=== PATIENT | female | born 1940 | race Caucasian/White ===

== ENCOUNTER 2016-03-10 14:00 | Outpatient (RCR) | payer MEDICARE ==
--- OUTSIDE RECORDS SUMMARY | 2015-12-17 09:47 | XMS REPORT | Continuity of Care Document ---
Author Author [facility] Organization [facility] Address Unknown Phone Unavailable Care Team Providers Care [employer] Name Role Phone Kim Donnelly PCP [phone] Source Comments Some departments are not documenting in the electronic medical record. If you do not see the information that you expected, contact Release of Information in the Health Information Management department at [phone] for further assistance in locating additional records.[facility] Active Allergies and Adverse Reactions Allergen Noted Date Severity Reactions Comments Demerol 07/21/2013 Low NAUSEA AND VOMITING Patient tolerated 12.5mg on 10/01. Flagyl 07/21/2013 RASH Fosamax 07/21/2013 NAUSEA AND VOMITING Neurontin 08/11/2013 DIZZINESS Current Medications Prescription Sig. Disp. Refills Start End Date Status Date lisinopril (PRINIVIL; Take 10 mg by mouth Active ZESTRIL) 10 mg tablet daily. Calcium Citrate-Vitamin Take 2 Tabs by mouth Active D2 1,500-200 mg-unit tab daily. cholecalciferol (VITAMIN Take 1,000 Units by mouth Active D-3) 1,000 units tablet daily. omeprazole DR(+) Take 20 mg by mouth at Active (PRILOSEC) 20 mg capsule bedtime daily. polyethylene glycol 3350 Take 17 g by mouth daily. 238 g 3 05/17/19 Active (GLYCOLAX; MIRALAX) 17 16 gram/dose powder denosumab (XGEVA) 120 Inject 120 mg into Active mg/1.7 mL (70 mg/mL) area(s) as directed every injection 28 days. aspirin EC 81 mg tablet Take 1 Tab by mouth 90 Tab 3 10/04/19 Active daily. HOLD UNTIL YOUR 16 CENTRAL OFFICE TROUBLE SHOOTER GIVES YOU THE OK TO RESTART ondansetron hcl (ZOFRAN) Take 1 Tab by mouth every 30 Tab 0 10/04/19 Active 4 mg tablet 6 hours as needed for 16 Nausea. senna (SENOKOT) 8.6 mg Take 1 Tab by mouth twice 90 Tab 3 10/04/19 Active tablet daily. 16 prochlorperazine maleate Take 1 Tab by mouth every 30 Tab 0 10/04/19 Active (COMPAZINE) 10 mg tablet 6 hours as needed for 16 Nausea. Indications: CANCER CHEMOTHERAPY-INDUCED NAUSEA AND VOMITING fluconazole (DIFLUCAN) Take 1 Tab by mouth 60 Tab 1 10/30/19 Active 200 mg tablet daily. 16 acyclovir (ZOVIRAX) 400 Take 2 Tabs by mouth 60 Tab 0 10/30/19 Active mg tablet twice daily. Indications: 16 PREVENTION OF HERPES ZOSTER IN IMMUNOCOMPROMISED PATIENT potassium chloride(+) Take 10 mEq by mouth Active (MICRO-K) 10 mEq capsule daily. Take with a meal and a full glass of water. acyclovir (ZOVIRAX) 800 1 Tab twice daily. 60 Tab 11 12/05/19 Active mg tablet 16 dexamethasone (DECADRON) Take 1 tablet by mouth 30 Tab 11 12/05/19 Active 4 mg tablet daily for 2 days starting 16 the day after each Daratumumab infusion. doxycycline (VIBRAMYCIN) Take 100 mg by mouth 12/05/19 Active 100 mg tablet twice daily. 16 triamcinolone (NASACORT) Apply 2 Sprays to each Active 55 mcg nasal inhaler nostril as directed daily. fexofenadine(+) (LISET) Take 180 mg by mouth Active 180 mg tablet daily. thalidomide (THALOMID) Take 1 Cap by mouth 28 Cap 0 09/24/19 Discontin 100 mg capsule daily. for 4 days. Do NOT 16 16 ued take remainder of pills. Take at least 1 hour after evening meal. levofloxacin (LEVAQUIN) Take 1 Tab by mouth every 15 Tab 1 10/30/19 12/10/19 Discontin 750 mg tablet 48 hours. 16 16 ued MAGNESIUM OXIDE Take by mouth. 12/10/19 Discontin (MAG-OXIDE PO) 16 ued Active Problems Problem Noted Date Encounter for antineoplastic chemotherapy 10/25/2015 Pancytopenia due to chemotherapy (HCC) 10/12/2015 Paroxysmal atrial fibrillation (HCC) 09/24/2015 Last Assessment & Plan: Pt has a hx of Paroxymal A.fib, she is not on any BB meds or cardizem. Since we are adding Thalidomide for treatment we will admit the pt to monitor bed for close follow up of her HR Plan: - Telemetry for f/u for any bradycardia or arrhythmia while on treatment - Check 12 Lead EKG Multiple myeloma in relapse (HCC) 09/24/2015 Mesenteric mass 05/15/2015 Soft tissue mass 05/10/2015 Lung nodule 05/10/2015 History of peripheral stem cell transplant (HCC) 08/24/2013 Overview: Date of Transplant: 08.24.2013 Preparative Regimen: Melphalan 140 Disease: Multiple Myeloma IgG kappa Disease Status at Transplant: 1st VGPR CMV: Positive Cell Source: Autologous/Peripheral Consents/Studies: Auto, Apheresis, Blood, 8322 Coordinator: Maggie Larson RN Low back pain 08/24/2013 Myeloma 08/11/2013 Last Assessment & Plan: Relapse/Refractory Multiple myeloma: A 74 y/o old Female with known diagnosis of IgG L Multipke myeloma dxed in 02/2013. Pt received multiple lines of therapy VD X 2 cycles/VRD x 2 cycles, s/p Zoraida 140/ASCT, achieved VGPR, followed by Lenalidomide as maintinance therapy. 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 Pt had XRT to the plasmacytoma, with minimal response per outside CT scan and was started on CFZ/dex. Pt was sent to our clinic because she has progressed on treatment. She received 2 Cycles of VDTPACE 25% reduction and she had NJ of the mesenteric mass, with Complete hematological response. I discussed with the Pt that we will need to start her on daratumumab therapy in order that we have a best response. The side effects of chemotherapy were discussed extensively with the patient to include the following: Nausea, vomiting, diarrhea, renal failure/dysfunction, constipation, nerve damage, mucositis, hair loss, myelosuppression causing infection or requiring blood product transfusion, allergic reaction, secondary malignancies and even . Question were answered. Consent signed and placed into chart. Plan:. - Start Daratumumab (Darzalex) as follows: Weeks 1 to 8: 16 mg/kg IV once per week Weeks 9 to 24: 16 mg/kg IV once every 2 weeks Weeks 25 and on: 16 mg/kg IV once every 4 weeks - Will give the first dose starting on 12/10/15 and then she can receive the rest of her treatment with her local oncologist/ I discussed the plan of care - We recommend to check myeloma markers monthly - Re-check CT scan of the abd/chest after 2 months after starting the treatment - We may consider to add Lenalidoimide or pomalidomide or even Velcade if needed to the regimen - RTC in 2 months for further evaluation Hypertension 08/11/2013 Diabetes (HCC) 08/11/2013 Last Assessment & Plan: Pt is currently on Metformin, will hold that and start her on insulin SSI while hospitalized Malignant neoplasm of left female breast (HCC) 08/11/2013 Overview: She also has a hx of breast cancer diagnosed in 1999. She underwent lumpectomy followed by XRT to her left breast. It was ER/NJ positive and she completed 4.5 yrs of endocrine therapy. She then had a recurrence of her breast cancer in 2009 and underwent a left mastectomy without other adjuvant therapy L ast Assessment & Plan: She also has a hx of breast cancer diagnosed in 1999. She underwent lumpectomy followed by XRT to her left breast. It was ER/NJ positive and she completed 4.5 yrs of endocrine therapy. She then had a recurrence of her breast cancer in 2009 and underwent a left mastectomy without other adjuvant therapy Perforated diverticulitis 08/11/2013 S/P cholecystectomy 08/11/2013 S/P colon resection 08/11/2013 Resolved Problems Problem Noted Date Resolved Date Abdominal pain 03/08/2015 09/23/2015 Most Recent Encounters Date Type Specialty Providers Description 12/11/2015 Documentation Oncology Maria A Locke MD 12/10/2015 [facility] Oncology Maria A Locke MD Encounter 12/10/2015 [facility] Oncology Doctor, Miscellaneous Arrived Encounter 12/10/2015 [facility] Oncology Maria A Locke MD Encounter 12/07/2015 Orders Only Oncology Maria A Locke MD 12/06/2015 Orders Only Oncology Maria A Locke MD Multiple myeloma, remission status unspecified (HCC) (Primary Dx) 12/06/2015 Documentation Oncology Maria A Locke MD 12/05/2015 Orders Only Oncology Maria A Locke MD Multiple myeloma in relapse (HCC) (Primary Dx) 11/27/2015 Telephone Oncology Maria A Locke MD Congestion 11/20/2015 Hospital Oncology Errol Santos MD Encounter 11/20/2015 Office Visit Oncology Maria A Locke MD Multiple myeloma, remission status unspecified (HCC) (Primary Dx); Malignant neoplasm of left female breast, unspecified site of breast (HCC) 11/20/2015 Documentation Oncology Eufemia Walker RN 11/19/2015 [facility] Radiology Maria A Locke MD Encounter 11/19/2015 [facility] Radiology Maria A Locke MD Encounter 11/19/2015 Screening Form 11/07/2015 Telephone Oncology Maria A Locke MD Appointment Request 11/07/2015 Documentation Oncology Maria A Locke MD Multiple myeloma, remission status unspecified (HCC) (Primary Dx) 11/06/2015 Telephone Oncology Maria A Locke MD Hospitalized Patient 10/29/2015 Telephone Oncology Maria A Locke MD Appointment Request 10/25/2015 [facility] Hematology and Oncology Facundo Diaz MD Encounter for - Encounter Male, Tete Salomon MD antineoplastic 10/30/2015 chemotherapy 10/25/2015 Office Visit Oncology David Reyna DO Fatigue, unspecified type Maria A Locke MD (Primary Dx); Multiple myeloma in relapse (HCC) 10/25/2015 [facility] Oncology Maria A Locke MD Encounter 10/25/2015 Orders Only Oncology Maria A Locke MD 10/15/2015 [facility] Radiology Maria A Locke MD Encounter 10/15/2015 Screening Form 10/15/2015 Ancillary Oncology Maria A Locke MD Multiple myeloma, Orders remission status unspecified (HCC) (Primary Dx) 10/04/2015 Refill Ramírez Harvey DO 10/04/2015 Telephone Oncology Maria A Locke MD Appointment Request 10/04/2015 Orders Only Oncology Maria A Locke MD Multiple myeloma, remission status unspecified (HCC) (Primary Dx) 10/03/2015 Cancer Oncology Maria A Locke MD Conference 09/25/2015 Screening Form 09/24/2015 [facility] Hematology and Oncology Male, Tete Salomon MD Multiple myeloma in - Encounter Denise Berry MD relapse (HCC) 10/04/2015 Facundo Diaz MD 09/24/2015 Office Visit Oncology Maria A Locke MD Multiple myeloma in relapse (HCC) (Primary Dx); Paroxysmal atrial fibrillation (HCC); Type 2 diabetes mellitus without complication, without long-term current use of insulin (HCC) 09/24/2015 Refill Oncology Maria A Locke MD 09/24/2015 Orders Only Oncology Umu Leal, PHARMD 09/24/2015 Orders Only Oncology Maria A Locke MD 09/21/2015 Orders Only Oncology Maria A Locke MD Multiple myeloma in relapse (HCC) (Primary Dx) 09/19/2015 Telephone Oncology Maria Alejandra Vitale RN BMT Follow-up Immunizations Name Dates Previously Given Next Due Acthib Vaccine 07/05/2014, 05/08/2014, 03/10/2014 Flu Vaccine Trivalent >64 11/20/2015 Yo High-dose (Preservative Free) Hepatitis A vaccine Adult 09/04/2014, 03/10/2014 IM Hepatitis B Vaccine Adult 09/04/2014, 05/08/2014, 03/10/2014 3 Dose IM IPV 07/05/2014, 05/08/2014, 03/10/2014 Meningococcal Conjug 03/10/2014 Vaccine Pneumococcal Vaccine 09/04/2014 (23-Sagrario Adult) Pneumococcal 07/05/2014, 05/08/2014, 03/10/2014 Vaccine(13-Sagrario Peds/immunocompromised adult) Tdap Vaccine 07/05/2014, 05/08/2014, 03/10/2014 Social History Tobacco Use Types Packs/Day Years Used Date Former Smoker Cigarettes 0.5 Quit: 08/11/1997 Smokeless Tobacco: Never Used Alcohol Use Drinks/Week oz/Week Comments No Last Filed Vital Signs Vital Sign Reading Time Taken Blood Pressure 186/78 12/10/2015 8:30 AM CDT Pulse 72 12/10/2015 7:55 AM CDT Temperature 36.5 C (97.7 F) 12/10/2015 7:55 AM CDT Respiratory Rate 16 12/10/2015 7:55 AM CDT Height 1.575 m (5' 2.01") 11/20/2015 8:43 AM CDT Weight 67.858 kg (149 lb 9.6 oz) 12/10/2015 7:55 AM CDT Body Mass Index 27.36 12/10/2015 7:55 AM CDT Oxygen Saturation 100% 12/10/2015 7:55 AM CDT Plan of Care Date Type Specialty Providers Description 01/15/2016 Appointment Oncology 01/15/2016 Appointment Oncology Maria A Locke MD [address] [place] [address] [phone] (Fax) Health Maintenance Due Date Last Done Comments Physical (Comprehensive) 1945 Exam Dilated Eye Exam 1956 Foot Exam 1956 Microalbumin 1956 Shingles Vaccine 1998 Osteoporosis Screening 10/22/2003 Prevnar/Pneumovax (#2) 03/10/2015 09/04/2014, 07/05/2014, 05/08/2014 Additional history exists Hba1c 06/09/2016 12/10/2015 Influenza Vaccine 10/17/2016 11/20/2015 Tetanus Vaccine 07/05/2024 07/05/2014, 05/08/2014, 03/10/2014 Pertussis Vaccine Completed 07/05/2014, 05/08/2014, 03/10/2014 Procedures from Last 3 Months Procedure Name Priority Date/Time Associated Diagnosis Comments PROCEDURES-SCAN 11/01/2015 Results for this 1:48 PM CDT procedure are in the results section. PROCEDURES-SCAN 10/27/2015 Results for this 1:48 PM CDT procedure are in the results section. PROCEDURES-SCAN 10/05/2015 Results for this 1:47 PM CDT procedure are in the results section. PROCEDURES-SCAN 10/05/2015 Results for this 1:45 PM CDT procedure are in the results section. PROCEDURES-SCAN 09/25/2015 Results for this 9:04 AM CDT procedure are in the results section. CONSULT IV THERAPY TEAM Routine 09/24/2015 2:17 PM CDT Results from Last 3 Months HEMOGLOBIN A1C (12/10/2015 7:33 AM) Component Value Range Hemoglobin A1C 6.6 (H)Comment: 4.0-6.0 % The ADA recommends that most patients with type 1 and type 2 diabetes maintain an A1c level <7%. TYPE & CROSSMATCH (12/10/2015 7:13 AM)Only the most recent of 3 results within the time period is included. Component Value Range Units Ordered 0 Crossmatch Expires 12/13/2015 Record Check FOUND ABO/RH(D) B POS Antibody Screen NEG Patient has a history of a clinically significant antibody. Specimen Blood COMPREHENSIVE METABOLIC PANEL (12/10/2015 6:58 AM)Only the most recent of 19 results within the time period is included. Component Value Range Sodium 140 137-147 MMOL/L Potassium 3.4 (L) 3.5-5.1 MMOL/L Chloride 108 98-110 MMOL/L Glucose 169 (H) 70-100 MG/DL Blood Urea Nitrogen 16 7-25 MG/DL Creatinine 0.88 0.4-1.00 MG/DL Calcium 8.8 8.5-10.6 MG/DL Total Protein 5.7 (L) 6.0-8.0 G/DL Total Bilirubin 0.3 0.3-1.2 MG/DL Albumin 3.5 3.5-5.0 G/DL Alk Phosphatase 54 25-110 U/L AST (SGOT) 11 7-40 U/L CO2 25 21-30 MMOL/L ALT (SGPT) 11 7-56 U/L Anion Gap 7 3-12 eGFR Non >60Comment: >60 mL/min The eGFR is not validated for use in drug dosing adjustments. Continue to use estimated creatinine clearance per dosing reference text. Please contact the Clinical Pharmacist for questions. eGFR >60Comment: >60 mL/min The eGFR is not validated for use in drug dosing adjustments. Continue to use estimated creatinine clearance per dosing reference text. Please contact the Clinical Pharmacist for questions. Specimen Blood CBC AND DIFF (12/10/2015 6:58 AM)Only the most recent of 19 results within the time period is included. Component Value Range White Blood Cells 5.9 4.5-11.0 K/UL RBC 3.22 (L) 4.0-5.0 M/UL Hemoglobin 10.6 (L) 12.0-15.0 GM/DL Hematocrit 31.4 (L) 36-45 % MCV 97.7 80-100 FL MCH 32.9 26-34 PG MCHC 33.7 32.0-36.0 G/DL RDW 24.5 (H) 11-15 % Platelet Count 171 150-400 K/UL MPV 7.8 7-11 FL Neutrophils 69 41-77 % Lymphocytes 16 (L) 24-44 % Monocytes 12 4-12 % Eosinophils 2 0-5 % Basophils 1 0-2 % Absolute Neutrophil Count 4.10 1.8-7.0 K/UL Absolute Lymph Count 0.90 (L) 1.0-4.8 K/UL Absolute Monocyte Count 0.70 0-0.80 K/UL Absolute Eosinophil Count 0.10 0-0.45 K/UL Absolute Basophil Count 0.10 0-0.20 K/UL Specimen Blood CT CHEST W CONTRAST (11/19/2015 2:43 PM) Impressions CHEST: 1. Stable solid right upper and groundglass left upper lobe nodular opacities. These remain indeterminate but are unchanged dating back to 05/11/2015. Follow- up CT chest in 6 months is suggested to document stability. 2. No thoracic lymphadenopathy. 3. Stable patchy marrow heterogeneity compatible with known multiple myeloma. No definite new aggressive or expansile osseous lesion. 4. Coronary artery disease. ABDOMEN AND PELVIS: 1. Further mild improvement of retroperitoneal and central mesenteric lymphadenopathy. 2. Stable patchy marrow heterogeneity compatible with known multiple myeloma. No definite new aggressive or expansile osseous lesion. 3. Unchanged small ovoid soft tissue nodule within the caudal right retroperitoneum which is of doubtful clinical significance given absence of significant increased FDG uptake on prior PET examination, though attention on follow-up is suggested. 4. Moderate diffuse colonic diverticulosis. By my electronic signature, I attest that I have personally reviewed the images for this examination and formulated the interpretations and opinions expressed in this report Finalized by KRIS SHORE M.D. on 11/19/2015 4:30 PM. Dictated by Jose J Resendiz M.D. on 11/19/2015 3:[address] CHEST, ABDOMEN AND PELVIS Clinical Indication: Multiple myeloma, restaging. Technique: Multiple contiguous axial images were obtained through the chest, abdomen and pelvis following the administration of IV contrast material. Portal venous and delayed imaging was obtained. Post processing coronal and sagittal reconstruction images were made from the axial images. IV contrast: Isovue 370. Comparison: CT abdomen/pelvis October 15, 2015 and PET examination September 25, 2015. CHEST FINDINGS: Lower Neck: Unremarkable Axilla, Mediastinum and Betty: No thoracic lymphadenopathy is identified. There is a right chest port in place with its distal tip within the mid to upper SVC. Heart and Great Vessels: The heart is normal in size. There is trace pericardial fluid. There are three-vessel coronary artery calcifications. The thoracic aorta is normal caliber with mild atherosclerotic calcifications. Airway, Lungs and Pleura: There is an unchanged 1.2 cm right upper lobe pulmonary nodule (image 16, series 2) which is unchanged since the oldest available examination of April 2015. A somewhat ill-defined groundglass nodule measuring up to 1.4 cm within the left upper lobe is also stable (image 19, series 2). No definite new or enlarging pulmonary nodules are identified. There is mild dependent atelectasis and/or scarring throughout both lungs. Chest Wall and Osseous Structures: There is prior left mastectomy. Note is made of prior multilevel cement augmentation of the thoracic spine with multiple unchanged mild vertebral body compression deformities. Unchanged areas of extruded methylmethacrylate in the posterior mediastinum. There are stable scattered areas of marrow heterogeneity and sclerosis with an unchanged lytic lesion within the left sternal manubrium (image 14, series 2). ABDOMEN AND PELVIS FINDINGS: Liver and Biliary system: The liver remains normal in size. There are a few stable low-attenuation hepatic lesions which are incompletely characterized, though likely small cysts. No definite new or enlarging hepatic lesions are identified. Spleen: Unremarkable. Adrenal Glands and Kidneys: Unremarkable apart from stable small probable bilateral renal cysts and small right adrenal gland adenoma. Pancreas and Retroperitoneum: The pancreas is unremarkable. There is further improvement of ill-defined periaortic soft tissue thickening at the level of the aortic bifurcation and origin of the inferior mesenteric artery. There is an unchanged small ovoid soft tissue nodule within the caudal right retroperitoneum (image 85, series 2) which was without significant increased FDG uptake on prior PET. Aorta and Major Vessels: The abdominal aorta is normal caliber. There are moderate aortoiliac atherosclerotic calcifications. There is persistent mass effect and circumferential soft tissue encasement of the superior mesenteric vasculature within the central abdomen. Bowel, Mesentery and Peritoneal space: The large and small bowel remain normal caliber. There is moderate diffuse colonic diverticulosis. The appendix is normal. There is no significant ascites. There is further improvement of central mesenteric lymphadenopathy with the previously measured kylah conglomerate measuring 3.9 x 2.9 cm (image 72, series 2) from 4.6 x 3.1 cm previously. An adjacent small cystic lesion is not significantly changed (image 73, series 2). Pelvis: There is prior hysterectomy. The unopacified and urinary bladder and vaginal cuff are unremarkable. No pelvic lymphadenopathy is identified. Abdominal wall and Osseous Structures: There are patchy areas of marrow heterogeneity and lucency compatible with known multiple myeloma. There is prior cement augmentation of the L2 and L3 vertebral bodies with unchanged mild compression deformities. There is prior midline laparotomy with decreased conspicuity of multiple ill-defined areas of nodular soft tissue thickening within the anterior abdominal wall which likely represent injection site granulomas. Procedure Note Interface, Radiant Results - Mon Nov 19, 2015 4:[address] CHEST, ABDOMEN AND PELVIS Clinical Indication: Multiple myeloma, restaging. Technique: Multiple contiguous axial images were obtained through the chest, abdomen and pelvis following the administration of IV contrast material. Portal venous and delayed imaging was obtained. Post processing coronal and sagittal reconstruction images were made from the axial images. IV contrast: Isovue 370. Comparison: CT abdomen/pelvis October 15, 2015 and PET examination September 25, 2015. CHEST FINDINGS: Lower Neck: Unremarkable Axilla, Mediastinum and Betty: No thoracic lymphadenopathy is identified. There is a right chest port in place with its distal tip within the mid to upper SVC. Heart and Great Vessels: The heart is normal in size. There is trace pericardial fluid. There are three-vessel coronary artery calcifications. The thoracic aorta is normal caliber with mild atherosclerotic calcifications. Airway, Lungs and Pleura: There is an unchanged 1.2 cm right upper lobe pulmonary nodule (image 16, series 2) which is unchanged since the oldest available examination of April 2015. A somewhat ill-defined groundglass nodule measuring up to 1.4 cm within the left upper lobe is also stable (image 19, series 2). No definite new or enlarging pulmonary nodules are identified. There is mild dependent atelectasis and/or scarring throughout both lungs. Chest Wall and Osseous Structures: There is prior left mastectomy. Note is made of prior multilevel cement augmentation of the thoracic spine with multiple unchanged mild vertebral body compression deformities. Unchanged areas of extruded methylmethacrylate in the posterior mediastinum. There are stable scattered areas of marrow heterogeneity and sclerosis with an unchanged lytic lesion within the left sternal manubrium (image 14, series 2). ABDOMEN AND PELVIS FINDINGS: Liver and Biliary system: The liver remains normal in size. There are a few stable low-attenuation hepatic lesions which are incompletely characterized, though likely small cysts. No definite new or enlarging hepatic lesions are identified. Spleen: Unremarkable. Adrenal Glands and Kidneys: Unremarkable apart from stable small probable bilateral renal cysts and small right adrenal gland adenoma. Pancreas and Retroperitoneum: The pancreas is unremarkable. There is further improvement of ill-defined periaortic soft tissue thickening at the level of the aortic bifurcation and origin of the inferior mesenteric artery. There is an unchanged small ovoid soft tissue nodule within the caudal right retroperitoneum (image 85, series 2) which was without significant increased FDG uptake on prior PET. Aorta and Major Vessels: The abdominal aorta is normal caliber. There are moderate aortoiliac atherosclerotic calcifications. There is persistent mass effect and circumferential soft tissue encasement of the superior mesenteric vasculature within the central abdomen. Bowel, Mesentery and Peritoneal space: The large and small bowel remain normal caliber. There is moderate diffuse colonic diverticulosis. The appendix is normal. There is no significant ascites. There is further improvement of central mesenteric lymphadenopathy with the previously measured kylah conglomerate measuring 3.9 x 2.9 cm (image 72, series 2) from 4.6 x 3.1 cm previously. An adjacent small cystic lesion is not significantly changed (image 73, series 2). Pelvis: There is prior hysterectomy. The unopacified and urinary bladder and vaginal cuff are unremarkable. No pelvic lymphadenopathy is identified. Abdominal wall and Osseous Structures: There are patchy areas of marrow heterogeneity and lucency compatible with known multiple myeloma. There is prior cement augmentation of the L2 and L3 vertebral bodies with unchanged mild compression deformities. There is prior midline laparotomy with decreased conspicuity of multiple ill-defined areas of nodular soft tissue thickening within the anterior abdominal wall which likely represent injection site granulomas. IMPRESSION CHEST: 1. Stable solid right upper and groundglass left upper lobe nodular opacities. These remain indeterminate but are unchanged dating back to 05/11/2015. Follow- up CT chest in 6 months is suggested to document stability. 2. No thoracic lymphadenopathy. 3. Stable patchy marrow heterogeneity compatible with known multiple myeloma. No definite new aggressive or expansile osseous lesion. 4. Coronary artery disease. ABDOMEN AND PELVIS: 1. Further mild improvement of retroperitoneal and central mesenteric lymphadenopathy. 2. Stable patchy marrow heterogeneity compatible with known multiple myeloma. No definite new aggressive or expansile osseous lesion. 3. Unchanged small ovoid soft tissue nodule within the caudal right retroperitoneum which is of doubtful clinical significance given absence of significant increased FDG uptake on prior PET examination, though attention on follow-up is suggested. 4. Moderate diffuse colonic diverticulosis. By my electronic signature, I attest that I have personally reviewed the images for this examination and formulated the interpretations and opinions expressed in this report Finalized by KRIS SHORE M.D. on 11/19/2015 4:30 PM. Dictated by Jose J Resendiz M.D. on 11/19/2015 3:[address] ABD/PELV W CONTRAST (11/19/2015 2:43 PM)Only the most recent of 2 results within the time period is included. Impressions CHEST: 1. Stable solid right upper and groundglass left upper lobe nodular opacities. These remain indeterminate but are unchanged dating back to 05/11/2015. Follow- up CT chest in 6 months is suggested to document stability. 2. No thoracic lymphadenopathy. 3. Stable patchy marrow heterogeneity compatible with known multiple myeloma. No definite new aggressive or expansile osseous lesion. 4. Coronary artery disease. ABDOMEN AND PELVIS: 1. Further mild improvement of retroperitoneal and central mesenteric lymphadenopathy. 2. Stable patchy marrow heterogeneity compatible with known multiple myeloma. No definite new aggressive or expansile osseous lesion. 3. Unchanged small ovoid soft tissue nodule within the caudal right retroperitoneum which is of doubtful clinical significance given absence of significant increased FDG uptake on prior PET examination, though attention on follow-up is suggested. 4. Moderate diffuse colonic diverticulosis. By my electronic signature, I attest that I have personally reviewed the images for this examination and formulated the interpretations and opinions expressed in this report Finalized by KRIS SHORE M.D. on 11/19/2015 4:30 PM. Dictated by Jose J Resendiz M.D. on 11/19/2015 3:[address] CHEST, ABDOMEN AND PELVIS Clinical Indication: Multiple myeloma, restaging. Technique: Multiple contiguous axial images were obtained through the chest, abdomen and pelvis following the administration of IV contrast material. Portal venous and delayed imaging was obtained. Post processing coronal and sagittal reconstruction images were made from the axial images. IV contrast: Isovue 370. Comparison: CT abdomen/pelvis October 15, 2015 and PET examination September 25, 2015. CHEST FINDINGS: Lower Neck: Unremarkable Axilla, Mediastinum and Betty: No thoracic lymphadenopathy is identified. There is a right chest port in place with its distal tip within the mid to upper SVC. Heart and Great Vessels: The heart is normal in size. There is trace pericardial fluid. There are three-vessel coronary artery calcifications. The thoracic aorta is normal caliber with mild atherosclerotic calcifications. Airway, Lungs and Pleura: There is an unchanged 1.2 cm right upper lobe pulmonary nodule (image 16, series 2) which is unchanged since the oldest available examination of April 2015. A somewhat ill-defined groundglass nodule measuring up to 1.4 cm within the left upper lobe is also stable (image 19, series 2). No definite new or enlarging pulmonary nodules are identified. There is mild dependent atelectasis and/or scarring throughout both lungs. Chest Wall and Osseous Structures: There is prior left mastectomy. Note is made of prior multilevel cement augmentation of the thoracic spine with multiple unchanged mild vertebral body compression deformities. Unchanged areas of extruded methylmethacrylate in the posterior mediastinum. There are stable scattered areas of marrow heterogeneity and sclerosis with an unchanged lytic lesion within the left sternal manubrium (image 14, series 2). ABDOMEN AND PELVIS FINDINGS: Liver and Biliary system: The liver remains normal in size. There are a few stable low-attenuation hepatic lesions which are incompletely characterized, though likely small cysts. No definite new or enlarging hepatic lesions are identified. Spleen: Unremarkable. Adrenal Glands and Kidneys: Unremarkable apart from stable small probable bilateral renal cysts and small right adrenal gland adenoma. Pancreas and Retroperitoneum: The pancreas is unremarkable. There is further improvement of ill-defined periaortic soft tissue thickening at the level of the aortic bifurcation and origin of the inferior mesenteric artery. There is an unchanged small ovoid soft tissue nodule within the caudal right retroperitoneum (image 85, series 2) which was without significant increased FDG uptake on prior PET. Aorta and Major Vessels: The abdominal aorta is normal caliber. There are moderate aortoiliac atherosclerotic calcifications. There is persistent mass effect and circumferential soft tissue encasement of the superior mesenteric vasculature within the central abdomen. Bowel, Mesentery and Peritoneal space: The large and small bowel remain normal caliber. There is moderate diffuse colonic diverticulosis. The appendix is normal. There is no significant ascites. There is further improvement of central mesenteric lymphadenopathy with the previously measured kylah conglomerate measuring 3.9 x 2.9 cm (image 72, series 2) from 4.6 x 3.1 cm previously. An adjacent small cystic lesion is not significantly changed (image 73, series 2). Pelvis: There is prior hysterectomy. The unopacified and urinary bladder and vaginal cuff are unremarkable. No pelvic lymphadenopathy is identified. Abdominal wall and Osseous Structures: There are patchy areas of marrow heterogeneity and lucency compatible with known multiple myeloma. There is prior cement augmentation of the L2 and L3 vertebral bodies with unchanged mild compression deformities. There is prior midline laparotomy with decreased conspicuity of multiple ill-defined areas of nodular soft tissue thickening within the anterior abdominal wall which likely represent injection site granulomas. Procedure Note Interface, Radiant Results - Mon Nov 19, 2015 4:[address] CHEST, ABDOMEN AND PELVIS Clinical Indication: Multiple myeloma, restaging. Technique: Multiple contiguous axial images were obtained through the chest, abdomen and pelvis following the administration of IV contrast material. Portal venous and delayed imaging was obtained. Post processing coronal and sagittal reconstruction images were made from the axial images. IV contrast: Isovue 370. Comparison: CT abdomen/pelvis October 15, 2015 and PET examination September 25, 2015. CHEST FINDINGS: Lower Neck: Unremarkable Axilla, Mediastinum and Betty: No thoracic lymphadenopathy is identified. There is a right chest port in place with its distal tip within the mid to upper SVC. Heart and Great Vessels: The heart is normal in size. There is trace pericardial fluid. There are three-vessel coronary artery calcifications. The thoracic aorta is normal caliber with mild atherosclerotic calcifications. Airway, Lungs and Pleura: There is an unchanged 1.2 cm right upper lobe pulmonary nodule (image 16, series 2) which is unchanged since the oldest available examination of April 2015. A somewhat ill-defined groundglass nodule measuring up to 1.4 cm within the left upper lobe is also stable (image 19, series 2). No definite new or enlarging pulmonary nodules are identified. There is mild dependent atelectasis and/or scarring throughout both lungs. Chest Wall and Osseous Structures: There is prior left mastectomy. Note is made of prior multilevel cement augmentation of the thoracic spine with multiple unchanged mild vertebral body compression deformities. Unchanged areas of extruded methylmethacrylate in the posterior mediastinum. There are stable scattered areas of marrow heterogeneity and sclerosis with an unchanged lytic lesion within the left sternal manubrium (image 14, series 2). ABDOMEN AND PELVIS FINDINGS: Liver and Biliary system: The liver remains normal in size. There are a few stable low-attenuation hepatic lesions which are incompletely characterized, though likely small cysts. No definite new or enlarging hepatic lesions are identified. Spleen: Unremarkable. Adrenal Glands and Kidneys: Unremarkable apart from stable small probable bilateral renal cysts and small right adrenal gland adenoma. Pancreas and Retroperitoneum: The pancreas is unremarkable. There is further improvement of ill-defined periaortic soft tissue thickening at the level of the aortic bifurcation and origin of the inferior mesenteric artery. There is an unchanged small ovoid soft tissue nodule within the caudal right retroperitoneum (image 85, series 2) which was without significant increased FDG uptake on prior PET. Aorta and Major Vessels: The abdominal aorta is normal caliber. There are moderate aortoiliac atherosclerotic calcifications. There is persistent mass effect and circumferential soft tissue encasement of the superior mesenteric vasculature within the central abdomen. Bowel, Mesentery and Peritoneal space: The large and small bowel remain normal caliber. There is moderate diffuse colonic diverticulosis. The appendix is normal. There is no significant ascites. There is further improvement of central mesenteric lymphadenopathy with the previously measured kylah conglomerate measuring 3.9 x 2.9 cm (image 72, series 2) from 4.6 x 3.1 cm previously. An adjacent small cystic lesion is not significantly changed (image 73, series 2). Pelvis: There is prior hysterectomy. The unopacified and urinary bladder and vaginal cuff are unremarkable. No pelvic lymphadenopathy is identified. Abdominal wall and Osseous Structures: There are patchy areas of marrow heterogeneity and lucency compatible with known multiple myeloma. There is prior cement augmentation of the L2 and L3 vertebral bodies with unchanged mild compression deformities. There is prior midline laparotomy with decreased conspicuity of multiple ill-defined areas of nodular soft tissue thickening within the anterior abdominal wall which likely represent injection site granulomas. IMPRESSION CHEST: 1. Stable solid right upper and groundglass left upper lobe nodular opacities. These remain indeterminate but are unchanged dating back to 05/11/2015. Follow- up CT chest in 6 months is suggested to document stability. 2. No thoracic lymphadenopathy. 3. Stable patchy marrow heterogeneity compatible with known multiple myeloma. No definite new aggressive or expansile osseous lesion. 4. Coronary artery disease. ABDOMEN AND PELVIS: 1. Further mild improvement of retroperitoneal and central mesenteric lymphadenopathy. 2. Stable patchy marrow heterogeneity compatible with known multiple myeloma. No definite new aggressive or expansile osseous lesion. 3. Unchanged small ovoid soft tissue nodule within the caudal right retroperitoneum which is of doubtful clinical significance given absence of significant increased FDG uptake on prior PET examination, though attention on follow-up is suggested. 4. Moderate diffuse colonic diverticulosis. By my electronic signature, I attest that I have personally reviewed the images for this examination and formulated the interpretations and opinions expressed in this report Finalized by KRIS SHORE M.D. on 11/19/2015 4:30 PM. Dictated by Jose J Resendiz M.D. on 11/19/2015 3:17 PM. AUTO DIFF (11/19/2015 1:35 PM) Component Value Range Neutrophils 74 41-77 % Lymphocytes 14 (L) 24-44 % Monocytes 11 4-12 % Basophils 1 0-2 % Absolute Neutrophil Count 3.5 1.8-7.0 K/UL Absolute Lymph Count 0.7 (L) 1.0-4.8 K/UL Absolute Monocyte Count 0.5 0-0.80 K/UL Absolute Eosinophil Count 0.0 0-0.45 K/UL Absolute Basophil Count 0.0 0-0.20 K/UL KAPPA/LAMBDA FREE LIGHT CHAINS (11/19/2015 1:35 PM)Only the most recent of 4 results within the time period is included. Component Value Range [place], FLC 0.53Comment: 0.33-1.94 MG/DL Freelite results should always be interpreted in conjunction with other laboratory tests and clinical evidence. The possibility of Antigen Excess exists and can cause Immunoassays to under estimate very high concentrations of antigen. Any discordant results should be discussed with Dr. Quezada. Note: Testing instrumentation has changed. The reference range remains the same. Lambda, FLC 0.82 0.57-2.63 MG/DL [place]/Lambda FLC 0.65 0.26-1.65 Specimen Blood ELECTROPHORESIS-SERUM PROTEIN (11/19/2015 1:35 PM)Only the most recent of 2 results within the time period is included. Component Value Range Total Protein-SEP 5.9 (L) 6.0-8.0 G/DL Albumin % 61.8 48-68 % Alpha 1 % 5.5 2-6 % Alpha 2 % 15.0 5-15 % Beta %,Serum 14.6 9-17 % Gamma % 3.1 (L) 9-21 % Interpretation - SEP HYPOGAMMAGLOBULINEMIA Pathologist Signature INTERPRETED BY GINA PENG M.D. By the PATH SIGNATURE ABOVE, I attest that I have personally formulated the final interpretation expressed in this report and that the above diagnosis is based upon my examination of the slides and/or other material indicated in this report. Specimen Blood PROCEDURES-SCAN (11/01/2015 1:48 PM) Narrative Ordered by an unspecified provider. POC GLUCOSE (10/30/2015 12:14 PM)Only the most recent of 66 results within the time period is included. Component Value Range Glucose, POC 167 (H) 70-100 MG/DL VRE SCREEN (10/30/2015 6:30 AM)Only the most recent of 4 results within the time period is included. Component Value Range Battery Name VRE SCREEN Specimen Description PERIRECTAL SWAB Special Requests NONE Culture NO VRE ISOLATED Report Status FINAL 10/31/2015 Specimen Perirectal Swab URIC ACID (10/30/2015 3:40 AM)Only the most recent of 17 results within the time period is included. Component Value Range Uric Acid 3.0 2.0-7.0 MG/DL Specimen Blood LDH-LACTATE DEHYDROGENASE (10/30/2015 3:40 AM)Only the most recent of 18 results within the time period is included. Component Value Range Lactate Dehydrogenase 159 100-210 U/L Specimen Blood D-DIMER (10/30/2015 3:40 AM)Only the most recent of 6 results within the time period is included. Component Value Range D-Dimer 485 (H)Comment: <230 ng/mL DDU The D-dimer cut off value for deep vein thrombosis and pulmonary embolism is 230 ng/mL DDU. Specimen Blood FIBRINOGEN (10/30/2015 3:40 AM)Only the most recent of 17 results within the time period is included. Component Value Range Fibrinogen 270 200-400 MG/DL Specimen Blood PHOSPHORUS (10/30/2015 3:40 AM)Only the most recent of 15 results within the time period is included. Component Value Range Phosphorus 2.1 2.0-4.0 MG/DL Specimen Blood MAGNESIUM (10/30/2015 3:40 AM)Only the most recent of 7 results within the time period is included. Component Value Range Magnesium 2.1 1.6-2.6 MG/DL Specimen Blood BLOOD BANK SAMPLE HOLD (10/29/2015 2:47 AM)Only the most recent of 3 results within the time period is included. Component Value Range BB Sample hold IN LAB ABDOMEN AP ONLY (10/28/2015 8:32 AM) Impressions No radiographic evidence of bowel obstruction. Approved by Bianca Meneses M.D. on 10/28/2015 11:30 AM By my electronic signature, I attest that I have personally reviewed the images for this examination and formulated the interpretations and opinions expressed in this report Finalized by Renato King M.D. on 10/28/2015 11:41 AM. Dictated by Bianca Meneses M.D. on 10/28/2015 8:47 AM. Narrative Procedure: ABDOMEN AP ONLY Clinical Indication: No bowel movement for four days Comparison: 05/17/2015 Findings: The bowel gas pattern is nonobstructive. There is moderate retained fecal material throughout the colon. No definite free intraperitoneal air on these supine radiographs. The visualized lung bases are clear. The lower thoracic aorta is tortuous. Expansile lytic lesion in the right ischium is again noted. Multilevel thoracic and lumbar vertebroplasties. Procedure Note Interface, Radiant Results - Sun Oct 28, 2015 11:44 AM CDT Procedure: ABDOMEN AP ONLY Clinical Indication: No bowel movement for four days Comparison: 05/17/2015 Findings: The bowel gas pattern is nonobstructive. There is moderate retained fecal material throughout the colon. No definite free intraperitoneal air on these supine radiographs. The visualized lung bases are clear. The lower thoracic aorta is tortuous. Expansile lytic lesion in the right ischium is again noted. Multilevel thoracic and lumbar vertebroplasties. IMPRESSION No radiographic evidence of bowel obstruction. Approved by Bianca Meneses M.D. on 10/28/2015 11:30 AM By my electronic signature, I attest that I have personally reviewed the images for this examination and formulated the interpretations and opinions expressed in this report Finalized by Renato King M.D. on 10/28/2015 11:41 AM. Dictated by Bianca Menesse M.D. on 10/28/2015 8:47 AM. PROCEDURES-SCAN (10/27/2015 1:48 PM) Narrative Ordered by an unspecified provider. PTT (APTT) (10/25/2015 3:57 PM)Only the most recent of 2 results within the time period is included. Component Value Range APTT 27.0 24.0-40.0 SEC Specimen Blood PROTIME INR (PT) (10/25/2015 3:57 PM)Only the most recent of 2 results within the time period is included. Component Value Range INR 0.9 0.8-1.2 Specimen Blood TSH WITH FREE T4 REFLEX (10/25/2015 6:58 AM) Component Value Range TSH 4.658 0.35-5.00 MCU/ML IMMUNOFIXATION, SERUM (IFES) (10/25/2015 6:58 AM)Only the most recent of 2 results within the time period is included. Component Value Range Immuno Fix-Serum FAINT IGG LAMBDA PARAPROTEIN Pathologist Signature INTERPRETED BY COLEEN QUEZADA M.D. By the PATH SIGNATURE ABOVE, I attest that I have personally formulated the final interpretation expressed in this report and that the above diagnosis is based upon my examination of the slides and/or other material indicated in this report. Specimen Blood CYTOGENETICS SCAN (10/05/2015 3:51 PM) Narrative Ordered by an unspecified provider. PROCEDURES-SCAN (10/05/2015 1:47 PM) Narrative Ordered by an unspecified provider. PROCEDURES-SCAN (10/05/2015 1:45 PM) Narrative Ordered by an unspecified provider. BETA 2 MICROGLOBULIN (10/01/2015 6:20 PM)Only the most recent of 2 results within the time period is included. Component Value Range B2 Microglobulin 2.7 (H) 0.8-2.3 MG/L Specimen Blood CULTURE-BLOOD W/SENSITIVITY (10/01/2015 1:50 PM)Only the most recent of 3 results within the time period is included. Component Value Range Battery Name BLOOD CULTURE Specimen Description BLOOD NO SITE LISTED Special Requests NONE Culture NO GROWTH 5 DAYS Report Status FINAL 10/07/2015 Specimen Blood URINALYSIS, MICROSCOPIC (10/01/2015 1:35 PM) Component Value Range WBCs,UA 0-2 0-2 /HPF RBCs,UA 0-2 0-3 /HPF MucousUA TRACE Specimen Urine URINALYSIS DIPSTICK (10/01/2015 1:35 PM) Component Value Range Color,UA STRAW Turbidity,UA CLEAR CLEAR-CLEAR Specific [place]-Urine 1.011 1.003-1.035 pH,UA 7.0 5.0-8.0 Protein,UA 2+ (A) NEG-NEG Glucose,UA 2+ (A) NEG-NEG Ketones,UA NEG NEG-NEG Bilirubin,UA NEG NEG-NEG Blood,UA NEG NEG-NEG Urobilinogen,UA NORMAL NORM-NORMAL Nitrite,UA NEG NEG-NEG Leukocytes,UA NEG NEG-NEG Urine Ascorbic Acid, UA NEG NEG-NEG Specimen Urine URINE HGB FOR TRANFUSION REACTION (10/01/2015 1:35 PM) Component Value Range Urine Hgb on Transfusion NEG RX Specimen Urine TRANSFUSION REACTION EVALUATION (10/01/2015 1:13 PM) Component Value Range Clerical Check NO ERRORS DETECTED Pre Trans Spec Appearance NO VISIBLE HEMOLYSIS Post Trans Spec NO VISIBLE HEMOLYSIS Appearance ABO/RH(D) B POS SUSHMA, Broad Spectrum NEG Maria De Jesus Hemoglobin on Urine NEG Supernate Path Interpretation of Chills may be due to cytokines in the RBC unit or Reaction unrelated to transfusion. Transfusion Reaction SEE METALIZER FIELD OPERATION FOR REPORT Report Pathology Signature INTERPRETED BY COLEEN QUEZADA M.D. By the PATH SIGNATURE ABOVE, I attest that I have personally formulated the final interpretation expressed in this report and that the above diagnosis is based upon my examination of the slides and/or other material indicated in this report. Specimen Blood GRAM STAIN (10/01/2015) Component Value Range Battery Name GRAM STAIN Specimen Description RBC Special Requests NONE Gram Stain NO ORGANISMS SEEN NOTIFIED HOWARD AT 1451 ON 10.01.15 BY LD Report Status FINAL 10/01/2015 Specimen Rbc UA REFLEX CULTURE LABEL (09/30/2015 8:49 PM) Component Value Range UA Reflex Culture LAB LABEL Specimen Urine URINALYSIS MICROSCOPIC REFLEX TO CULTURE (09/30/2015 8:49 PM) Component Value Range WBCs,UA NONE 0-2 /HPF RBCs,UA 0-2 0-3 /HPF Comment,UA Urine submitted for reflex culture if criteria are met:WBC>10, positive nitrite and/or positive leukocyte esterase. If quantity is not sufficient, an addendum will follow. Specimen Urine URINALYSIS DIPSTICK REFLEX TO CULTURE (09/30/2015 8:49 PM) Component Value Range Color,UA STRAW Turbidity,UA CLEAR CLEAR-CLEAR Specific [place]-Urine 1.010 1.003-1.035 pH,UA 6.0 5.0-8.0 Protein,UA 2+ (A) NEG-NEG Glucose,UA 2+ (A) NEG-NEG Ketones,UA NEG NEG-NEG Bilirubin,UA NEG NEG-NEG Blood,UA NEG NEG-NEG Urobilinogen,UA NORMAL NORM-NORMAL Nitrite,UA NEG NEG-NEG Leukocytes,UA NEG NEG-NEG Urine Ascorbic Acid, UA NEG NEG-NEG Specimen Urine US DOPPLER VENOUS RIGHT (09/27/2015 10:45 AM) Impressions No evidence of right upper extremity DVT. Approved by Drea Arroyo M.D. on 09/27/2015 11:54 AM By my electronic signature, I attest that I have personally reviewed the images for this examination and formulated the interpretations and opinions expressed in this report Finalized by Jake Blevins M.D. on 09/27/2015 4:11 PM. Dictated by Drea Arroyo M.D. on 09/27/2015 11:53 AM. Narrative Ultrasound Doppler of right upper extremity: Clinical Indication: Right upper extremity swelling Technique: Multiple real-time grayscale sonographic images were obtained throughout the right upper extremity with additional color Doppler and duplex acquisitions. Findings: Dr. Blevins has personally reviewed these images and formulated the interpretations and opinions expressed in this report. The lateral right subclavian vein was not visualized due to overlying port. There is no filling defect within the right cephalic, brachial, basilic or axillary veins in the right upper extremity. The right subclavian, internal jugular and innominate veins are otherwise widely patent. There is no evidence of soft tissue mass or fluid collection identified. Procedure Note Interface, Radiant Results - Mary Kay Sep 27, 2015 4:14 PM CDT Ultrasound Doppler of right upper extremity: Clinical Indication: Right upper extremity swelling Technique: Multiple real-time grayscale sonographic images were obtained throughout the right upper extremity with additional color Doppler and duplex acquisitions. Findings: Dr. Blevins has personally reviewed these images and formulated the interpretations and opinions expressed in this report. The lateral right subclavian vein was not visualized due to overlying port. There is no filling defect within the right cephalic, brachial, basilic or axillary veins in the right upper extremity. The right subclavian, internal jugular and innominate veins are otherwise widely patent. There is no evidence of soft tissue mass or fluid collection identified. IMPRESSION No evidence of right upper extremity DVT. Approved by Drea Arroyo M.D. on 09/27/2015 11:54 AM By my electronic signature, I attest that I have personally reviewed the images for this examination and formulated the interpretations and opinions expressed in this report Finalized by Jake Blevins M.D. on 09/27/2015 4:11 PM. Dictated by Drea Arroyo M.D. on 09/27/2015 11:53 AM. TRANSFUSE RBC'S NON-BLEEDING PT (09/25/2015 8:01 PM)Only the most recent of 2 results within the time period is included. Specimen Blood NM PET SCAN WHOLEBODY (HEAD-TOES) (09/25/2015 2:10 PM) Impressions 1. Development of new hypermetabolic central mesenteric and retroperitoneal masses compatible with progression of known multiple myeloma. 2. Development of a hypermetabolic posterior left 11th rib lesion compatible with a new site of osseous involvement by multiple myeloma. 3. Unchanged 1.2 cm right upper lobe pulmonary nodule which may be benign given lack of significant FDG uptake and stability. Attention on follow-up is suggested. Approved by Jose J Resendiz M.D. on 09/25/2015 3:26 PM By my electronic signature, I attest that I have personally reviewed the images for this examination and formulated the interpretations and opinions expressed in this report Finalized by Renato King M.D. on 09/25/2015 4:28 PM. Dictated by Jose J Resendiz M.D. on 09/25/2015 2:33 PM. Narrative PET/CT HEAD, NECK, CHEST, ABDOMEN, PELVIS AND EXTREMITIES (WHOLE BODY) RADIOPHARMACEUTICAL:16.2 mCi F-18 Fluorodeoxyglucose (FDG) IV. TECHNIQUE:Beginning approximately 99 minutes after tracer administration, routine whole body PET/CT imaging was performed from the top of the head to the tip of the toes.PET images were reviewed in standard orthogonal projections. Low dose non-contrast CT imaging was performed for attenuation correction and localization purposes. BLOOD GLUCOSE LEVEL AT THE TIME OF RADIOPHARMACEUTICAL ADMINISTRATION:201 mg /dl CLINICAL HISTORY:Multiple myeloma, refractory, mass or lump within the pelvis. COMPARISON: Prior PET May 11, 2015. FINDINGS: The mean and maximum hepatic SUVs are 2.5 and 3.7 respectively. The mean and maximum blood pool SUV are 1.7 and 2.5 respectively. Head/Neck: No suspicious hypermetabolic lesions are identified in these regions. Chest: No suspicious hypermetabolic lesions are identified within the chest. Abdomen/Pelvis: There is physiologic activity within the kidneys and urinary bladder with persistent mild left hydroureteronephrosis. There is redemonstration of a large conglomerate mass within the central abdominal mesentery with a maximum SUV of 7.1 (image 165, index 515) from 4.9 previously. There is development of a few new markedly hypermetabolic mesenteric nodules as demonstrated along the caudal margin of the aforementioned conglomerate mesenteric mass with a maximum SUV of 14.4 (image 181, index 567). There is near complete resolution of the left iliac kylah mass. There is development of a large hypermetabolic retroperitoneal mass at the level of the aortic bifurcation with circumferential soft tissue encasement of the distal abdominal aorta and proximal bilateral common iliac arteries. There are a few additional mildly hypermetabolic retroperitoneal lymph nodes. There is development of a few mildly enlarged left external iliac lymph nodes with increased FDG uptake. Osseous Structures: There is redemonstration of diffuse marrow heterogeneity with a few patchy areas of low-grade FDG uptake. There is development of a hypermetabolic lesion involving the posterior left 11th rib with a maximum SUV of 4.7 (image 151, index 469). There is mild residual increased FDG uptake within a few mid to lower thoracic vertebral bodies which is less conspicuous on the uncorrected images and may be related to prior vertebroplasty. Extremities: No suspicious hypermetabolic lesions are noted within the extremities. Additional significant low dose CT findings: There is a stable somewhat irregular right upper lobe nodule measuring up to 1.2 cm (image 96) without corresponding increased FDG uptake. A right chest port remains in similar position. There is prior left mastectomy. There are coronary artery calcifications. There is a small probable right renal cyst. There is diffuse colonic diverticulosis. There is prior hysterectomy. There is prior midline laparotomy. Procedure Note Interface, Radiant Results - Tue Sep 25, 2015 4:31 PM CDT PET/CT HEAD, NECK, CHEST, ABDOMEN, PELVIS AND EXTREMITIES (WHOLE BODY) RADIOPHARMACEUTICAL: 16.2 mCi F-18 Fluorodeoxyglucose (FDG) IV. TECHNIQUE: Beginning approximately 99 minutes after tracer administration, routine whole body PET/CT imaging was performed from the top of the head to the tip of the toes. PET images were reviewed in standard orthogonal projections. Low dose non-contrast CT imaging was performed for attenuation correction and localization purposes. BLOOD GLUCOSE LEVEL AT THE TIME OF RADIOPHARMACEUTICAL ADMINISTRATION: 201 mg/ dl CLINICAL HISTORY: Multiple myeloma, refractory, mass or lump within the pelvis. COMPARISON: Prior PET May 11, 2015. FINDINGS: The mean and maximum hepatic SUVs are 2.5 and 3.7 respectively. The mean and maximum blood pool SUV are 1.7 and 2.5 respectively. Head/Neck: No suspicious hypermetabolic lesions are identified in these regions. Chest: No suspicious hypermetabolic lesions are identified within the chest. Abdomen/Pelvis: There is physiologic activity within the kidneys and urinary bladder with persistent mild left hydroureteronephrosis. There is redemonstration of a large conglomerate mass within the central abdominal mesentery with a maximum SUV of 7.1 (image 165, index 515) from 4.9 previously. There is development of a few new markedly hypermetabolic mesenteric nodules as demonstrated along the caudal margin of the aforementioned conglomerate mesenteric mass with a maximum SUV of 14.4 (image 181, index 567). There is near complete resolution of the left iliac kylah mass. There is development of a large hypermetabolic retroperitoneal mass at the level of the aortic bifurcation with circumferential soft tissue encasement of the distal abdominal aorta and proximal bilateral common iliac arteries. There are a few additional mildly hypermetabolic retroperitoneal lymph nodes. There is development of a few mildly enlarged left external iliac lymph nodes with increased FDG uptake. Osseous Structures: There is redemonstration of diffuse marrow heterogeneity with a few patchy areas of low-grade FDG uptake. There is development of a hypermetabolic lesion involving the posterior left 11th rib with a maximum SUV of 4.7 (image 151, index 469). There is mild residual increased FDG uptake within a few mid to lower thoracic vertebral bodies which is less conspicuous on the uncorrected images and may be related to prior vertebroplasty. Extremities: No suspicious hypermetabolic lesions are noted within the extremities. Additional significant low dose CT findings: There is a stable somewhat irregular right upper lobe nodule measuring up to 1.2 cm (image 96) without corresponding increased FDG uptake. A right chest port remains in similar position. There is prior left mastectomy. There are coronary artery calcifications. There is a small probable right renal cyst. There is diffuse colonic diverticulosis. There is prior hysterectomy. There is prior midline laparotomy. IMPRESSION 1. Development of new hypermetabolic central mesenteric and retroperitoneal masses compatible with progression of known multiple myeloma. 2. Development of a hypermetabolic posterior left 11th rib lesion compatible with a new site of osseous involvement by multiple myeloma. 3. Unchanged 1.2 cm right upper lobe pulmonary nodule which may be benign given lack of significant FDG uptake and stability. Attention on follow-up is suggested. Approved by Jose J Resendiz M.D. on 09/25/2015 3:26 PM By my electronic signature, I attest that I have personally reviewed the images for this examination and formulated the interpretations and opinions expressed in this report Finalized by Renato King M.D. on 09/25/2015 4:28 PM. Dictated by Jose J Resendiz M.D. on 09/25/2015 2:33 PM. BONE MARROW (09/25/2015 11:24 AM) Component Value Range PATHOLOGY REPORT [facility] [email or web address] Jose Daniels MD, PhD, Director of Anatomic Pathology Department of Pathology and Laboratory Medicine [address] [place] [id number] Surgical Pathology Office: [phone] SURGICAL PATHOLOGY REPORT NAME: PRADEEP PEREIRA SURG PATH #: [id number] MR #: [id number] ALT ID #: LOCATION: [id number] DATE OF PROCEDURE: 09/25/2015 AGE: 74 SEX: F DATE RECEIVED: 09/25/2015 : 1940 TIME RECEIVED: 11:24 PHYSICIAN: MADDY WHITLEY APRN-[employer] DATE OF REPORT: 09/26/2015 COPY TO: DATE OF PRINTIN09/26/2015 ################################################## ###################### Final Diagnosis: Bone marrow, left iliac crest, aspirate, biopsy, clot, and touch prep: Normocellular marrow (30-40%), normal trilineage hematopoiesis and no increase in plasma cells. Peripheral blood smear: Macrocytic anemia. Attestation: By this signature, I attest that I have personally formulated the final interpretation expressed in this report and that the above diagnosis is based upon my examination of the slides and/or other material indicated in this report. +++Electronically Signed Out+++ ma/09/26/2015 Interpreted by: Herb Arcos MD, Attending Physician David Reyna D.O. Material Received: A: bone marrow clot for myeloma right B: bone marrow biopsy right History: 74-year-old female with a clinical history of myeloma/MGUS. Gross Description: A. Received in Zinc formalin labeled "right bone marrow clot" is a 4.0 x 1.3 x 0.5 cm aggregate of friable red-brown clotted blood elements. The specimen is bisected and entirely submitted in cassettes A1 and A2. (jrz) B. Received in Zinc formalin labeled "right bone marrow biopsy" is a 0.8 cm in length and 0.2 cm in diameter cylindrical, yellow-araiaz firm pieces of tissue. The specimen is submitted in cassette B1 after decalcification. (jrz) paj/09/25/2015 David Reyna D.O. Microscopic Description: CBC Data: HGB 6.9 (g/dL); RBC 2.07 (m/uL); MCV 101.9 ([place]); RDW 16.2 (%); WBC 5.1 (k/uL); PLT 157 (k/uL). Blood Smear Diff (%): Segmented neutrophils 59; band neutrophils 4; lymphocytes 25; monocytes 9; eosinophils 1; metamyelocytes 1; myelocytes 1; (Nuc RBC=0 per 100 WBC) Blood Smear Morphology: RBC: Macrocytic anemia WBC: Normal Platelets: Normal Bone Marrow Aspirate/Touch Prep Morphology: Aspirate Adequacy: Adequate Touch Prep Adequacy: Inadequate Cellularity: Normocellular Megakaryocytes: Increased in number with normal morphology Blasts: Normal Erythroid: Normal Granulocytes: Normal Lymphocytes: Normal Plasma Cells: Normal Bone Marrow Differential Cell Count (%): Blasts: 1 Promyelocytes: 3 Myelocytes: 11 Metamyelocytes: 13 Segs/Bands: 33 Eosinophils: 2 Erythroid: 32 Monocytes: 1 Lymphocytes: 4 Plasma cells: 0 M:E ratio: 1.9 Bone Marrow Core Biopsy: Adequacy: Suboptimal, fragmented Length: 0.8 cm Cellularity: 5%, not factory representative Megakaryocytes: Cannot assess Hematopoiesis: Resembles aspirate smear / touch prep Atypical Infiltrates: None Bone Marrow Cell Clot: Adequacy: Adequate Cellularity: 30-40% Pertinent Findings: Resembles core biopsy Additional Stains: Iron Stain: Not Performed Immunohistochemistry: Not Performed In Situ Hybridization: Performed. Chromogenic in situ hybridization stains for kappa and lambda on the clot section show normal numbers of polyclonal plasma cells in an interstitial pattern. Other Special Stains: Not Performed Ancillary Studies: Flow Cytometry: Performed, See separate report; [id number], which shows negative immunophenotypic study. Cytogenetics: Performed, See separate report Preliminary Diagnosis: Not Performed If immunohistochemical stains and/or in situ hybridization are cited in this report, the performance characteristics were determined by the Department of Pathology and Laboratory Medicine of the [facility] ([employer] [facility]) in compliance with CLIA'88 regulations. Some of these tests rely on the use of "analyte specific reagents" and are subject to specific labeling requirements by the FDA. Known positive and negative control tissues demonstrate appropriate staining. This testing was developed by the Department of Pathology and Laboratory Medicine of the [facility]. It has not been cleared or approved by the FDA. The FDA has determined that such clearance or approval is not necessary. FLOW CYTOMETRY (09/25/2015 11:00 AM) Component Value Range PATHOLOGY REPORT [facility] [email or web address] Opal Hernandez MD, Director of Clinical Laboratory Herb Arcos MD, Director of Flow Cytometry Laboratory Department of Pathology and Laboratory Medicine [address] [place] [id number] Surgical Pathology Office: [phone] FLOW CYTOMETRY REPORT NAME: PRADEEP PEREIRA SURG PATH #: [id number] MR #: [id number] SPECIMEN CLASS: BILLING #: [id number] ALT ID #: LOCATION: 46 DATE OF PROCEDURE: 09/25/2015 AGE: 74 SEX: F DATE RECEIVED: 09/25/2015 : 1940 TIME RECEIVED: 11:29 PHYSICIAN: PETEY AU DATE OF REPORT: 09/26/2015 COPY TO: DATE OF PRINTIN09/26/2015 Material Received: A: Bone Marrow History: 74 year old female with a clinical history of multiple myeloma. ################################################## ###################### Final Diagnosis: Bone Marrow, flow cytometry: Negative immunophenotypic study. Interpretation: Plasma cells comprise 0.10% of total events and have a normal immunophenotype. There is no immunophenotypic evidence of multiple myeloma or neoplastic plasma cells. Attestation: By this signature, I attest that I have personally formulated the final interpretation expressed in this report and that the above diagnosis is based upon my examination of the slides and/or other material indicated in this report. +++Electronically Signed Out By+++ pmw/09/25/2015 Interpreted by: Herb Arcos MD, Attending Physician Rachel Bullock D.O. Resident 09/26/2015 ################################################## ###################### Lab Data: Flow Cytometry - Multiple Myeloma, Minimal Residual Disease Panel Analytic sensitivity of the lower detection limit in this assay is 0.01% Plasma Cell Associated Markers (% Positive Cells): JR43=459; ZZ371=202; cyKappa=56; cyLambda=39; cyK/cyL ratio=1.4 Miscellaneous Markers (% Positive Cells): CD19=90; CD20=4; CD27=98; CD28=3; CD45=92; CD56=8; CD81=90; BC811=2 Cell Viability (%): n/a Number of Cells Analyzed: 500,000 Plasma Cells Detected: 0.10 Total Number of Markers: 19 Summary of Marker Combinations: 27/117/138/19/38/45/56/20; 81/28/128//45/; cyKappa/cyLambda/138/19//45 This test was developed and its performance characteristics determined by the [facility] Flow Cytometry Laboratory. It has not been cleared or approved by the U.S. Food and Drug Administration (FDA). The FDA has determined that such clearance or approval is not necessary. CHROMOSOMES BONE MARROW (09/25/2015 11:00 AM) Component Value Range Chromosomes Bone Marrow SEE METALIZER FIELD OPERATION FOR REPORT Specimen Bone Marrow LEUKEMIA/LYMPHOMA PNL, BONE MARROW (09/25/2015 11:00 AM) Component Value Range Leuk/Lymph Interpretation SEE PATHOLOGY REPORT Specimen/LLM BONE MARROW Specimen Bone Marrow BONE MARROW BIOPSY (09/25/2015 11:00 AM) Component Value Range Bone Marrow Bx SEE PATHOLOGY REPORT Specimen Bone Marrow BONE MARROW ASP (09/25/2015 11:00 AM) Component Value Range Bone Marrow Asp SEE PATHOLOGY REPORT Specimen Bone Marrow PROCEDURES-SCAN (09/25/2015 9:04 AM) Narrative Ordered by an unspecified provider. 2-D ECHOCARDIOGRAM ONLY (09/24/2015 4:46 PM) Component Value Range BSA 1.74 m2 ECHO EF 50 % Referring Provider Bud Subramanian LVIDD 4.6 3.9-5.3 cm LVIDS 3.5 cm IVS 1.2 0.6-0.9 cm PW 1.2 0.6-0.9 cm FS 23.91 28-44 % EF 40.65 % LA size 4.9 2.7-3.8 cm LA volume 43.0 22-52 mL Left Atrium Index 24.71 10-32 Right Ventricular Basal 4.0 cm (2.4-4.2) Diameter Right Atrial Area 15.4 cm2 (<=18) Right Ventricular Mid 2.5 cm (2.0-3.5) Diameter Right Atrial Major 5.4 cm (<=5.3) Dimension Right Ventricular Long 7.5 cm (5.6-8.6) Diameter Right Atrial Minor 3.3 cm (<=4.4) Dimension Sinus 3.4 2.1-3.5 cm Narrative 2-D only study Overall LV systolic function is low normal or borderline: estimated LV EF ~ 50%. LV function is not as quite a vigorous as on prior study on 08/03/2013. RV systolic function is normal Mild mitral annular calcification Pulmonary artery, pulmonic valve, and aortic arch are not well visualized Other valve structures are unremarkable IMMUNOGLOBULINS-IGA,IGG,IGM (09/24/2015 7:16 AM) Component Value Range IgG 688 (L) 762-1488 MG/DL IgA 35 (L) 70-390 MG/DL IgM <20 (L) 38-328 MG/DL Specimen Blood TOTAL PROTEIN SEP (09/24/2015 7:16 AM) Component Value Range Total Protein 5.5 (L) 6.0-8.0 g/dL Specimen Blood
[2015-12-17 10:17] LABS: BASOPHILS % (AUTO) 0 % (0-10); EOSINOPHILS # (AUTO) 0.1 10^3/uL (0.0-0.3); EOSINOPHILS % (AUTO) 3 % (0-10); LYMPHOCYTES # (AUTO) 0.7 X 10^3 (1.0-4.0); LYMPHOCYTES % (AUTO) 12 % (12-44); MEAN CORPUSCULAR HEMOGLOBIN 34 PG (25-34); MEAN CORPUSCULAR HGB CONC 35 G/DL (32-36); MEAN CORPUSCULAR VOLUME 99 FL (80-99); MEAN PLATELET VOLUME 9.7 FL (7.4-10.4); MONOCYTES # (AUTO) 0.5 X 10^3 (0.0-1.0); MONOCYTES % (AUTO) 10 % (0-12); NEUTROPHILS # (AUTO) 4.1 X 10^3 (1.8-7.8); NEUTROPHILS % (AUTO) 75 % (42-75); PLATELET COUNT 152 10^3/uL (130-400); RED BLOOD COUNT 3.14 10^6/uL (4.35-5.85); RED CELL DISTRIBUTION WIDTH 20.7 % (10.0-14.5); WHITE BLOOD COUNT 5.4 10^3/uL (4.3-11.0)
[2015-12-17 10:41] LABS: ANION GAP 7 MMOL/L (5-14); BLOOD UREA NITROGEN 15 MG/DL (7-18); BUN/CREATININE RATIO 19; CARBON DIOXIDE 26 MMOL/L (21-32); CHLORIDE 106 MMOL/L (98-107); GFR ESTIMATED > 60; GLUCOSE 213 MG/DL (70-105); POTASSIUM 3.8 MMOL/L (3.6-5.0); SODIUM 139 MMOL/L (135-145)
[2015-12-24 09:00] LABS: BASOPHILS % (AUTO) 0 % (0-10); EOSINOPHILS # (AUTO) 0.1 10^3/uL (0.0-0.3); EOSINOPHILS % (AUTO) 1 % (0-10); LYMPHOCYTES # (AUTO) 0.8 X 10^3 (1.0-4.0); LYMPHOCYTES % (AUTO) 13 % (12-44); MEAN CORPUSCULAR HEMOGLOBIN 34 PG (25-34); MEAN CORPUSCULAR HGB CONC 34 G/DL (32-36); MEAN CORPUSCULAR VOLUME 99 FL (80-99); MEAN PLATELET VOLUME 10.2 FL (7.4-10.4); MONOCYTES # (AUTO) 0.5 X 10^3 (0.0-1.0); MONOCYTES % (AUTO) 8 % (0-12); NEUTROPHILS % (AUTO) 79 % (42-75); PLATELET COUNT 172 10^3/uL (130-400); RED BLOOD COUNT 3.21 10^6/uL (4.35-5.85); RED CELL DISTRIBUTION WIDTH 20.1 % (10.0-14.5); WHITE BLOOD COUNT 6.3 10^3/uL (4.3-11.0)
[2015-12-24 09:25] LABS: ANION GAP 9 MMOL/L (5-14); BLOOD UREA NITROGEN 16 MG/DL (7-18); BUN/CREATININE RATIO 18; CALCIUM 9.1 MG/DL (8.5-10.1); CARBON DIOXIDE 22 MMOL/L (21-32); CHLORIDE 108 MMOL/L (98-107); GFR ESTIMATED > 60; GLUCOSE 259 MG/DL (70-105); POTASSIUM 3.8 MMOL/L (3.6-5.0); SODIUM 139 MMOL/L (135-145)
[2015-12-31 08:58] LABS: BASOPHILS % (AUTO) 0 % (0-10); EOSINOPHILS % (AUTO) 1 % (0-10); LYMPHOCYTES # (AUTO) 0.6 X 10^3 (1.0-4.0); LYMPHOCYTES % (AUTO) 11 % (12-44); MEAN CORPUSCULAR HEMOGLOBIN 35 PG (25-34); MEAN CORPUSCULAR HGB CONC 34 G/DL (32-36); MEAN CORPUSCULAR VOLUME 101 FL (80-99); MEAN PLATELET VOLUME 9.7 FL (7.4-10.4); MONOCYTES # (AUTO) 0.4 X 10^3 (0.0-1.0); MONOCYTES % (AUTO) 8 % (0-12); NEUTROPHILS # (AUTO) 4.7 X 10^3 (1.8-7.8); NEUTROPHILS % (AUTO) 81 % (42-75); PLATELET COUNT 140 10^3/uL (130-400); RED BLOOD COUNT 3.01 10^6/uL (4.35-5.85); WHITE BLOOD COUNT 5.8 10^3/uL (4.3-11.0)
[2015-12-31 09:14] LABS: ANION GAP 8 MMOL/L (5-14); BLOOD UREA NITROGEN 15 MG/DL (7-18); BUN/CREATININE RATIO 18; CALCIUM 8.8 MG/DL (8.5-10.1); CARBON DIOXIDE 22 MMOL/L (21-32); CHLORIDE 108 MMOL/L (98-107); CREATININE SERUM 0.84 MG/DL (0.60-1.30); GFR ESTIMATED > 60; GLUCOSE 255 MG/DL (70-105); POTASSIUM 3.9 MMOL/L (3.6-5.0); SODIUM 138 MMOL/L (135-145)
[2016-01-07 10:34] LABS: BASOPHILS % (AUTO) 0 % (0-10); EOSINOPHILS % (AUTO) 0 % (0-10); LYMPHOCYTES # (AUTO) 0.7 X 10^3 (1.0-4.0); LYMPHOCYTES % (AUTO) 13 % (12-44); MEAN CORPUSCULAR HEMOGLOBIN 34 PG (25-34); MEAN CORPUSCULAR HGB CONC 34 G/DL (32-36); MEAN CORPUSCULAR VOLUME 101 FL (80-99); MEAN PLATELET VOLUME 9.7 FL (7.4-10.4); MONOCYTES # (AUTO) 0.5 X 10^3 (0.0-1.0); MONOCYTES % (AUTO) 8 % (0-12); NEUTROPHILS # (AUTO) 4.3 X 10^3 (1.8-7.8); NEUTROPHILS % (AUTO) 78 % (42-75); PLATELET COUNT 144 10^3/uL (130-400); RED BLOOD COUNT 3.17 10^6/uL (4.35-5.85); RED CELL DISTRIBUTION WIDTH 19.7 % (10.0-14.5); WHITE BLOOD COUNT 5.5 10^3/uL (4.3-11.0)
[2016-01-07 11:06] LABS: ALBUMIN 3.7 G/DL (3.2-4.5); BILIRUBIN,TOTAL 0.3 MG/DL (0.1-1.0); CALCIUM 9.3 MG/DL (8.5-10.1); CREATININE SERUM 0.93 MG/DL (0.60-1.30); MAGNESIUM 1.6 MG/DL (1.8-2.4); TOTAL PROTEIN 5.8 G/DL (6.4-8.2)
[2016-01-08 02:47] LABS: LIGHT CHAIN KAPPA SERUM QUANT 1.38 mg/L (3.30-19.40); LIGHT CHAIN LAMBDA SERUM QUANT 4.87 mg/L (5.71-26.30)
[2016-01-14 09:11] LABS: BASOPHILS % (AUTO) 0 % (0-10); EOSINOPHILS % (AUTO) 1 % (0-10); LYMPHOCYTES # (AUTO) 0.7 X 10^3 (1.0-4.0); LYMPHOCYTES % (AUTO) 11 % (12-44); MEAN CORPUSCULAR HEMOGLOBIN 35 PG (25-34); MEAN CORPUSCULAR HGB CONC 34 G/DL (32-36); MEAN CORPUSCULAR VOLUME 103 FL (80-99); MEAN PLATELET VOLUME 9.7 FL (7.4-10.4); MONOCYTES # (AUTO) 0.6 X 10^3 (0.0-1.0); MONOCYTES % (AUTO) 9 % (0-12); NEUTROPHILS # (AUTO) 4.8 X 10^3 (1.8-7.8); NEUTROPHILS % (AUTO) 79 % (42-75); PLATELET COUNT 150 10^3/uL (130-400); RED BLOOD COUNT 2.92 10^6/uL (4.35-5.85); RED CELL DISTRIBUTION WIDTH 18.9 % (10.0-14.5); WHITE BLOOD COUNT 6.1 10^3/uL (4.3-11.0)
[2016-01-14 09:35] LABS: ANION GAP 7 MMOL/L (5-14); BLOOD UREA NITROGEN 16 MG/DL (7-18); BUN/CREATININE RATIO 19; CALCIUM 8.6 MG/DL (8.5-10.1); CARBON DIOXIDE 22 MMOL/L (21-32); CHLORIDE 107 MMOL/L (98-107); CREATININE SERUM 0.83 MG/DL (0.60-1.30); GFR ESTIMATED > 60; GLUCOSE 238 MG/DL (70-105); POTASSIUM 3.9 MMOL/L (3.6-5.0); SODIUM 136 MMOL/L (135-145)
[2016-01-21 09:11] LABS: BASOPHILS % (AUTO) 0 % (0-10); EOSINOPHILS % (AUTO) 0 % (0-10); LYMPHOCYTES # (AUTO) 0.8 X 10^3 (1.0-4.0); LYMPHOCYTES % (AUTO) 17 % (12-44); MEAN CORPUSCULAR HEMOGLOBIN 36 PG (25-34); MEAN CORPUSCULAR HGB CONC 34 G/DL (32-36); MEAN CORPUSCULAR VOLUME 105 FL (80-99); MEAN PLATELET VOLUME 9.6 FL (7.4-10.4); MONOCYTES # (AUTO) 0.5 X 10^3 (0.0-1.0); MONOCYTES % (AUTO) 10 % (0-12); NEUTROPHILS # (AUTO) 3.4 X 10^3 (1.8-7.8); NEUTROPHILS % (AUTO) 74 % (42-75); PLATELET COUNT 148 10^3/uL (130-400); RED BLOOD COUNT 2.67 10^6/uL (4.35-5.85); RED CELL DISTRIBUTION WIDTH 18.8 % (10.0-14.5); WHITE BLOOD COUNT 4.7 10^3/uL (4.3-11.0)
[2016-01-21 09:45] LABS: ANION GAP 8 MMOL/L (5-14); BLOOD UREA NITROGEN 18 MG/DL (7-18); BUN/CREATININE RATIO 22; CALCIUM 9.4 MG/DL (8.5-10.1); CARBON DIOXIDE 24 MMOL/L (21-32); CHLORIDE 108 MMOL/L (98-107); CREATININE SERUM 0.82 MG/DL (0.60-1.30); GFR ESTIMATED > 60; GLUCOSE 146 MG/DL (70-105); MAGNESIUM 1.8 MG/DL (1.8-2.4); SODIUM 140 MMOL/L (135-145)
[2016-01-28 08:58] LABS: BASOPHILS % (AUTO) 0 % (0-10); EOSINOPHILS % (AUTO) 1 % (0-10); LYMPHOCYTES # (AUTO) 0.9 X 10^3 (1.0-4.0); LYMPHOCYTES % (AUTO) 21 % (12-44); MEAN CORPUSCULAR HEMOGLOBIN 35 PG (25-34); MEAN CORPUSCULAR HGB CONC 33 G/DL (32-36); MEAN CORPUSCULAR VOLUME 106 FL (80-99); MEAN PLATELET VOLUME 9.2 FL (7.4-10.4); MONOCYTES # (AUTO) 0.5 X 10^3 (0.0-1.0); MONOCYTES % (AUTO) 10 % (0-12); NEUTROPHILS # (AUTO) 2.9 X 10^3 (1.8-7.8); NEUTROPHILS % (AUTO) 68 % (42-75); PLATELET COUNT 165 10^3/uL (130-400); RED BLOOD COUNT 2.65 10^6/uL (4.35-5.85); RED CELL DISTRIBUTION WIDTH 18.6 % (10.0-14.5); WHITE BLOOD COUNT 4.3 10^3/uL (4.3-11.0)
[2016-01-28 09:16] LABS: ANION GAP 8 MMOL/L (5-14); BLOOD UREA NITROGEN 17 MG/DL (7-18); BUN/CREATININE RATIO 21; CALCIUM 9.2 MG/DL (8.5-10.1); CARBON DIOXIDE 23 MMOL/L (21-32); CHLORIDE 109 MMOL/L (98-107); CREATININE SERUM 0.81 MG/DL (0.60-1.30); GFR ESTIMATED > 60; GLUCOSE 133 MG/DL (70-105); POTASSIUM 3.9 MMOL/L (3.6-5.0); SODIUM 140 MMOL/L (135-145)
[2016-02-04 10:03] LABS: BASOPHILS % (AUTO) 0 % (0-10); EOSINOPHILS % (AUTO) 1 % (0-10); LYMPHOCYTES # (AUTO) 1.2 X 10^3 (1.0-4.0); LYMPHOCYTES % (AUTO) 23 % (12-44); MEAN CORPUSCULAR HEMOGLOBIN 36 PG (25-34); MEAN CORPUSCULAR HGB CONC 33 G/DL (32-36); MEAN CORPUSCULAR VOLUME 108 FL (80-99); MEAN PLATELET VOLUME 9.1 FL (7.4-10.4); MONOCYTES # (AUTO) 0.6 X 10^3 (0.0-1.0); MONOCYTES % (AUTO) 11 % (0-12); NEUTROPHILS # (AUTO) 3.2 X 10^3 (1.8-7.8); NEUTROPHILS % (AUTO) 65 % (42-75); PLATELET COUNT 184 10^3/uL (130-400); RED BLOOD COUNT 2.71 10^6/uL (4.35-5.85); RED CELL DISTRIBUTION WIDTH 18.2 % (10.0-14.5)
[2016-02-04 10:26] LABS: ALANINE AMINOTRANSFERASE 20 U/L (0-55); ALBUMIN 3.6 G/DL (3.2-4.5); ANION GAP 7 MMOL/L (5-14); ASPARTATE AMINO TRANSFERASE 15 U/L (5-34); BILIRUBIN,TOTAL 0.3 MG/DL (0.1-1.0); BLOOD UREA NITROGEN 16 MG/DL (7-18); BUN/CREATININE RATIO 20; CALCIUM 8.9 MG/DL (8.5-10.1); CARBON DIOXIDE 23 MMOL/L (21-32); CHLORIDE 109 MMOL/L (98-107); CREATININE SERUM 0.79 MG/DL (0.60-1.30); GFR ESTIMATED > 60; GLUCOSE 144 MG/DL (70-105); POTASSIUM 4.2 MMOL/L (3.6-5.0); SODIUM 139 MMOL/L (135-145); TOTAL PROTEIN 5.4 G/DL (6.4-8.2)
[2016-02-05 08:22] LABS: LIGHT CHAIN KAPPA SERUM QUANT 1.34 mg/L (3.30-19.40); LIGHT CHAIN LAMBDA SERUM QUANT 8.41 mg/L (5.71-26.30)
[2016-02-12 15:32] LABS: BASOPHILS % (AUTO) 0 % (0-10); EOSINOPHILS % (AUTO) 1 % (0-10); LYMPHOCYTES # (AUTO) 1.4 X 10^3 (1.0-4.0); LYMPHOCYTES % (AUTO) 23 % (12-44); MEAN CORPUSCULAR HEMOGLOBIN 37 PG (25-34); MEAN CORPUSCULAR HGB CONC 33 G/DL (32-36); MEAN CORPUSCULAR VOLUME 112 FL (80-99); MEAN PLATELET VOLUME 9.8 FL (7.4-10.4); MONOCYTES # (AUTO) 0.6 X 10^3 (0.0-1.0); MONOCYTES % (AUTO) 10 % (0-12); NEUTROPHILS # (AUTO) 4.1 X 10^3 (1.8-7.8); NEUTROPHILS % (AUTO) 66 % (42-75); PLATELET COUNT 188 10^3/uL (130-400); RED CELL DISTRIBUTION WIDTH 17.2 % (10.0-14.5); WHITE BLOOD COUNT 6.2 10^3/uL (4.3-11.0)
[2016-02-12 15:50] LABS: CALCIUM 8.6 MG/DL (8.5-10.1); CREATININE SERUM 0.91 MG/DL (0.60-1.30); MAGNESIUM 1.9 MG/DL (1.8-2.4); POTASSIUM 3.7 MMOL/L (3.6-5.0)
[2016-02-19 08:48] LABS: BASOPHILS % (AUTO) 0 % (0-10); EOSINOPHILS # (AUTO) 0.1 10^3/uL (0.0-0.3); EOSINOPHILS % (AUTO) 1 % (0-10); LYMPHOCYTES # (AUTO) 1.3 X 10^3 (1.0-4.0); LYMPHOCYTES % (AUTO) 21 % (12-44); MEAN CORPUSCULAR HEMOGLOBIN 37 PG (25-34); MEAN CORPUSCULAR HGB CONC 33 G/DL (32-36); MEAN CORPUSCULAR VOLUME 111 FL (80-99); MEAN PLATELET VOLUME 8.9 FL (7.4-10.4); MONOCYTES # (AUTO) 0.6 X 10^3 (0.0-1.0); MONOCYTES % (AUTO) 10 % (0-12); NEUTROPHILS # (AUTO) 4.2 X 10^3 (1.8-7.8); NEUTROPHILS % (AUTO) 68 % (42-75); PLATELET COUNT 173 10^3/uL (130-400); RED BLOOD COUNT 2.52 10^6/uL (4.35-5.85); RED CELL DISTRIBUTION WIDTH 16.2 % (10.0-14.5); WHITE BLOOD COUNT 6.2 10^3/uL (4.3-11.0)
[2016-02-19 09:17] LABS: ANION GAP 9 MMOL/L (5-14); BLOOD UREA NITROGEN 19 MG/DL (7-18); BUN/CREATININE RATIO 22; CALCIUM 8.5 MG/DL (8.5-10.1); CARBON DIOXIDE 20 MMOL/L (21-32); CHLORIDE 112 MMOL/L (98-107); CREATININE SERUM 0.87 MG/DL (0.60-1.30); GFR ESTIMATED > 60; GLUCOSE 91 MG/DL (70-105); POTASSIUM 4.1 MMOL/L (3.6-5.0); SODIUM 141 MMOL/L (135-145)
[2016-02-25 14:26] LABS: BASOPHILS % (AUTO) 0 % (0-10); EOSINOPHILS % (AUTO) 0 % (0-10); LYMPHOCYTES # (AUTO) 0.4 X 10^3 (1.0-4.0); LYMPHOCYTES % (AUTO) 7 % (12-44); MEAN CORPUSCULAR HEMOGLOBIN 36 PG (25-34); MEAN CORPUSCULAR HGB CONC 33 G/DL (32-36); MEAN CORPUSCULAR VOLUME 110 FL (80-99); MEAN PLATELET VOLUME 8.7 FL (7.4-10.4); MONOCYTES # (AUTO) 0.1 X 10^3 (0.0-1.0); MONOCYTES % (AUTO) 2 % (0-12); NEUTROPHILS # (AUTO) 5.6 X 10^3 (1.8-7.8); NEUTROPHILS % (AUTO) 91 % (42-75); PLATELET COUNT 154 10^3/uL (130-400); RED BLOOD COUNT 2.82 10^6/uL (4.35-5.85); RED CELL DISTRIBUTION WIDTH 15.2 % (10.0-14.5); WHITE BLOOD COUNT 6.1 10^3/uL (4.3-11.0)
[2016-02-25 15:12] LABS: CREATININE SERUM 1.08 MG/DL (0.60-1.30); POTASSIUM 4.2 MMOL/L (3.6-5.0)
[2016-03-03 08:52] LABS: BASOPHILS % (AUTO) 1 % (0-10); EOSINOPHILS # (AUTO) 0.1 10^3/uL (0.0-0.3); EOSINOPHILS % (AUTO) 3 % (0-10); LYMPHOCYTES # (AUTO) 1.4 X 10^3 (1.0-4.0); LYMPHOCYTES % (AUTO) 38 % (12-44); MEAN CORPUSCULAR HEMOGLOBIN 37 PG (25-34); MEAN CORPUSCULAR HGB CONC 34 G/DL (32-36); MEAN CORPUSCULAR VOLUME 111 FL (80-99); MEAN PLATELET VOLUME 9.5 FL (7.4-10.4); MONOCYTES # (AUTO) 0.7 X 10^3 (0.0-1.0); MONOCYTES % (AUTO) 19 % (0-12); NEUTROPHILS # (AUTO) 1.5 X 10^3 (1.8-7.8); NEUTROPHILS % (AUTO) 40 % (42-75); PLATELET COUNT 161 10^3/uL (130-400); RED BLOOD COUNT 2.46 10^6/uL (4.35-5.85); RED CELL DISTRIBUTION WIDTH 14.5 % (10.0-14.5); WHITE BLOOD COUNT 3.7 10^3/uL (4.3-11.0)
[2016-03-03 09:00] LABS: ALANINE AMINOTRANSFERASE 15 U/L (0-55); ALBUMIN 3.3 G/DL (3.2-4.5); ANION GAP 6 MMOL/L (5-14); ASPARTATE AMINO TRANSFERASE 8 U/L (5-34); BILIRUBIN,TOTAL 0.3 MG/DL (0.1-1.0); BLOOD UREA NITROGEN 15 MG/DL (7-18); BUN/CREATININE RATIO 18; CALCIUM 8.2 MG/DL (8.5-10.1); CARBON DIOXIDE 21 MMOL/L (21-32); CHLORIDE 111 MMOL/L (98-107); CREATININE SERUM 0.83 MG/DL (0.60-1.30); GFR ESTIMATED > 60; GLUCOSE 112 MG/DL (70-105); MAGNESIUM 1.7 MG/DL (1.8-2.4); POTASSIUM 4.4 MMOL/L (3.6-5.0); SODIUM 138 MMOL/L (135-145); TOTAL PROTEIN 5.1 G/DL (6.4-8.2)
[2016-03-04 02:13] LABS: LIGHT CHAIN KAPPA SERUM QUANT 13.24 mg/L (3.30-19.40); LIGHT CHAIN LAMBDA SERUM QUANT 11.1 mg/L (5.71-26.30)
[~2016-03-10] VITALS: Ht 158.8 cm; Wt 75.3 kg
[~2016-03-10 14:00] MED LIST: ACETAMINOPHEN 325 MG TAB (TYLENOL) CANCER CTR PO PRN; ACHD5005 PO; ACYC400T PO; ACYC400T21 PO; ACYC800T PO; ASP81TEC PO; CALC-69 PO; CALC-823 PO; CHOL100045 PO; CHOL200035 PO; CHOL5000 PO; CLC500CT PO; CLD600T; CLIN-62 PO; CPR500T PO; CYCL10TA9; DARATUMUMAB IV SCH; DCS100C PO; DXM4T PO; ERGO400C; FAMOTIDINE 20MG/2ML IV (CANCER CTR) IV SCH; FISH OIL; FISH1200; FLC100T1 PO; FLUC200T5 PO; GLIM4TAB PO; GLMP2T PO; HCT25T PO; HYDR-3730 PO; LENA25CA PO; LEVO500T69 PO; LEVO750T39 PO; LISI10TA2 PO; MAGN400T6 PO; METR500T PO; MTF500T PO; NS IV 1000 ML (CANCER CTR) IV SCH; NS IV SCH; OMEP20CA12 PO; OMEP20CA6 PO; ONDA-42 PO; ONDA4TAB10 PO; POLY119P5 PO; POLY17PO23 PO; POTA10TA10 PO; SENN8.6T10 PO; SULF-222 PO; ZOLEDRONIC ACID (CANCER CTR) 4 MG in NS (IVPB) CANCER CENTER 100 ML IV SCH; diphenhydrAMINE 50 MG/ML INJ (CANCER CENTER) IV PRN; methylPREDNISolone 125 MG/2 ML (SOLU-MEDROL) CANCER CTR IV SCH; vitamin B-12
[2016-03-10 14:18] LABS: BASOPHILS # (AUTO) 0.1 10^3/uL (0.0-0.1); BASOPHILS % (AUTO) 1 % (0-10); EOSINOPHILS # (AUTO) 0.1 10^3/uL (0.0-0.3); EOSINOPHILS % (AUTO) 2 % (0-10); LYMPHOCYTES # (AUTO) 1.4 X 10^3 (1.0-4.0); LYMPHOCYTES % (AUTO) 35 % (12-44); MEAN CORPUSCULAR HEMOGLOBIN 36 PG (25-34); MEAN CORPUSCULAR HGB CONC 32 G/DL (32-36); MEAN CORPUSCULAR VOLUME 112 FL (80-99); MEAN PLATELET VOLUME 8.7 FL (7.4-10.4); MONOCYTES # (AUTO) 0.8 X 10^3 (0.0-1.0); MONOCYTES % (AUTO) 18 % (0-12); NEUTROPHILS # (AUTO) 1.8 X 10^3 (1.8-7.8); NEUTROPHILS % (AUTO) 44 % (42-75); PLATELET COUNT 227 10^3/uL (130-400); RED BLOOD COUNT 2.64 10^6/uL (4.35-5.85); RED CELL DISTRIBUTION WIDTH 14.5 % (10.0-14.5); WHITE BLOOD COUNT 4.1 10^3/uL (4.3-11.0)
[2016-03-10 15:00] LABS: CALCIUM 8.1 MG/DL (8.5-10.1); CREATININE SERUM 1.01 MG/DL (0.60-1.30); POTASSIUM 3.9 MMOL/L (3.6-5.0)
== END 2016-03-16 | disposition home or self-care (01) ==
LOC: ONC 14:00
PROVIDERS: ATTEND Internal Medicine Hematology & Oncology
DX: Z51.11 Encounter for antineoplastic chemotherapy (principal); C90.00 Multiple myeloma not having achieved remission; Z85.3 Personal history of malignant neoplasm of breast; Z90.12 Acquired absence of left breast and nipple; Z94.84 Stem cells transplant status; Z79.899 Other long term (current) drug therapy; Z76.89 Persons encountering health services in other specified circumstances
CPT/HCPCS: 36415; 36591; 80048; 80053; 82232; 82784; 83735; 83883; 85025; 96367; 96375; 96413; 96415; 99213

== ENCOUNTER 2016-04-14 10:48 | Inpatient (IN) | payer MEDICARE ==
[~2016-04-14] VITALS: Ht 157.5 cm; Wt 76.7 kg
[~2016-04-14 10:48] MED LIST changes: -AMLO5TAB2 PO; -CEPH250C PO; -DEXA4TAB PO; -INSU100I23 SQ; -INSU100I29 SQ; -LISI-552 PO; -POMA2CAP PO
--- OUTSIDE RECORDS SUMMARY | 2016-04-14 10:53 | XMS REPORT | Continuity of Care Document ---
Author Author [facility] Organization [facility] Address Unknown Phone Unavailable Care Team Providers Care General Manager Road Production Name Role Phone Kim Donnelly PCP [phone] Source Comments Some departments are not documenting in the electronic medical record. If you do not see the information that you expected, contact Release of Information in the Health Information Management department at [phone] for further assistance in locating additional records.[facility] Active Allergies and Adverse Reactions Allergen Noted [...] 10/04/19 Active daily. HOLD UNTIL YOUR 16 PRECAST CONCRETE PRODUCTS INSTALLER GIVES YOU THE OK TO RESTART senna [...] of VDTPACE 25% reduction and she had [place] of the mesenteric mass, we started her [...] XRT to her left breast. It was ER/UT positive and she completed 4.5 yrs of endocrine therapy. She then had a recurrence of her breast cancer in 2009 and underwent a left mastectomy without other adjuvant therapy L ast Assessment & Plan: She also has a hx of breast cancer diagnosed in 1999. She underwent lumpectomy followed by XRT to her left breast. It was ER/UT positive and she completed 4.5 yrs of [...] female breast, unspecified site of breast (HCC) Immunizations Name Dates Previously Given Next Due [...] Taken Blood Pressure 156/79 02/14/2016 2:16 PM RETORT ENGINEER Pulse 71 02/14/2016 2:16 PM RETORT ENGINEER Temperature 36.4 C (97.6 F) 02/14/2016 2:16 PM RETORT ENGINEER Respiratory Rate 18 02/14/2016 2:16 PM RETORT ENGINEER Height 1.575 m (5' 2.01") 02/14/2016 2:16 PM RETORT ENGINEER Weight 73.12 kg (161 lb 3.2 oz) 02/14/2016 2:16 PM RETORT ENGINEER Body Mass Index 29.48 02/14/2016 2:16 PM RETORT ENGINEER Oxygen Saturation 99% 02/14/2016 2:16 PM RETORT ENGINEER Plan of Care Date Type Specialty Providers Description 05/08/2016 Appointment Oncology Maria A Locke MD [address] [place] [address] [phone] (Fax) Health Maintenance Due Date Last Done [...]
[2016-04-14] MEDS ORDERED: ACETAMINOPHEN 500 MG TAB (TYLENOL) PO PRN (11:00)
[2016-04-14] MEDS ORDERED: CATHETER FLUSH 10 ML SYR IV PRN (12:00)
[2016-04-14] MEDS: D5 NS 1000 ML IV SOLUTION 1,000 ML IV SCH ×3 (12:09→23:59)
[2016-04-14] MEDS: CEFEPIME INJECTION 2,000 MG in NS (IVPB) 50 ML IV SCH ×2 (12:09→21:40)
[2016-04-14] MEDS: methylPREDNISolone 125 MG (Solu-MEDROL) VIAL IVP SCH ×3 (12:11→23:59)
[2016-04-14 12:28] VITALS: BP 142/74
[2016-04-14] MEDS: inSUlin (REGULAR) HUMAN 1 UNIT/0.01 ML (CHARGE PER UNIT) SC SCH ×3 (12:38→21:41)
[2016-04-14] MEDS: LEVOFLOXACIN 500 MG/100 ML IV 100 ML IV SCH (13:05)
[2016-04-14] MEDS ORDERED: RT-ALBUTEROL SULF 2.5 MG/3 ML PRE-MIX VIAL INH PRN (14:15)
[2016-04-14 16:14] VITALS: BP 142/67
[2016-04-14] MEDS ORDERED: AMLO5TAB2 PO (16:19)
[2016-04-14] MEDS ORDERED: MAGN400T6 PO (16:19)
[2016-04-14] MEDS ORDERED: CEPH250C PO (16:19)
[2016-04-14] MEDS ORDERED: POMA2CAP PO (16:19)
[2016-04-14] MEDS ORDERED: LISI-552 PO (16:19)
[2016-04-14] MEDS ORDERED: INSU100I29 SQ (16:19)
[2016-04-14] MEDS ORDERED: DEXA4TAB PO ×2 (16:27)
[2016-04-14] MEDS ORDERED: POTA10TA10 PO (16:27)
[2016-04-14] MEDS ORDERED: INSU100I23 SQ (16:29)
[2016-04-14 19:20] VITALS: BP 171/78
[2016-04-14] MEDS ORDERED: amLODIPine 2.5MG (NORVASC) TAB PO NR (19:30)
[2016-04-14] MEDS ORDERED: TEMAZEPAM 7.5 MG CAP (RESTORIL) PO PRN (19:45)
[2016-04-14 20:04] VITALS: BP 151/70
[2016-04-14 20:13] VITALS: BP 171/78
[2016-04-14] MEDS: RT-ALBUTEROL SULF 2.5 MG/3 ML PRE-MIX VIAL INH SCH (20:14)
[2016-04-14] MEDS: MONTELUKAST 10 MG (SINGULAIR) TAB PO SCH (21:00)
[2016-04-14] MEDS ORDERED: inSUlin DETERMIR 1 UNIT/0.01 ML (LEVEMIR) CHARGE PER UNIT SQ SCH (21:00)
[2016-04-14 21:10] VITALS: BP 152/66
[2016-04-14] MEDS: PANTOPRAZOLE 40 MG (PROTONIX) TAB PO SCH (21:40)
[2016-04-14] MEDS: SENNOSIDES 8.6 MG (SENOKOT) TAB PO PRN (21:40)
[2016-04-14] MEDS: guaiFENesin (MUCINEX) 600 MG TAB PO SCH (21:40)
[2016-04-14] MEDS: ACYCLOVIR 400 MG TABLET (ZOVIRAX) PO SCH (21:40)
[2016-04-14] MEDS: lisINopril 20 MG (ZESTRIL) TAB PO SCH (21:41)
[2016-04-15] VITALS: BP 132/66
[2016-04-15 04:00] VITALS: BP 156/73
[2016-04-15] MEDS: methylPREDNISolone 125 MG (Solu-MEDROL) VIAL IVP SCH (05:05)
[2016-04-15 05:20] LABS: BASOPHILS % (AUTO) 0 % (0-10); EOSINOPHILS % (AUTO) 0 % (0-10); LYMPHOCYTES # (AUTO) 0.4 X 10^3 (1.0-4.0); LYMPHOCYTES % (AUTO) 9 % (12-44); MEAN CORPUSCULAR HEMOGLOBIN 36 PG (25-34); MEAN CORPUSCULAR HGB CONC 34 G/DL (32-36); MEAN CORPUSCULAR VOLUME 106 FL (80-99); MEAN PLATELET VOLUME 10.2 FL (7.4-10.4); MONOCYTES # (AUTO) 0.1 X 10^3 (0.0-1.0); MONOCYTES % (AUTO) 2 % (0-12); NEUTROPHILS # (AUTO) 3.9 X 10^3 (1.8-7.8); NEUTROPHILS % (AUTO) 89 % (42-75); PLATELET COUNT 159 10^3/uL (130-400); RED BLOOD COUNT 2.28 10^6/uL (4.35-5.85); RED CELL DISTRIBUTION WIDTH 13.8 % (10.0-14.5); WHITE BLOOD COUNT 4.4 10^3/uL (4.3-11.0)
[2016-04-15] MEDS: inSUlin (REGULAR) HUMAN 1 UNIT/0.01 ML (CHARGE PER UNIT) SC SCH ×4 (05:20→22:05)
[2016-04-15 05:40] LABS: CALCIUM 8.6 MG/DL (8.5-10.1); CREATININE SERUM 1.01 MG/DL (0.60-1.30); POTASSIUM 4.1 MMOL/L (3.6-5.0)
[2016-04-15] MEDS ORDERED: PANTOPRAZOLE 40 MG (PROTONIX) TAB PO SCH (07:00)
[2016-04-15] MEDS: RT-ALBUTEROL SULF 2.5 MG/3 ML PRE-MIX VIAL INH SCH ×3 (07:47→20:41)
[2016-04-15 08:20] VITALS: BP 148/63
[2016-04-15] MEDS ORDERED: lisINopril 20 MG (ZESTRIL) TAB PO SCH (09:00)
[2016-04-15] MEDS: fluCOnazole (DIFLUCAN) 100 MG TAB PO SCH (09:25)
[2016-04-15] MEDS: lisINopril 20 MG (ZESTRIL) TAB PO SCH ×2 (09:25→22:04)
[2016-04-15] MEDS: ACYCLOVIR 400 MG TABLET (ZOVIRAX) PO SCH ×2 (09:26→22:04)
[2016-04-15] MEDS: ASPIRIN E.C. 81 MG (ECOTRIN) TAB PO SCH (09:26)
[2016-04-15] MEDS: guaiFENesin (MUCINEX) 600 MG TAB PO SCH ×2 (09:26→22:03)
[2016-04-15] MEDS: CEFEPIME INJECTION 2,000 MG in NS (IVPB) 50 ML IV SCH (09:27)
[2016-04-15] MEDS: HYDROCODONE/CHLOR 10MG/5 ML (TUSSIONEX SUSP) 5ML UDC PO SCH ×2 (09:27→22:07)
[2016-04-15] MEDS: LEVOFLOXACIN 500 MG/100 ML IV 100 ML IV SCH (10:05)
--- NOTE | 2016-04-15 10:23 | HISTORY AND PHYSICAL ---
DATE OF ADMISSION TO THE HOSPITAL: 04/14/2006 The patient is admitted to Room 420. PRESENTING COMPLAINT: Fever and chills. HISTORY OF PRESENT ILLNESS: Ms. Pereira is a 75-year-old female with a history of recurrent multiple myeloma and abdominal plasmacytoma who is on palliative chemotherapy with Darzalex, Pomalyst and dexamethasone. She complained of upper respiratory symptoms late last week and was started on an oral antibiotic. Through the weekend she continued to have worsening symptoms and shaking chills, but she did not seek medical attention. Today she presented to the [facility] and was found to have temperature of 102.4 degrees Fahrenheit at the Cancer Center with worsening cough productive of scanty sputum. Baseline lab work and blood cultures were obtained and it was decided to admit her to the hospital for parenteral antibiotics because of her multiple myeloma and chemotherapy causing immunocompromised status. PAST MEDICAL HISTORY: Significant for: 1. IgG lambda multiple myeloma diagnosed in early 2013. She was initially treated with Velcade, Revlimid and dexamethasone regimen followed by autologous bone marrow transplantation in 08/2013. She had recurrence with an abdominal plasmacytoma causing renal failure in April 2015 which was confirmed by an open biopsy and completed palliative radiation therapy. She was started on palliative chemotherapy with Kyprolis and dexamethasone for 4 cycles, but had evidence of progressive disease. She was then treated with 2 cycles of VDT-PACE with decrease in the size of the plasmacytoma. Following this she was started on Darzalex and dexamethasone recently with Pomalidomide added into the regimen. 2. Other significant history includes left breast cancer diagnosed in 1996 and treated with chemotherapy and hormonal therapy. Recurrence of left breast cancer in 2009 and underwent modified radical mastectomy but did not tolerate hormonal treatment. 3. History of intermittent atrial fibrillation. 4. History of fracture of neck of humerus in the 80s requiring surgical correction. 5. History of diverticulosis and diverticulitis with bowel obstruction requiring resection of sigmoid colon. 6. History of cholecystectomy in the past. SOCIAL HISTORY: The patient is and lives in [place], [place]. 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 She has several children some of whom who live close by and others in the [facility] area. Denied any history of tobacco, alcohol or other recreational drug use. FAMILY HISTORY: Significant for lung cancer in her mother. Her maternal aunt had colorectal cancer and 2 other aunts had breast cancer. Father was diagnosed with melanoma and maternal grandmother was diagnosed with primary brain cancer. PHYSICAL EXAMINATION: Today showed an elderly female, weak appearing and in moderate distress due to cough. Her temperature was 99.9 but was 102.4 at the Cancer Center. Pulse rate 89, respirations 20, blood pressure 142/67, and oxygen saturation of 90% on room air. HEENT: Normocephalic, extraocular muscles intact. Oral mucosa moist, mild erythema of the posterior pharynx without any lesions. NECK: Supple with no JVD. No cervical, supraclavicular, or axillary lymphadenopathy palpable. CHEST: Chest was symmetrical with a port present. LUNGS: With slightly diminished breath sounds bilaterally with a rare wheeze heard in the right lung. No rales heard. CARDIOVASCULAR EXAM: Regular in rate and rhythm with an occasional missed beat. No murmurs or gallops heard. ABDOMEN: Soft, nontender, no hepatosplenomegaly or other masses palpable. EXTREMITIES: Showed trace edema. NEUROLOGICAL EXAM: Showed no focal motor deficits. LABORATORY: CBC done today at the [facility] showed WBC 4.8, hemoglobin 9.6, platelet count of 198,000 with neutrophil count of 3.2. Chemistry panel showed relatively normal electrolytes except bicarbonate of 19, BUN was 13, creatinine 1.11 with a GFR of 48 mL per minute. Nonfasting glucose was 160. Liver function studies were within normal limits including albumin level of 3.5. Chest x-ray done today showed increased density in the right perihilar region compared to the previous examination suggesting possible atelectasis or mild pneumonitis. No other acute abnormalities detected. IMPRESSION: 1. Fever and chills. 2. Probable right lung pneumonia. 3. Multiple myeloma, Darzalex, Pomalyst, and dexamethasone. 4. Chronic kidney disease, stage III. 5. Diabetes melitis type 2 with insulin requirement now, PLAN: 1. We will admit the patient to the hospital for IV antibiotic therapy because of her immunocompromised status and chemotherapy. 2. I will start her on broad spectrum antibiotics with cefepime and Levaquin. Based on the blood cultures if no organism is identified, I will trailer the antibiotic therapy. 3. Start her on normal saline at 100 mL per hour intravenously. 4. We will start the patient on MAT protocol with bronchodilators. 5. I will start her on Solu-Medrol 62.5 mg IV every 6 hours and wean this down quickly based on her symptoms. 6. Start the patient's home medications including insulin. 7. Start her on sliding scale insulin with the possibility of hyperglycemia due to steroid use. 8. I will hold chemotherapy for the multiple myeloma until the pneumonia has been improved. 9. Prognosis is guarded. 10. I will obtain a medical consultation with Dr. Donnelly for concurrent medical management. Job ID: [id number] Dictated Date: 04/14/2016 17:55:57 Compensation Consulting Manager Date: 04/15/2016 09:11:19/kyler GARZA
[2016-04-15] MEDS: NS IV 1000 ML 1,000 ML IV SCH (11:10)
[2016-04-15 12:00] VITALS: BP 155/69
[2016-04-15] MEDS: methylPREDNISolone 40 MG/ML (Solu-MEDROL) VIAL IV SCH ×2 (14:17→22:04)
[2016-04-15 16:00] VITALS: BP 147/65
--- NOTE | 2016-04-15 17:39 | Progress Note-Standard ---
Standard Progress Note Progress Notes/Assess & Plan Progress/Assessment & Plan 75-year-old female with relapsed multiple myeloma who is on outpatient chemotherapy, admitted with the fever chills and pneumonia. After cultures obtained patient was started on broad-spectrum antibiotics with the cefepime and Levaquin. Blood cultures negative so far. Nasal swab for influenza also negative. Patient is feeling better today with decrease in cough and breathing better. MAXIMUM TEMPERATURE was 100.1. Appetite low and eating small amounts. Had a bowel movement today but no diarrhea. Blood sugars running high because of steroids. Solu-Medrol dose has been reduced today. Continue bronchodilators. Hold chemotherapy until improved. Monitor lab work serially. Hemoglobin decreased today probably secondary to hemodilution. Appreciate Dr. Donnelly's help. CAREN PRYOR Apr 15, 2016 17:39
--- NOTE | 2016-04-15 18:08 | Progress Note (SOAP) ---
Subjective Subjective/Events-last exam Fwup pneumonia, HTN, DM--insulin requiring, recurrent MM. Feels like fever may have broken overnight. BS high due to steroids. Appetite a little better. Objective Exam Vital Signs Date Time Temp Pulse Resp B/P Pulse Ox O2 Delivery O2 Flow Rate FiO2 04/15/16 16:00 98.0 89 20 147/65 95 Nasal Cannula 2.00 04/15/16 14:05 94 2.00 04/15/16 12:00 97.7 71 20 155/69 95 Nasal Cannula 2.00 04/15/16 09:00 92 Nasal Cannula 2.00 04/15/16 08:20 98.0 75 16 148/63 92 Nasal Cannula 2.00 04/15/16 07:48 92 2.00 04/15/16 04:00 98.8 77 18 156/73 92 Room Air 04/15/16 00:00 99.5 90 20 132/66 94 Room Air 04/14/16 21:10 152/66 04/14/16 20:50 Nasal Cannula 2.00 04/14/16 20:14 95 2.00 04/14/16 20:04 85 151/70 04/14/16 19:20 100.1 90 21 171/78 94 Room Air I & O 04/15/16 07:00 Intake Total 3000 ml Output Total 2100 ml Balance 900 ml Capillary Refill : General Appearance: No Apparent Distress Respiratory: Decreased Breath Sounds Rhonci Cardiovascular: Regular Rate, Rhythm Systolic Murmur Gastrointestinal: normal bowel sounds non tender soft Extremity: Non Tender No Calf Tenderness No Pedal Edema Neurologic/Psychiatric: Alert Oriented x3 Results Lab Laboratory Tests 04/14/16 20:48: Glucometer 427*H 04/15/16 05:09: Glucometer 288H 04/15/16 05:10: Anion Gap 9, BUN/Creatinine Ratio 17, Basophils # (Auto) 0.0, Basophils (%) ( Auto) 0, Blood Urea Nitrogen 17, Calcium Level 8.6, Carbon Dioxide Level 18L, Chloride Level 109H, Creatinine 1.01, Eosinophils # (Auto) 0.0, Eosinophils (%) (Auto) 0, Estimat Glomerular Filtration Rate 53, Glucose Level 274H, Hematocrit 24L, Hemoglobin 8.2L, Lymphocytes # (Auto) 0.4L, Lymphocytes (%) (Auto) 9L, Mean Corpuscular Hemoglobin 36H, Mean Corpuscular Hemoglobin Concent 34, Mean Corpuscular Volume 106H, Mean Platelet Volume 10.2, Monocytes # (Auto) 0.1, Monocytes (%) (Auto) 2, Neutrophils # (Auto) 3.9, Neutrophils (%) (Auto) 89H, Platelet Count 159, Potassium Level 4.1, Red Blood Count 2.28L, Red Cell Distribution Width 13.8, Sodium Level 136, White Blood Count 4.4 04/15/16 07:04: Glucometer 295H 04/15/16 11:14: Glucometer 414*H 04/15/16 16:28: Glucometer 374H Assessment/Plan Assessment/Plan Assess & Plan/Chief Complaint 1. Pneumonia--continue abx but will wean solumedrol 2. Hypertension--home meds restarted 3. Diabetes mellitus--insulin requiring with hyperglycemia due to illness/ steroids--change IVF to NS and decrease rate, wean solumedrol, increase levemir dose Diagnosis/Problems: Clinical Quality Measures DVT/VTE Risk/Contraindication: Risk Factor Score Per Nursin RFS Level Per Nursing on Admit: 4+=Very High PHUC RAMEY DO Apr 15, 2016 18:08
[2016-04-15 20:27] VITALS: BP 166/78
[2016-04-15] MEDS: PANTOPRAZOLE 40 MG (PROTONIX) TAB PO SCH (22:04)
[2016-04-15] MEDS: MONTELUKAST 10 MG (SINGULAIR) TAB PO SCH (22:04)
[2016-04-15] MEDS: inSUlin DETERMIR 1 UNIT/0.01 ML (LEVEMIR) CHARGE PER UNIT SQ SCH (22:06)
[2016-04-16] VITALS (7 sets, daily range): BP systolic 129–176; BP diastolic 64–73
[2016-04-16 05:47] LABS: BASOPHILS % (AUTO) 0 % (0-10); EOSINOPHILS % (AUTO) 0 % (0-10); LYMPHOCYTES # (AUTO) 0.4 X 10^3 (1.0-4.0); LYMPHOCYTES % (AUTO) 6 % (12-44); MEAN CORPUSCULAR HEMOGLOBIN 35 PG (25-34); MEAN CORPUSCULAR HGB CONC 33 G/DL (32-36); MEAN CORPUSCULAR VOLUME 107 FL (80-99); MEAN PLATELET VOLUME 10.1 FL (7.4-10.4); MONOCYTES # (AUTO) 0.4 X 10^3 (0.0-1.0); MONOCYTES % (AUTO) 6 % (0-12); NEUTROPHILS # (AUTO) 5.8 X 10^3 (1.8-7.8); NEUTROPHILS % (AUTO) 88 % (42-75); PLATELET COUNT 159 10^3/uL (130-400); RED BLOOD COUNT 2.17 10^6/uL (4.35-5.85); WHITE BLOOD COUNT 6.6 10^3/uL (4.3-11.0)
[2016-04-16 06:04] LABS: CALCIUM 8.1 MG/DL (8.5-10.1); CREATININE SERUM 0.91 MG/DL (0.60-1.30)
[2016-04-16] MEDS: methylPREDNISolone 40 MG/ML (Solu-MEDROL) VIAL IV SCH (06:19)
[2016-04-16] MEDS: inSUlin (REGULAR) HUMAN 1 UNIT/0.01 ML (CHARGE PER UNIT) SC SCH ×4 (06:19→21:51)
[2016-04-16] MEDS: NS IV 1000 ML 1,000 ML IV SCH (06:20)
[2016-04-16] MEDS: RT-ALBUTEROL SULF 2.5 MG/3 ML PRE-MIX VIAL INH SCH ×3 (07:45→19:36)
[2016-04-16] MEDS: ASPIRIN E.C. 81 MG (ECOTRIN) TAB PO SCH (09:59)
[2016-04-16] MEDS: lisINopril 20 MG (ZESTRIL) TAB PO SCH ×2 (09:59→21:48)
[2016-04-16] MEDS: CEFEPIME INJECTION 2,000 MG in NS (IVPB) 50 ML IV SCH (09:59)
[2016-04-16] MEDS: fluCOnazole (DIFLUCAN) 100 MG TAB PO SCH (09:59)
[2016-04-16] MEDS: ACYCLOVIR 400 MG TABLET (ZOVIRAX) PO SCH ×2 (09:59→21:48)
[2016-04-16] MEDS: guaiFENesin (MUCINEX) 600 MG TAB PO SCH ×2 (09:59→21:48)
[2016-04-16] MEDS: HYDROCODONE/CHLOR 10MG/5 ML (TUSSIONEX SUSP) 5ML UDC PO SCH ×3 (10:00→21:00)
[2016-04-16] MEDS: SENNOSIDES 8.6 MG (SENOKOT) TAB PO PRN ×2 (10:08→21:48)
--- NOTE | 2016-04-16 16:27 | Progress Note-Standard ---
Standard Progress Note Progress Notes/Assess & Plan Progress/Assessment & Plan 75-year-old female with relapsed multiple myeloma who is on outpatient chemotherapy, admitted with fever chills and pneumonia. Currently on broad- spectrum antibiotics with Cefepime and Levaquin D #3. Blood cultures negative so far. Patient is feeling better today with decrease in cough and breathing better. No temperature spikes. Appetite improving and eating small amounts. Had a bowel movement today. No diarrhea. Physical exam stable with improving lung sounds and no wheezes or rales. Blood sugars improving. Solu-Medrol dose has been reduced to 40 mg every 12 hours. Continue bronchodilators. Hold chemotherapy until improved. Monitor lab work serially. Hemoglobin decreased probably secondary to hemodilution. Will d/c IV fluids. Recheck labs and chest x-ray tomorrow. CAREN PRYOR Apr 16, 2016 16:27
--- NOTE | 2016-04-16 17:30 | Progress Note (SOAP) ---
Subjective Subjective/Events-last exam Fwup pneumonia, HTN, DM--insulin requiring, recurrent MM. Feeling a little better. Appetite improving. Objective Exam Vital Signs Date Time Temp Pulse Resp B/P Pulse Ox O2 Delivery O2 Flow Rate FiO2 04/16/16 16:31 98.1 74 18 148/64 96 Nasal Cannula 2.00 04/16/16 13:47 96 1.00 04/16/16 12:00 98.3 66 16 176/73 97 Nasal Cannula 2.00 04/16/16 09:00 Nasal Cannula 2.00 04/16/16 08:00 97.5 95 20 163/73 97 Nasal Cannula 2.00 04/16/16 07:47 95 2.00 04/16/16 04:00 98.1 60 18 138/67 98 Nasal Cannula 2.00 04/16/16 00:00 97.5 88 18 129/66 96 Nasal Cannula 2.00 04/15/16 21:00 Nasal Cannula 2.00 04/15/16 20:41 94 2.00 04/15/16 20:27 98.7 78 20 166/78 96 Nasal Cannula 2.00 I & O 04/16/16 07:00 Intake Total 2330 ml Output Total 1750 ml Balance 580 ml Capillary Refill : Less Than 3 Seconds General Appearance: No Apparent Distress Neck: Supple Respiratory: Decreased Breath Sounds Rhonci Cardiovascular: Regular Rate, Rhythm Gastrointestinal: normal bowel sounds non tender soft Extremity: Non Tender No Calf Tenderness No Pedal Edema Results Lab Laboratory Tests 04/15/16 20:35: Glucometer 266H 04/16/16 05:30: Anion Gap 10, BUN/Creatinine Ratio 24, Basophils # (Auto) 0.0, Basophils (%) ( Auto) 0, Blood Urea Nitrogen 22H, Calcium Level 8.1L, Carbon Dioxide Level 18L, Chloride Level 114H, Creatinine 0.91, Eosinophils # (Auto) 0.0, Eosinophils (%) (Auto) 0, Estimat Glomerular Filtration Rate 60, Glucose Level 163H, Hematocrit 23L, Hemoglobin 7.6L, Lymphocytes # (Auto) 0.4L, Lymphocytes (%) (Auto) 6L, Mean Corpuscular Hemoglobin 35H, Mean Corpuscular Hemoglobin Concent 33, Mean Corpuscular Volume 107H, Mean Platelet Volume 10.1, Monocytes # (Auto) 0.4, Monocytes (%) (Auto) 6, Neutrophils # (Auto) 5.8, Neutrophils (%) (Auto) 88H, Platelet Count 159, Potassium Level 4.0, Red Blood Count 2.17L, Red Cell Distribution Width 14.0, Sodium Level 142, White Blood Count 6.6 04/16/16 05:47: Glucometer 169H Assessment/Plan Assessment/Plan Assess & Plan/Chief Complaint 1. Pneumonia--continue abx but will wean solumedrol and recheck CXR in AM 2. Hypertension--home meds restarted 3. Diabetes mellitus--insulin requiring with hyperglycemia due to illness/ steroids--Heplock IVF, wean solumedrol, continue current levemir dose 4. Acute on Chronic Anemia--will recheck CBC in AM Diagnosis/Problems: Clinical Quality Measures DVT/VTE Risk/Contraindication: Risk Factor Score Per Nursin RFS Level Per Nursing on Admit: 4+=Very High PHUC RAMEY DO Apr 16, 2016 5:30 pm
[2016-04-16] MEDS ORDERED: methylPREDNISolone 40 MG/ML (Solu-MEDROL) VIAL IV SCH (21:00)
[2016-04-16] MEDS: PANTOPRAZOLE 40 MG (PROTONIX) TAB PO SCH (21:48)
[2016-04-16] MEDS: MONTELUKAST 10 MG (SINGULAIR) TAB PO SCH (21:48)
[2016-04-16] MEDS: inSUlin DETERMIR 1 UNIT/0.01 ML (LEVEMIR) CHARGE PER UNIT SQ SCH (21:51)
[2016-04-17] VITALS: BP 137/63
[2016-04-17 04:00] VITALS: BP 145/66
[2016-04-17] MEDS: inSUlin (REGULAR) HUMAN 1 UNIT/0.01 ML (CHARGE PER UNIT) SC SCH ×4 (06:00→21:08)
[2016-04-17 06:39] LABS: BASOPHILS % (AUTO) 0 % (0-10); EOSINOPHILS % (AUTO) 0 % (0-10); LYMPHOCYTES # (AUTO) 0.4 X 10^3 (1.0-4.0); LYMPHOCYTES % (AUTO) 6 % (12-44); MEAN CORPUSCULAR HEMOGLOBIN 35 PG (25-34); MEAN CORPUSCULAR HGB CONC 33 G/DL (32-36); MEAN CORPUSCULAR VOLUME 107 FL (80-99); MEAN PLATELET VOLUME 10.1 FL (7.4-10.4); MONOCYTES # (AUTO) 0.5 X 10^3 (0.0-1.0); MONOCYTES % (AUTO) 8 % (0-12); NEUTROPHILS # (AUTO) 5.9 X 10^3 (1.8-7.8); NEUTROPHILS % (AUTO) 87 % (42-75); PLATELET COUNT 160 10^3/uL (130-400); RED BLOOD COUNT 2.15 10^6/uL (4.35-5.85); RED CELL DISTRIBUTION WIDTH 14.2 % (10.0-14.5); WHITE BLOOD COUNT 6.8 10^3/uL (4.3-11.0)
[2016-04-17 06:54] LABS: CALCIUM 8.3 MG/DL (8.5-10.1); CREATININE SERUM 0.97 MG/DL (0.60-1.30); MAGNESIUM 2.2 MG/DL (1.8-2.4); POTASSIUM 4.2 MMOL/L (3.6-5.0)
[2016-04-17] MEDS: RT-ALBUTEROL SULF 2.5 MG/3 ML PRE-MIX VIAL INH SCH (07:18)
[2016-04-17 08:00] VITALS: BP 159/77
[2016-04-17] MEDS: HYDROCODONE/CHLOR 10MG/5 ML (TUSSIONEX SUSP) 5ML UDC PO SCH ×2 (09:00→21:00)
[2016-04-17] MEDS ORDERED: RT-ALBUTEROL/IPRATROPIUM 3 ML (DUONEB) VIAL INH PRN (09:30)
[2016-04-17] MEDS: guaiFENesin (MUCINEX) 600 MG TAB PO SCH ×2 (09:31→21:08)
[2016-04-17] MEDS: ACYCLOVIR 400 MG TABLET (ZOVIRAX) PO SCH ×2 (09:31→21:07)
[2016-04-17] MEDS: predniSONE 20 MG TAB PO SCH ×2 (09:31→21:08)
[2016-04-17] MEDS: SENNOSIDES 8.6 MG (SENOKOT) TAB PO PRN ×2 (09:31→21:22)
[2016-04-17] MEDS: lisINopril 20 MG (ZESTRIL) TAB PO SCH ×2 (09:31→21:07)
[2016-04-17] MEDS: fluCOnazole (DIFLUCAN) 100 MG TAB PO SCH (09:31)
[2016-04-17] MEDS: ASPIRIN E.C. 81 MG (ECOTRIN) TAB PO SCH (09:31)
[2016-04-17] MEDS: CEFEPIME INJECTION 2,000 MG in NS (IVPB) 50 ML IV SCH (09:32)
[2016-04-17] MEDS ORDERED: RT-ALBUTEROL SULF 2.5 MG/3 ML PRE-MIX VIAL INH PRN (10:15)
[2016-04-17] MEDS ORDERED: LEVOFLOXACIN 750 MG/150 ML IV 150 ML IV SCH (11:00)
[2016-04-17 12:00] VITALS: BP 156/69
--- NOTE | 2016-04-17 12:30 | Diagnostic Imaging Report ---
Mild increased interstitial markings in the left lung base are stable these are probably chronic. Multiple kyphoplasty changes are present. Right perihilar infiltrates have cleared. Portacatheter is in place. Just medial to the portacatheter is a small lung nodule. IMPRESSION: Right perihilar infiltrates have resolved. Some mild atelectasis or fibrosis seen in the left lung base. A right upper lung pulmonary nodule is present. Dictated by: Dictated on workstation # [id number]
--- NOTE | 2016-04-17 12:38 | Progress Note (SOAP) ---
Subjective Subjective/Events-last exam Fwup pneumonia, HTN, DM--insulin requiring, recurrent MM. Feeling much better. Has been up ambulating in room. Objective Exam Vital Signs Date Time Temp Pulse Resp B/P Pulse Ox O2 Delivery O2 Flow Rate FiO2 04/17/16 08:00 97.8 96 20 159/77 93 Room Air 04/17/16 07:51 Nasal Cannula 2.00 04/17/16 07:20 94 04/17/16 04:00 97.4 50 18 145/66 93 Nasal Cannula 2.00 04/17/16 00:00 98.0 60 18 137/63 92 Nasal Cannula 2.00 04/16/16 21:52 76 144/68 04/16/16 21:00 Room Air 04/16/16 20:36 98.2 60 18 139/67 99 Nasal Cannula 2.00 04/16/16 19:36 94 04/16/16 16:31 98.1 74 18 148/64 96 Nasal Cannula 2.00 04/16/16 13:47 96 1.00 I & O 04/17/16 07:00 Intake Total 2780 ml Output Total 2350 ml Balance 430 ml Capillary Refill : Less Than 3 Seconds General Appearance: No Apparent Distress Neck: Supple Respiratory: Crackles (bibasilar) Cardiovascular: Regular Rate, Rhythm Extremity: Non Tender No Calf Tenderness No Pedal Edema Neurologic/Psychiatric: Alert Oriented x3 Results Lab Laboratory Tests 04/16/16 16:02: Glucometer 260H 04/16/16 20:43: Glucometer 228H 04/17/16 05:14: Glucometer 115H 04/17/16 06:20: Anion Gap 9, BUN/Creatinine Ratio 25, Basophils # (Auto) 0.0, Basophils (%) ( Auto) 0, Blood Urea Nitrogen 24H, Calcium Level 8.3L, Carbon Dioxide Level 20L, Chloride Level 115H, Creatinine 0.97, Eosinophils # (Auto) 0.0, Eosinophils (%) (Auto) 0, Estimat Glomerular Filtration Rate 56, Glucose Level 107H, Hematocrit 23L, Hemoglobin 7.6L, Lymphocytes # (Auto) 0.4L, Lymphocytes (%) (Auto) 6L, Magnesium Level 2.2, Mean Corpuscular Hemoglobin 35H, Mean Corpuscular Hemoglobin Concent 33, Mean Corpuscular Volume 107H, Mean Platelet Volume 10.1, Monocytes # (Auto) 0.5, Monocytes (%) (Auto) 8, Neutrophils # (Auto) 5.9, Neutrophils (%) (Auto) 87H, Platelet Count 160, Potassium Level 4.2, Red Blood Count 2.15L, Red Cell Distribution Width 14.2, Sodium Level 144, White Blood Count 6.8 Assessment/Plan Assessment/Plan Assess & Plan/Chief Complaint 1. Pneumonia--continue abx but will stop solumedrol and switch to prednisone, CXR looks improved 2. Hypertension--home meds restarted 3. Diabetes mellitus--insulin requiring with hyperglycemia due to illness/ steroids--Heplock IVF, DC solumedrol and start oral prednisone, continue current levemir dose 4. Acute on Chronic Anemia--Hemoglobin stable from yesterday, will recheck CBC in AM Diagnosis/Problems: Clinical Quality Measures DVT/VTE Risk/Contraindication: Risk Factor Score Per Nursin RFS Level Per Nursing on Admit: 4+=Very High PHUC RAMEY DO Apr 17, 2016 12:38
[2016-04-17 16:00] VITALS: BP 168/85
--- NOTE | 2016-04-17 17:37 | Progress Note-Standard ---
Standard Progress Note Progress Notes/Assess & Plan Progress/Assessment & Plan 75-year-old female with relapsed multiple myeloma who is on outpatient chemotherapy, admitted with fever chills and pneumonia. Currently on broad- spectrum antibiotics with Cefepime and Levaquin D #3. Blood cultures negative so far. Patient is feeling better today with decrease in cough and breathing better. No temperature spikes. Appetite improving and eating small amounts. Had a bowel movement today. No diarrhea. Physical exam stable with improving lung sounds. Rare wheeze in the right lower lung fan. Blood sugars improving. Off Solu-Medrol and on oral prednisone. Continue bronchodilators. Hold chemotherapy until improved. Monitor lab work serially. Hemoglobin low but stable. Patient has stable fatigue and no orthopnea or BHATIA. Recheck labs tomorrow. SWB evaluation for continued antibiotics. CAREN PRYOR Apr 17, 2016 17:37
[2016-04-17 20:18] VITALS: BP 177/63
[2016-04-17] MEDS: PANTOPRAZOLE 40 MG (PROTONIX) TAB PO SCH (21:07)
[2016-04-17] MEDS: MONTELUKAST 10 MG (SINGULAIR) TAB PO SCH (21:07)
[2016-04-17] MEDS: inSUlin DETERMIR 1 UNIT/0.01 ML (LEVEMIR) CHARGE PER UNIT SQ SCH (21:08)
[2016-04-18] VITALS: BP 145/67
[2016-04-18 04:00] VITALS: BP 167/72
[2016-04-18] MEDS: inSUlin (REGULAR) HUMAN 1 UNIT/0.01 ML (CHARGE PER UNIT) SC SCH ×2 (06:59→11:00)
[2016-04-18 07:06] LABS: BASOPHILS % (AUTO) 0 % (0-10); EOSINOPHILS % (AUTO) 0 % (0-10); LYMPHOCYTES # (AUTO) 0.7 X 10^3 (1.0-4.0); LYMPHOCYTES % (AUTO) 12 % (12-44); MEAN CORPUSCULAR HEMOGLOBIN 35 PG (25-34); MEAN CORPUSCULAR HGB CONC 33 G/DL (32-36); MEAN CORPUSCULAR VOLUME 106 FL (80-99); MEAN PLATELET VOLUME 9.8 FL (7.4-10.4); MONOCYTES # (AUTO) 0.8 X 10^3 (0.0-1.0); MONOCYTES % (AUTO) 13 % (0-12); NEUTROPHILS # (AUTO) 4.4 X 10^3 (1.8-7.8); NEUTROPHILS % (AUTO) 75 % (42-75); PLATELET COUNT 177 10^3/uL (130-400); RED BLOOD COUNT 2.43 10^6/uL (4.35-5.85); RED CELL DISTRIBUTION WIDTH 13.8 % (10.0-14.5); WHITE BLOOD COUNT 5.8 10^3/uL (4.3-11.0)
[2016-04-18 07:20] LABS: ANION GAP 9 MMOL/L (5-14); BLOOD UREA NITROGEN 24 MG/DL (7-18); BUN/CREATININE RATIO 27; CALCIUM 8.4 MG/DL (8.5-10.1); CARBON DIOXIDE 23 MMOL/L (21-32); CHLORIDE 110 MMOL/L (98-107); CREATININE SERUM 0.88 MG/DL (0.60-1.30); GFR ESTIMATED > 60; GLUCOSE 89 MG/DL (70-105); POTASSIUM 3.5 MMOL/L (3.6-5.0); SODIUM 142 MMOL/L (135-145)
[2016-04-18 08:00] VITALS: BP 142/77
[2016-04-18] MEDS: predniSONE 20 MG TAB PO SCH (08:06)
[2016-04-18] MEDS: guaiFENesin (MUCINEX) 600 MG TAB PO SCH (08:06)
[2016-04-18] MEDS: fluCOnazole (DIFLUCAN) 100 MG TAB PO SCH (08:06)
[2016-04-18] MEDS: HYDROCODONE/CHLOR 10MG/5 ML (TUSSIONEX SUSP) 5ML UDC PO SCH (08:07)
[2016-04-18] MEDS: lisINopril 20 MG (ZESTRIL) TAB PO SCH (08:07)
[2016-04-18] MEDS: ASPIRIN E.C. 81 MG (ECOTRIN) TAB PO SCH (08:07)
[2016-04-18] MEDS: ACYCLOVIR 400 MG TABLET (ZOVIRAX) PO SCH (08:07)
[2016-04-18] MEDS: CEFEPIME INJECTION 2,000 MG in NS (IVPB) 50 ML IV SCH (08:08)
[2016-04-18] MEDS: SENNOSIDES 8.6 MG (SENOKOT) TAB PO PRN (08:11)
[2016-04-18 12:00] VITALS: BP 176/81
--- NOTE | 2016-04-18 12:02 | Progress Note (SOAP) ---
Subjective Subjective/Events-last exam Fwup pneumonia, HTN, DM--insulin requiring, recurrent MM. Feeling much better. Cough improving. Energy improving. Objective Exam Vital Signs Date Time Temp Pulse Resp B/P Pulse Ox O2 Delivery O2 Flow Rate FiO2 04/18/16 09:00 Nasal Cannula 2.00 04/18/16 08:00 97.2 65 20 142/77 98 Room Air 04/18/16 04:00 97.6 50 18 167/72 96 Room Air 04/18/16 00:00 98.1 46 19 145/67 93 Room Air 04/17/16 20:18 97.6 61 18 177/63 98 Room Air 04/17/16 16:00 98.5 70 18 168/85 95 Room Air I & O 04/18/16 07:00 Intake Total 2260 ml Output Total 3300 ml Balance -1040 ml Capillary Refill : Less Than 3 Seconds General Appearance: No Apparent Distress Neck: Supple Respiratory: Crackles Decreased Breath Sounds Cardiovascular: Regular Rate, Rhythm Extremity: Non Tender No Calf Tenderness No Pedal Edema Neurologic/Psychiatric: Alert Oriented x3 Results Lab Laboratory Tests 04/17/16 16:03: Glucometer 132H 04/17/16 20:54: Glucometer 239H 04/18/16 06:48: Anion Gap 9, BUN/Creatinine Ratio 27, Basophils # (Auto) 0.0, Basophils (%) ( Auto) 0, Blood Urea Nitrogen 24H, Calcium Level 8.4L, Carbon Dioxide Level 23, Chloride Level 110H, Creatinine 0.88, Eosinophils # (Auto) 0.0, Eosinophils (%) (Auto) 0, Estimat Glomerular Filtration Rate > 60, Glucose Level 89, Hematocrit 26L, Hemoglobin 8.4L, Lymphocytes # (Auto) 0.7L, Lymphocytes (%) (Auto) 12, Mean Corpuscular Hemoglobin 35H, Mean Corpuscular Hemoglobin Concent 33, Mean Corpuscular Volume 106H, Mean Platelet Volume 9.8, Monocytes # (Auto) 0.8, Monocytes (%) (Auto) 13H, Neutrophils # (Auto) 4.4, Neutrophils (%) (Auto) 75, Platelet Count 177, Potassium Level 3.5L, Red Blood Count 2.43L, Red Cell Distribution Width 13.8, Sodium Level 142, White Blood Count 5.8 04/18/16 06:54: Glucometer 92 04/18/16 11:08: Glucometer 142H Assessment/Plan Assessment/Plan Assess & Plan/Chief Complaint 1. Pneumonia--continue abx and prednisone, CXR looks improved, SWING bed for continued IV abx 2. Hypertension--home meds restarted 3. Diabetes mellitus--insulin requiring with hyperglycemia due to illness/ steroids--now on oral prednisone, continue current levemir dose 4. Acute on Chronic Anemia--Hemoglobin improved to 8.4 from yesterday, will recheck CBC in AM Clinical Quality Measures DVT/VTE Risk/Contraindication: Risk Factor Score Per Nursin RFS Level Per Nursing on Admit: 4+=Very High PHUC RAMEY DO Apr 18, 2016 12:02 pm
--- NOTE | 2016-04-20 00:28 | DISCHARGE SUMMARY ---
DATE OF ADMISSION: 04/14/2016 DATE OF DISCHARGE TO SWING BED STATUS: 04/18/2016 the patient is admitted to Room 420. FINAL DIAGNOSES: 1. Right lung pneumonia. 2. Multiple myeloma without remission. 3. On chemotherapy. Mrs. Pereira is a 75-year-old female with history of recurrent multiple myeloma and abdominal plasmacytoma who was on outpatient palliative chemotherapy with Darzalex, Pomalyst, and dexamethasone regimen. She presented on 04/14/2016 with fever of 102.4 degrees Fahrenheit and shaking chills. She also had a cough productive of scanty sputum. Because of her immunocompromised status, she had cox cultures done and it was decided to admit her to the hospital for broad spectrum antibiotic therapy. After blood and urine cultures were obtained. A chest x-ray was also obtained, which showed a right perihilar infiltrates consistent with pneumonia. She was started on broad spectrum antibiotics with cefepime and Levaquin. Home medications were continued. She was started on IV steroids and bronchodilators by nebulizer per MAT protocol. She was started on insulin by sliding scale because of diabetes melitis and hyperglycemia, which was worsened by steroids. Consultation was obtained with Dr. Donnelly for concurrent medical management. She did not have further significant temperature spikes and gradually was improving. She did have significant hyperglycemia because of the steroids, which was weaned as quickly as possible. Her activity level was gradually improved and a follow-up chest x-ray showed resolution of the infiltrates. Because of her immunocompromised status, it was decided to continue the IV antibiotics for 7 days and swing bed evaluation was obtained for which the patient qualified. She is being discharged to swing bed status today for continuation of IV antibiotics and continuation of other treatments. She will continue IV cefepime and the IV Levaquin will be discontinued after the 5th day. Her steroids were weaned down to 20 mg b.i.d. which she will continue for another day before changing it to 20 mg daily. After 7 days of IV antibiotics she will be reevaluated and decide if she is stable enough to be discharged at that point. Job ID: [id number] Dictated Date: 04/18/2016 14:28:00 Bag Cutter Date: 04/20/2016 00:17:02/kyler
== END 2016-04-18 14:08 | disposition swing bed (61) | DRG 194 ==
LOC: 4TH 10:48
PROVIDERS: ADMIT Internal Medicine Hematology & Oncology; ATTEND Internal Medicine Hematology & Oncology
DX: J18.9 Pneumonia, unspecified organism (principal); C90.02 Multiple myeloma in relapse; Z94.81 Bone marrow transplant status; I12.9 Hypertensive chronic kidney disease with stage 1 through stage 4 chronic kidney disease, or unspecified chronic kidney disease; N18.3 Chronic kidney disease, stage 3 (moderate); I48.91 Unspecified atrial fibrillation; E11.65 Type 2 diabetes mellitus with hyperglycemia; G62.0 Drug-induced polyneuropathy; D64.9 Anemia, unspecified; T45.1X5A Adverse effect of antineoplastic and immunosuppressive drugs, initial encounter; T38.0X5A Adverse effect of glucocorticoids and synthetic analogues, initial encounter; M81.0 Age-related osteoporosis without current pathological fracture; Z79.4 Long term (current) use of insulin; Z85.3 Personal history of malignant neoplasm of breast; Z90.12 Acquired absence of left breast and nipple
CPT/HCPCS: 36415; 71020; 80048; 80053; 82962; 83735; 85025; 87040; 87804; 94640; 94760; 99213

== ENCOUNTER → 2016-04-14 | Outpatient (CLI) | payer MEDICARE ==
[~2016-04-14] MED LIST changes: -ACETAMINOPHEN 325 MG TAB (TYLENOL) CANCER CTR PO PRN; +AMLO5TAB2 PO; +CEPH250C PO; -DARATUMUMAB IV SCH; +DEXA4TAB PO; -FAMOTIDINE 20MG/2ML IV (CANCER CTR) IV SCH; +INSU100I23 SQ; +INSU100I29 SQ; +LISI-552 PO; -NS IV 1000 ML (CANCER CTR) IV SCH; -NS IV SCH; +POMA2CAP PO; -ZOLEDRONIC ACID (CANCER CTR) 4 MG in NS (IVPB) CANCER CENTER 100 ML IV SCH; -diphenhydrAMINE 50 MG/ML INJ (CANCER CENTER) IV PRN; -methylPREDNISolone 125 MG/2 ML (SOLU-MEDROL) CANCER CTR IV SCH
--- OUTSIDE RECORDS SUMMARY | 2016-04-14 11:17 | XMS REPORT | Continuity of Care Document ---
Author Author [facility] Organization [facility] Address Unknown Phone Unavailable Care Team Providers Care Psychological Assistant Name Role Phone Kim Donnelly PCP [phone] Source Comments Some departments are not documenting in the electronic medical record. If you do not see the information that you expected, contact Release of Information in the Health Information Management department at [phone] for further assistance in locating additional records.[facility] Active Allergies and Adverse Reactions Allergen Noted [...] 10/04/19 Active daily. HOLD UNTIL YOUR 16 OPTICAL GLASS WET INSPECTOR GIVES YOU THE OK TO RESTART senna [...] of VDTPACE 25% reduction and she had [place] of the mesenteric mass, we started her [...] XRT to her left breast. It was ER/LA positive and she completed 4.5 yrs of endocrine therapy. She then had a recurrence of her breast cancer in 2009 and underwent a left mastectomy without other adjuvant therapy L ast Assessment & Plan: She also has a hx of breast cancer diagnosed in 1999. She underwent lumpectomy followed by XRT to her left breast. It was ER/LA positive and she completed 4.5 yrs of [...] Taken Blood Pressure 156/79 02/14/2016 2:16 PM ASSISTANT MANAGER BILINGUAL Pulse 71 02/14/2016 2:16 PM ASSISTANT MANAGER BILINGUAL Temperature 36.4 C (97.6 F) 02/14/2016 2:16 PM ASSISTANT MANAGER BILINGUAL Respiratory Rate 18 02/14/2016 2:16 PM ASSISTANT MANAGER BILINGUAL Height 1.575 m (5' 2.01") 02/14/2016 2:16 PM ASSISTANT MANAGER BILINGUAL Weight 73.12 kg (161 lb 3.2 oz) 02/14/2016 2:16 PM ASSISTANT MANAGER BILINGUAL Body Mass Index 29.48 02/14/2016 2:16 PM ASSISTANT MANAGER BILINGUAL Oxygen Saturation 99% 02/14/2016 2:16 PM ASSISTANT MANAGER BILINGUAL Plan of Care Date Type Specialty Providers Description 05/08/2016 Appointment Oncology Maria A Locke MD [address] [place] [address] [phone] (Fax) Health Maintenance Due Date Last Done [...]
--- NOTE | 2016-04-14 12:19 | Diagnostic Imaging Report ---
INDICATION: Fever and cough. PA and lateral views of the chest are obtained. Comparison is made to study of 11/27/2015. Heart size and pulmonary vascularity remain within normal limits. Vertebral body augmentation and right anterior chest wall port are again noted. There may be slight increased density in the right parahilar region compared to the previous examination. There is no consolidation, pneumothorax, or significant pleural fluid. IMPRESSION: Mild increase in right parahilar density suggests possible atelectasis or mild pneumonitis. No other acute abnormalities detected. Dictated by: Dictated on workstation # [id number]
== END ==
LOC: RAD 11:13
PROVIDERS: ATTEND Internal Medicine Hematology & Oncology
DX: R50.9 Fever, unspecified (principal); R05 Cough; C90.00 Multiple myeloma not having achieved remission
CPT/HCPCS: 71020

== ENCOUNTER 2016-04-18 14:08 | Inpatient (IN) | payer MEDICARE ==
[~2016-04-18] VITALS: Ht 157.5 cm; Wt 76.3 kg
[~2016-04-18 14:08] MED LIST changes: +AMLO5TAB2 PO; +CEPH250C PO; +DEXA4TAB PO; +INSU100I23 SQ; +INSU100I29 SQ; +LISI-552 PO; +POMA2CAP PO
[2016-04-18] MEDS ORDERED: RT-ALBUTEROL SULF 2.5 MG/3 ML PRE-MIX VIAL INH PRN (14:15)
[2016-04-18] MEDS ORDERED: CATHETER FLUSH 10 ML SYR IV PRN (14:15)
[2016-04-18] MEDS ORDERED: TEMAZEPAM 7.5 MG CAP (RESTORIL) PO PRN (14:15)
[2016-04-18] MEDS ORDERED: ACETAMINOPHEN 500 MG TAB (TYLENOL) PO PRN (14:15)
--- OUTSIDE RECORDS SUMMARY | 2016-04-18 14:32 | XMS REPORT | Continuity of Care Document ---
Author Author [facility] Organization [facility] Address Unknown Phone Unavailable Care Team Providers Care Apprenticeship Training Representative Name Role Phone Kim Donnelly PCP [phone] Source Comments Some departments are not documenting in the electronic medical record. If you do not see the information that you expected, contact Release of Information in the Health Information Management department at [phone] for further assistance in locating additional records.[facility] Active Allergies and Adverse Reactions Allergen [...] 10/04/19 Active daily. HOLD UNTIL YOUR 16 PLAN CHECKER GIVES YOU THE OK TO RESTART senna [...] of VDTPACE 25% reduction and she had [place] of the mesenteric mass, we started her [...] XRT to her left breast. It was ER/W[place] positive and she completed 4.5 yrs of endocrine therapy. She then had a recurrence of her breast cancer in 2009 and underwent a left mastectomy without other adjuvant therapy L ast Assessment & Plan: She also has a hx of breast cancer diagnosed in 1999. She underwent lumpectomy followed by XRT to her left breast. It was ER/[place] positive and she completed 4.5 yrs of [...] breast (HCC) 02/14/2016 Orders Only Oncology Latisha Cobb, MEÑO 01/30/2016 Hospital Radiology Encounter Immunizations Name Dates Previously Given Next Due [...] Taken Blood Pressure 156/79 02/14/2016 2:16 PM HEARING AID MECHANIC Pulse 71 02/14/2016 2:16 PM HEARING AID MECHANIC Temperature 36.4 C (97.6 F) 02/14/2016 2:16 PM HEARING AID MECHANIC Respiratory Rate 18 02/14/2016 2:16 PM HEARING AID MECHANIC Height 1.575 m (5' 2.01") 02/14/2016 2:16 PM HEARING AID MECHANIC Weight 73.12 kg (161 lb 3.2 oz) 02/14/2016 2:16 PM HEARING AID MECHANIC Body Mass Index 29.48 02/14/2016 2:16 PM HEARING AID MECHANIC Oxygen Saturation 99% 02/14/2016 2:16 PM HEARING AID MECHANIC Plan of Care Date Type Specialty Providers Description 05/08/2016 Appointment Oncology Maria A Locke MD [address] [place] [address] [phone] (Fax) Health Maintenance Due Date Last Done [...]
[2016-04-18] MEDS: inSUlin (REGULAR) HUMAN 1 UNIT/0.01 ML (CHARGE PER UNIT) SC SCH ×2 (16:59→21:24)
[2016-04-18] MEDS: predniSONE 20 MG TAB PO SCH (16:59)
[2016-04-18 17:20] VITALS: BP 145/73
[2016-04-18 20:00] VITALS: BP 169/71
[2016-04-18] MEDS: HYDROCODONE/CHLOR 10MG/5 ML (TUSSIONEX SUSP) 5ML UDC PO SCH ×2 (21:00→21:16)
[2016-04-18] MEDS: lisINopril 20 MG (ZESTRIL) TAB PO SCH (21:15)
[2016-04-18] MEDS: inSUlin DETERMIR 1 UNIT/0.01 ML (LEVEMIR) CHARGE PER UNIT SQ SCH (21:15)
[2016-04-18] MEDS: SENNOSIDES 8.6 MG (SENOKOT) TAB PO PRN (21:15)
[2016-04-18] MEDS: MONTELUKAST 10 MG (SINGULAIR) TAB PO SCH (21:15)
[2016-04-18] MEDS: ACYCLOVIR 400 MG TABLET (ZOVIRAX) PO SCH (21:15)
[2016-04-18] MEDS: PANTOPRAZOLE 40 MG (PROTONIX) TAB PO SCH (21:15)
[2016-04-18] MEDS: guaiFENesin (MUCINEX) 600 MG TAB PO SCH (21:15)
[2016-04-19] MEDS: inSUlin (REGULAR) HUMAN 1 UNIT/0.01 ML (CHARGE PER UNIT) SC SCH ×4 (06:00→21:40)
[2016-04-19] MEDS: predniSONE 20 MG TAB PO SCH ×2 (06:53→18:11)
[2016-04-19 08:00] VITALS: BP 157/81
[2016-04-19] MEDS ORDERED: fluCOnazole (DIFLUCAN) 100 MG TAB PO SCH (09:00)
[2016-04-19] MEDS ORDERED: CEFEPIME INJECTION 2,000 MG in NS (IVPB) 50 ML IV SCH (09:00)
[2016-04-19] MEDS: HYDROCODONE/CHLOR 10MG/5 ML (TUSSIONEX SUSP) 5ML UDC PO SCH ×2 (09:00→19:46)
[2016-04-19] MEDS ORDERED: amLODIPine 5 MG (NORVASC) TAB PO ONE (09:45)
[2016-04-19] MEDS: ACYCLOVIR 400 MG TABLET (ZOVIRAX) PO SCH ×2 (10:10→21:47)
[2016-04-19] MEDS: CEFEPIME INJECTION 2,000 MG in NS (IVPB) 50 ML IV SCH (10:10)
[2016-04-19] MEDS: fluCOnazole (DIFLUCAN) 100 MG TAB PO SCH (10:11)
[2016-04-19] MEDS: lisINopril 20 MG (ZESTRIL) TAB PO SCH ×2 (10:11→21:40)
[2016-04-19] MEDS: guaiFENesin (MUCINEX) 600 MG TAB PO SCH ×2 (10:11→21:40)
[2016-04-19] MEDS: ASPIRIN E.C. 81 MG (ECOTRIN) TAB PO SCH (10:11)
[2016-04-19] MEDS: SENNOSIDES 8.6 MG (SENOKOT) TAB PO PRN ×2 (10:21→21:40)
[2016-04-19 10:34] LABS: MEAN PLATELET VOLUME 10.1 FL (7.4-10.4); RED BLOOD COUNT 2.81 10^6/uL (4.35-5.85); RED CELL DISTRIBUTION WIDTH 13.8 % (10.0-14.5); WHITE BLOOD COUNT 7.1 10^3/uL (4.3-11.0)
[2016-04-19 10:57] LABS: ALBUMIN 3.3 G/DL (3.2-4.5); BILIRUBIN,TOTAL 0.3 MG/DL (0.1-1.0); CALCIUM 9.5 MG/DL (8.5-10.1); CREATININE SERUM 1.19 MG/DL (0.60-1.30); POTASSIUM 4.1 MMOL/L (3.6-5.0); TOTAL PROTEIN 5.6 G/DL (6.4-8.2)
--- NOTE | 2016-04-19 12:15 | Physician Progress Note ---
Progress Note Assessment/Plan Events since last exam Feeling better. No new issues. Assessment/Plan 1. Pneumonia on IV antibiotics day 4 cefepime and Levaquin. Improving. Will need to continue to Thursday. Off Solu-Medrol and on oral prednisone. Continue bronchodilators. 2. relapsed multiple myeloma. Hold chemotherapy until pneumonia resolves. 3. Anemia. Hb improved from 7.5 to 8.5. Patient has stable fatigue and no orthopnea or BHATIA. Vitals Last set of Vitals Signs Vital Signs Date Time Temp Pulse Resp B/P Pulse Ox O2 Delivery O2 Flow Rate FiO2 04/19/16 08:00 97.5 70 20 157/81 97 Room Air I&O I&O Bad table Labs Laboratory Tests 04/18/16 16:18: Glucometer 277H 04/18/16 21:14: Glucometer 359H 04/19/16 06:27: Glucometer 81 04/19/16 10:00: Alanine Aminotransferase (ALT/SGPT) 22, Albumin 3.3, Alkaline Phosphatase 51, Anion Gap 12, Aspartate Amino Transf (AST/SGOT) 13, BUN/Creatinine Ratio 23, Blood Urea Nitrogen 27H, Calcium Level 9.5, Carbon Dioxide Level 23, Chloride Level 108H, Creatinine 1.19, Estimat Glomerular Filtration Rate 44, Glucose Level 132H, Hematocrit 29L, Hemoglobin 9.8L, Mean Corpuscular Hemoglobin 35H, Mean Corpuscular Hemoglobin Concent 33, Mean Corpuscular Volume 105H, Mean Platelet Volume 10.1, Platelet Count 202, Potassium Level 4.1, Red Blood Count 2.81L, Red Cell Distribution Width 13.8, Sodium Level 143, Total Bilirubin 0.3, Total Protein 5.6L, White Blood Count 7.1 04/19/16 11:24: Glucometer 136H KENYA KING MD Apr 19, 2016 12:15
[2016-04-19 20:31] VITALS: BP 151/68
[2016-04-19] MEDS: PANTOPRAZOLE 40 MG (PROTONIX) TAB PO SCH (21:40)
[2016-04-19] MEDS: inSUlin DETERMIR 1 UNIT/0.01 ML (LEVEMIR) CHARGE PER UNIT SQ SCH (21:40)
[2016-04-19] MEDS: MONTELUKAST 10 MG (SINGULAIR) TAB PO SCH (21:40)
[2016-04-20] MEDS: inSUlin (REGULAR) HUMAN 1 UNIT/0.01 ML (CHARGE PER UNIT) SC SCH ×4 (06:00→21:24)
[2016-04-20] MEDS: predniSONE 20 MG TAB PO SCH ×2 (06:22→17:02)
[2016-04-20 08:00] VITALS: BP 177/76
[2016-04-20] MEDS: HYDROCODONE/CHLOR 10MG/5 ML (TUSSIONEX SUSP) 5ML UDC PO SCH ×2 (09:00→20:47)
[2016-04-20] MEDS: lisINopril 20 MG (ZESTRIL) TAB PO SCH ×2 (09:08→20:46)
[2016-04-20] MEDS: guaiFENesin (MUCINEX) 600 MG TAB PO SCH ×2 (09:08→20:47)
[2016-04-20] MEDS: fluCOnazole (DIFLUCAN) 100 MG TAB PO SCH (09:08)
[2016-04-20] MEDS: amLODIPine 5 MG (NORVASC) TAB PO SCH (09:09)
[2016-04-20] MEDS: ASPIRIN E.C. 81 MG (ECOTRIN) TAB PO SCH (09:09)
[2016-04-20] MEDS: CEFEPIME INJECTION 2,000 MG in NS (IVPB) 50 ML IV SCH (09:10)
[2016-04-20] MEDS: SENNOSIDES 8.6 MG (SENOKOT) TAB PO PRN ×2 (09:21→21:23)
[2016-04-20] MEDS: ACYCLOVIR 400 MG TABLET (ZOVIRAX) PO SCH ×2 (09:21→20:47)
--- NOTE | 2016-04-20 10:09 | Diagnostic Imaging Report ---
INDICATION: Pneumonia. COMPARISON: Comparison made with prior examination 04/17/2016. FINDINGS: The heart size is normal. There have been multiple previous thoracic and lumbar kyphoplasties. There is no pleural effusion or pneumothorax. Mediastinum is unremarkable. A central venous catheter remains in place. Note is again made of a faint mass in the right upper lobe. IMPRESSION: 1. Unchanged faint soft tissue mass in the right upper lobe. 2. Multiple previously treated thoracic and lumbar compression fractures. 3. Minimal right basilar atelectasis and/or pneumonitis. Dictated by: Dictated on workstation # [id number]
[2016-04-20] MEDS ORDERED: LEVOFLOXACIN 750 MG TAB (LEVAQUIN) PO ONE (17:30)
--- NOTE | 2016-04-20 18:36 | Physician Progress Note ---
Progress Note Assessment/Plan Events since last exam Feeling better. Hope to go home tomorrow. Want Levaquin PO. Assessment/Plan 1. Pneumonia on IV antibiotics day 4 cefepime and Levaquin. Improving. Change Levaquin to PO today. Will need to continue to Thursday. Off Solu-Medrol and on oral prednisone. Continue bronchodilators. 2. relapsed multiple myeloma. Hold chemotherapy until pneumonia resolves. 3. Anemia. Hb improved from 7.5 to 8.5. Patient has stable fatigue and no orthopnea or BHATIA. Vitals Last set of Vitals Signs Vital Signs Date Time Temp Pulse Resp B/P Pulse Ox O2 Delivery O2 Flow Rate FiO2 04/20/16 11:39 94 04/20/16 08:00 97.2 75 20 177/76 Room Air I&O I&O Intake and Output 04/20/16 00:00 Intake Total 2830 ml Output Total 3600 ml Balance -770 ml Intake Oral 2830 ml Output Urine Total 3600 ml # Bowel Movements 1 Labs Laboratory Tests 04/19/16 20:55: Glucometer 180H 04/20/16 05:53: Glucometer 147H 04/20/16 11:46: Glucometer 171H 04/20/16 16:00: Glucometer 310H KENYA KING MD Apr 20, 2016 18:36
[2016-04-20 20:18] VITALS: BP 141/75
[2016-04-20] MEDS: PANTOPRAZOLE 40 MG (PROTONIX) TAB PO SCH (20:46)
[2016-04-20] MEDS: MONTELUKAST 10 MG (SINGULAIR) TAB PO SCH (20:47)
[2016-04-20] MEDS: inSUlin DETERMIR 1 UNIT/0.01 ML (LEVEMIR) CHARGE PER UNIT SQ SCH (21:24)
[2016-04-21] MEDS: inSUlin (REGULAR) HUMAN 1 UNIT/0.01 ML (CHARGE PER UNIT) SC SCH ×4 (06:00→20:41)
[2016-04-21 06:05] LABS: BASOPHILS % (AUTO) 0 % (0-10); EOSINOPHILS % (AUTO) 0 % (0-10); LYMPHOCYTES # (AUTO) 1.3 X 10^3 (1.0-4.0); LYMPHOCYTES % (AUTO) 21 % (12-44); MEAN CORPUSCULAR HEMOGLOBIN 35 PG (25-34); MEAN CORPUSCULAR HGB CONC 33 G/DL (32-36); MEAN CORPUSCULAR VOLUME 105 FL (80-99); MEAN PLATELET VOLUME 10.1 FL (7.4-10.4); MONOCYTES % (AUTO) 16 % (0-12); NEUTROPHILS % (AUTO) 63 % (42-75); PLATELET COUNT 213 10^3/uL (130-400); RED CELL DISTRIBUTION WIDTH 13.9 % (10.0-14.5); WHITE BLOOD COUNT 6.4 10^3/uL (4.3-11.0)
[2016-04-21] MEDS: predniSONE 20 MG TAB PO SCH ×2 (06:31→16:45)
[2016-04-21 06:47] LABS: ALANINE AMINOTRANSFERASE 20 U/L (0-55); ALBUMIN 3.2 G/DL (3.2-4.5); ANION GAP 11 MMOL/L (5-14); ASPARTATE AMINO TRANSFERASE 10 U/L (5-34); BILIRUBIN,TOTAL 0.3 MG/DL (0.1-1.0); BLOOD UREA NITROGEN 28 MG/DL (7-18); BUN/CREATININE RATIO 33; CALCIUM 8.9 MG/DL (8.5-10.1); CARBON DIOXIDE 23 MMOL/L (21-32); CHLORIDE 106 MMOL/L (98-107); CREATININE SERUM 0.86 MG/DL (0.60-1.30); GFR ESTIMATED > 60; GLUCOSE 102 MG/DL (70-105); POTASSIUM 3.8 MMOL/L (3.6-5.0); SODIUM 140 MMOL/L (135-145); TOTAL PROTEIN 5.1 G/DL (6.4-8.2)
[2016-04-21 08:00] VITALS: BP 166/93
[2016-04-21] MEDS: CEFEPIME INJECTION 2,000 MG in NS (IVPB) 50 ML IV SCH ×2 (08:26→20:39)
[2016-04-21] MEDS: lisINopril 20 MG (ZESTRIL) TAB PO SCH ×2 (08:26→20:27)
[2016-04-21] MEDS: guaiFENesin (MUCINEX) 600 MG TAB PO SCH ×2 (08:26→20:27)
[2016-04-21] MEDS: ACYCLOVIR 400 MG TABLET (ZOVIRAX) PO SCH ×2 (08:27→20:30)
[2016-04-21] MEDS: ASPIRIN E.C. 81 MG (ECOTRIN) TAB PO SCH (08:27)
[2016-04-21] MEDS: amLODIPine 5 MG (NORVASC) TAB PO SCH (08:27)
[2016-04-21] MEDS: HYDROCODONE/CHLOR 10MG/5 ML (TUSSIONEX SUSP) 5ML UDC PO SCH ×2 (08:29→08:30)
--- NOTE | 2016-04-21 17:26 | Progress Note-Standard ---
Standard Progress Note Progress Notes/Assess & Plan Progress/Assessment & Plan 75-year-old female with history of multiple myeloma, status post autologous BMT with recurrent disease including abdominal plasmacytoma and on outpatient palliative chemotherapy. Patient admitted with a right lung pneumonia with significant fever and cough and on broad spectrum antibiotics. No temperature spikes. Continues to have cough productive of sputum. Ambulating inside the home. Eating better. She denied any diarrhea. Vital Sign - Last 12Hours Date Time Temp Pulse Resp B/P Pulse Ox O2 Delivery O2 Flow Rate FiO2 04/21/16 08:32 96 04/21/16 08:20 Room Air 04/21/16 08:00 97.5 64 20 166/93 Physical exam showed an elderly female, well-developed and nourished, weak- appearing, awake and oriented and in no acute distress. Lungs with bilateral rhonchi but no wheezes or rales heard. Cardiovascular exam was regular in rate and rhythm. No murmurs or gallops heard. Extremities showed no edema. Laboratory Tests 04/21/16 05:53 A/P: 1. Right lung pneumonia, started on broad-spectrum antibiotics with cefepime and Levaquin. Levaquin discontinued after 5 days and currently only on cefepime. 2. Continue the IV antibiotics today and reevaluate tomorrow. Increase activity as tolerated and if stable home soon. 3. History of recurrent multiple myeloma and abdominal plasmacytoma, on palliative outpatient chemotherapy. We will hold chemotherapy until stable from the pneumonia. 4. anemia most likely secondary to chronic disease and chemotherapy. Currently stable and monitor serially. CAREN PRYOR Apr 21, 2016 17:26
--- NOTE | 2016-04-21 18:38 | Progress Note (SOAP) ---
Subjective Subjective/Events-last exam Fwup pneumonia, HTN, DM--insulin requiring, recurrent MM. Doing much better but worried about her who is home sick with URI. Objective Exam Vital Signs Date Time Temp Pulse Resp B/P Pulse Ox O2 Delivery O2 Flow Rate FiO2 04/21/16 08:32 96 04/21/16 08:20 96 Room Air 04/21/16 08:00 97.5 64 20 166/93 99 Room Air 04/20/16 20:18 97.8 75 18 141/75 95 Room Air 04/20/16 19:40 Room Air 04/20/16 19:16 92 I & O 04/21/16 07:00 Intake Total 2190 ml Output Total 2850 ml Balance -660 ml Capillary Refill : General Appearance: No Apparent Distress Neck: Supple Respiratory: Lungs Clear Cardiovascular: Regular Rate, Rhythm Extremity: Non Tender No Calf Tenderness No Pedal Edema Neurologic/Psychiatric: Alert Oriented x3 Results Lab Laboratory Tests 04/20/16 20:57: Glucometer 203H 04/21/16 05:53: Alanine Aminotransferase (ALT/SGPT) 20, Albumin 3.2, Alkaline Phosphatase 50, Anion Gap 11, Aspartate Amino Transf (AST/SGOT) 10, BUN/Creatinine Ratio 33, Basophils # (Auto) 0.0, Basophils (%) (Auto) 0, Blood Urea Nitrogen 28H, Calcium Level 8.9, Carbon Dioxide Level 23, Chloride Level 106, Creatinine 0.86 , Eosinophils # (Auto) 0.0, Eosinophils (%) (Auto) 0, Estimat Glomerular Filtration Rate > 60, Glucose Level 102, Hematocrit 29L, Hemoglobin 9.8L, Lymphocytes # (Auto) 1.3, Lymphocytes (%) (Auto) 21, Mean Corpuscular Hemoglobin 35H, Mean Corpuscular Hemoglobin Concent 33, Mean Corpuscular Volume 105H, Mean Platelet Volume 10.1, Monocytes # (Auto) 1.0, Monocytes (%) (Auto) 16H, Neutrophils # (Auto) 4.0, Neutrophils (%) (Auto) 63, Platelet Count 213, Potassium Level 3.8, Red Blood Count 2.80L, Red Cell Distribution Width 13.9, Sodium Level 140, Total Bilirubin 0.3, Total Protein 5.1L, White Blood Count 6.4 04/21/16 05:55: Glucometer 107 04/21/16 11:26: Glucometer 157H 04/21/16 16:03: Glucometer 243H Assessment/Plan Assessment/Plan Assess & Plan/Chief Complaint 1. Pneumonia--continue at least 1 more day of IV abx 2. DM--insulin requiring--improved BS with lower dose of steroids 3. Hypertension--stable, back on home meds 4. Recurrent MM--chemo on hold with recent illness 5. Acute on Chronic Anemia--H/H stable PHUC RAMEY DO Apr 21, 2016 18:38
[2016-04-21] MEDS: PANTOPRAZOLE 40 MG (PROTONIX) TAB PO SCH (20:27)
[2016-04-21] MEDS: MONTELUKAST 10 MG (SINGULAIR) TAB PO SCH (20:27)
[2016-04-21] MEDS: SENNOSIDES 8.6 MG (SENOKOT) TAB PO PRN (20:30)
[2016-04-21 20:36] VITALS: BP 137/75
[2016-04-21] MEDS: inSUlin DETERMIR 1 UNIT/0.01 ML (LEVEMIR) CHARGE PER UNIT SQ SCH (20:40)
[2016-04-22 05:32] LABS: BASOPHILS % (AUTO) 0 % (0-10); EOSINOPHILS # (AUTO) 0.2 10^3/uL (0.0-0.3); EOSINOPHILS % (AUTO) 2 % (0-10); LYMPHOCYTES # (AUTO) 3.7 X 10^3 (1.0-4.0); LYMPHOCYTES % (AUTO) 38 % (12-44); MEAN CORPUSCULAR HEMOGLOBIN 35 PG (25-34); MEAN CORPUSCULAR HGB CONC 32 G/DL (32-36); MEAN CORPUSCULAR VOLUME 107 FL (80-99); MEAN PLATELET VOLUME 10.1 FL (7.4-10.4); MONOCYTES # (AUTO) 2.2 X 10^3 (0.0-1.0); MONOCYTES % (AUTO) 23 % (0-12); NEUTROPHILS # (AUTO) 3.7 X 10^3 (1.8-7.8); NEUTROPHILS % (AUTO) 38 % (42-75); PLATELET COUNT 264 10^3/uL (130-400); RED BLOOD COUNT 2.81 10^6/uL (4.35-5.85); RED CELL DISTRIBUTION WIDTH 14.6 % (10.0-14.5); WHITE BLOOD COUNT 9.7 10^3/uL (4.3-11.0)
[2016-04-22] MEDS: inSUlin (REGULAR) HUMAN 1 UNIT/0.01 ML (CHARGE PER UNIT) SC SCH ×3 (06:00→16:38)
[2016-04-22 06:08] LABS: ANION GAP 12 MMOL/L (5-14); BLOOD UREA NITROGEN 28 MG/DL (7-18); BUN/CREATININE RATIO 31; CARBON DIOXIDE 23 MMOL/L (21-32); CHLORIDE 109 MMOL/L (98-107); GFR ESTIMATED > 60; POTASSIUM 3.3 MMOL/L (3.6-5.0); SODIUM 144 MMOL/L (135-145)
[2016-04-22 06:20] LABS: GLUCOSE 47 MG/DL (70-105)
[2016-04-22] MEDS ORDERED: predniSONE 20 MG TAB PO SCH (07:00)
[2016-04-22 08:00] VITALS: BP 120/61
[2016-04-22] MEDS: ASPIRIN E.C. 81 MG (ECOTRIN) TAB PO SCH (08:33)
[2016-04-22] MEDS: ACYCLOVIR 400 MG TABLET (ZOVIRAX) PO SCH (08:33)
[2016-04-22] MEDS: guaiFENesin (MUCINEX) 600 MG TAB PO SCH (08:33)
[2016-04-22] MEDS: lisINopril 20 MG (ZESTRIL) TAB PO SCH (08:33)
[2016-04-22] MEDS: amLODIPine 5 MG (NORVASC) TAB PO SCH (08:33)
[2016-04-22] MEDS: HYDROCODONE/CHLOR 10MG/5 ML (TUSSIONEX SUSP) 5ML UDC PO SCH (08:34)
[2016-04-22] MEDS: CEFEPIME INJECTION 2,000 MG in NS (IVPB) 50 ML IV SCH (08:34)
[2016-04-22] MEDS: SENNOSIDES 8.6 MG (SENOKOT) TAB PO PRN (08:38)
--- NOTE | 2016-04-22 16:29 | Discharge Inst-Simple/Standard ---
Discharge Inst-Standard Discharge Medications New, Converted or Re-Newed RX: Other Patient Instructions/Follow Up Plan of Care/Instructions/FU: F/U at cancer center on Thursday04/28/16 at 0945 hrs. F/U with Dr. Donnelly in 2-3 weeks. Call for appt. Activity as Tolerated: Yes Discharge Diet: ADA Diet CAREN PRYOR Apr 22, 2016 16:29
[2016-04-22] MEDS ORDERED: inSUlin DETERMIR 1 UNIT/0.01 ML (LEVEMIR) CHARGE PER UNIT SQ SCH (21:00)
--- NOTE | 2016-04-22 21:45 | Progress Note (SOAP) ---
Subjective Subjective/Events-last exam Fwup pneumonia, HTN, DM--insulin requiring, recurrent MM. Doing much better. Wants to go home. Objective Exam Vital Signs Date Time Temp Pulse Resp B/P Pulse Ox O2 Delivery O2 Flow Rate FiO2 04/22/16 09:42 93 04/22/16 08:35 93 Room Air 04/22/16 08:00 97.6 82 16 120/61 98 Room Air I & O 04/22/16 07:00 Intake Total 2110 ml Output Total 2650 ml Balance -540 ml Capillary Refill : General Appearance: No Apparent Distress Neck: Supple Respiratory: Crackles Cardiovascular: Regular Rate, Rhythm Systolic Murmur Extremity: Non Tender No Calf Tenderness Pedal Edema Neurologic/Psychiatric: Alert Oriented x3 Results Lab Laboratory Tests 04/22/16 05:15: Anion Gap 12, BUN/Creatinine Ratio 31, Basophils # (Auto) 0.0, Basophils (%) ( Auto) 0, Blood Urea Nitrogen 28H, Calcium Level 9.0, Carbon Dioxide Level 23, Chloride Level 109H, Creatinine 0.90, Eosinophils # (Auto) 0.2, Eosinophils (%) (Auto) 2, Estimat Glomerular Filtration Rate > 60, Glucose Level 47*L, Hematocrit 30L, Hemoglobin 9.7L, Lymphocytes # (Auto) 3.7, Lymphocytes (%) (Auto ) 38, Mean Corpuscular Hemoglobin 35H, Mean Corpuscular Hemoglobin Concent 32, Mean Corpuscular Volume 107H, Mean Platelet Volume 10.1, Monocytes # (Auto) 2.2H , Monocytes (%) (Auto) 23H, Neutrophils # (Auto) 3.7, Neutrophils (%) (Auto) 38L , Platelet Count 264, Potassium Level 3.3L, Red Blood Count 2.81L, Red Cell Distribution Width 14.6H, Sodium Level 144, White Blood Count 9.7 04/22/16 05:56: Glucometer 50*L 04/22/16 06:05: Glucometer 50*L 04/22/16 06:27: Glucometer 74 Assessment/Plan Assessment/Plan Assess & Plan/Chief Complaint 1. Pneumonia--home today 2. DM--insulin requiring--improved BS with lower dose of steroids and was hypoglycemic this AM so will decrease levemir dose back down 3. Hypertension--stable, back on home meds 4. Recurrent MM--chemo on hold with recent illness 5. Acute on Chronic Anemia--H/H stable PHUC RAMEY DO Apr 22, 2016 9:45 pm
--- NOTE | 2016-04-23 13:22 | DISCHARGE SUMMARY ---
DATE OF ADMISSION TO THE SWING BED STATUS: 04/18/2016 DATE OF DISCHARGE: 04/22/2016 FINAL DIAGNOSES: 1. Right lung pneumonia. 2. Recurrent multiple myeloma with abdominal plasmacytoma. 3. On outpatient palliative chemotherapy. 4. Anemia, most likely secondary to chronic disease and chemotherapy. BRIEF HISTORY: Mrs. Pereira is a 75-year-old female with a history of recurrent multiple myeloma and abdominal plasmacytoma who is undergoing outpatient palliative chemotherapy. She was admitted with a right lung pneumonia to acute care and continued on broad spectrum antibiotics. She was transitioned to swing bed status on 04/18/2016 for continuation of IV antibiotics. She was maintained on MAT protocol with bronchodilators and antitussive mucolytics. She was also started on steroids, which was gradually weaned. Her blood sugars were running high as she was a diabetic and required steroid use. This was maintained with sliding scale insulin. She continued to improve clinically and activity level was increasing. She was ambulating inside the room without any problems. She was noted to be anemic at the time of admission and this was monitored without transfusion. Her hemoglobins improved and stabilized and this was monitored serially. This was felt to be due to anemia of chronic disease as well as due to the chemotherapy. On 04/22/2016 she was felt stable enough to be discharged home with her home medications. She does not need extended antibiotics as she had 8 days of IV antibiotics. She will resume her home medications. She will continue her diabetic diet and medications for this. She is to [facility] on 04/28/2016 at 0945 hours for an appointment. She was instructed to follow-up with Dr. Donnelly in 2 to 3 weeks and to call for an appointment. If she has any new symptoms she was instructed to contact the physician or come to the emergency room. Job ID: [id number] Dictated Date: 04/22/2016 16:36:08 Casing Wringer Operator Date: 04/23/2016 13:14:24/ying GARZA
== END 2016-04-22 18:15 | disposition home or self-care (01) | DRG 194 ==
LOC: 4TH 14:08
PROVIDERS: ADMIT Internal Medicine Hematology & Oncology; ATTEND Internal Medicine Hematology & Oncology
DX: J18.9 Pneumonia, unspecified organism (principal); C90.02 Multiple myeloma in relapse; Z94.81 Bone marrow transplant status; I12.9 Hypertensive chronic kidney disease with stage 1 through stage 4 chronic kidney disease, or unspecified chronic kidney disease; N18.3 Chronic kidney disease, stage 3 (moderate); I48.91 Unspecified atrial fibrillation; E11.9 Type 2 diabetes mellitus without complications; M81.0 Age-related osteoporosis without current pathological fracture; D63.8 Anemia in other chronic diseases classified elsewhere; D64.81 Anemia due to antineoplastic chemotherapy; T45.1X5A Adverse effect of antineoplastic and immunosuppressive drugs, initial encounter; Z79.4 Long term (current) use of insulin; Z85.3 Personal history of malignant neoplasm of breast; Z90.12 Acquired absence of left breast and nipple
CPT/HCPCS: 36415; 71020; 80048; 80053; 82962; 85025; 85027; 94760

== ENCOUNTER → 2016-04-29 | Outpatient (CLI) | payer MEDICARE ==
--- OUTSIDE RECORDS SUMMARY | 2016-04-29 08:11 | XMS REPORT | Continuity of Care Document ---
Author Author [facility] Organization [facility] Address Unknown Phone Unavailable Care Team Providers Care Tube Puller Name Role Phone Kim Donnelly PCP [phone] Source Comments Some departments are not documenting in the electronic medical record. If you do not see the information that you expected, contact Release of Information in the Health Information Management department at [phone] for further assistance in locating additional records.[facility] Active Allergies and Adverse Reactions Allergen Noted [...] 10/04/19 Active daily. HOLD UNTIL YOUR 16 AVIATION MANAGER GIVES YOU THE OK TO RESTART senna [...] of VDTPACE 25% reduction and she had [place] of the mesenteric mass, we started her [...] XRT to her left breast. It was ER/MN positive and she completed 4.5 yrs of endocrine therapy. She then had a recurrence of her breast cancer in 2009 and underwent a left mastectomy without other adjuvant therapy L ast Assessment & Plan: She also has a hx of breast cancer diagnosed in 1999. She underwent lumpectomy followed by XRT to her left breast. It was ER/MN positive and she completed 4.5 yrs of [...] Taken Blood Pressure 156/79 02/14/2016 2:16 PM DIRECT SUPPORT STAFF Pulse 71 02/14/2016 2:16 PM DIRECT SUPPORT STAFF Temperature 36.4 C (97.6 F) 02/14/2016 2:16 PM DIRECT SUPPORT STAFF Respiratory Rate 18 02/14/2016 2:16 PM DIRECT SUPPORT STAFF Height 1.575 m (5' 2.01") 02/14/2016 2:16 PM DIRECT SUPPORT STAFF Weight 73.12 kg (161 lb 3.2 oz) 02/14/2016 2:16 PM DIRECT SUPPORT STAFF Body Mass Index 29.48 02/14/2016 2:16 PM DIRECT SUPPORT STAFF Oxygen Saturation 99% 02/14/2016 2:16 PM DIRECT SUPPORT STAFF Plan of Care Date Type Specialty Providers Description 05/08/2016 Appointment Oncology Maria A Locke MD [address] [place] [address] [phone] (Fax) Health Maintenance Due Date Last Done [...]
== END ==
LOC: RAD 08:06
PROVIDERS: ATTEND Nurse Practitioner Adult Health
DX: R91.1 Solitary pulmonary nodule (principal); R19.00 Intra-abdominal and pelvic swelling, mass and lump, unspecified site; C50.112 Malignant neoplasm of central portion of left female breast; C90.00 Multiple myeloma not having achieved remission

== ENCOUNTER → 2016-05-06 | Outpatient (CLI) | payer MEDICARE ==
--- OUTSIDE RECORDS SUMMARY | 2016-05-06 08:02 | XMS REPORT | Continuity of Care Document ---
Author Author [facility] Organization [facility] Address Unknown Phone Unavailable Care Team Providers Care Rag Washer Name Role Phone Kim Donnelly PCP [phone] Source Comments Some departments are not documenting in the electronic medical record. If you do not see the information that you expected, contact Release of Information in the Health Information Management department at [phone] for further assistance in locating additional records.[facility] Active Allergies and Adverse Reactions Allergen [...] 10/04/19 Active daily. HOLD UNTIL YOUR 16 DIRECTOR LEARNING AND DEVELOPMENT GIVES YOU THE OK TO RESTART senna [...] of VDTPACE 25% reduction and she had [place] of the mesenteric mass, we started her [...] XRT to her left breast. It was ER/[place] positive and she completed 4.5 yrs of endocrine therapy. She then had a recurrence of her breast cancer in 2009 and underwent a left mastectomy without other adjuvant therapy L ast Assessment & Plan: She also has a hx of breast cancer diagnosed in 1999. She underwent lumpectomy followed by XRT to her left breast. It was ER/KY positive and she completed 4.5 yrs of [...] 02/14/2016 Orders Only Oncology Latisha Cobb, MEÑO Immunizations Name Dates Previously Given Next Due Acthib Vaccine 07/05/2014, 05/08/2014, 03/10/2014 Flu Vaccine Trivalent >64 11/20/2015 Yo High-dose (Preservative Free) Hepatitis A vaccine Adult 09/04/2014, 03/10/2014 IM Hepatitis B Vaccine Adult 09/04/2014, 05/08/2014, 03/10/2014 3 Dose IM IPV 07/05/2014, 05/08/2014, 03/10/2014 Meningococcal Conjug 03/10/2014 Vaccine Pneumococcal Vaccine 09/04/2014 (23-Sagrario Adult) Pneumococcal 07/05/2014, 05/08/2014, 03/10/2014 Vaccine(13-S[facility] Peds/immunocompromised adult) Tdap Vaccine 07/05/2014, 05/08/2014, 03/10/2014 Social History Tobacco Use Types Packs/Day Years Used Date Former Smoker Cigarettes 0.5 Quit: 08/11/1997 Smokeless Tobacco: Never Used Alcohol Use Drinks/Week oz/Week Comments No Last Filed Vital Signs Vital Sign Reading Time Taken Blood Pressure 156/79 02/14/2016 2:16 PM DIRECTOR PAYMENT Pulse 71 02/14/2016 2:16 PM DIRECTOR PAYMENT Temperature 36.4 C (97.6 F) 02/14/2016 2:16 PM DIRECTOR PAYMENT Respiratory Rate 18 02/14/2016 2:16 PM DIRECTOR PAYMENT Height 1.575 m (5' 2.01") 02/14/2016 2:16 PM DIRECTOR PAYMENT Weight 73.12 kg (161 lb 3.2 oz) 02/14/2016 2:16 PM DIRECTOR PAYMENT Body Mass Index 29.48 02/14/2016 2:16 PM DIRECTOR PAYMENT Oxygen Saturation 99% 02/14/2016 2:16 PM DIRECTOR PAYMENT Plan of Care Date Type Specialty Providers Description 05/08/2016 Appointment Oncology Maria A Locke MD [address] [place] [address] [phone] (Fax) Health Maintenance Due Date Last Done Comments Physical (Comprehensive) 1945 Exam Dilated Eye Exam 1956 Foot Exam 1956 Microalbumin 1956 Shingles Vaccine 1998 Osteoporosis Screening 10/22/2003 Prevnar/Pneumovax (#2) 03/10/2015 09/04/2014, 07/05/2014, 05/08/2014 Additional history exists Hba1c 06/09/2016 12/10/2015 Influenza Vaccine 10/17/2016 11/20/2015 Tetanus Vaccine 07/05/2024 07/05/2014, 05/08/2014, 03/10/2014 Pertussis Vaccine Completed 07/05/2014, 05/08/2014, 03/10/2014 Results from Last 3 Months Not on file
--- NOTE | 2016-05-06 14:04 | Diagnostic Imaging Report ---
EXAMINATION: PET-CT TECHNIQUE: Serum glucose level at the time of the study is: 181 mg/dL. 12.3 mCi of FDG was administered intravenously followed by obtaining PET images with corresponding noncontrast CT scan images. The CT scan was performed for anatomic correlation and attenuation correction and was not performed according to the diagnostic protocol of the areas covered. The scan was performed from the head to mid thighs. INDICATION: Pulmonary nodule. FINDINGS: There is symmetric uptake in the brain. There is opacification of the maxillary sinuses with minimal hypermetabolism of the margin of the sinuses seen. Correlate for possible underlying sinusitis. Left mastectomy changes are seen. There is a 1.4 cm right upper lobe pulmonary nodule with minimal FDG uptake with SUV of 1.5. This is in favor of benign process or post treatment effect of malignancy, presumably breast cancer metastasis. No other hypermetabolic lesion is seen in the chest. There is a mesenteric nodule adjacent to the proximal aspect of the SMA with no significant FDG uptake seen. There is expected urinary excretion of the tracer and nonfocal bowel activity likely related to physiologic uptake. Multiple lytic lesions are seen mostly in the pelvis in the osseous structures with no associated the increased FDG uptake compatible with the inactive treated metastasis. Multilevel thoracic and lumbar from kyphoplasty changes seen. IMPRESSION: A 1.4 cm right upper lobe nodule and small mesenteric nodule are seen without significant FDG uptake likely related to treated metastasis. Also scattered lytic bone lesions with no significant FDG uptake is also seen. No evidence of an active hypermetabolic neoplasm is seen at this time. Dictated by: Dictated on workstation # [id number]
== END ==
LOC: RAD 07:58
PROVIDERS: ATTEND Nurse Practitioner Adult Health
DX: C50.112 Malignant neoplasm of central portion of left female breast (principal); C90.00 Multiple myeloma not having achieved remission; R91.1 Solitary pulmonary nodule; R19.00 Intra-abdominal and pelvic swelling, mass and lump, unspecified site

== ENCOUNTER → 2016-05-13 | Outpatient (CLI) | payer MEDICARE ==
--- NOTE | 2016-05-15 19:44 | Diagnostic Imaging Report ---
EXAMINATION: Right digital screening mammogram with CAD. The current study was also evaluated with a Computer Aided Detection (CAD) system. INDICATION: Screening exam. The patient is asymptomatic. There is history of left breast cancer status post mastectomy. COMPARISON: 05/09/15. FINDINGS: The right breast is composed of heterogenously dense parenchyma which decrease mammographic sensitivity. Benign-appearing calcifications are seen. Multiple punctate calcifications are noted. There is an infusion port projecting over the axillary region of the right breast. Allowing for technique and positional differences, no suspicious change is seen. IMPRESSION: No significant change. ACR BI-RADS Category 2: Benign findings. Result letter will be mailed to the patient. Note: At least 10% of breast cancer is not imaged by mammography. Dictated by: Dictated on workstation # [id number]
== END ==
LOC: RAD 09:40
PROVIDERS: ATTEND Nurse Practitioner Adult Health
DX: Z12.31 Encounter for screening mammogram for malignant neoplasm of breast (principal)

== ENCOUNTER 2016-06-09 13:13 | Outpatient (RCR) | payer MEDICARE ==
--- OUTSIDE RECORDS SUMMARY | 2016-03-17 08:53 | XMS REPORT | Continuity of Care Document ---
Author Author [facility] Organization [facility] Address Unknown Phone Unavailable Care Team Providers Care Flat Sorting Machine Clerk Name Role Phone Kim Donnelly PCP [phone] Source Comments Some departments are not documenting in the electronic medical record. If you do not see the information that you expected, contact Release of Information in the Health Information Management department at [phone] for further assistance in locating additional records.[facility] Active Allergies and Adverse Reactions Allergen Noted Date Severity Reactions Comments Demerol 07/21/2013 Low NAUSEA AND VOMITING Patient tolerated 12.5mg on 10/01. Flagyl 07/21/2013 RASH Fosamax 07/21/2013 NAUSEA AND VOMITING Neurontin 08/11/2013 DIZZINESS Current Medications Prescription Sig. Disp. Refills Start End Date Status Date Calcium Citrate-Vitamin Take 2 Tabs by mouth [...] 10/04/19 Active daily. HOLD UNTIL YOUR 16 TAPPER HAND GIVES YOU THE OK TO RESTART senna (SENOKOT) 8.6 mg Take 1 Tab [...] 10/30/19 Active 200 mg tablet daily. 16 dexamethasone (DECADRON) Take 1 tablet by mouth 30 Tab 11 12/05/19 Active 4 mg tablet daily for 2 days starting 16 the day after each Daratumumab infusion. triamcinolone (NASACORT) Apply 2 Sprays to each Active 55 mcg nasal inhaler nostril as directed daily. fexofenadine(+) (LISET) Take 180 mg by mouth Active 180 mg tablet daily. lisinopril (PRINIVIL; Take 20 mg by mouth twice Active ZESTRIL) 20 mg tablet daily. amLODIPine (NORVASC) 5 mg Take 5 mg by mouth daily. Active tablet magnesium oxide (MAG-OX) Take 400 mg by mouth Active 400 mg tablet twice daily. acyclovir (ZOVIRAX) 400 Take 400 mg by mouth Active mg tablet twice daily. diphenhydrAMINE (BENADRYL Take 25 mg by mouth every Active ALLERGY) 25 mg tablet 6 hours as needed. pomalidomide (POMALYST) 2 Take 1 capsule by mouth 21 Cap 0 02/14/20 Active mg capsule daily on days 1-21 of 16 chemotherapy cycle, 7 days off. Take on an empty stomach, at least 2 hours before or 2 hours after food. potassium Active insulin degludec 100 Inject under the skin. Active unit/mL (3 mL) inpn insulin regular(DIL) Administer through vein Active (HUMULIN R) 10 units/mL three times daily before meals. Active Problems Problem Noted Date Encounter for [...] 08/24/2013 Myeloma 08/11/2013 Last Assessment & Plan: A 75 y/o old Female with known diagnosis of IgG L Multiple myeloma dxed in 02/2013. Pt received multiple lines of therapy VD X 2 cycles/VRD x 2 cycles, s/p Zoraiad 140/ASCT, achieved VGPR, followed by Lenalidomide as [...] of VDTPACE 25% reduction and she had [place] of the mesenteric mass, we started her on daratumumab on 12/10/15, she tolerated that well, so we added Pomalidomide for better response and to achieve CR. Pt was started on treatment this week and she is tolerating that well. Pt recent CT showed continue improvement of the EMD that achieve at least 80% reduction of the size prior starting chemotherapy treatment. Her last myeloma markers on 02/04/16 showed showed FKLC 0.34, FLLC 0.84, FKLC/FLLC ratio 0.16. Plan:. - Continue Daratumumab 16 mg/kg every other week on Cycles 3-6 then once monthly after cycle 7 - Continue Pomalidomide 2 mg daily 21q28 days - Change Pt steroids to be given to the pt as the following: - On days of Daratumumab Injection: Give Dexamethasone 4 mg prior to the daratumumab, followed by 4 mg on day 2 and day 3 followed of daratumumab injection. Total dose is 12 mg at that week - On the week off daratumumab Pt can take Dexamethasone 12 mg on one day at that week - No need for methyl prednisone - Continue ASA and Acyclovir - We recommend to continue to check myeloma markers monthly - RTC in 3 months, will consider PET scan for evaluation of the response to compare it with PET scan from 09/2015 - Pt will need weekly CBC, CMP for the first month to confirm tolerance to pomaidomide - Pt is following her local Oncologist Dr. Mccord Hypertension 08/11/2013 Diabetes (HCC) 08/11/2013 Last Assessment & Plan: Pt is currently on Metformin, will hold that and start her on insulin SSI while hospitalized Malignant neoplasm of left female breast (HCC) 08/11/2013 Overview: She also has a hx of breast cancer diagnosed in 1999. She underwent lumpectomy followed by XRT to her left breast. It was ER/NH positive and she completed 4.5 yrs of endocrine therapy. She then had a recurrence of her breast cancer in 2009 and underwent a left mastectomy without other adjuvant therapy L ast Assessment & Plan: She also has a hx of breast cancer diagnosed in 1999. She underwent lumpectomy followed by XRT to her left breast. It was ER/NH positive and she completed 4.5 yrs of endocrine therapy. She then had a recurrence of her breast cancer in 2009 and underwent a left mastectomy without other adjuvant therapy Perforated diverticulitis 08/11/2013 S/P cholecystectomy 08/11/2013 S/P colon resection 08/11/2013 Resolved Problems Problem Noted Date Resolved Date Abdominal pain 03/08/2015 09/23/2015 Most Recent Encounters Date Type Specialty Providers Description 02/20/2016 Orders Only Oncology Umu Leal, PHARMD 02/15/2016 Ancillary Radiology Outpatient, Radiologist Diagnosis unknown Orders (Primary Dx) 02/14/2016 Office Visit Oncology Maria A Locke MD Multiple myeloma in relapse (HCC) (Primary Dx); Malignant neoplasm of left female breast, unspecified site of breast (HCC) 02/14/2016 Orders Only Oncology Latisha Cobb PHARMD 01/30/2016 Hospital Radiology Encounter 01/17/2016 Documentation Oncology Maria A Locke MD 01/15/2016 Nurse Only Oncology Maria A Locke MD Canceled ( PROVIDER CANCELED) 01/15/2016 Office Visit Oncology Maria A Locke MD Multiple myeloma, remission status unspecified (HCC) (Primary Dx); Malignant neoplasm of left female breast, unspecified site of breast (HCC) 12/27/2015 Orders Only Oncology Umu Leal, MEÑO 12/25/2015 Ancillary Radiology Outpatient, Radiologist Diagnosis unknown Orders (Primary Dx) 12/22/2015 Documentation Oncology Latisha Cobb PHARMD Immunizations Name Dates Previously Given Next Due [...] Vital Sign Reading Time Taken Blood Pressure 156/79 02/14/2016 2:16 PM ENGLISH DIVISION CHAIR Pulse 71 02/14/2016 2:16 PM ENGLISH DIVISION CHAIR Temperature 36.4 C (97.6 F) 02/14/2016 2:16 PM ENGLISH DIVISION CHAIR Respiratory Rate 18 02/14/2016 2:16 PM ENGLISH DIVISION CHAIR Height 1.575 m (5' 2.01") 02/14/2016 2:16 PM ENGLISH DIVISION CHAIR Weight 73.12 kg (161 lb 3.2 oz) 02/14/2016 2:16 PM ENGLISH DIVISION CHAIR Body Mass Index 29.48 02/14/2016 2:16 PM ENGLISH DIVISION CHAIR Oxygen Saturation 99% 02/14/2016 2:16 PM ENGLISH DIVISION CHAIR Plan of Care Date Type Specialty Providers Description 05/08/2016 Appointment Oncology Maria A Locke MD [address] [place] [address] [phone] (Fax) Health Maintenance Due Date Last Done Comments Physical (Comprehensive) 1945 Exam Dilated Eye Exam 1956 Foot Exam 1956 Microalbumin 1956 Shingles Vaccine 1998 Osteoporosis Screening 10/22/2003 Prevnar/Pneumovax (#2) 03/10/2015 09/04/2014, 07/05/2014, 05/08/2014 Additional history exists Hba1c 06/09/2016 12/10/2015 Influenza Vaccine 10/17/2016 11/20/2015 Tetanus Vaccine 07/05/2024 07/05/2014, 05/08/2014, 03/10/2014 Pertussis Vaccine Completed 07/05/2014, 05/08/2014, 03/10/2014 Results from Last [address] CHEST/ABD/PEL EXTERNAL IMAGING (01/30/2016) Narrative This order has been auto finalized and does not contain a result.
[2016-03-17 09:04] LABS: BASOPHILS # (AUTO) 0.1 10^3/uL (0.0-0.1); BASOPHILS % (AUTO) 1 % (0-10); EOSINOPHILS # (AUTO) 0.2 10^3/uL (0.0-0.3); EOSINOPHILS % (AUTO) 4 % (0-10); LYMPHOCYTES # (AUTO) 1.5 X 10^3 (1.0-4.0); LYMPHOCYTES % (AUTO) 37 % (12-44); MEAN CORPUSCULAR HGB CONC 33 G/DL (32-36); MEAN CORPUSCULAR VOLUME 109 FL (80-99); MONOCYTES # (AUTO) 0.4 X 10^3 (0.0-1.0); MONOCYTES % (AUTO) 10 % (0-12); NEUTROPHILS # (AUTO) 2.1 X 10^3 (1.8-7.8); NEUTROPHILS % (AUTO) 49 % (42-75); PLATELET COUNT 212 10^3/uL (130-400); RED BLOOD COUNT 2.66 10^6/uL (4.35-5.85); WHITE BLOOD COUNT 4.2 10^3/uL (4.3-11.0)
[2016-03-17 09:08] LABS: MEAN CORPUSCULAR HEMOGLOBIN 36 PG (25-34)
[2016-03-17 09:33] LABS: CREATININE SERUM 0.95 MG/DL (0.60-1.30); POTASSIUM 4.2 MMOL/L (3.6-5.0)
[2016-03-24 14:20] LABS: BASOPHILS # (AUTO) 0.1 10^3/uL (0.0-0.1); BASOPHILS % (AUTO) 1 % (0-10); EOSINOPHILS # (AUTO) 0.3 10^3/uL (0.0-0.3); EOSINOPHILS % (AUTO) 5 % (0-10); LYMPHOCYTES # (AUTO) 1.5 X 10^3 (1.0-4.0); LYMPHOCYTES % (AUTO) 28 % (12-44); MEAN CORPUSCULAR HEMOGLOBIN 35 PG (25-34); MEAN CORPUSCULAR HGB CONC 32 G/DL (32-36); MEAN CORPUSCULAR VOLUME 110 FL (80-99); MEAN PLATELET VOLUME 8.4 FL (7.4-10.4); MONOCYTES # (AUTO) 0.8 X 10^3 (0.0-1.0); MONOCYTES % (AUTO) 14 % (0-12); NEUTROPHILS # (AUTO) 2.8 X 10^3 (1.8-7.8); NEUTROPHILS % (AUTO) 52 % (42-75); PLATELET COUNT 156 10^3/uL (130-400); RED BLOOD COUNT 2.78 10^6/uL (4.35-5.85); RED CELL DISTRIBUTION WIDTH 13.9 % (10.0-14.5); WHITE BLOOD COUNT 5.4 10^3/uL (4.3-11.0)
[2016-03-24 14:54] LABS: CALCIUM 8.8 MG/DL (8.5-10.1); CREATININE SERUM 0.98 MG/DL (0.60-1.30)
[2016-03-31 09:09] LABS: BASOPHILS # (AUTO) 0.1 10^3/uL (0.0-0.1); BASOPHILS % (AUTO) 2 % (0-10); EOSINOPHILS # (AUTO) 0.3 10^3/uL (0.0-0.3); EOSINOPHILS % (AUTO) 9 % (0-10); LYMPHOCYTES # (AUTO) 1.5 X 10^3 (1.0-4.0); LYMPHOCYTES % (AUTO) 40 % (12-44); MEAN CORPUSCULAR HEMOGLOBIN 36 PG (25-34); MEAN CORPUSCULAR HGB CONC 33 G/DL (32-36); MEAN CORPUSCULAR VOLUME 108 FL (80-99); MEAN PLATELET VOLUME 9.1 FL (7.4-10.4); MONOCYTES # (AUTO) 0.8 X 10^3 (0.0-1.0); MONOCYTES % (AUTO) 22 % (0-12); NEUTROPHILS # (AUTO) 1.1 X 10^3 (1.8-7.8); NEUTROPHILS % (AUTO) 29 % (42-75); PLATELET COUNT 155 10^3/uL (130-400); RED BLOOD COUNT 2.81 10^6/uL (4.35-5.85); RED CELL DISTRIBUTION WIDTH 13.9 % (10.0-14.5); WHITE BLOOD COUNT 3.9 10^3/uL (4.3-11.0)
[2016-03-31 09:37] LABS: ALBUMIN 3.5 G/DL (3.2-4.5); BILIRUBIN,TOTAL 0.4 MG/DL (0.1-1.0); CREATININE SERUM 1.11 MG/DL (0.60-1.30); POTASSIUM 4.2 MMOL/L (3.6-5.0); TOTAL PROTEIN 5.3 G/DL (6.4-8.2)
[2016-03-31 12:21] LABS: MAGNESIUM 1.7 MG/DL (1.8-2.4)
[2016-04-01 00:53] LABS: LIGHT CHAIN KAPPA SERUM QUANT 12.45 mg/L (3.30-19.40); LIGHT CHAIN LAMBDA SERUM QUANT 7.64 mg/L (5.71-26.30)
[2016-04-07 13:52] LABS: BASOPHILS # (AUTO) 0.1 10^3/uL (0.0-0.1); BASOPHILS % (AUTO) 1 % (0-10); EOSINOPHILS # (AUTO) 0.2 10^3/uL (0.0-0.3); EOSINOPHILS % (AUTO) 4 % (0-10); LYMPHOCYTES # (AUTO) 1.5 X 10^3 (1.0-4.0); LYMPHOCYTES % (AUTO) 36 % (12-44); MEAN CORPUSCULAR HEMOGLOBIN 36 PG (25-34); MEAN CORPUSCULAR HGB CONC 33 G/DL (32-36); MEAN CORPUSCULAR VOLUME 110 FL (80-99); MEAN PLATELET VOLUME 9.1 FL (7.4-10.4); MONOCYTES # (AUTO) 0.7 X 10^3 (0.0-1.0); MONOCYTES % (AUTO) 17 % (0-12); NEUTROPHILS # (AUTO) 1.7 X 10^3 (1.8-7.8); NEUTROPHILS % (AUTO) 42 % (42-75); PLATELET COUNT 215 10^3/uL (130-400); RED BLOOD COUNT 2.75 10^6/uL (4.35-5.85); RED CELL DISTRIBUTION WIDTH 14.3 % (10.0-14.5); WHITE BLOOD COUNT 4.1 10^3/uL (4.3-11.0)
[2016-04-07 14:24] LABS: CALCIUM 8.7 MG/DL (8.5-10.1); CREATININE SERUM 1.06 MG/DL (0.60-1.30); POTASSIUM 4.3 MMOL/L (3.6-5.0)
[2016-04-14 10:40] LABS: BASOPHILS % (AUTO) 0 % (0-10); EOSINOPHILS % (AUTO) 1 % (0-10); LYMPHOCYTES # (AUTO) 1.2 X 10^3 (1.0-4.0); LYMPHOCYTES % (AUTO) 24 % (12-44); MEAN CORPUSCULAR HEMOGLOBIN 35 PG (25-34); MEAN CORPUSCULAR HGB CONC 33 G/DL (32-36); MEAN CORPUSCULAR VOLUME 107 FL (80-99); MEAN PLATELET VOLUME 9.6 FL (7.4-10.4); MONOCYTES # (AUTO) 0.3 X 10^3 (0.0-1.0); MONOCYTES % (AUTO) 7 % (0-12); NEUTROPHILS # (AUTO) 3.2 X 10^3 (1.8-7.8); NEUTROPHILS % (AUTO) 68 % (42-75); PLATELET COUNT 198 10^3/uL (130-400); RED BLOOD COUNT 2.77 10^6/uL (4.35-5.85); RED CELL DISTRIBUTION WIDTH 14.4 % (10.0-14.5); WHITE BLOOD COUNT 4.8 10^3/uL (4.3-11.0)
[2016-04-14 11:28] LABS: ALBUMIN 3.5 G/DL (3.2-4.5); BILIRUBIN,TOTAL 0.3 MG/DL (0.1-1.0); CALCIUM 9.2 MG/DL (8.5-10.1); CREATININE SERUM 1.11 MG/DL (0.60-1.30); POTASSIUM 3.9 MMOL/L (3.6-5.0); TOTAL PROTEIN 5.9 G/DL (6.4-8.2)
[2016-04-28 10:14] LABS: BASOPHILS % (AUTO) 0 % (0-10); EOSINOPHILS # (AUTO) 0.2 10^3/uL (0.0-0.3); EOSINOPHILS % (AUTO) 3 % (0-10); LYMPHOCYTES # (AUTO) 1.4 X 10^3 (1.0-4.0); LYMPHOCYTES % (AUTO) 31 % (12-44); MEAN CORPUSCULAR HEMOGLOBIN 34 PG (25-34); MEAN CORPUSCULAR HGB CONC 32 G/DL (32-36); MEAN CORPUSCULAR VOLUME 108 FL (80-99); MEAN PLATELET VOLUME 10.2 FL (7.4-10.4); MONOCYTES # (AUTO) 0.4 X 10^3 (0.0-1.0); MONOCYTES % (AUTO) 9 % (0-12); NEUTROPHILS # (AUTO) 2.5 X 10^3 (1.8-7.8); NEUTROPHILS % (AUTO) 57 % (42-75); PLATELET COUNT 251 10^3/uL (130-400); RED BLOOD COUNT 2.66 10^6/uL (4.35-5.85); WHITE BLOOD COUNT 4.5 10^3/uL (4.3-11.0)
[2016-04-28 10:32] LABS: ALANINE AMINOTRANSFERASE 19 U/L (0-55); ALBUMIN 3.2 G/DL (3.2-4.5); ANION GAP 9 MMOL/L (5-14); ASPARTATE AMINO TRANSFERASE 11 U/L (5-34); BILIRUBIN,TOTAL 0.2 MG/DL (0.1-1.0); BLOOD UREA NITROGEN 19 MG/DL (7-18); BUN/CREATININE RATIO 22; CALCIUM 9.5 MG/DL (8.5-10.1); CARBON DIOXIDE 24 MMOL/L (21-32); CHLORIDE 107 MMOL/L (98-107); CREATININE SERUM 0.88 MG/DL (0.60-1.30); GFR ESTIMATED > 60; GLUCOSE 180 MG/DL (70-105); MAGNESIUM 1.5 MG/DL (1.8-2.4); POTASSIUM 4.6 MMOL/L (3.6-5.0); SODIUM 140 MMOL/L (135-145); TOTAL PROTEIN 5.6 G/DL (6.4-8.2)
[2016-04-29 04:32] LABS: IMMUNOGLOBULIN IGA 16 mg/dL (71-263); IMMUNOGLOBULIN IGG 197 mg/dL (672-1680)
[2016-04-29 08:12] LABS: LIGHT CHAIN KAPPA SERUM QUANT 6.13 mg/L (3.30-19.40); LIGHT CHAIN LAMBDA SERUM QUANT 7.81 mg/L (5.71-26.30)
[2016-04-29 09:38] LABS: IMMUNOGLOBULIN IGM <10 mg/dL (47-209)
[2016-05-05 14:20] LABS: BASOPHILS % (AUTO) 1 % (0-10); EOSINOPHILS # (AUTO) 0.2 10^3/uL (0.0-0.3); EOSINOPHILS % (AUTO) 4 % (0-10); LYMPHOCYTES # (AUTO) 1.4 X 10^3 (1.0-4.0); LYMPHOCYTES % (AUTO) 25 % (12-44); MEAN CORPUSCULAR HEMOGLOBIN 34 PG (25-34); MEAN CORPUSCULAR HGB CONC 32 G/DL (32-36); MEAN CORPUSCULAR VOLUME 107 FL (80-99); MONOCYTES # (AUTO) 0.5 X 10^3 (0.0-1.0); MONOCYTES % (AUTO) 8 % (0-12); NEUTROPHILS # (AUTO) 3.6 X 10^3 (1.8-7.8); NEUTROPHILS % (AUTO) 63 % (42-75); PLATELET COUNT 220 10^3/uL (130-400); RED BLOOD COUNT 2.77 10^6/uL (4.35-5.85); RED CELL DISTRIBUTION WIDTH 15.4 % (10.0-14.5); WHITE BLOOD COUNT 5.8 10^3/uL (4.3-11.0)
[2016-05-05 15:03] LABS: CALCIUM 9.2 MG/DL (8.5-10.1); CREATININE SERUM 1.09 MG/DL (0.60-1.30)
[2016-05-12 09:11] LABS: BASOPHILS % (AUTO) 1 % (0-10); EOSINOPHILS # (AUTO) 0.2 10^3/uL (0.0-0.3); EOSINOPHILS % (AUTO) 4 % (0-10); LYMPHOCYTES # (AUTO) 1.7 X 10^3 (1.0-4.0); LYMPHOCYTES % (AUTO) 34 % (12-44); MEAN CORPUSCULAR HEMOGLOBIN 34 PG (25-34); MEAN CORPUSCULAR HGB CONC 33 G/DL (32-36); MEAN CORPUSCULAR VOLUME 105 FL (80-99); MEAN PLATELET VOLUME 9.5 FL (7.4-10.4); MONOCYTES # (AUTO) 1.1 X 10^3 (0.0-1.0); MONOCYTES % (AUTO) 22 % (0-12); NEUTROPHILS # (AUTO) 1.9 X 10^3 (1.8-7.8); NEUTROPHILS % (AUTO) 39 % (42-75); PLATELET COUNT 206 10^3/uL (130-400); RED BLOOD COUNT 2.86 10^6/uL (4.35-5.85)
[2016-05-12 09:38] LABS: CALCIUM 9.8 MG/DL (8.5-10.1); CREATININE SERUM 1.05 MG/DL (0.60-1.30); POTASSIUM 3.9 MMOL/L (3.6-5.0)
[2016-05-19 13:51] LABS: BASOPHILS % (AUTO) 1 % (0-10); EOSINOPHILS # (AUTO) 0.1 10^3/uL (0.0-0.3); EOSINOPHILS % (AUTO) 4 % (0-10); LYMPHOCYTES # (AUTO) 1.3 X 10^3 (1.0-4.0); LYMPHOCYTES % (AUTO) 37 % (12-44); MEAN CORPUSCULAR HEMOGLOBIN 34 PG (25-34); MEAN CORPUSCULAR HGB CONC 32 G/DL (32-36); MEAN CORPUSCULAR VOLUME 105 FL (80-99); MEAN PLATELET VOLUME 9.1 FL (7.4-10.4); MONOCYTES # (AUTO) 0.8 X 10^3 (0.0-1.0); MONOCYTES % (AUTO) 22 % (0-12); NEUTROPHILS # (AUTO) 1.3 X 10^3 (1.8-7.8); NEUTROPHILS % (AUTO) 36 % (42-75); PLATELET COUNT 164 10^3/uL (130-400); RED BLOOD COUNT 2.84 10^6/uL (4.35-5.85); RED CELL DISTRIBUTION WIDTH 16.1 % (10.0-14.5); WHITE BLOOD COUNT 3.6 10^3/uL (4.3-11.0)
[2016-05-19 15:27] LABS: CALCIUM 9.2 MG/DL (8.5-10.1)
[2016-05-26 11:35] LABS: BASOPHILS # (AUTO) 0.1 10^3/uL (0.0-0.1); BASOPHILS % (AUTO) 2 % (0-10); EOSINOPHILS # (AUTO) 0.1 10^3/uL (0.0-0.3); EOSINOPHILS % (AUTO) 2 % (0-10); LYMPHOCYTES % (AUTO) 43 % (12-44); MEAN CORPUSCULAR HEMOGLOBIN 34 PG (25-34); MEAN CORPUSCULAR HGB CONC 32 G/DL (32-36); MEAN CORPUSCULAR VOLUME 107 FL (80-99); MEAN PLATELET VOLUME 9.2 FL (7.4-10.4); MONOCYTES # (AUTO) 0.8 X 10^3 (0.0-1.0); MONOCYTES % (AUTO) 18 % (0-12); NEUTROPHILS # (AUTO) 1.6 X 10^3 (1.8-7.8); NEUTROPHILS % (AUTO) 35 % (42-75); PLATELET COUNT 235 10^3/uL (130-400); RED BLOOD COUNT 2.75 10^6/uL (4.35-5.85); RED CELL DISTRIBUTION WIDTH 16.5 % (10.0-14.5); WHITE BLOOD COUNT 4.6 10^3/uL (4.3-11.0)
[2016-05-26 12:02] LABS: ALBUMIN 3.4 G/DL (3.2-4.5); BILIRUBIN,TOTAL 0.3 MG/DL (0.1-1.0); CALCIUM 8.4 MG/DL (8.5-10.1); CREATININE SERUM 0.92 MG/DL (0.60-1.30); MAGNESIUM 1.7 MG/DL (1.8-2.4); POTASSIUM 3.9 MMOL/L (3.6-5.0); TOTAL PROTEIN 5.6 G/DL (6.4-8.2)
[2016-05-27 04:01] LABS: IMMUNOGLOBULIN IGA 20 mg/dL (71-263); IMMUNOGLOBULIN IGG 266 mg/dL (672-1680); LIGHT CHAIN KAPPA SERUM QUANT 10.35 mg/L (3.30-19.40); LIGHT CHAIN LAMBDA SERUM QUANT 12.44 mg/L (5.71-26.30)
[2016-05-27 07:33] LABS: IMMUNOGLOBULIN IGM <10 mg/dL (47-209)
[2016-06-02 14:28] LABS: BASOPHILS # (AUTO) 0.1 10^3/uL (0.0-0.1); BASOPHILS % (AUTO) 1 % (0-10); EOSINOPHILS # (AUTO) 0.1 10^3/uL (0.0-0.3); EOSINOPHILS % (AUTO) 2 % (0-10); LYMPHOCYTES # (AUTO) 1.9 X 10^3 (1.0-4.0); LYMPHOCYTES % (AUTO) 31 % (12-44); MEAN CORPUSCULAR HEMOGLOBIN 34 PG (25-34); MEAN CORPUSCULAR HGB CONC 32 G/DL (32-36); MEAN CORPUSCULAR VOLUME 107 FL (80-99); MONOCYTES # (AUTO) 0.5 X 10^3 (0.0-1.0); MONOCYTES % (AUTO) 8 % (0-12); NEUTROPHILS # (AUTO) 3.4 X 10^3 (1.8-7.8); NEUTROPHILS % (AUTO) 58 % (42-75); PLATELET COUNT 241 10^3/uL (130-400); RED CELL DISTRIBUTION WIDTH 17.2 % (10.0-14.5); WHITE BLOOD COUNT 5.9 10^3/uL (4.3-11.0)
[2016-06-02 15:05] LABS: CALCIUM 8.8 MG/DL (8.5-10.1); CREATININE SERUM 0.95 MG/DL (0.60-1.30); POTASSIUM 4.2 MMOL/L (3.6-5.0)
[~2016-06-09] VITALS: Ht 158.8 cm; Wt 75.3 kg
[~2016-06-09 13:13] MED LIST changes: +ACETAMINOPHEN 325 MG TAB (TYLENOL) CANCER CTR PO PRN; +ACETAMINOPHEN 500 MG TAB (TYLENOL) CANCER CTR PO PRN; +DARATUMUMAB IV SCH; +FAMOTIDINE 20MG/2ML IV (CANCER CTR) IV SCH; +IVIG 10 GM (PRIVIGEN) CANCER C 100 ML IV SCH; +IVIG 20 GM (PRIVIGEN) CANCER C 200 ML IV SCH; +NS IV 1000 ML (CANCER CTR) IV SCH; +NS IV SCH; +ZOLEDRONIC ACID (CANCER CTR) 3.5 MG in NS (IVPB) CANCER CENTER 100 ML IV SCH; +ZOLEDRONIC ACID (CANCER CTR) 4 MG in NS (IVPB) CANCER CENTER 100 ML IV SCH; +diphenhydrAMINE 25 MG TAB (BENADRYL) CANCER CENTER PO SCH; +diphenhydrAMINE 50 MG/ML INJ (CANCER CENTER) IV PRN; +methylPREDNISolone 125 MG/2 ML (SOLU-MEDROL) CANCER CTR IV SCH
[2016-06-09 13:30] LABS: BASOPHILS % (AUTO) 1 % (0-10); EOSINOPHILS # (AUTO) 0.1 10^3/uL (0.0-0.3); EOSINOPHILS % (AUTO) 3 % (0-10); LYMPHOCYTES # (AUTO) 1.5 X 10^3 (1.0-4.0); LYMPHOCYTES % (AUTO) 31 % (12-44); MEAN CORPUSCULAR HEMOGLOBIN 33 PG (25-34); MEAN CORPUSCULAR HGB CONC 32 G/DL (32-36); MEAN CORPUSCULAR VOLUME 105 FL (80-99); MONOCYTES # (AUTO) 0.9 X 10^3 (0.0-1.0); MONOCYTES % (AUTO) 19 % (0-12); NEUTROPHILS # (AUTO) 2.3 X 10^3 (1.8-7.8); NEUTROPHILS % (AUTO) 47 % (42-75); PLATELET COUNT 199 10^3/uL (130-400); RED BLOOD COUNT 2.82 10^6/uL (4.35-5.85); RED CELL DISTRIBUTION WIDTH 16.4 % (10.0-14.5); WHITE BLOOD COUNT 4.9 10^3/uL (4.3-11.0)
[2016-06-09 14:10] LABS: CALCIUM 9.7 MG/DL (8.5-10.1); CREATININE SERUM 1.05 MG/DL (0.60-1.30); POTASSIUM 3.7 MMOL/L (3.6-5.0)
== END 2016-06-15 | disposition home or self-care (01) ==
LOC: ONC 13:13
PROVIDERS: ATTEND Internal Medicine Hematology & Oncology
DX: Z51.11 Encounter for antineoplastic chemotherapy (principal); C90.00 Multiple myeloma not having achieved remission; Z85.3 Personal history of malignant neoplasm of breast; Z90.12 Acquired absence of left breast and nipple; Z94.84 Stem cells transplant status; Z79.899 Other long term (current) drug therapy; Z76.89 Persons encountering health services in other specified circumstances
CPT/HCPCS: 36415; 36591; 80048; 80053; 82232; 82784; 83735; 83883; 85025; 87040; 87804; 96365; 96366; 96367; 96375; 96413; 96415; 99213

== ENCOUNTER → 2016-06-11 | Outpatient (CLI) | payer MEDICARE ==
[~2016-06-11] MED LIST changes: -ACETAMINOPHEN 325 MG TAB (TYLENOL) CANCER CTR PO PRN; -ACETAMINOPHEN 500 MG TAB (TYLENOL) CANCER CTR PO PRN; -DARATUMUMAB IV SCH; -FAMOTIDINE 20MG/2ML IV (CANCER CTR) IV SCH; -IVIG 10 GM (PRIVIGEN) CANCER C 100 ML IV SCH; -IVIG 20 GM (PRIVIGEN) CANCER C 200 ML IV SCH; -NS IV 1000 ML (CANCER CTR) IV SCH; -NS IV SCH; -ZOLEDRONIC ACID (CANCER CTR) 3.5 MG in NS (IVPB) CANCER CENTER 100 ML IV SCH; -ZOLEDRONIC ACID (CANCER CTR) 4 MG in NS (IVPB) CANCER CENTER 100 ML IV SCH; -diphenhydrAMINE 25 MG TAB (BENADRYL) CANCER CENTER PO SCH; -diphenhydrAMINE 50 MG/ML INJ (CANCER CENTER) IV PRN; -methylPREDNISolone 125 MG/2 ML (SOLU-MEDROL) CANCER CTR IV SCH
--- NOTE | 2016-06-11 14:17 | Diagnostic Imaging Report ---
CLINICAL INDICATION: Patient has swelling and facial pain. Patient has left eye vision issues. EXAM: Axial maxillofacial CT scan performed without IV contrast with coronal reformations. COMPARISON: None. FINDINGS: There is complete consolidation of the left maxillary sinus and [id number] amounts of consolidation of the left ethmoid air cell and mild mucosal thickening of the left frontal sinus region. There is obstruction of the left frontal recess region and left ostiomeatal unit region. There is louie bullosa of the left middle nasal turbinate which is consolidated. There are bilateral enlarged infraorbital air cells with the left side consolidated. The right maxillary sinus and sphenoid sinus are clear. There is minimal mucosal thickening in the right ethmoid sinus. There is roughly 4 mm of rightward nasal septal deviation. There is a roughly 3 mm rightward nasal septal bony spur. The orbits and globes are unremarkable. There is no evidence of periorbital inflammatory process or retrobulbar mass. The remainder of the extracranial soft tissue structures are unremarkable. Visualized intracranial structures are unremarkable. Visualized portions of the temporal bones show no significant abnormality. IMPRESSION: 1: There is severe left-sided paranasal sinus disease in a ostiomeatal unit obstruction pattern. There is associated consolidation in the left maxillary sinus, left ethmoid sinus, and mild left frontal sinus disease. 2: There are bilateral prominent infraorbital air cells (Javier cells). 3: There is louie bullosa of the left middle nasal turbinate which is consolidated. 4: There is rightward nasal septal deviation and a rightward-directed nasal septal bony spur. 5: Orbits and globes and periorbital soft tissues are unremarkable. Results of this report were discussed with Dr. Dc Ibrahim via the telephone on 06/11/2016 at 1410 hours. Dictated by: Dictated on workstation # [id number]
== END ==
LOC: RAD 12:54
PROVIDERS: ATTEND Otolaryngology Otolaryngology/Facial Plastic Surgery
DX: J01.80 Other acute sinusitis (principal); J34.9 Unspecified disorder of nose and nasal sinuses; J34.2 Deviated nasal septum
CPT/HCPCS: 70486

== ENCOUNTER → 2016-06-16 | Outpatient (CLI) | payer MEDICARE | LOC: LAB 02:45 | PROVIDERS: ATTEND Family Medicine | DX: E11.9 Type 2 diabetes mellitus without complications (principal) | CPT/HCPCS: 83036 ==

== ENCOUNTER 2016-07-01 13:26 | Outpatient (CLI) | payer MEDICARE ==
[~2016-07-01] VITALS: Ht 157.5 cm; Wt 76.2 kg
[2016-07-01 13:37] VITALS: BP 143/73
--- NOTE | 2016-07-01 14:46 | Diagnostic Imaging Report ---
INDICATION: Preoperative evaluation for sinus surgery. No chest complaints. COMPARISON: Chest from 04/20/2016. FINDINGS: A frontal view of the chest demonstrates a 15-mm nodule in the right upper lobe which has not appreciably changed. A portacatheter remains in place. Multiple kyphoplasties are present. The heart size is upper normal. The vascularity is normal. Lateral view of the chest demonstrates multiple kyphoplasties with no acute compressions. No pleural effusions are present. IMPRESSION: Since 04/20/2016, the right upper lobe nodule has not appreciably changed. Remainder of the lungs are clear. Dictated by: Dictated on workstation # [id number]
== END 2016-07-01 14:10 | disposition home or self-care (01) ==
LOC: PREOP 13:26
PROVIDERS: ATTEND Otolaryngology Otolaryngology/Facial Plastic Surgery
DX: Z01.818 Encounter for other preprocedural examination (principal); J01.00 Acute maxillary sinusitis, unspecified; J01.30 Acute sphenoidal sinusitis, unspecified; J01.10 Acute frontal sinusitis, unspecified
CPT/HCPCS: 71020; 87081; 93005

== ENCOUNTER 2016-07-04 07:54 | Day surgery (SDC) | payer MEDICARE ==
[~2016-07-04] VITALS: Ht 157.5 cm; Wt 76.2 kg
[2016-07-04] MEDS ORDERED: CLINDAMYCIN 600 MG/50 ML IVPB 50 ML IV ONE (08:15)
[2016-07-04] MEDS ORDERED: PHENYLEPHRINE 0.5% NASAL SPR (NEO-SYNEPHRINE) REG ONE (08:46)
[2016-07-04] MEDS ORDERED: LIDOCAINE/EPI 1%-1:100,000 (XYLOCAINE) 20ML ONE (08:46)
[2016-07-04] MEDS ORDERED: COCAINE HCL 4% 2 ML SYR ONE (08:46)
[2016-07-04] MEDS ORDERED: BSS 15 ML ONE (08:46)
[2016-07-04] MEDS ORDERED: LACTATED RINGERS 1,000 ML IV PRN (08:52)
[2016-07-04] MEDS ORDERED: ONDANSETRON 4 MG/2 ML (SDV) Z0FRAN ONE ×3 (09:05→10:42)
[2016-07-04 09:12] VITALS: BP 143/68
[2016-07-04] MEDS ORDERED: proPOfol 200 MG/20 ML (DIPRIVAN) VIAL IV ONE ×2 (09:13→10:24)
[2016-07-04] MEDS ORDERED: LACTATED RINGERS 1,000 ML IV ONE (09:13)
[2016-07-04] MEDS ORDERED: ROCURONIUM 50 MG/5 ML (ZEMURON) VIAL IV ONE (09:13)
[2016-07-04] MEDS ORDERED: SEVOFLURANE (ULTANE) 15 ML INHAL SOLN ONE (09:13)
[2016-07-04] MEDS ORDERED: LIDOCAINE PF 2% 10 ML (XYLOCAINE) AMP ONE (09:13)
[2016-07-04] MEDS ORDERED: fentaNYL INJECTION 100 MCG/2 ML AMP ONE (09:13)
[2016-07-04] MEDS ORDERED: ONDANSETRON 4 MG/2 ML (SDV) Z0FRAN IV ONE (09:15)
[2016-07-04] MEDS ORDERED: FAMOTIDINE 20MG/2ML IV (PEPCID) IV ONE (09:15)
[2016-07-04] MEDS ORDERED: PROPOFOL INJECTION 50 ML IV ONE (09:17)
--- NOTE | 2016-07-04 09:17 | Progress Note-Pre Operative ---
Pre-Operative Progress Note H&P Reviewed The H&P was reviewed, patient examined and no changes noted. Date H&P Reviewed: July 04, 2016 Time H&P Reviewed: 09:00 Pre-Operative Diagnosis: Left Chrinc Sinusitis, MIdlien Forehead Lesion TEMO GILLIAM MD July 04, 2016 9:17 am
[2016-07-04] MEDS ORDERED: MIDAZOLAM 2 MG/2 ML (VERSED) VIAL ONE (09:24)
[2016-07-04] MEDS ORDERED: morphine INJ 10 MG/ML 1ML (SYR OR VIAL) ONE (10:20)
[2016-07-04] MEDS ORDERED: MUPIROCIN 2% OINT 22 GM (BACTROBAN) TUBE ONE (10:27)
[2016-07-04] MEDS ORDERED: NEOSTIGMINE (BLOXIVERZ ) 1 MG/1ML 10 ML VIAL ONE (10:27)
[2016-07-04] MEDS ORDERED: GLYCOPYRROLATE 0.2 MG/ML (ROBINUL) 2 ML VIAL ONE (10:27)
[2016-07-04] MEDS ORDERED: D5 1/2 NS W/KCL 20 MEQ/L 1,000 ML IV SCH (10:39)
--- NOTE | 2016-07-04 10:39 | Progress Note-Post Operative ---
Post-Operative Progess Note Surgeon (s)/Loan Adviser (s) Surgeon TEMO GILLIAM MD Loan Adviser n/a Pre-Operative Diagnosis Left Chrinc Sinusitis, MIdlien Forehead Lesion Post-Operative Diagnosis same Post-Op Procedure Note Date of Procedure: July 04, 2016 Name of Procedure Performed: Left Endoscopic Sinus Surgery, Excsioin of midline forehead lesion with intermediate repair Description & Findings Description and Findings: n/a Anesthesia Type get Estimated Blood Loss minimal Packing none. Specimen(s) collected/removed left5 chroinci sinus disease, erobic anaerobic and fungal cultures done and sent to he lab TEMO GILLIAM MD July 04, 2016 10:38 am
[2016-07-04] MEDS ORDERED: ONDANSETRON 4 MG (ZOFRAN) ORAL DISSOLVE TAB PO PRN (10:45)
[2016-07-04] MEDS ORDERED: HYDROcodone/APAP 5 MG/325 MG (LORTAB) TAB PO PRN (10:45)
[2016-07-04] MEDS ORDERED: ACETAMINOPHEN 325 MG TABLET/CAPLET (TYLENOL) PO PRN (10:45)
[2016-07-04] MEDS ORDERED: PROMETHAZINE INJ 25 MG/ML (PHENERGAN) AMP ONE (10:47)
[2016-07-04] MEDS: PROMETHAZINE INJ 25 MG/ML (PHENERGAN) AMP IVP PRN ×2 (10:55→11:26)
[2016-07-04] MEDS ORDERED: ONDANSETRON 4 MG/2 ML (SDV) Z0FRAN IVP PRN (11:00)
[2016-07-04] MEDS ORDERED: morphine INJ 10 MG/ML 1ML (SYR OR VIAL) IVP PRN (11:00)
[2016-07-04] MEDS ORDERED: hydrALAZINE (APESOLINE) 20 MG/ML VIAL ONE (11:47)
[2016-07-04] MEDS ORDERED: LABETALOL HCL 20 MG/4 ML VIAL IV ONE (12:00)
[2016-07-04] MEDS ORDERED: hydrALAZINE (APESOLINE) 20 MG/ML VIAL IV ONE (12:00)
[2016-07-04 12:05] VITALS: BP 184/85
[2016-07-04 12:35] VITALS: BP 180/74
[2016-07-04 13:05] VITALS: BP 171/70
[2016-07-04] MEDS ORDERED: HYDR-3812 PO (13:46)
[2016-07-04] MEDS ORDERED: CLIN300C3 PO (13:46)
[2016-07-04 14:30] VITALS: BP 163/71
== END 2016-07-04 14:30 | disposition home or self-care (01) ==
LOC: SDC 07:54
PROVIDERS: ATTEND Otolaryngology Otolaryngology/Facial Plastic Surgery
DX: J32.2 Chronic ethmoidal sinusitis (principal); J32.0 Chronic maxillary sinusitis; J32.1 Chronic frontal sinusitis; C44.310 Basal cell carcinoma of skin of unspecified parts of face; D80.1 Nonfamilial hypogammaglobulinemia
CPT/HCPCS: 82962; 87070; 87075; 87077; 87101; 87205

== ENCOUNTER → 2016-07-29 | Outpatient (CLI) | payer MEDICARE ==
[~2016-07-29] MED LIST changes: +CLIN300C3 PO; +HYDR-3812 PO
--- NOTE | 2016-07-30 09:49 | Diagnostic Imaging Report ---
EXAMINATION: PET-CT. TECHNIQUE: Serum glucose level at the time of the study is: 154 mg/dL. 11.0 mCi of FDG was administered intravenously followed by obtaining PET images with corresponding noncontrast CT scan images. The CT scan was performed for anatomic correlation and attenuation correction and was not performed according to the diagnostic protocol of the areas covered. The scan was performed from the head to mid thighs. INDICATION: Left breast cancer status post mastectomy in 2010. Multiple myeloma. COMPARISON: 05/06/2016. FINDINGS: There is a 1.4-cm nodule in the right upper lobe similar to 05/06/2016. This is associated with minimal FDG uptake up to 1.9 SUV; this is slightly higher compared to the previous measurement of 1.5. This change is of uncertain significance. No other significant hypermetabolic lesion in the chest is seen. The brain demonstrates symmetric FDG uptake. The neck demonstrates mild increased FDG uptake around the left maxillary sinus which may relate to the left maxillary sinusitis. In the abdomen and pelvis: There is a hypermetabolic mass that appears to be centered along the omentum in the subxiphoid region measuring 5.0 x 3.4 cm and is inseparable from the anterior abdominal wall muscles. It is associated with significant FDG uptake suggestive of neoplastic etiology with maximum SUV of 10. There is also mild/ moderate hypermetabolism in a left elsa-aortic lymph node measuring 2.4 x 1.6 cm near the aortic bifurcation, and there is minimal hypermetabolism in a new periaortic lymph node just below the SMA region measuring 1.3 cm. No hypermetabolic masses seen in the osseous structures. There is mild increased FDG uptake along the left greater trochanter, probably related to tendinitis. No focal areas of increased activity in the bowel loops, and excretion within the urinary tract is noted. IMPRESSION: 1. Hypermetabolic lesions in the omentum and upper abdominal periaortic and lower abdominal left periaortic lymph nodes compatible with metastasis. 2. Stable 1.4-cm right upper lobe pulmonary nodule with no significant FDG uptake. Dictated by: Dictated on workstation # [id number]
== END ==
LOC: CARD 08:45
PROVIDERS: ATTEND Nurse Practitioner Adult Health
DX: R91.1 Solitary pulmonary nodule (principal); C50.112 Malignant neoplasm of central portion of left female breast; C90.00 Multiple myeloma not having achieved remission

== ENCOUNTER 2016-09-08 13:08 | Outpatient (RCR) | payer MEDICARE ==
[2016-06-16 13:16] LABS: BASOPHILS # (AUTO) 0.1 10^3/uL (0.0-0.1); BASOPHILS % (AUTO) 1 % (0-10); EOSINOPHILS # (AUTO) 0.3 10^3/uL (0.0-0.3); EOSINOPHILS % (AUTO) 7 % (0-10); LYMPHOCYTES # (AUTO) 1.8 X 10^3 (1.0-4.0); LYMPHOCYTES % (AUTO) 37 % (12-44); MEAN CORPUSCULAR HEMOGLOBIN 33 PG (25-34); MEAN CORPUSCULAR HGB CONC 32 G/DL (32-36); MEAN CORPUSCULAR VOLUME 104 FL (80-99); MEAN PLATELET VOLUME 9.6 FL (7.4-10.4); MONOCYTES % (AUTO) 21 % (0-12); NEUTROPHILS # (AUTO) 1.7 X 10^3 (1.8-7.8); NEUTROPHILS % (AUTO) 35 % (42-75); PLATELET COUNT 212 10^3/uL (130-400); RED BLOOD COUNT 3.02 10^6/uL (4.35-5.85); RED CELL DISTRIBUTION WIDTH 16.1 % (10.0-14.5); WHITE BLOOD COUNT 4.8 10^3/uL (4.3-11.0)
[2016-06-16 13:37] LABS: CREATININE SERUM 0.98 MG/DL (0.60-1.30); POTASSIUM 3.8 MMOL/L (3.6-5.0)
[2016-06-23 09:31] LABS: BASOPHILS # (AUTO) 0.1 10^3/uL (0.0-0.1); BASOPHILS % (AUTO) 2 % (0-10); EOSINOPHILS # (AUTO) 0.1 10^3/uL (0.0-0.3); EOSINOPHILS % (AUTO) 2 % (0-10); LYMPHOCYTES # (AUTO) 2.3 X 10^3 (1.0-4.0); LYMPHOCYTES % (AUTO) 49 % (12-44); MEAN CORPUSCULAR HEMOGLOBIN 33 PG (25-34); MEAN CORPUSCULAR HGB CONC 32 G/DL (32-36); MEAN CORPUSCULAR VOLUME 103 FL (80-99); MEAN PLATELET VOLUME 9.5 FL (7.4-10.4); MONOCYTES # (AUTO) 0.6 X 10^3 (0.0-1.0); MONOCYTES % (AUTO) 13 % (0-12); NEUTROPHILS # (AUTO) 1.7 X 10^3 (1.8-7.8); NEUTROPHILS % (AUTO) 35 % (42-75); PLATELET COUNT 258 10^3/uL (130-400); RED BLOOD COUNT 2.95 10^6/uL (4.35-5.85); RED CELL DISTRIBUTION WIDTH 16.1 % (10.0-14.5); WHITE BLOOD COUNT 4.7 10^3/uL (4.3-11.0)
[2016-06-23 09:52] LABS: ALBUMIN 3.6 G/DL (3.2-4.5); BILIRUBIN,TOTAL 0.3 MG/DL (0.1-1.0); CALCIUM 9.7 MG/DL (8.5-10.1); CREATININE SERUM 1.01 MG/DL (0.60-1.30); MAGNESIUM 1.9 MG/DL (1.8-2.4); POTASSIUM 4.2 MMOL/L (3.6-5.0); TOTAL PROTEIN 5.9 G/DL (6.4-8.2)
[2016-06-24 09:54] LABS: LIGHT CHAIN KAPPA SERUM QUANT 18.87 mg/L (3.30-19.40); LIGHT CHAIN LAMBDA SERUM QUANT 38.43 mg/L (5.71-26.30)
[2016-06-30 13:13] LABS: BASOPHILS # (AUTO) 0.1 10^3/uL (0.0-0.1); BASOPHILS % (AUTO) 2 % (0-10); EOSINOPHILS # (AUTO) 0.1 10^3/uL (0.0-0.3); EOSINOPHILS % (AUTO) 2 % (0-10); LYMPHOCYTES # (AUTO) 2.1 X 10^3 (1.0-4.0); LYMPHOCYTES % (AUTO) 42 % (12-44); MEAN CORPUSCULAR HEMOGLOBIN 33 PG (25-34); MEAN CORPUSCULAR HGB CONC 32 G/DL (32-36); MEAN CORPUSCULAR VOLUME 104 FL (80-99); MEAN PLATELET VOLUME 9.1 FL (7.4-10.4); MONOCYTES # (AUTO) 0.6 X 10^3 (0.0-1.0); MONOCYTES % (AUTO) 12 % (0-12); NEUTROPHILS % (AUTO) 41 % (42-75); PLATELET COUNT 245 10^3/uL (130-400); RED BLOOD COUNT 2.91 10^6/uL (4.35-5.85); RED CELL DISTRIBUTION WIDTH 17.1 % (10.0-14.5); WHITE BLOOD COUNT 4.9 10^3/uL (4.3-11.0)
[2016-06-30 14:11] LABS: CALCIUM 9.1 MG/DL (8.5-10.1); CREATININE SERUM 1.09 MG/DL (0.60-1.30)
[2016-07-07 13:55] LABS: BASOPHILS # (AUTO) 0.1 10^3/uL (0.0-0.1); BASOPHILS % (AUTO) 1 % (0-10); EOSINOPHILS # (AUTO) 0.1 10^3/uL (0.0-0.3); EOSINOPHILS % (AUTO) 1 % (0-10); LYMPHOCYTES # (AUTO) 1.7 X 10^3 (1.0-4.0); LYMPHOCYTES % (AUTO) 22 % (12-44); MEAN CORPUSCULAR HEMOGLOBIN 33 PG (25-34); MEAN CORPUSCULAR HGB CONC 32 G/DL (32-36); MEAN CORPUSCULAR VOLUME 102 FL (80-99); MEAN PLATELET VOLUME 9.8 FL (7.4-10.4); MONOCYTES # (AUTO) 1.2 X 10^3 (0.0-1.0); MONOCYTES % (AUTO) 15 % (0-12); NEUTROPHILS # (AUTO) 4.6 X 10^3 (1.8-7.8); NEUTROPHILS % (AUTO) 61 % (42-75); PLATELET COUNT 209 10^3/uL (130-400); RED BLOOD COUNT 3.05 10^6/uL (4.35-5.85); RED CELL DISTRIBUTION WIDTH 16.3 % (10.0-14.5); WHITE BLOOD COUNT 7.6 10^3/uL (4.3-11.0)
[2016-07-07 14:10] LABS: CALCIUM 9.6 MG/DL (8.5-10.1); CREATININE SERUM 1.15 MG/DL (0.60-1.30); POTASSIUM 4.2 MMOL/L (3.6-5.0)
[2016-07-15 13:49] LABS: BASOPHILS # (AUTO) 0.1 10^3/uL (0.0-0.1); BASOPHILS % (AUTO) 2 % (0-10); EOSINOPHILS # (AUTO) 0.2 10^3/uL (0.0-0.3); EOSINOPHILS % (AUTO) 5 % (0-10); LYMPHOCYTES # (AUTO) 1.6 X 10^3 (1.0-4.0); LYMPHOCYTES % (AUTO) 40 % (12-44); MEAN CORPUSCULAR HEMOGLOBIN 33 PG (25-34); MEAN CORPUSCULAR HGB CONC 32 G/DL (32-36); MEAN CORPUSCULAR VOLUME 102 FL (80-99); MEAN PLATELET VOLUME 9.1 FL (7.4-10.4); MONOCYTES # (AUTO) 0.9 X 10^3 (0.0-1.0); MONOCYTES % (AUTO) 24 % (0-12); NEUTROPHILS # (AUTO) 1.1 X 10^3 (1.8-7.8); NEUTROPHILS % (AUTO) 29 % (42-75); PLATELET COUNT 259 10^3/uL (130-400); RED CELL DISTRIBUTION WIDTH 16.1 % (10.0-14.5); WHITE BLOOD COUNT 3.9 10^3/uL (4.3-11.0)
[2016-07-15 15:21] LABS: CALCIUM 9.3 MG/DL (8.5-10.1); CREATININE SERUM 0.98 MG/DL (0.60-1.30); POTASSIUM 4.1 MMOL/L (3.6-5.0)
[2016-07-21 11:40] LABS: BASOPHILS # (AUTO) 0.1 10^3/uL (0.0-0.1); BASOPHILS % (AUTO) 2 % (0-10); EOSINOPHILS # (AUTO) 0.1 10^3/uL (0.0-0.3); EOSINOPHILS % (AUTO) 2 % (0-10); LYMPHOCYTES # (AUTO) 2.6 X 10^3 (1.0-4.0); LYMPHOCYTES % (AUTO) 45 % (12-44); MEAN CORPUSCULAR HEMOGLOBIN 32 PG (25-34); MEAN CORPUSCULAR HGB CONC 32 G/DL (32-36); MEAN CORPUSCULAR VOLUME 100 FL (80-99); MEAN PLATELET VOLUME 9.5 FL (7.4-10.4); MONOCYTES # (AUTO) 0.7 X 10^3 (0.0-1.0); MONOCYTES % (AUTO) 12 % (0-12); NEUTROPHILS # (AUTO) 2.2 X 10^3 (1.8-7.8); NEUTROPHILS % (AUTO) 39 % (42-75); PLATELET COUNT 329 10^3/uL (130-400); RED BLOOD COUNT 2.88 10^6/uL (4.35-5.85); WHITE BLOOD COUNT 5.7 10^3/uL (4.3-11.0)
[2016-07-21 12:15] LABS: ALBUMIN 3.5 G/DL (3.2-4.5); BILIRUBIN,TOTAL 0.2 MG/DL (0.1-1.0); CALCIUM 9.9 MG/DL (8.5-10.1); CREATININE SERUM 1.07 MG/DL (0.60-1.30); MAGNESIUM 1.8 MG/DL (1.8-2.4); TOTAL PROTEIN 6.5 G/DL (6.4-8.2)
[2016-07-22 02:12] LABS: LIGHT CHAIN KAPPA SERUM QUANT 17.18 mg/L (3.30-19.40); LIGHT CHAIN LAMBDA SERUM QUANT 78.34 mg/L (5.71-26.30)
[2016-07-28 13:33] LABS: BASOPHILS # (AUTO) 0.1 10^3/uL (0.0-0.1); BASOPHILS % (AUTO) 2 % (0-10); EOSINOPHILS # (AUTO) 0.1 10^3/uL (0.0-0.3); EOSINOPHILS % (AUTO) 2 % (0-10); LYMPHOCYTES # (AUTO) 2.5 X 10^3 (1.0-4.0); LYMPHOCYTES % (AUTO) 46 % (12-44); MEAN CORPUSCULAR HGB CONC 32 G/DL (32-36); MEAN CORPUSCULAR VOLUME 101 FL (80-99); MEAN PLATELET VOLUME 9.1 FL (7.4-10.4); MONOCYTES # (AUTO) 0.6 X 10^3 (0.0-1.0); MONOCYTES % (AUTO) 11 % (0-12); NEUTROPHILS # (AUTO) 2.1 X 10^3 (1.8-7.8); NEUTROPHILS % (AUTO) 39 % (42-75); PLATELET COUNT 300 10^3/uL (130-400); RED BLOOD COUNT 3.02 10^6/uL (4.35-5.85); RED CELL DISTRIBUTION WIDTH 16.7 % (10.0-14.5); WHITE BLOOD COUNT 5.4 10^3/uL (4.3-11.0)
[2016-07-28 13:34] LABS: MEAN CORPUSCULAR HEMOGLOBIN 32 PG (25-34)
[2016-07-28 14:23] LABS: CALCIUM 9.8 MG/DL (8.5-10.1); CREATININE SERUM 1.12 MG/DL (0.60-1.30)
[2016-08-04 13:35] LABS: BASOPHILS # (AUTO) 0.1 10^3/uL (0.0-0.1); BASOPHILS % (AUTO) 1 % (0-10); EOSINOPHILS % (AUTO) 0 % (0-10); LYMPHOCYTES # (AUTO) 0.8 X 10^3 (1.0-4.0); LYMPHOCYTES % (AUTO) 10 % (12-44); MEAN CORPUSCULAR HEMOGLOBIN 32 PG (25-34); MEAN CORPUSCULAR HGB CONC 32 G/DL (32-36); MEAN CORPUSCULAR VOLUME 101 FL (80-99); MEAN PLATELET VOLUME 9.9 FL (7.4-10.4); MONOCYTES # (AUTO) 0.2 X 10^3 (0.0-1.0); MONOCYTES % (AUTO) 3 % (0-12); NEUTROPHILS # (AUTO) 7.5 X 10^3 (1.8-7.8); NEUTROPHILS % (AUTO) 87 % (42-75); PLATELET COUNT 206 10^3/uL (130-400); RED CELL DISTRIBUTION WIDTH 16.3 % (10.0-14.5); WHITE BLOOD COUNT 8.6 10^3/uL (4.3-11.0)
[2016-08-04 13:54] LABS: CALCIUM 9.7 MG/DL (8.5-10.1); CREATININE SERUM 1.16 MG/DL (0.60-1.30); ICTERUS 0.7 (-100-1.9); POTASSIUM 3.9 MMOL/L (3.6-5.0)
[2016-08-11 13:39] LABS: BASOPHILS # (AUTO) 0.1 10^3/uL (0.0-0.1); BASOPHILS % (AUTO) 2 % (0-10); EOSINOPHILS # (AUTO) 0.3 10^3/uL (0.0-0.3); EOSINOPHILS % (AUTO) 6 % (0-10); LYMPHOCYTES # (AUTO) 1.8 X 10^3 (1.0-4.0); LYMPHOCYTES % (AUTO) 38 % (12-44); MEAN CORPUSCULAR HEMOGLOBIN 32 PG (25-34); MEAN CORPUSCULAR HGB CONC 32 G/DL (32-36); MEAN CORPUSCULAR VOLUME 100 FL (80-99); MEAN PLATELET VOLUME 9.3 FL (7.4-10.4); MONOCYTES % (AUTO) 22 % (0-12); NEUTROPHILS # (AUTO) 1.5 X 10^3 (1.8-7.8); NEUTROPHILS % (AUTO) 32 % (42-75); PLATELET COUNT 213 10^3/uL (130-400); RED BLOOD COUNT 3.09 10^6/uL (4.35-5.85); RED CELL DISTRIBUTION WIDTH 16.4 % (10.0-14.5); WHITE BLOOD COUNT 4.7 10^3/uL (4.3-11.0)
[2016-08-11 14:23] LABS: CALCIUM 9.5 MG/DL (8.5-10.1); CREATININE SERUM 1.1 MG/DL (0.60-1.30); ICTERUS 0.6 (-100-1.9); POTASSIUM 4.1 MMOL/L (3.6-5.0)
[2016-08-20 10:23] LABS: BASOPHILS # (AUTO) 0.1 10^3/uL (0.0-0.1); BASOPHILS % (AUTO) 2 % (0-10); EOSINOPHILS # (AUTO) 0.1 10^3/uL (0.0-0.3); EOSINOPHILS % (AUTO) 2 % (0-10); LYMPHOCYTES # (AUTO) 2.4 X 10^3 (1.0-4.0); LYMPHOCYTES % (AUTO) 47 % (12-44); MEAN CORPUSCULAR HEMOGLOBIN 32 PG (25-34); MEAN CORPUSCULAR HGB CONC 32 G/DL (32-36); MEAN CORPUSCULAR VOLUME 100 FL (80-99); MEAN PLATELET VOLUME 9.4 FL (7.4-10.4); MONOCYTES # (AUTO) 0.7 X 10^3 (0.0-1.0); MONOCYTES % (AUTO) 14 % (0-12); NEUTROPHILS # (AUTO) 1.8 X 10^3 (1.8-7.8); NEUTROPHILS % (AUTO) 35 % (42-75); PLATELET COUNT 263 10^3/uL (130-400); RED BLOOD COUNT 3.04 10^6/uL (4.35-5.85); RED CELL DISTRIBUTION WIDTH 16.7 % (10.0-14.5); WHITE BLOOD COUNT 5.1 10^3/uL (4.3-11.0)
[2016-08-20 10:59] LABS: ALBUMIN 3.6 GM/DL (3.2-4.5); BILIRUBIN,TOTAL 0.2 MG/DL (0.1-1.0); CREATININE SERUM 1.01 MG/DL (0.60-1.30); MAGNESIUM 1.9 MG/DL (1.8-2.4); POTASSIUM 3.9 MMOL/L (3.6-5.0)
[2016-08-21 03:28] LABS: LIGHT CHAIN KAPPA SERUM QUANT 13.15 mg/L (3.30-19.40); LIGHT CHAIN LAMBDA SERUM QUANT 302.07 mg/L (5.71-26.30)
[2016-08-25 11:10] LABS: BASOPHILS # (AUTO) 0.1 10^3/uL (0.0-0.1); BASOPHILS % (AUTO) 2 % (0-10); EOSINOPHILS # (AUTO) 0.1 10^3/uL (0.0-0.3); EOSINOPHILS % (AUTO) 3 % (0-10); LYMPHOCYTES # (AUTO) 2.1 X 10^3 (1.0-4.0); LYMPHOCYTES % (AUTO) 44 % (12-44); MEAN CORPUSCULAR HEMOGLOBIN 32 PG (25-34); MEAN CORPUSCULAR HGB CONC 32 G/DL (32-36); MEAN CORPUSCULAR VOLUME 101 FL (80-99); MEAN PLATELET VOLUME 9.6 FL (7.4-10.4); MONOCYTES # (AUTO) 0.7 X 10^3 (0.0-1.0); MONOCYTES % (AUTO) 14 % (0-12); NEUTROPHILS # (AUTO) 1.8 X 10^3 (1.8-7.8); NEUTROPHILS % (AUTO) 38 % (42-75); PLATELET COUNT 228 10^3/uL (130-400); RED BLOOD COUNT 3.16 10^6/uL (4.35-5.85); RED CELL DISTRIBUTION WIDTH 17.6 % (10.0-14.5); WHITE BLOOD COUNT 4.7 10^3/uL (4.3-11.0)
[2016-08-25 12:00] LABS: CALCIUM 9.7 MG/DL (8.5-10.1); CREATININE SERUM 1.16 MG/DL (0.60-1.30); POTASSIUM 4.4 MMOL/L (3.6-5.0)
[2016-09-01 13:44] LABS: BASOPHILS # (AUTO) 0.1 10^3/uL (0.0-0.1); BASOPHILS % (AUTO) 2 % (0-10); EOSINOPHILS # (AUTO) 0.1 10^3/uL (0.0-0.3); EOSINOPHILS % (AUTO) 3 % (0-10); LYMPHOCYTES # (AUTO) 1.2 X 10^3 (1.0-4.0); LYMPHOCYTES % (AUTO) 26 % (12-44); MEAN CORPUSCULAR HEMOGLOBIN 31 PG (25-34); MEAN CORPUSCULAR HGB CONC 31 G/DL (32-36); MEAN CORPUSCULAR VOLUME 100 FL (80-99); MEAN PLATELET VOLUME 9.3 FL (7.4-10.4); MONOCYTES # (AUTO) 0.9 X 10^3 (0.0-1.0); MONOCYTES % (AUTO) 18 % (0-12); NEUTROPHILS # (AUTO) 2.4 X 10^3 (1.8-7.8); NEUTROPHILS % (AUTO) 52 % (42-75); PLATELET COUNT 169 10^3/uL (130-400); RED BLOOD COUNT 3.11 10^6/uL (4.35-5.85); RED CELL DISTRIBUTION WIDTH 17.1 % (10.0-14.5); WHITE BLOOD COUNT 4.7 10^3/uL (4.3-11.0)
[2016-09-01 14:21] LABS: CALCIUM 9.8 MG/DL (8.5-10.1); CREATININE SERUM 1.19 MG/DL (0.60-1.30); POTASSIUM 4.1 MMOL/L (3.6-5.0)
[~2016-09-08] VITALS: Ht 158.8 cm; Wt 74.8 kg
[~2016-09-08 13:08] MED LIST changes: +ACETAMINOPHEN 325 MG TAB (TYLENOL) CANCER CTR PO PRN; +ACETAMINOPHEN 500 MG TAB (TYLENOL) CANCER CTR PO PRN; +DARATUMUMAB IV SCH; +FAMOTIDINE 20MG/2ML IV (CANCER CTR) IV SCH; +IVIG 10 GM (PRIVIGEN) CANCER C 100 ML IV SCH; +IVIG 20 GM (PRIVIGEN) CANCER C 200 ML IV SCH; +NS IV 1000 ML (CANCER CTR) IV SCH; +NS IV SCH; +ZOLEDRONIC ACID (CANCER CTR) 3.5 MG in NS (IVPB) CANCER CENTER 100 ML IV SCH; +diphenhydrAMINE 25 MG TAB (BENADRYL) CANCER CENTER PO SCH; +diphenhydrAMINE 50 MG/ML INJ (CANCER CENTER) IV PRN; +methylPREDNISolone 125 MG/2 ML (SOLU-MEDROL) CANCER CTR IV SCH
[2016-09-08 13:49] LABS: BASOPHILS # (AUTO) 0.1 10^3/uL (0.0-0.1); BASOPHILS % (AUTO) 3 % (0-10); EOSINOPHILS # (AUTO) 0.3 10^3/uL (0.0-0.3); EOSINOPHILS % (AUTO) 8 % (0-10); LYMPHOCYTES # (AUTO) 1.3 X 10^3 (1.0-4.0); LYMPHOCYTES % (AUTO) 43 % (12-44); MEAN CORPUSCULAR HEMOGLOBIN 32 PG (25-34); MEAN CORPUSCULAR HGB CONC 32 G/DL (32-36); MEAN CORPUSCULAR VOLUME 100 FL (80-99); MEAN PLATELET VOLUME 8.9 FL (7.4-10.4); MONOCYTES # (AUTO) 0.7 X 10^3 (0.0-1.0); MONOCYTES % (AUTO) 22 % (0-12); NEUTROPHILS # (AUTO) 0.7 X 10^3 (1.8-7.8); NEUTROPHILS % (AUTO) 24 % (42-75); PLATELET COUNT 159 10^3/uL (130-400); RED BLOOD COUNT 2.96 10^6/uL (4.35-5.85); RED CELL DISTRIBUTION WIDTH 16.7 % (10.0-14.5)
[2016-09-08 14:43] LABS: CALCIUM 8.5 MG/DL (8.5-10.1); CREATININE SERUM 1.04 MG/DL (0.60-1.30); POTASSIUM 4.2 MMOL/L (3.6-5.0)
== END 2016-09-14 | disposition home or self-care (01) ==
LOC: ONC 13:08
PROVIDERS: ATTEND Internal Medicine Hematology & Oncology
DX: Z51.11 Encounter for antineoplastic chemotherapy (principal); C90.00 Multiple myeloma not having achieved remission; Z85.3 Personal history of malignant neoplasm of breast; Z90.12 Acquired absence of left breast and nipple; Z94.84 Stem cells transplant status; Z79.899 Other long term (current) drug therapy; Z76.89 Persons encountering health services in other specified circumstances
CPT/HCPCS: 36415; 36591; 80048; 80053; 82232; 82784; 83036; 83735; 83883; 85025; 96365; 96366; 96367; 96413; 96415; 99213

== ENCOUNTER → 2016-09-22 | Outpatient (CLI) | payer MEDICARE ==
[~2016-09-22] MED LIST changes: -ACETAMINOPHEN 325 MG TAB (TYLENOL) CANCER CTR PO PRN; -ACETAMINOPHEN 500 MG TAB (TYLENOL) CANCER CTR PO PRN; -DARATUMUMAB IV SCH; -FAMOTIDINE 20MG/2ML IV (CANCER CTR) IV SCH; -IVIG 10 GM (PRIVIGEN) CANCER C 100 ML IV SCH; -IVIG 20 GM (PRIVIGEN) CANCER C 200 ML IV SCH; -NS IV 1000 ML (CANCER CTR) IV SCH; -NS IV SCH; +SENN-148 PO; -SENN8.6T10 PO; -ZOLEDRONIC ACID (CANCER CTR) 3.5 MG in NS (IVPB) CANCER CENTER 100 ML IV SCH; -diphenhydrAMINE 25 MG TAB (BENADRYL) CANCER CENTER PO SCH; -diphenhydrAMINE 50 MG/ML INJ (CANCER CENTER) IV PRN; -methylPREDNISolone 125 MG/2 ML (SOLU-MEDROL) CANCER CTR IV SCH
== END ==
LOC: LAB 13:24
PROVIDERS: ATTEND Family Medicine
DX: E11.65 Type 2 diabetes mellitus with hyperglycemia (principal); Z79.4 Long term (current) use of insulin
CPT/HCPCS: 36415; 83036

== ENCOUNTER 2016-10-09 08:14 | Inpatient (IN) | payer MEDICARE ==
[~2016-10-09] VITALS: Ht 154.9 cm; Wt 72.6 kg
--- OUTSIDE RECORDS SUMMARY | 2016-10-09 08:20 | XMS REPORT | Encounter Summary ---
Author Author [facility] Organization [facility] Address Unknown Phone Unavailable Care Team Providers Care Edge Sander Name Role Phone PCP Unavailable Reason for Visit * Reason Comments BMT Follow-up 3 year LTFU Encounter Details Date Type Department Care Team Description 09/04/2016 Telephone [facility] Sagrario Chavez BMT Follow-up ([facility] - BMT Exam LTFU) [address] [facility] [address] [place] [id number] Social History Tobacco Use Types Packs/Day Years Used Date Former Smoker Cigarettes 0.5 Quit: 08/11/1997 Smokeless Tobacco: Never Used Alcohol Use Drinks/Week oz/Week Comments No Sex Assigned at Date Recorded Not on file as of this encounter Functional Status Functional Status Response Date of Assessment Does the patient have a hearing impairment: No 01/15/2016 Does the patient have a visual impairment: Yes 01/15/2016 Does the patient have impaired ambulation: No 01/15/2016 Does the patient have an activity of daily living No 01/15/2016 (ADL) impairment: Does the patient have an instrumental activity of No 01/15/2016 daily living (IADL) impairment: Cognitive Status Response Date of Assessment Does the patient have a cognitive impairment: No 01/15/2016 as of this encounter Plan of Treatment Not on fileas of this encounter Visit Diagnoses Not on filein this encounter
--- OUTSIDE RECORDS SUMMARY | 2016-10-09 08:20 | XMS REPORT | Clinical Summary ---
Author Author [facility] Organization [facility] Address Unknown Phone Unavailable Care Team Providers Care Armhole Presser Name Role Phone PCP Unavailable Source Comments Some departments are not documenting in the electronic medical record. If you do not see the information that you expected, contact Release of Information in the Health Information Management department at [phone] for further assistance in locating additional records.[facility] Allergies Active Allergy Reactions Severity Noted Date Comments Metronidazole RASH 07/21/2013 Alendronate NAUSEA AND VOMITING 07/21/2013 Gabapentin DIZZINESS 08/11/2013 Meperidine NAUSEA AND VOMITING Low 07/21/2013 Patient tolerated 12.5mg on 10/01. Current Medications Prescription Sig. Disp. Refills Start [...] Active (GLYCOLAX; MIRALAX) 17 16 gram/dose powder aspirin EC 81 mg tablet Take 1 Tab by mouth 90 Tab 3 10/04/19 Active daily. HOLD UNTIL YOUR 16 WIRE SPOOLER GIVES YOU THE OK TO RESTART senna (SENOKOT) 8.6 mg Take 1 Tab by mouth twice 90 Tab 3 10/04/19 Active tablet daily. 16 dexamethasone (DECADRON) Take 1 tablet by mouth 30 Tab 11 12/05/19 Active 4 mg tabletIndications: daily for 2 days starting 16 Multiple myeloma in the day after each relapse (HCC) Daratumumab infusion. fexofenadine(+) (LISET) Take 180 mg by mouth [...] before meals. Active Problems Problem Noted Date Hypogammaglobulinemia ([facility]) 05/11/2016 Last Assessment & Plan: Pt has IgG less than 300, she will need IVIG to be given per her local oncologist in order to prevent her recurrent infections Recommendations: IVIG per her local oncologist and to check Immunoglobulin levels monthly with a goal of IgG > 400 Encounter for antineoplastic chemotherapy 10/25/2015 Pancytopenia due to chemotherapy ([facility]) 10/12/2015 Paroxysmal atrial fibrillation (HCC) 09/24/2015 Last [...] well, so we added Pomalidomide for better response.Patient is currently on Daratumumab/pomalidomide/dexamethasone and she is fairly tolerating, she had PET scan on 04/2016 that showed CR, however she had recurrent sinusitis that required Abx and debridement, 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 - Change Pomalidomide to 4 mg daily 21q28 days - Continue Daratumumab 16 mg/kg once monthly for now - Continue steroids as the following: - On days of Daratumumab Injection: Give Dexamethasone 4 mg prior to the daratumumab, followed by 2 mg on day 2 and day 3 followed of daratumumab injection. Total dose is 8 mg at that week - On the week off daratumumab Pt can take Dexamethasone 8 mg on one day at that week - Continue ASA and Acyclovir - We recommend to continue to check myeloma markers monthly, if her myeloma markers worsen will see the pt earlier for further recommendations and considering different treatment - RTC in 3 months after checking a PET scan in 10/2016 - Pt is following her local Oncologist [...] Date Resolved Date Abdominal pain 03/08/2015 09/23/2015 Encounters Date Type Specialty Care Team Description 09/04/2016 Telephone Oncology Sagrario Chavez BMT Follow-up (3 year LTFU) 08/07/2016 Office Visit Oncology Maria A Locke MD Multiple myeloma, remission status unspecified (HCC) (Primary Dx);Malignant neoplasm of left female breast, unspecified site of breast 07/24/2016 Orders Only Oncology Maria A Locke MD Multiple myeloma, remission status unspecified (HCC) (Primary Dx) from Last 3 Months Immunizations Name Dates Previously Given Next Due [...] 0.5 Quit: 08/11/1997 Smokeless Tobacco: Never Used Tobacco Cessation: Counseling Given: Yes Alcohol Use Drinks/Week oz/Week Comments No Sex Assigned at Date Recorded Not on file Last Filed Vital Signs Vital Sign Reading Time Taken Blood Pressure 186/91 08/07/2016 12:34 PM CDT Pulse 72 08/07/2016 12:34 PM CDT Temperature 36.5 C (97.7 F) 08/07/2016 12:34 PM CDT Respiratory Rate 20 08/07/2016 12:34 PM CDT Oxygen Saturation 97% 08/07/2016 12:34 PM CDT Inhaled Oxygen - - Concentration Weight 75.4 kg (166 lb 3.2 oz) 08/07/2016 12:34 PM CDT Height 157.5 cm (5' 2") 08/07/2016 12:34 PM CDT Body Mass Index 30.4 08/07/2016 12:34 PM CDT Plan of Treatment Health Maintenance Due Date Last Done Comments PHYSICAL (COMPREHENSIVE) 1947 EXAM DILATED EYE EXAM 1956 FOOT EXAM 1956 MICROALBUMIN 1956 SHINGLES VACCINE 1998 OSTEOPOROSIS SCREENING 10/22/2003 PREVNAR/PNEUMOVAX (#2) 03/10/2015 09/04/2014, 07/05/2014, 05/08/2014, Additional history exists HBA1C 06/09/2016 12/10/2015 INFLUENZA VACCINE 10/17/2016 11/20/2015 TETANUS VACCINE 07/05/2024 07/05/2014, 05/08/2014, 03/10/2014 PERTUSSIS VACCINE Completed 07/05/2014, 05/08/2014, 03/10/2014 Implants Implanted Type Area Home Health Nurse Device Expiration Model / Identifier Date Serial / Lot Port Results * KAPPA/LAMBDA FREE LIGHT CHAINS (08/07/2016 12:55 PM) Component Value Ref Range [place], FLC 1.39 0.33 - 1.94 MG/DL Comment: Freelite results should always be interpreted in conjunction with other laboratory tests and clinical evidence. The possibility of Antigen Excess exists and can cause Immunoassays to under estimate very high concentrations of antigen. Any discordant results should be discussed with Dr. Quezada. Lambda, FLC 12.55 (H) 0.57 - 2.63 MG/DL [place]/Lambda FLC 0.11 (L) 0.26 - 1.65 Specimen Performing Laboratory [facility] [address] [place] [address] * CBC AND DIFF (08/07/2016 12:55 PM) Component Value Ref Range White Blood Cells 5.4 4.5 - 11.0 K/UL RBC 3.18 (L) 4.0 - 5.0 M/UL Hemoglobin 10.3 (L) 12.0 - 15.0 GM/DL Hematocrit 30.9 (L) 36 - 45 % MCV 97.4 80 - 100 FL MCH 32.6 26 - 34 PG MCHC 33.4 32.0 - 36.0 G/DL RDW 18.0 (H) 11 - 15 % Platelet Count 180 150 - 400 K/UL MPV 8.1 7 - 11 FL Neutrophils 43 41 - 77 % Lymphocytes 37 24 - 44 % Monocytes 15 (H) 4 - 12 % Eosinophils 3 0 - 5 % Basophils 2 0 - 2 % Absolute Neutrophil Count 2.30 1.8 - 7.0 K/UL Absolute Lymph Count 2.00 1.0 - 4.8 K/UL Absolute Monocyte Count 0.80 0 - 0.80 K/UL Absolute Eosinophil Count 0.20 0 - 0.45 K/UL Absolute Basophil Count 0.10 0 - 0.20 K/UL Specimen Performing Laboratory [facility] [address] [place] [id number] * IMMUNOGLOBULINS-IGA,IGG,IGM (08/07/2016 12:55 PM) Component Value Ref Range IgG 742 (L) 762 - 1488 MG/DL IgA 25 (L) 70 - 390 MG/DL IgM <20 (L) 38 - 328 MG/DL Specimen Performing Laboratory [facility] [address] [place] [address] * C REACTIVE PROTEIN (CRP) (08/07/2016 12:55 PM) Component Value Ref Range C-Reactive Protein 1.09 (H) <1.0 MG/DL Specimen Performing Laboratory [facility] [address] [place] [address] * ELECTROPHORESIS-SERUM PROTEIN (08/07/2016 12:55 PM) Component Value Ref Range Total Protein-SEP 6.1 6.0 - 8.0 G/DL Albumin % 54.6 48 - 68 % Alpha 1 % 6.1 (H) 2 - 6 % Alpha 2 % 15.2 (H) 5 - 15 % Beta %,Serum 13.1 9 - 17 % Gamma % 11.0 9 - 21 % Interpretation - SEP HYPOALBUMINEMIA Pathologist Signature INTERPRETED BY COLEEN QUEZADA M.D. By the PATH SIGNATURE ABOVE, I attest that I have personally formulated the final interpretation expressed in this report and that the above diagnosis is based upon my examination of the slides and/or other material indicated in this report. Specimen Performing Laboratory [facility] [address] [place] [address] * COMPREHENSIVE METABOLIC PANEL (08/07/2016 12:55 PM) Component Value Ref Range Sodium 135 (L) 137 - 147 MMOL/L Potassium 3.7 3.5 - 5.1 MMOL/L Chloride 107 98 - 110 MMOL/L Glucose 219 (H) 70 - 100 MG/DL Blood Urea Nitrogen 20 7 - 25 MG/DL Creatinine 1.05 (H) 0.4 - 1.00 MG/DL Calcium 9.4 8.5 - 10.6 MG/DL Total Protein 6.4 6.0 - 8.0 G/DL Total Bilirubin 0.3 0.3 - 1.2 MG/DL Albumin 3.5 3.5 - 5.0 G/DL Alk Phosphatase 60 25 - 110 U/L AST (SGOT) 11 7 - 40 U/L CO2 25 21 - 30 MMOL/L ALT (SGPT) 13 7 - 56 U/L Anion Gap 3 3 - 12 eGFR Non 51 (L) >60 mL/min Comment: The eGFR is not validated for use in drug dosing adjustments. Continue to use estimated creatinine clearance per dosing reference text. Please contact the Clinical Pharmacist for questions. eGFR >60 >60 mL/min Comment: The eGFR is not validated for use in drug dosing adjustments. Continue to use estimated creatinine clearance per dosing reference text. Please contact the Clinical Pharmacist for questions. Specimen Performing Laboratory [facility] [address] [place] [address] from Last 3 Months
--- OUTSIDE RECORDS SUMMARY | 2016-10-09 08:20 | XMS REPORT | Encounter Summary ---
Author Author [facility] Organization [facility] Address Unknown Phone Unavailable Care Team Providers Care Cloth Printing Utility Worker Name Role Phone PCP Unavailable Reason for Visit * Reason Comments Heme/Onc Care Encounter Details Date Type Department Care Team Description 08/07/2016 Office Visit [facility] Maria A Locke MD Multiple myeloma, Cancer [facility] Exam [address] remission status [address] [place] [address] unspecified (HCC) [place] [address] (Primary Dx);Malignant [phone] neoplasm of left female breast, unspecified site of breast Social History Tobacco Use Types Packs/Day Years Used Date Former Smoker Cigarettes 0.5 Quit: 08/11/1997 Smokeless Tobacco: Never Used Alcohol Use Drinks/Week oz/Week Comments No Sex Assigned at Date Recorded Not on file as of this encounter Last Filed Vital Signs Vital Sign Reading [...] Mass Index 30.4 08/07/2016 12:34 PM CDT in this encounter Functional Status Functional Status Response [...] impairment: No 01/15/2016 as of this encounter Instructions * Patient Instructions - Coby Andrew RN - 08/07/2016 1:27 PM CDT Your Care Team: Dr. Maria A Locke | Client Delivery Specialist, Multiple Myeloma Specialist Maryana Chang APRN (Nurse Practitioner) Coby Andrew, Clinical Nurse Coordinator Radha Saleh, Clinical Nurse Coordinator For Non-Urgent phone calls: [phone] | All calls left between 8 and 4 returned in the same business day or following morning For Urgent phone call needs: [phone] | If between 8 and 4, ask for Dr Locke's CNCs Radha or Coby to be paged; if after hours, ask for MD circulation manager to be paged. For Scheduling needs: [phone] Please call urgently for any fevers greater than 100.3, do not take any tylenol/ ibuprofen for fevers. Recommendations from Dr. Locke: - Increase Pomalyst to 4mg/21 days starting next cycle (OK to take remaining 2mg pills to finish this cycle - you said you have approximately 6 pills at home ) - Continue Daratumumab/Dexamethasone - Continue weekly CBC/CMP and monthly myeloma markers (labs) - Repeat PET scan in 3 months We understand that your time is important and want your visit to be as timely as possible. In order for your appointments to occur as closely as possible to the scheduled time, please review the following additional instructions. ? Please arrive 15 minutes prior to your first scheduled appointment time to complete the registration process. ? Bring your photo ID and insurance card with you to check in o If your first appointment is with lab (blood draw) or with your provider, check in on the second floor (Main level). o If your appointment is for lab (blood draw) only, check in on the third floor. in this encounter Progress Notes * Maria A Locke MD - 08/08/2016 11:46 AM CDT Formatting of this note may be different from the original. Date of Service: 08/07/2016 Subjective: Reason for Visit: Heme/Onc Care Patricia Pereira is a 75 y.o. female.Pt is here regarding her f/u of the PET scan and her treatment using Milly/Pom/Dex at outside facility History of Present Illness Onc Timeline Diagnosis:IgG lambda multiple myeloma Date of diagnosis:02/2013 Clinical trial:No ASCT:yes Zoraida:140 mg/m2 Cytogenetic/FISH:complex karyotype / deletion of 13q HPI: A 75 y/o old ,Female with known diagnosis of IIIA IgG lambda multiple myeloma and hx of breast cancer, presents on 02/2013 with progressively worsen lower back pain. MRI of the spine showed multiple vertebral compression fracture it was thought it was caused from metastatic breast cancer, a biopsy showed monoclonal plasma cell population, lambda light chain restricted. Laboratory finding on diagnosis: showed WBC 8.6, Hb 11.5, Plt: 290 K, FKLC11.3, FLLC 102.4,serum M-prtn 3.5,serum LUI IgG lambda,urine LUI 2 bands IgG. PET/CT scan showed multiple areas of increased FDG uptake, most prominent in the medial aspect of the left clavicle, other lesions identified in 4th and 7th right ribs and T8 and T7 vertebra with no definite soft tissue mass. Bone marrow biopsy/asp showed 57% plasma cells, and 70% cellularity. Cytogenetic complex karyotype , FISH for Myeloma deletion of 13q. Pt initiated with 2 cycles of VD, then had VRD 2 cycles. Pt had Zoraida 140 mg/m2 ASCT on 08/2013. Pt achieved CR initially and was started on Lenalidomide maintenance, she did not tolerate the full dose. 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 Pt was followed by her local oncologist who started her on CFZ/dex, unfortunately she had increase in the size of the plasmacytoma. Pt received VDTPACE 25% reduction because of the increase in size of the plasmacytoma in the mesenteric area up to 6.5 cm and after 2 cycles of treatment the size of the plasmacytoma to 3.9 cm with VA. We added Daratumumab and will recommend to add Pomalidomiode for optimum response. A PET scan in 05/05 from OS showed CR with no signs of active disease. Pt was on Milly/pom/dex and she was having recurrent sinusitis and was seen ENT from debridement, she had mild elevation of her myeloma markers A PET scan on 07/29/2016 showed hypermetabolic mass 5 x 3.4 cm with SUV of [address] as well, which a concern for progression of disease. She also has a hx of breast cancer diagnosed in 1999. She underwent lumpectomy followed by XRT to her left breast. It was ER/VA positive and she completed 4.5 yrs of endocrine therapy. She then had a recurrence of her breast cancer in 2009 and underwent a left mastectomy without other adjuvant therapy. . Myeloma 03/01/2013 Initial Diagnosis Multiple Myeloma Chemotherapy VD 2 cycles (Induction) Chemotherapy VRD X 2 cycles (Induction) 08/24/2013 Transplant Zoraida 140 mg/m2ASCT 11/22/2013 - 02/22/2015 Chemotherapy Lenalidomide (Maintenance) 04/23/2015 Progression 04/23/2015 - 09/11/2015 Chemotherapy CFZ/Dex 09/24/2015 Progression 09/25/2015 - 11/04/2015 Chemotherapy VTDPACE 25 % Reduction X 2 cycles 12/10/2015 - 02/12/2016 Chemotherapy Daratumumab 02/12/2016 - Chemotherapy Daratumumab/Pom/Dex Malignant neoplasm of left female breast (HCC) 08/12/1999 Initial Diagnosis Malignant neoplasm of left female breast (HCC) Surgery Lumpectomy Radiation XRT to left Breast Other Hormonal therapy for 5 years 09/22/2009 Progression Recurrence Left breast cancer Surgery Left mastectomy Review of Systems Constitutional: Positive for fatigue. Negative for fever, chills and diaphoresis. HENT: Negative for congestion and sore throat. Eyes: Negative for photophobia. Respiratory: Negative for cough, choking and chest tightness. Cardiovascular: Negative for chest pain, palpitations and leg swelling. Gastrointestinal: Negative for nausea, vomiting, abdominal pain, diarrhea, constipation and abdominal distention. Genitourinary: Negative for dysuria and hematuria. Musculoskeletal: Positive for arthralgias. Negative for back pain and gait problem. Neurological: Negative for dizziness, weakness, numbness and headaches. Hematological: Negative for adenopathy. Does not bruise/bleed easily. Psychiatric/Behavioral: Negative for behavioral problems, confusion and agitation. Objective: acyclovir (ZOVIRAX) 400 mg tablet Take 400 mg by mouth twice daily. amLODIPine (NORVASC) 5 mg tablet Take 5 mg by mouth daily. aspirin EC 81 mg tablet Take 1 Tab by mouth daily. HOLD UNTIL YOUR CLIENT RETENTION SPECIALIST GIVES YOU THE OK TO RESTART Calcium Citrate-Vitamin D2 1,500-200 mg-unit tab Take 2 Tabs by mouth daily. cholecalciferol (VITAMIN D-3) 1,000 units tablet Take 1,000 Units by mouth daily. dexamethasone (DECADRON) 4 mg tablet Take 1 tablet by mouth daily for 2 days starting the day after each Daratumumab infusion. diphenhydrAMINE (BENADRYL ALLERGY) 25 mg tablet Take 25 mg by mouth every 6 hours as needed. fexofenadine(+) (LISET) 180 mg tablet Take 180 mg by mouth daily. insulin degludec 100 unit/mL (3 mL) inpn Inject under the skin. insulin regular(DIL) (HUMULIN R) 10 units/mL Administer through vein three times daily before meals. lisinopril (PRINIVIL; ZESTRIL) 20 mg tablet Take 20 mg by mouth twice daily. magnesium oxide (MAG-OX) 400 mg tablet Take 400 mg by mouth twice daily. omeprazole DR(+) (PRILOSEC) 20 mg capsule Take 20 mg by mouth at bedtime daily. polyethylene glycol 3350 (GLYCOLAX; MIRALAX) 17 gram/dose powder Take 17 g by mouth daily. (Patient taking differently: Take 17 g by mouth daily as needed. ) pomalidomide (POMALYST) 2 mg capsule Take 1 capsule by mouth daily on days 1 -21 of chemotherapy cycle, 7 days off. Take on an empty stomach, at least 2 hours before or 2 hours after food. potassium senna (SENOKOT) 8.6 mg tablet Take 1 Tab by mouth twice daily. Filed Vitals: 08/07/16 1234 BP: 186/91 Pulse: 72 Temp: 36.5 C (97.7 F) Resp: 20 Height: 157.5 cm (62") Weight: 75.388 kg (166 lb 3.2 oz) SpO2: 97% Body mass index is 30.39 kg/(m^2). Pain Score: Zero Past Medical History Diagnosis Date Cancer (HCC) melanoma DM (diabetes mellitus) (HCC) Arrhythmia afib 30years ago Hypertension Hyperlipidemia Past Surgical History Procedure Laterality Date Transplant Bone Marrow transplant August 222013 Abdomen surgery Pati, then colon resection x2 following pati Hx hysterectomy Hx mastectomy lumpectomy, then Left mastectomy Pr expl retroperitoneum w/wo bx spx N/A 05/15/2015 LAPAROTOMY EXPLORATORY, OPEN EXCISIONAL BIOPSY OF MESENTERIC MASS performed by Alex Vasquez MD at Main OR[facility] No family history on file. Social History Social History Marital Status: Spouse Name: N/A Number of Children: N/A Years of Education: N/A Social History Main Topics Smoking status: Former Smoker -- 0.50 packs/day Types: Cigarettes Quit date: 08/11/1997 Smokeless tobacco: Never Used Alcohol Use: No Drug Use: No Sexual Activity: Not on file Other Topics Concern Not on file Social History Narrative Pain Addressed: N/A Patient Evaluated for a Clinical Trial: No treatment clinical trial available for this patient. Eastern Cooperative Oncology Group performance status is 1, Restricted in physically strenuous activity but ambulatory and able to carry out work of a light or sedentary nature, e.g., light house work, office work. Physical Exam Constitutional: She is oriented to person, place, and time. She appears well- developed and well-nourished. No distress. HENT: Head: Normocephalic and atraumatic. Eyes: EOM are normal. Pupils are equal, round, and reactive to light. Neck: Normal range of motion. Neck supple. Cardiovascular: Normal rate, regular rhythm and normal heart sounds. Exam reveals no friction rub. No murmur heard. Pulmonary/Chest: Effort normal and breath sounds normal. No respiratory distress. She has no wheezes. She has no rales. Abdominal: Soft. Bowel sounds are normal. Musculoskeletal: Normal range of motion. She exhibits no edema or tenderness. Neurological: She is alert and oriented to person, place, and time. Skin: Skin is warm and dry. She is not diaphoretic. No erythema. No pallor. Psychiatric: She has a normal mood and affect. Her behavior is normal. Vitals reviewed. CBC w/Diff Lab Results Component Value Date/Time WHITE BLOOD CELLS 5.4 08/07/2016 12:55 PM RBC 3.18* 08/07/2016 12:55 PM HEMOGLOBIN 10.3* 08/07/2016 12:55 PM HEMATOCRIT 30.9* 08/07/2016 12:55 PM MCV 97.4 08/07/2016 12:55 PM MCH 32.6 08/07/2016 12:55 PM MCHC 33.4 08/07/2016 12:55 PM RDW 18.0* 08/07/2016 12:55 PM PLATELET COUNT 180 08/07/2016 12:55 PM MPV 8.1 08/07/2016 12:55 PM Lab Results Component Value Date/Time NEUTROPHILS 43 08/07/2016 12:55 PM ABSOLUTE NEUTROPHIL COUNT 2.30 08/07/2016 12:55 PM LYMPHOCYTES 37 08/07/2016 12:55 PM ABSOLUTE LYMPH COUNT 2.00 08/07/2016 12:55 PM MONOCYTES 15* 08/07/2016 12:55 PM ABSOLUTE MONOCYTE COUNT 0.80 08/07/2016 12:55 PM EOSINOPHILS 3 08/07/2016 12:55 PM ABSOLUTE EOSINOPHIL COUNT 0.20 08/07/2016 12:55 PM BASOPHILS 2 08/07/2016 12:55 PM ABSOLUTE BASOPHIL COUNT 0.10 08/07/2016 12:55 PM Comprehensive Metabolic Profile Lab Results Component Value Date/Time SODIUM 135* 08/07/2016 12:55 PM POTASSIUM 3.7 08/07/2016 12:55 PM CHLORIDE 107 08/07/2016 12:55 PM CO2 25 08/07/2016 12:55 PM ANION GAP 3 08/07/2016 12:55 PM BLOOD UREA NITROGEN 20 08/07/2016 12:55 PM CREATININE 1.05* 08/07/2016 12:55 PM GLUCOSE 219* 08/07/2016 12:55 PM Lab Results Component Value Date/Time CALCIUM 9.4 08/07/2016 12:55 PM PHOSPHORUS 2.1 10/30/2015 03:40 AM ALBUMIN 3.5 08/07/2016 12:55 PM TOTAL PROTEIN 6.4 08/07/2016 12:55 PM ALK PHOSPHATASE 60 08/07/2016 12:55 PM AST (SGOT) 11 08/07/2016 12:55 PM ALT (SGPT) 13 08/07/2016 12:55 PM TOTAL BILIRUBIN 0.3 08/07/2016 12:55 PM EGFR NON 51* 08/07/2016 12:55 PM EGFR >60 08/07/2016 12:55 PM Lab Results Component Value Date/Time IMMUNO FIX-SERUM FAINT IGG LAMBDA PARAPROTEIN 10/25/2015 06:58 AM IMMUNO FIX-URINE IGG LAMBDA PARAPROTEIN 05/10/2015 11:12 AM KAPPA, FLC 0.53 11/19/2015 01:35 PM LAMBDA, FLC 0.82 11/19/2015 01:35 PM KAPPA/LAMBDA FLC 0.65 11/19/2015 01:35 PM B2 MICROGLOBULIN 2.7* 10/01/2015 06:20 PM TOTAL PROTEIN-SEP 6.1 08/07/2016 12:55 PM ALBUMIN % 54.6 08/07/2016 12:55 PM ALPHA 1 % 6.1* 08/07/2016 12:55 PM ALPHA 2 % 15.2* 08/07/2016 12:55 PM BETA %,SERUM 13.1 08/07/2016 12:55 PM GAMMA % 11.0 08/07/2016 12:55 PM PARAPROTEIN 0.19 09/24/2015 07:16 AM INTERPRETATION - SEP HYPOGAMMAGLOBULINEMIA 11/19/2015 01:35 PM Assessment and Plan: Myeloma A 75 y/o old Female with known [...] of VDTPACE 25% reduction and she had VA of the mesenteric mass, we started her [...] is following her local Oncologist Dr. Mccord Malignant neoplasm of left female breast (HCC) She also has a hx of breast cancer diagnosed in 1999. She underwent lumpectomy followed by XRT to her left breast. It was ER/VA positive and she completed 4.5 yrs of endocrine therapy. She then had a recurrence of her breast cancer in 2009 and underwent a left mastectomy without other adjuvant therapy Will send our note and final recommendation to Dr. Flex Locke M.D Statement Clerk of Internal medicine Division of Hematologic Malignancies and Cellular Therapeutics Pager [phone] * Coby Andrew RN - 08/07/2016 1:23 PM CDT Nurse Coordinator Note Today's condition: No acute concerns voiced. Here for treatment recommendations. Outside labs drawn 08/04/16 reveal WBC 8.6, Hgb 10.3, Platelets 206, Na 139, K 3.9, Creatinine 1.16, Glucose 222. Current treatment: Daratumumab monthly, Pomalyst 2mg/21 days, Dexamethasone 8mg weekly at [facility] Recommendations from Dr. Locke: Increase Pomalyst to 4mg/21 days starting next cycle (pt states she has 6 pills remaining this cycle.) Continue Daratumumab/Dexamethasone. Continue weekly CBC/CMP and monthly myeloma markers. Repeat PET scan in 3 months. RTC: Dr. Mccord on 08/20/16 per pt. [address] Locke after PET scan at [facility]. Will fax all notes to patient's local scenic designer, Dr. Bud Mccord @ [facility]. ; in this encounter Plan of Treatment Not on fileas of this encounter Visit Diagnoses Diagnosis Multiple myeloma, remission status unspecified - Primary Malignant neoplasm of left female breast, unspecified site of breast in this encounter
--- OUTSIDE RECORDS SUMMARY | 2016-10-09 08:21 | XMS REPORT | Encounter Summary ---
Author Author [facility] Organization [facility] Address Unknown Phone Unavailable Care Team Providers Care Cosmetic Dentist Name Role Phone PCP Unavailable Encounter Details Date Type Department Care Team Description 07/24/2016 Orders Only [facility] Maria A Locke MD Multiple myeloma, [facility] Exam [address] remission status [address] [place] [address] unspecified (HCC) [place] [address] (Primary Dx) [phone] Social History Tobacco Use Types Packs/Day Years [...] Treatment Not on fileas of this encounter Results * C REACTIVE PROTEIN (CRP) (08/07/2016 12:55 PM) Component Value Ref Range C-Reactive Protein 1.09 (H) <1.0 MG/DL Specimen Performing Laboratory [facility] [address] [address] * IMMUNOGLOBULINS-IGA,IGG,IGM (08/07/2016 12:55 PM) Component Value Ref Range IgG 742 (L) 762 - 1488 MG/DL IgA 25 (L) 70 - 390 MG/DL IgM <20 (L) 38 - 328 MG/DL Specimen Performing Laboratory [facility] [address] [place] [address] * KAPPA/LAMBDA FREE LIGHT CHAINS (08/07/2016 12:55 PM) Component Value Ref Range [place], FLC 1.39 0.33 - 1.94 MG/DL Comment: Freelite results should always be interpreted in conjunction with other laboratory tests and clinical evidence. The possibility of Antigen Excess exists and can cause Immunoassays to under estimate very high concentrations of antigen. Any discordant results should be discussed with Dr. Quezada. Lambda, FLC 12.55 (H) 0.57 - 2.63 MG/DL Brinckerhoff/Lambda FLC 0.11 (L) 0.26 - 1.65 Specimen Performing Laboratory [address] [address] * ELECTROPHORESIS-SERUM PROTEIN (08/07/2016 12:55 PM) Component [...] indicated in this report. Specimen Performing Laboratory [place] [id number] * COMPREHENSIVE METABOLIC PANEL (08/07/2016 12:55 PM) [...] Clinical Pharmacist for questions. Specimen Performing Laboratory [facility] [address] [place] [address] * CBC AND DIFF (08/07/2016 12:55 PM) [...] 0 - 0.20 K/UL Specimen Performing Laboratory [facility] [address] [place] [address] in this encounter Visit Diagnoses Diagnosis Multiple myeloma, remission status unspecified - Primary in this encounter
[2016-10-09] MEDS ORDERED: ONDANSETRON 4 MG/2 ML (SDV) Z0FRAN IVP ONE (09:00)
[2016-10-09] MEDS: POTASSIUM CL 10MEQ/50ML IVPB 50 ML IV SCH ×2 (09:07→12:39)
[2016-10-09] MEDS: NS IV 1000 ML 1,000 ML IV SCH ×5 (09:08→19:26)
[2016-10-09] MEDS: MAGNESIUM 1 GM/100 ML IVPB 100 ML IV SCH ×2 (09:08→12:40)
--- NOTE | 2016-10-09 09:11 | ED GI ---
General Chief Complaint: Abdominal/GI Problems Stated Complaint: V/D Nursing Triage Note: C/O vomiting and diarrhea since . Hx of multiple myeloma. Sepsis Screen: No Definite Risk Source of Information: Patient, Family Exam Limitations: No Limitations History of Present Illness Time Seen By Provider: 09:05 Initial Comments This 75-year-old white female presents with persistent vomiting and diarrhea for the last 3 days. The patient is complaining of cramping moderately severe lower abdominal pain. The patient denies hematemesis, coffee-ground emesis, or melena/bloody stool. Patient is in the care of Dr. Chapman for her multiple myeloma. The patient has had a low-grade daily fever in the evening for the past several days. The patient has been unable to take her medications for the last 72 hours. The patient said associated hypokalemia and hypomagnesemia with similar episodes in the past. Patient is an insulin-dependent diabetic. Allergies and Home Medications Allergies Coded Allergies: metronidazole (Verified Allergy, Intermediate, HIVES, 04/14/16) meperidine (Verified Adverse Reaction, Mild, NAUSEA, 04/14/16) Home Medications Acyclovir 400 Mg Tablet, 400 MG PO BID, (Reported) Calcium Citrate/Vitamin D3 1 Each Tablet, 2 TAB PO DAILY@1200, (Reported) Cholecalciferol (Vitamin D3) 1,000 Unit Tablet, 1,000 UNIT PO DAILY, (Reported) Clindamycin HCl 300 Mg Capsule, 300 MG PO TID, #21 Prescribed by: ZAYDA HERRMANN on 07/04/16 1346 Dexamethasone 4 Mg Tablet, 12 MG PO EVERY OTHER WEEK, (Reported) ALTERNATING WITH DEXAMETHASONE 4 MG ON THU, THU, THU EVERY OTHER WEEK Hydrocodone/Acetaminophen 1 Each Tablet, 1-2 EACH PO Q4H PRN for PAIN, #40 Prescribed by: ZAYDA HERRMANN on 07/04/16 1346 Insulin Detemir 100 Unit/1 Ml Insuln.pen, 18 UNITS SQ HS, (Reported) Insulin Lispro 100 Unit/1 Ml Insuln.pen, SQ SLIDING/SCALE, (Reported) Lisinopril 20 Mg Tablet, 20 MG PO BID, (Reported) Magnesium Oxide 400 Mg Tablet, 400 MG PO DAILY, (Reported) Omeprazole 20 Mg Capsule.dr, 20 MG PO HS, (Reported) Polyethylene Glycol 3350 119 Gm Powder, 17 GM PO DAILY PRN for CONSTIPATION, ( Reported) Pomalidomide 2 Mg Capsule, 2 MG PO DAILY, (Reported) TAKES DAILY FOR 21 DAYS THEN OFF 7 DAYS Potassium Chloride 10 Meq Tablet.er, 10 MEQ PO DAILY@1700, (Reported) Sennosides 8.6 Mg Tablet, 8.6 MG PO DAILY PRN PRN for CONSTIPATION, (Reported) Review of Systems Constitutional: chills, fever Respiratory: Denies Cough Cardiovascular: Denies Chest Pain Gastrointestinal: See HPI, Abdominal Pain, Diarrhea, Nausea, Denies Rectal Bleeding, Vomiting Genitourinary: No Symptoms Reported Musculoskeletal: No back pain, No muscle pain Skin: No rash Psychiatric/Neurological: No Symptoms Reported Endocrine: No Symptoms Reported Hematologic/Lymphatic: No Symptoms Reported Past Tcjwwsk-Ufzyyx-Dteiyb Hx Patient Social History Alcohol Use: Denies Use Recreational Drug Use: No Smoking Status: Former Smoker Former Smoker, Quit: Feb 16, 1995 Recent Foreign Travel: No Contact w/Someone Who Travel: No Recent Infectious Disease Expo: No Recent Hopitalizations: No Immunizations Up To Date Tetanus Booster (TDap): Less than 5yrs PED Vaccines UTD: Yes Date of Pneumonia Vaccine: Feb 16, 2014 Date of Influenza Vaccine: Nov 21, 2015 Seasonal Allergies Seasonal Allergies: Yes Surgeries History of Surgeries: Yes (PERFORATED DIVERTICULI with colon resection, KYPHOPLASTY X2) Surgeries: Bladder Surgery, Bowel Surgery, Breast, Gallbladder, Hysterectomy, Lumpectomy Respiratory History of Respiratory Disorde: No Currently Using CPAP: No Currently Using BIPAP: No Cardiovascular History of Cardiac Disorders: Yes Cardiac Disorders: Atrial Fibrillation, Hypertension Neurological History of Neurological Disord: Yes (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 ) Neurological Disorders: Neuropathy Reproductive System : No Hx Reproductive Disorders: No Sexually Transmitted Disease: No HIV/AIDS: No Female Reproductive Disorders: Denies JUMPBASTING FACING BASTER History: Hysterectomy Gastrointestinal History of Gastrointestinal Di: Yes ( bowel obstruction x 2) Gastrointestinal Disorders: Abdominal Hernia, Diverticulosis, Hemorrhoids Musculoskeletal History of Musculoskeletal Dis: Yes (5 COMPRESSION FX ) Musculoskeletal Disorders: Osteoporosis, Arthritis, Back Injury, Chronic Back Pain, Fractures Endocrine History of Endocrine Disorders: Yes Endocrine Disorders: Diabetes, Non-Insulin dep HEENT History of HEENT Disorders: Yes HEENT Disorders: Cataract Loss of Vision: Denies Hearing Impairment: Hard of Hearing Cancer History of Cancer: Yes (MULTIPLE MYELOMA, BREAST CA- 5 YEARS AGO ) Cancer: Breast Did You Recieve Any Treatments: Yes Type of Tx Receive: Chemotherapy Psychosocial History of Psychiatric Problem: No Integumentary History of Skin or Integumenta: No Blood Transfusions History of Blood Disorders: Yes (JKA ANTIBODIES IN BLOOD) Adverse Reaction to a Blood Tr: No Reviewed Nursing Assessment Reviewed/Agree w Nursing PMH: Yes Family Medical History Family Medial History: Cancer 19 FATHER 19 MOTHER G8 BROTHER Family history: Cardiovascular disease G8 BROTHER Family history: Diabetes mellitus 19 FATHER G8 BROTHER Family history: Hypertension G8 BROTHER Family history: Thyroid disorder 19 MOTHER Heart disease G8 BROTHER Physical Exam Vital Signs VS - Last 72 Hours, by Label 10/09/16 08:32 Temp 98.3 Pulse 84 Resp 18 B/P (MAP) 145/103 Pulse Ox 97 O2 Delivery Room Air Capillary Refill : Less Than 3 Seconds General Appearance: mild distress, cachetic HEENT: normal ENT inspection Neck: non-tender, supple, normal inspection Respiratory: normal breath sounds Cardiovascular: regular rate, rhythm Gastrointestinal: tenderness (the left lower quadrant), mass (epigastric area) Extremities: normal range of motion, non-tender, normal inspection Back: normal inspection Neurologic/Psychiatric: no motor/sensory deficits, alert, normal mood/affect Skin: warm/dry, pallor Focused Exam Evaluation Lactate Level Laboratory Tests 10/09/16 09:45: Lactic Acid Level 0.82 Lactic Acid Level Laboratory Tests Test 10/09/16 09:45 Lactic Acid Level 0.82 MMOL/L (0.50-2.00) Progress/Results/Core Measures Results/Orders Lab Results Laboratory Tests Test 10/09/16 08:55 10/09/16 09:45 Range/Units White Blood Count 4.1 L 4.3-11.0 10^3/uL Red Blood Count 3.19 L 4.35-5.85 10^6/uL Hemoglobin 10.0 L 11.5-16.0 G/DL Hematocrit 31 L 35-52 % Mean Corpuscular Volume 98 80-99 FL Mean Corpuscular Hemoglobin 31 25-34 PG Mean Corpuscular Hemoglobin Concent 32 32-36 G/DL Red Cell Distribution Width 17.5 H 10.0-14.5 % Platelet Count 223 130-400 10^3/uL Mean Platelet Volume 9.9 7.4-10.4 FL Neutrophils (%) (Auto) 37 L 42-75 % Lymphocytes (%) (Auto) 39 12-44 % Monocytes (%) (Auto) 19 H 0-12 % Eosinophils (%) (Auto) 5 0-10 % Basophils (%) (Auto) 1 0-10 % Neutrophils # (Auto) 1.5 L 1.8-7.8 X 10^3 Lymphocytes # (Auto) 1.6 1.0-4.0 X 10^3 Monocytes # (Auto) 0.8 0.0-1.0 X 10^3 Eosinophils # (Auto) 0.2 0.0-0.3 10^3/uL Basophils # (Auto) 0.0 0.0-0.1 10^3/uL Sodium Level 141 135-145 MMOL/L Potassium Level 3.0 L 3.6-5.0 MMOL/L Chloride Level 110 H 98-107 MMOL/L Carbon Dioxide Level 20 L 21-32 MMOL/L Anion Gap 11 5-14 MMOL/L Blood Urea Nitrogen 21 H 7-18 MG/DL Creatinine 1.31 H 0.60-1.30 MG/DL Estimat Glomerular Filtration Rate 39 BUN/Creatinine Ratio 16 Glucose Level 150 H 70-105 MG/DL Calcium Level 8.4 L 8.5-10.1 MG/DL Magnesium Level 1.6 L 1.8-2.4 MG/DL Total Bilirubin 0.3 0.1-1.0 MG/DL Aspartate Amino Transf (AST/SGOT) 11 5-34 U/L Alanine Aminotransferase (ALT/SGPT) 13 0-55 U/L Alkaline Phosphatase 58 40-136 U/L Total Protein 6.3 L 6.4-8.2 GM/DL Albumin 3.4 3.2-4.5 GM/DL Lipase 34 8-78 U/L Lactic Acid Level 0.82 0.50-2.00 MMOL/L My Orders Orders - JOELLE THORNTON MD Comprehensive Metabolic Panel (10/09/16 08:56) Lipase (10/09/16 08:56) Ua Culture If Indicated (10/09/16 08:56) Cbc With Automated Diff (10/09/16 08:56) Ct Abdomen/Pelvis Wo (10/09/16 08:56) Magnesium (10/09/16 08:56) Blood Culture (10/09/16 08:56) Ekg Tracing (10/09/16 08:56) Chest 1 View, Ap/Pa Only (10/09/16 08:56) Lactic Acid Analyzer (10/09/16 08:56) Ns Iv 1000 Ml (Sodium Chloride 0.9%) (10/09/16 09:00) Magnesium 1 Gm/100 Ml Ivpb (Magnesium [place] (10/09/16 09:00) Potassium Cl 10meq/50ml Ivpb (Kcl 10 Meq (10/09/16 09:00) Ondansetron Injection (Zofran Injectio (10/09/16 09:00) Promethazine Injection (Phenergan Injec (10/09/16 11:00) Diphenhydramine Injection (Benadryl Inje (10/09/16 11:00) Medications Given in ED Current Medications Medications Dose Ordered Sig/Randy Route Start Time Stop Time Status Last Admin Dose Admin Ondansetron HCl 4 mg ONCE ONCE IVP 10/09/16 09:00 10/09/16 09:03 DC 10/09/16 09:10 4 MG Vital Signs/I&O Vital Sign - Last 12Hours 10/09/16 08:32 Temp 98.3 Pulse 84 Resp 18 B/P (MAP) 145/103 Pulse Ox 97 O2 Delivery Room Air Blood Pressure Mean: 117 Progress Note : Time: 11:01 Progress Note The patient's laboratory evaluation demonstrated marked hypokalemia and hypomagnesemia. The patient's BUN/creatinine were mildly elevated. Patient received a liter of normal saline with 20 mEq of potassium and 2 g of magnesium IV. The patient was not improved with 4 mg of Zofran IV. The patient's workup in the emergency department demonstrated no serial change in her chest x-ray. The patient's CT of the abdomen and pelvis demonstrated that her metastatic masses and brown. Abdomen consultation was undertaken with Dr. Mccord who was amenable to admission for rehydration and treatment hypomagnesemia, hypokalemia, and persistent nausea and vomiting. I placed call to the patient's primary care physician, Dr. DONNELLY, to discuss the disposition of the patient. Departure Communication Time/Spoke to Admitting Phy: 11:[address] Donnelly Time/Spoke to Consulting Physi: 11:04 Communication/Consulting Dr. Mccord. Impression Impression: Primary Impression: Hypokalemia Additional Impression: Nausea and vomiting Qualified Codes: R11.14 - Bilious vomiting Disposition: ADMITTED INPATIENT Condition: Improved Admissions Decision to Admit Reason: Admit from ER (General) Decision to Admit/Date: Oct 09, 2016 Time/Decision to Admit Time: 11:06 Departure-Patient Inst. Referrals: PHUC DONNELLY DO (PCP/Family) Primary Care Physician JOELLE THORNTON MD Oct 09, 2016 09:11
[2016-10-09 09:14] LABS: BASOPHILS % (AUTO) 1 % (0-10); EOSINOPHILS # (AUTO) 0.2 10^3/uL (0.0-0.3); EOSINOPHILS % (AUTO) 5 % (0-10); LYMPHOCYTES # (AUTO) 1.6 X 10^3 (1.0-4.0); LYMPHOCYTES % (AUTO) 39 % (12-44); MEAN CORPUSCULAR HEMOGLOBIN 31 PG (25-34); MEAN CORPUSCULAR HGB CONC 32 G/DL (32-36); MEAN CORPUSCULAR VOLUME 98 FL (80-99); MEAN PLATELET VOLUME 9.9 FL (7.4-10.4); MONOCYTES # (AUTO) 0.8 X 10^3 (0.0-1.0); MONOCYTES % (AUTO) 19 % (0-12); NEUTROPHILS # (AUTO) 1.5 X 10^3 (1.8-7.8); NEUTROPHILS % (AUTO) 37 % (42-75); PLATELET COUNT 223 10^3/uL (130-400); RED BLOOD COUNT 3.19 10^6/uL (4.35-5.85); RED CELL DISTRIBUTION WIDTH 17.5 % (10.0-14.5); WHITE BLOOD COUNT 4.1 10^3/uL (4.3-11.0)
[2016-10-09 09:27] LABS: ALBUMIN 3.4 GM/DL (3.2-4.5); BILIRUBIN,TOTAL 0.3 MG/DL (0.1-1.0); CALCIUM 8.4 MG/DL (8.5-10.1); CREATININE SERUM 1.31 MG/DL (0.60-1.30); TOTAL PROTEIN 6.3 GM/DL (6.4-8.2)
--- NOTE | 2016-10-09 10:04 | Diagnostic Imaging Report ---
INDICATION: Emesis and diarrhea in patient with multiple myeloma. Portable upright view of the chest is obtained with comparison made study of 07/01/2016. FINDINGS: Heart size and pulmonary vascularity remain within normal limits. There is a persistent nodule projected over the upper lobe of the right lung measuring approximately 1.7 cm in diameter. High-density material is seen throughout the thoracic spine likely related to vertebral augmentation. There is no evidence of pneumothorax, consolidation or significant pleural fluid. IMPRESSION: Persistent 1.6 cm nodule in the upper lobe of the right lung. This may represent neoplasm either primary or secondary in the lung. Otherwise, there is no evidence of acute abnormality. Dictated by: Dictated on workstation # [id number]
--- NOTE | 2016-10-09 10:27 | Diagnostic Imaging Report ---
PROCEDURE: CT abdomen and pelvis without contrast. TECHNIQUE: Multiple contiguous axial images were obtained through the abdomen and pelvis without the use of intravenous contrast. INDICATION: History of malignancy. Vomiting and diarrhea. COMPARISON: CT PET dated 07/29/2016. FINDINGS: Included views of the lung bases are clear. CT abdomen: Soft tissue mass is again identified within the anterior upper abdomen adjacent to the anterior abdominal wall. The mass has increased in size, as it now measures 8.3 x 5.7 cm in axial dimension. The mass abuts and obscures the anterior margins of the lower gastric body. Small bowel loops are nondistended. Normal appendix is identified. Air-fluid levels are noted scattered throughout the colon. Multiple diverticula are also present. There is no CT evidence of acute diverticulitis. Retroperitoneal soft tissue mass is also again identified at the level of the aortic bifurcation. The mass obscures the boundaries of the aorta. This lesion also shows significant interval increase in size as it measures 3.8 x 4.4 cm on today's exam, in comparison to 2.4 x 1.6 cm previously. There is nonspecific omental stranding anteriorly within the left lower abdominal quadrant abutting the anterior abdominal wall (image 47, series 2.) This is new when compared to prior exam. Postsurgical changes of previous midline surgical incision are noted anteriorly. Multiple hypodense renal cysts are noted. There is a soft tissue density within the perirenal fat medial to the left kidney that measures 1.8 x 1.8 cm. Previously, corresponding density was barely conspicuous. This lesion does obscure boundaries of the medial renal parenchyma (image 22, series 2.) There is however no hydroureteronephrosis or other evidence of obstruction on either side. There has also been interval enlargement of soft tissue lesion into the aorta at the level of the renal vascular hilum. It measures 2.8 x 1.8 cm, in comparison to 1.3 x 1.2 cm previously. The spleen, the liver, the adrenal glands, and the pancreas have a normal CT appearance. There is no loculated fluid collection, free fluid, or free air within the abdomen. Bony structures show prior methylmethacrylate changes at multiple levels. Multiple small rounded lucencies are noted scattered throughout suggestive of osseous metastatic disease. No acute osseous abnormalities are seen on today's study. CT pelvis: Retroperitoneal soft tissue mass is also identified in the pelvis at left lateral midline at the level of the L5-S1 intervertebral disc space. It measures 3.5 x 3.1 cm. This is increased compared to 1.3 x 1.8 cm previously. Urinary bladder is unopacified. No calculi are seen within the urinary bladder. There is no loculated fluid collection, free fluid, or free air within the pelvis. Bony structures again show multiple rounded lucencies suggestive of osseous metastatic disease. No pathologic fractures of the pelvis are identified. IMPRESSION: 1. Significant interval progression of multiple soft tissue masses scattered throughout the abdomen and pelvis consistent with metastatic disease. 2. Multiple air-fluid levels seen scattered throughout the colon. This is nonspecific but can be seen with diarrhea. There is no evidence of large or small bowel obstruction. 3. Colonic diverticulosis but no CT evidence of acute diverticulitis. 4. Findings consistent with metastatic osseous disease. No pathologic fractures are identified. Dictated by: Dictated on workstation # [id number]
[2016-10-09] MEDS ORDERED: PROMETHAZINE INJ 25 MG/ML (PHENERGAN) AMP IVP ONE (11:00)
[2016-10-09] MEDS ORDERED: diphenhydrAMINE 50 MG/ML INJ (BENADRYL) IM ONE (11:00)
--- OUTSIDE RECORDS SUMMARY | 2016-10-09 11:19 | XMS REPORT | Encounter Summary ---
Author Author [facility] Organization [facility] Address Unknown Phone Unavailable Care Team Providers Care Set Up Person Name Role Phone PCP Unavailable Reason for Visit * Reason Comments BMT Follow-up 3 year LTFU Encounter Details Date Type Department Care Team Description 09/04/2016 Telephone [facility] Sagrario Chavez BMT Follow-up (3 year Cancer [facility] - BMT Exam LTFU) [address] [facility] [address] [place] [id number] Social History Tobacco Use Types Packs/Day Years [...]
--- OUTSIDE RECORDS SUMMARY | 2016-10-09 11:19 | XMS REPORT | Clinical Summary ---
Author Author [facility] Organization [facility] Address Unknown Phone Unavailable Care Team Providers Care Instructional Design Manager Name Role Phone PCP Unavailable Source Comments Some departments are not documenting in the electronic medical record. If you do not see the information that you expected, contact Release of Information in the Health Information Management department at [phone] for further assistance in locating additional records.[facility] Allergies Active Allergy Reactions Severity Noted Date [...] 10/04/19 Active daily. HOLD UNTIL YOUR 16 MANAGER RESPIRATORY CARE GIVES YOU THE OK TO RESTART senna [...] meals. 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 It was ER/MS positive and she completed 4.5 yrs of endocrine therapy. She then had a recurrence of her breast cancer in 2009 and underwent a left mastectomy without other adjuvant therapy L ast Assessment & Plan: She also has a hx of breast cancer diagnosed in 1999. She underwent lumpectomy followed by XRT to her left breast. It was ER/MS positive and she completed 4.5 yrs of [...] 07/05/2014, 05/08/2014, 03/10/2014 Implants Implanted Type Area Master Steam Yacht Device Expiration Model / Identifier Date Serial / Lot Port Results * KAPPA/LAMBDA FREE LIGHT CHAINS (08/07/2016 12:55 PM) Component Value Ref Range [place], FLC 1.39 0.33 - 1.94 MG/DL Comment: Freelite results should always be interpreted in conjunction with other laboratory tests and clinical evidence. The possibility of Antigen Excess exists and can cause Immunoassays to under estimate very high concentrations of antigen. Any discordant results should be discussed with Dr. Quezada. Lambda, FLC 12.55 (H) 0.57 - 2.63 MG/DL [place]/Lambda FLC 0.11 (L) 0.26 - 1.65 Specimen Performing Laboratory [facility] [address] [place] [address] * CBC AND DIFF (08/07/2016 12:55 PM) [...] 0 - 0.20 K/UL Specimen Performing Laboratory [facility] [address] [place] [address] * IMMUNOGLOBULINS-IGA,IGG,IGM (08/07/2016 12:55 PM) Component Value Ref Range IgG 742 (L) 762 - 1488 MG/DL IgA 25 (L) 70 - 390 MG/DL IgM <20 (L) 38 - 328 MG/DL Specimen Performing Laboratory [facility] [address] [place] [address] * C REACTIVE PROTEIN (CRP) (08/07/2016 12:55 PM) Component Value Ref Range C-Reactive Protein 1.09 (H) <1.0 MG/DL Specimen Performing Laboratory [facility] [address] [place] [address] * ELECTROPHORESIS-SERUM PROTEIN (08/07/2016 12:55 PM) Component [...] in this report. Specimen Performing Laboratory [facility] [address] [place] [address] * COMPREHENSIVE METABOLIC PANEL (08/07/2016 12:55 PM) [...] questions. Specimen Performing Laboratory [facility] [address] [place] [address] from Last 3 Months
--- OUTSIDE RECORDS SUMMARY | 2016-10-09 11:19 | XMS REPORT | Encounter Summary ---
Author Author [facility] Organization [facility] Address Unknown Phone Unavailable Care Team Providers Care Supervisor Belt And Link Assembly Name Role Phone PCP Unavailable Encounter Details Date Type Department Care Team Description 07/24/2016 Orders Only [facility] Maria A Locke MD Multiple myeloma, Cancer Center - [facility] Exam [address] remission status [address] [place] [address] unspecified (HCC) [place] [address] (Primary Dx) [phone] Social History Tobacco Use Types Packs/Day Years [...] 1.09 (H) <1.0 MG/DL Specimen Performing Laboratory [facility] [address] [place] [address] * IMMUNOGLOBULINS-IGA,IGG,IGM (08/07/2016 12:55 PM) Component Value Ref Range IgG 742 (L) 762 - 1488 MG/DL IgA 25 (L) 70 - 390 MG/DL IgM <20 (L) 38 - 328 MG/DL Specimen Performing Laboratory [facility] [address] [place] [address] * KAPPA/LAMBDA FREE LIGHT CHAINS (08/07/2016 12:55 PM) Component Value Ref Range [employer], FLC 1.39 0.33 - 1.94 MG/DL Comment: Freelite results should always be interpreted in conjunction with other laboratory tests and clinical evidence. The possibility of Antigen Excess exists and can cause Immunoassays to under estimate very high concentrations of antigen. Any discordant results should be discussed with Dr. Quezada. Lambda, FLC 12.55 (H) 0.57 - 2.63 MG/DL [employer]/Lambda FLC 0.11 (L) 0.26 - 1.65 Specimen Performing Laboratory [address] [address] * ELECTROPHORESIS-SERUM PROTEIN (08/07/2016 12:55 PM) Component [...] indicated in this report. Specimen Performing Laboratory [place] [id number] * COMPREHENSIVE METABOLIC PANEL (08/07/2016 12:55 PM) [...] Clinical Pharmacist for questions. Specimen Performing Laboratory [facility] [address] [place] [address] * CBC AND DIFF (08/07/2016 12:55 PM) [...] 0 - 0.20 K/UL Specimen Performing Laboratory [facility] [address] [place] [address] in this encounter Visit Diagnoses Diagnosis Multiple myeloma, remission status unspecified - Primary in this encounter
--- OUTSIDE RECORDS SUMMARY | 2016-10-09 11:19 | XMS REPORT | Encounter Summary ---
Author Author [facility] Organization [facility] Address Unknown Phone Unavailable Care Team Providers Care Level Vial Curvature Gauger Name Role Phone PCP Unavailable Reason for Visit * Reason Comments Heme/Onc Care Encounter Details Date Type Department Care Team Description 08/07/2016 Office Visit [facility] Maria A Locke MD Multiple myeloma, Cancer [facility] - [facility] Exam [address] remission status [address] [place] [address] unspecified (HCC) [place] [address] (Primary Dx);Malignant [phone] neoplasm of left female breast, unspecified site [...] Care Team: Dr. Maria A Locke | Computer Systems Administrator, Multiple Myeloma Specialist Maryana Chang APRN (Nurse Practitioner) Coby Andrew, Clinical Nurse Coordinator Radha Saleh, Clinical Nurse Coordinator For Non-Urgent phone calls: [phone] | All calls left between 8 and 4 returned in the same business day or following morning For Urgent phone call needs: [phone] | If between 8 and 4, ask for Dr Locke's CNCs Radha or Coby to be paged; if after hours, ask for MD foundation director to be paged. 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 We added Daratumumab and will recommend to [...] XRT to her left breast. It was ER/IN positive and she completed 4.5 yrs of [...] Tab by mouth daily. HOLD UNTIL YOUR SUPERVISOR FACEPIECE LINE GIVES YOU THE OK TO RESTART Calcium [...] of VDTPACE 25% reduction and she had IN of the mesenteric mass, we started her [...] XRT to her left breast. It was ER/IN positive and she completed 4.5 yrs of endocrine therapy. She then had a recurrence of her breast cancer in 2009 and underwent a left mastectomy without other adjuvant therapy Will send our note and final recommendation to Dr. Flex Locke [employer] Supervisor of Internal medicine Division of Hematologic Malignancies and Cellular Therapeutics Pager [phone] * Coby Andrew RN - 08/07/2016 1:23 PM CDT Nurse Coordinator Note Today's condition: No acute concerns voiced. Here for treatment recommendations. Outside labs drawn 08/04/16 reveal WBC 8.6, Hgb 10.3, Platelets 206, Na 139, K 3.9, Creatinine 1.16, Glucose 222. Current treatment: Daratumumab monthly, Pomalyst 2mg/21 days, Dexamethasone 8mg weekly at [facility] Recommendations from Dr. Locke: Increase Pomalyst to 4mg/21 days starting next cycle (pt states she has 6 pills remaining this cycle.) Continue Daratumumab/Dexamethasone. Continue weekly CBC/CMP and monthly myeloma markers. Repeat PET scan in 3 months. RTC: Dr. Mccord on 08/20/16 per pt. [address] Locke after PET scan at [facility]. Will fax all notes to patient's local director of maternity services, Dr. Bud Mccord @ [facility]. ; in this encounter Plan of Treatment Not on fileas of this encounter Visit Diagnoses Diagnosis Multiple myeloma, remission status unspecified - Primary Malignant neoplasm of left female breast, unspecified site of breast in this encounter
[2016-10-09 12:01] VITALS: BP 129/63
[2016-10-09] MEDS ORDERED: PROMETHAZINE INJ 25 MG/ML (PHENERGAN) AMP IVP PRN (12:30)
[2016-10-09] MEDS ORDERED: diphenhydrAMINE 50 MG/ML INJ (BENADRYL) IVP PRN (12:30)
[2016-10-09] MEDS ORDERED: KCL INJ SCH (12:45)
[2016-10-09] MEDS ORDERED: MAGNESIUM SULFATE INJ SCH (12:45)
[2016-10-09] MEDS ORDERED: NS INJ SCH (12:45)
[2016-10-09] MEDS ORDERED: PANTOPRAZOLE 40 MG/10 ML (PROTONIX) VIAL IV NR (12:49)
[2016-10-09] MEDS ORDERED: SENN-148 PO (13:53)
[2016-10-09] MEDS ORDERED: SENN8.6T17 PO (13:53)
[2016-10-09] MEDS ORDERED: DIPH25TA31 PO (14:10)
[2016-10-09] MEDS ORDERED: MONT10TA21 PO (14:10)
[2016-10-09] MEDS ORDERED: FEXO180T84 PO (14:10)
[2016-10-09] MEDS ORDERED: RT-ALBUINH IH (14:10)
[2016-10-09] MEDS ORDERED: ACET-2267 PO (14:10)
[2016-10-09] MEDS: NS INJ SCH ×2 (14:14→21:01)
[2016-10-09] MEDS: MAGNESIUM SULFATE INJ SCH ×2 (14:14→21:01)
[2016-10-09] MEDS: POTASSIUM CHLORIDE INJ SCH ×2 (14:14→21:01)
[2016-10-09] MEDS ORDERED: DARZALEX (14:19)
[2016-10-09] MEDS ORDERED: IMMU50VI2 IV (14:19)
[2016-10-09] MEDS ORDERED: ASPI-586 PO (14:19)
[2016-10-09 15:25] VITALS: BP 145/63
--- NOTE | 2016-10-09 17:18 | History & Physicial ---
History of Present Illness History of Present Illness Reason for visit/HPI This is a 75 year old female with a known history of multiple myeloma with recent reoccurrence who presented with a 3 day history of nausea, vomiting and diarrhea. She states that she has not been feeling well for the past 2 weeks with worsening fatigue and intermittent nausea and alternating constipation and diarrhea. However, the past few days she has had intractable nausea, vomiting and diarrhea and was having lower abdominal cramping. She was found to have acute renal insufficiency in the emergency room with electrolyte abnormalities including hypokalemia and hypomagnesemia. She also had ongoing nausea despite IV zofran. It was decided to admit her for IVF, electrolyte correction, IV antiemetics and further evaluation. Date of Admission Oct 09, 2016 at 11:00 am Date Seen by Provider: Oct 09, 2016 Time Seen by Provider: 12:35 I consulted on this patient on 10/09/16 17:11 Attending Physician Kim Donnelly DO Admitting Physician Kim Donnelly DO Consult Dr. Subramanian Allergies and Home Medications Allergies Coded Allergies: metronidazole (Verified Allergy, Intermediate, HIVES, 04/14/16) meperidine (Verified Adverse Reaction, Mild, NAUSEA, 04/14/16) Home Medications Acetaminophen 500 Mg Tablet, 500 MG PO PRIOR TO DARZELEX, (Reported) Acyclovir 400 Mg Tablet, 400 MG PO BID, (Reported) Albuterol Sulfate 1 Puff Puff, 2 PUFF IH PRIOR TO DARZALEX, (Reported) 1 PUFF = 90 MCG Aspirin 81 Mg Tablet.dr, 81 MG PO DAILY, (Reported) Calcium Citrate/Vitamin D3 1 Each Tablet, 2 TAB PO DAILY@1200, (Reported) Dexamethasone 4 Mg Tablet, 8 MG PO WEEK, (Reported) TAKES DECADRON 8 MG WEEKLY EXCEPT CHEMO WEEK (DARZALEX IV, DECADRON 4 MG IV ON DAY 1, THEN DECADRON 2 MG ON DAY 2 & 3) Diphenhydramine HCl 25 Mg Tablet, 25 MG PO PRIOR TO DARZALEX, (Reported) Fexofenadine HCl 180 Mg Tablet, 180 MG PO PRIOR TO DARZALEX, (Reported) Hydrocodone/Acetaminophen 1 Each Tablet, 1-2 EACH PO Q4H PRN for PAIN, #40 Prescribed by: ZAYDA HERRMANN on 07/04/16 2404 Immune Globulin,Gamma(IgG) 50 Ml Vial, 30 GM IV MONTHLY, (Reported) PRIVIGEN 30 GM IV MONTHLY WITH DARZALEX Insulin Detemir 100 Unit/1 Ml Insuln.pen, 18 UNITS SQ HS, (Reported) Insulin Lispro 100 Unit/1 Ml Insuln.pen, SQ SLIDING/SCALE, (Reported) Lisinopril 20 Mg Tablet, 20 MG PO BID, (Reported) Magnesium Oxide 400 Mg Tablet, 400 MG PO DAILY, (Reported) Montelukast Sodium 10 Mg Tablet, 10 MG PO PRIOR TO DARZALEX, (Reported) Omeprazole 20 Mg Capsule.dr, 20 MG PO HS, (Reported) Pomalidomide 2 Mg Capsule, 2 MG PO DAILY, (Reported) TAKES DAILY FOR 21 DAYS THEN OFF 7 DAYS Potassium Chloride 10 Meq Tablet.er, 10 MEQ PO DAILY@1700, (Reported) Sennosides 8.6 Mg Tablet, 8.6 MG PO DAILY, (Reported) Sennosides 8.6 Mg Tablet, 17.2 MG PO HS, (Reported) [Darzalex] , MONTHLY, (Reported) Past Kiemngw-Texvov-Nhjkuw Hx Patient Social History Alcohol Use: Denies Use Recreational Drug Use: No Smoking Status: Former Smoker Former Smoker, Quit: Feb 16, 1995 Physical Abuse Screen: No Sexual Abuse: No Recent Foreign Travel: No Contact w/other who traveled: No Recent Hopitalizations: No Recent Infectious Disease Expo: No Immunizations Up To Date Tetanus Booster (TDap): Less than 5yrs Pediatric: Yes Date of Pneumonia Vaccine: Feb 16, 2014 Date of Influenza Vaccine: Nov 21, 2015 Seasonal Allergies Seasonal Allergies: Yes Surgeries Yes (PERFORATED DIVERTICULI with colon resection, KYPHOPLASTY X2) Bladder Surgery, Bowel Surgery, Breast, Gallbladder, Hysterectomy, Lumpectomy Respiratory No Currently Using CPAP: No Currently Using BIPAP: No Cardiovascular Yes Atrial Fibrillation, Hypertension Neurological Yes (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 ) Neuropathy Reproductive System : No Hx Reproductive Disorders: No Sexually Transmitted Disease: No HIV/AIDS: No Female Reproductive Disorders: Denies CATH LAB History: Hysterectomy Gastrointestinal Yes ( bowel obstruction x 2) Abdominal Hernia, Diverticulosis, Hemorrhoids Musculoskeletal Yes (5 COMPRESSION FX ) Osteoporosis, Arthritis, Back Injury, Chronic Back Pain, Fractures Endocrine History of Endocrine Disorders: Yes Endocrine Disorders: Diabetes, Non-Insulin dep HEENT History of HEENT Disorders: Yes HEENT Disorders: Cataract Loss of Vision: Denies Hearing Impairment: Hard of Hearing Cancer Yes (MULTIPLE MYELOMA, BREAST CA- 5 YEARS AGO ) Breast Did You Recieve Any Treatments: Yes Type of Treatment: Chemotherapy Cancer Comment: LAST IV CHEMO - September ORAL LAST Thursday Psychosocial History of Psychiatric Problem: No Integumentary History of Skin or Integumenta: No Blood Transfusions History of Blood Disorders: Yes (JKA ANTIBODIES IN BLOOD) Adverse Reaction to a Blood Tr: No Reviewed Nursing Assessment Reviewed/Agree w Nursing PMH: Yes Family Medical History Family Hx: Cancer 19 FATHER 19 MOTHER G8 BROTHER Family history: Cardiovascular disease G8 BROTHER Family history: Diabetes mellitus 19 FATHER G8 BROTHER Family history: Hypertension G8 BROTHER Family history: Thyroid disorder 19 MOTHER Heart disease G8 BROTHER Constitutional: weakness EENTM: No see HPI, No no symptoms reported, No ear discharge, No hearing loss, No ear pain, No blurred vision, No double vision, No eye pain, No tearing, No vision loss, No dental problems, No hoarseness, No mouth pain, No mouth swelling , No epistaxis, No nose congestion, No nose pain, No throat pain, No throat swelling, No other Respiratory: No no symptoms reported, No see HPI, No cough, No dyspnea on exertion, No hemoptysis, No orthopnea, No phlegm, No short of breath, No stridor , No wheezing, No other Cardiovascular: No no symptoms reported, No see HPI, No chest pain, No edema, No Hx of Intervention, No palpitations, No syncope, No vascular heart diseas, No other Gastrointestinal: abdominal pain, diarrhea, loss of appetite, nausea, vomiting Genitourinary: No no symptoms reported, No see HPI, No decreased output, No discharge, No dysuria, No frequency, No hematuria, No hesitancy, No incontinence , No nocturia, No pain, No other Musculoskeletal: muscle weakness Skin: No no symptoms reported, No see HPI, No change in color, No change in hair/nails, No dryness, No hx of skin cancer, No lesions, No lumps, No pruritus , No rash, No other Psychiatric/Neurological: Weakness Physical Exam Vital Signs Vital Sign - Last 12Hours 10/09/16 08:32 Temp 98.3 Pulse 84 Resp 18 B/P (MAP) 145/103 Pulse Ox 97 O2 Delivery Room Air Capillary Refill : Less Than 3 Seconds General Appearance: Moderate Distress HEENT: Other (MM dry) Neck: Supple Respiratory: Lungs Clear Cardiovascular: Regular Rate, Rhythm, Systolic Murmur Gastrointestinal: Normal Bowel Sounds, Non Tender, Soft, Mass (epigastric and supraumbilical) Rectal: Deferred Back: No CVA Tenderness Extremity: Non Tender, No Calf Tenderness, No Pedal Edema Neurologic/Psychiatric: Alert, Oriented x3 Skin: Warm/Dry Comments Laboratory Tests 10/09/16 08:55: White Blood Count 4.1L, Red Blood Count 3.19L, Hemoglobin 10.0L, Hematocrit 31L , Mean Corpuscular Volume 98, Mean Corpuscular Hemoglobin 31, Mean Corpuscular Hemoglobin Concent 32, Red Cell Distribution Width 17.5H, Platelet Count 223, Mean Platelet Volume 9.9, Neutrophils (%) (Auto) 37L, Lymphocytes (%) (Auto) 39 , Monocytes (%) (Auto) 19H, Eosinophils (%) (Auto) 5, Basophils (%) (Auto) 1, Neutrophils # (Auto) 1.5L, Lymphocytes # (Auto) 1.6, Monocytes # (Auto) 0.8, Eosinophils # (Auto) 0.2, Basophils # (Auto) 0.0, Sodium Level 141, Potassium Level 3.0L, Chloride Level 110H, Carbon Dioxide Level 20L, Anion Gap 11, Blood Urea Nitrogen 21H, Creatinine 1.31H, Estimat Glomerular Filtration Rate 39, BUN/ Creatinine Ratio 16, Glucose Level 150H, Calcium Level 8.4L, Magnesium Level 1.6L, Total Bilirubin 0.3, Aspartate Amino Transf (AST/SGOT) 11, Alanine Aminotransferase (ALT/SGPT) 13, Alkaline Phosphatase 58, Total Protein 6.3L, Albumin 3.4, Lipase 34 10/09/16 09:45: Lactic Acid Level 0.82 Assessment/Plan Assessment and Plan 1. Intractable Nausea and Vomiting--admit for IVF and IV antiemetics 2. Acute Dehydration with Electrolyte Abnormalities including hypokalemia and hypomagnesemia--admit for IVF as well as IV replacement and monitor electrolytes 3. Diarrhea--stool studies if needed/persist 4. Diabetes mellitus--insulin requiring--accuchecks with SSI 5. Hypertension--resume home meds 6. Recurrent Multiple Myeloma--consult oncology Problems: Clinical Quality Measures DVT/VTE Risk/Contraindication: Risk Factor Score Per Nursin RFS Level Per Nursing on Admit: 4+=Very High KIM DONNELLY DO Oct 09, 2016 5:17 pm
[2016-10-09] MEDS ORDERED: ACETAMINOPHEN 325 MG TABLET/CAPLET (TYLENOL) PO PRN (17:30)
[2016-10-09] MEDS ORDERED: HYDROcodone/APAP 5 MG/325 MG (LORTAB) TAB PO PRN (17:45)
[2016-10-09 18:38] LABS: BILIRUBIN,URINE NEGATIVE (NEGATIVE); KETONES,URINE 1+ (NEGATIVE); LEUKOCYTE ESTERASE ,URINE NEGATIVE (NEGATIVE); NITRITE,URINE NEGATIVE (NEGATIVE); PH,URINE 5 (5-9); PROTEIN,URINE 3+ (NEGATIVE); UROBILINOGEN,URINE NORMAL (NORMAL)
[2016-10-09 18:47] LABS: SQUAMOUS EPITHELIAL CELL,UR 0-2 /HPF; URIC ACID CRYSTALS,URINE FEW /LPF
[2016-10-09] MEDS: PROCHLORPERAZINE 10 MG/2ML INJ (COMPAZINE) IV PRN (19:37)
[2016-10-09] MEDS: inSUlin (REGULAR) HUMAN 1 UNIT/0.01 ML (CHARGE PER UNIT) SC SCH (19:38)
[2016-10-09 19:51] VITALS: BP 141/63
[2016-10-09] MEDS: lisINopril 20 MG (ZESTRIL) TAB PO SCH (21:01)
[2016-10-10] VITALS: BP 151/68
[2016-10-10] MEDS: NS IV 1000 ML 1,000 ML IV SCH ×4 (02:21→18:33)
[2016-10-10] MEDS: PROCHLORPERAZINE 10 MG/2ML INJ (COMPAZINE) IV PRN (03:37)
[2016-10-10 04:00] VITALS: BP 134/63
[2016-10-10 05:30] LABS: BASOPHILS % (AUTO) 1 % (0-10); EOSINOPHILS # (AUTO) 0.2 10^3/uL (0.0-0.3); EOSINOPHILS % (AUTO) 5 % (0-10); LYMPHOCYTES # (AUTO) 1.3 X 10^3 (1.0-4.0); LYMPHOCYTES % (AUTO) 34 % (12-44); MEAN CORPUSCULAR HEMOGLOBIN 31 PG (25-34); MEAN CORPUSCULAR HGB CONC 32 G/DL (32-36); MEAN CORPUSCULAR VOLUME 99 FL (80-99); MEAN PLATELET VOLUME 9.5 FL (7.4-10.4); MONOCYTES # (AUTO) 0.8 X 10^3 (0.0-1.0); MONOCYTES % (AUTO) 22 % (0-12); NEUTROPHILS # (AUTO) 1.5 X 10^3 (1.8-7.8); NEUTROPHILS % (AUTO) 38 % (42-75); PLATELET COUNT 203 10^3/uL (130-400); RED BLOOD COUNT 2.65 10^6/uL (4.35-5.85); RED CELL DISTRIBUTION WIDTH 17.5 % (10.0-14.5); WHITE BLOOD COUNT 3.8 10^3/uL (4.3-11.0)
[2016-10-10 05:57] LABS: ALBUMIN 2.8 GM/DL (3.2-4.5); BILIRUBIN,TOTAL 0.2 MG/DL (0.1-1.0); CALCIUM 7.4 MG/DL (8.5-10.1); CREATININE SERUM 0.93 MG/DL (0.60-1.30); MAGNESIUM 2.8 MG/DL (1.8-2.4); POTASSIUM 3.7 MMOL/L (3.6-5.0); TOTAL PROTEIN 4.8 GM/DL (6.4-8.2)
[2016-10-10] MEDS: POTASSIUM CHLORIDE INJ SCH ×2 (06:01→14:59)
[2016-10-10] MEDS: NS INJ SCH ×2 (06:01→14:59)
[2016-10-10] MEDS: inSUlin (REGULAR) HUMAN 1 UNIT/0.01 ML (CHARGE PER UNIT) SC SCH ×4 (06:01→20:52)
[2016-10-10] MEDS: MAGNESIUM SULFATE INJ SCH ×2 (06:01→14:59)
[2016-10-10] MEDS ORDERED: MAGNESIUM OXIDE (MAG-OX)400 MG TAB PO SCH (07:00)
[2016-10-10] MEDS: ASPIRIN E.C. 81 MG (ECOTRIN) TAB PO SCH (08:17)
[2016-10-10] MEDS: lisINopril 20 MG (ZESTRIL) TAB PO SCH ×2 (08:17→20:52)
[2016-10-10] MEDS: PANTOPRAZOLE 40 MG/10 ML (PROTONIX) VIAL IV SCH (08:17)
[2016-10-10 08:27] VITALS: BP 146/65
[2016-10-10 12:00] VITALS: BP 155/70
--- NOTE | 2016-10-10 14:16 | Progress Note (SOAP) ---
Subjective Date Seen by Provider: Oct 10, 2016 Time Seen by Provider: 11:35 Subjective/Events-last exam Fwup acute renal insufficiency, dehydratin, intractable N/V, diarrhea, Hypomagnesemia, Hypokalemia, Diabetes mellitus--insulin requiring, HTN. Nausea and vomiting better but still with loose stools. Wants to try solid food. Objective Exam Vital Signs Date Time Temp Pulse Resp B/P (MAP) Pulse Ox O2 Delivery O2 Flow Rate FiO2 10/10/16 12:00 97.1 63 20 155/70 96 Room Air 10/10/16 08:27 97.7 51 18 146/65 98 Room Air 10/10/16 04:00 98.3 60 14 134/63 95 Room Air 10/10/16 00:00 99.0 60 12 151/68 98 Room Air 10/09/16 21:01 98.3 10/09/16 21:00 Room Air 10/09/16 19:51 98.3 71 18 141/63 98 Room Air 10/09/16 15:25 98.7 62 18 145/63 98 Room Air Capillary Refill : Less Than 3 Seconds General Appearance: Mild Distress Neck: Supple Respiratory: Lungs Clear Cardiovascular: Regular Rate, Rhythm, Gallop/S4 Gastrointestinal: non tender, soft, mass (epigastric and supraumbilical) Extremity: Non Tender, No Calf Tenderness, No Pedal Edema Neurologic/Psychiatric: Alert, Oriented x3 Results Lab Laboratory Tests 10/09/16 18:30: Urine Color YELLOW, Urine Clarity CLEAR, Urine pH 5, Urine Specific [place] 1.020, Urine Protein 3+H, Urine Glucose (UA) NEGATIVE, Urine Ketones 1+H, Urine Nitrite NEGATIVE, Urine Bilirubin NEGATIVE, Urine Urobilinogen NORMAL, Urine Leukocyte Esterase NEGATIVE, Urine RBC (Auto) NEGATIVE, Urine RBC NONE, Urine WBC NONE, Urine Squamous Epithelial Cells 0-2, Urine Crystals PRESENTH, Urine Uric Acid Crystals FEWH, Urine Bacteria NONE, Urine Casts NONE, Urine Mucus NEGATIVE, Urine Culture Indicated NO 10/09/16 19:36: Glucometer 153H 10/10/16 05:21: White Blood Count 3.8L, Red Blood Count 2.65L, Hemoglobin 8.3L, Hematocrit 26L, Mean Corpuscular Volume 99, Mean Corpuscular Hemoglobin 31, Mean Corpuscular Hemoglobin Concent 32, Red Cell Distribution Width 17.5H, Platelet Count 203, Mean Platelet Volume 9.5, Neutrophils (%) (Auto) 38L, Lymphocytes (%) (Auto) 34 , Monocytes (%) (Auto) 22H, Eosinophils (%) (Auto) 5, Basophils (%) (Auto) 1, Neutrophils # (Auto) 1.5L, Lymphocytes # (Auto) 1.3, Monocytes # (Auto) 0.8, Eosinophils # (Auto) 0.2, Basophils # (Auto) 0.0, Sodium Level 141, Potassium Level 3.7, Chloride Level 117H, Carbon Dioxide Level 18L, Anion Gap 6, Blood Urea Nitrogen 12, Creatinine 0.93, Estimat Glomerular Filtration Rate 58, BUN/ Creatinine Ratio 13, Glucose Level 119H, Calcium Level 7.4L, Magnesium Level 2.8H, Total Bilirubin 0.2, Aspartate Amino Transf (AST/SGOT) 10, Alanine Aminotransferase (ALT/SGPT) 10, Alkaline Phosphatase 46, Total Protein 4.8L, Albumin 2.8L Assessment/Plan Assessment/Plan Assess & Plan/Chief Complaint 1. Acute Renal Insufficiency/Dehydration--Cr improved so will decrease IVF rate 2. Intractable N/V--improved, will advance diet as tolerated 3. Hypomagnesemia--now with hypermagnesemia so will hold replacement and hydrate 4. Hypokalemia--improved 5. Diarrhea--check C. Diff and stool studies 6. Diabetes mellitus--insulin requiring, on accuchecks with SSI 7. Hypertension--back on home meds 8. Acute on Chronic Anemia--likely dilutional so will recheck CBC in AM Clinical Quality Measures DVT/VTE Risk/Contraindication: Risk Factor Score Per Nursin RFS Level Per Nursing on Admit: 4+=Very High PHUC RAMEY DO Oct 10, 2016 14:16
[2016-10-10 16:00] VITALS: BP 142/65
[2016-10-10 20:00] VITALS: BP 153/69
[2016-10-11] VITALS: BP 150/62
[2016-10-11] MEDS: NS IV 1000 ML 1,000 ML IV SCH ×2 (05:41→20:29)
[2016-10-11] MEDS: inSUlin (REGULAR) HUMAN 1 UNIT/0.01 ML (CHARGE PER UNIT) SC SCH ×4 (05:49→21:27)
[2016-10-11 06:36] LABS: BASOPHILS % (AUTO) 1 % (0-10); EOSINOPHILS # (AUTO) 0.3 10^3/uL (0.0-0.3); EOSINOPHILS % (AUTO) 6 % (0-10); LYMPHOCYTES # (AUTO) 1.4 X 10^3 (1.0-4.0); LYMPHOCYTES % (AUTO) 32 % (12-44); MEAN CORPUSCULAR HEMOGLOBIN 31 PG (25-34); MEAN CORPUSCULAR HGB CONC 32 G/DL (32-36); MEAN CORPUSCULAR VOLUME 98 FL (80-99); MEAN PLATELET VOLUME 10.4 FL (7.4-10.4); MONOCYTES # (AUTO) 0.9 X 10^3 (0.0-1.0); MONOCYTES % (AUTO) 19 % (0-12); NEUTROPHILS # (AUTO) 1.9 X 10^3 (1.8-7.8); NEUTROPHILS % (AUTO) 43 % (42-75); PLATELET COUNT 211 10^3/uL (130-400); RED BLOOD COUNT 2.71 10^6/uL (4.35-5.85); RED CELL DISTRIBUTION WIDTH 17.1 % (10.0-14.5); WHITE BLOOD COUNT 4.5 10^3/uL (4.3-11.0)
[2016-10-11 07:04] LABS: ALANINE AMINOTRANSFERASE 11 U/L (0-55); ANION GAP 8 MMOL/L (5-14); ASPARTATE AMINO TRANSFERASE 10 U/L (5-34); BILIRUBIN,TOTAL 0.3 MG/DL (0.1-1.0); BLOOD UREA NITROGEN 8 MG/DL (7-18); BUN/CREATININE RATIO 9; CALCIUM 8.1 MG/DL (8.5-10.1); CARBON DIOXIDE 18 MMOL/L (21-32); CHLORIDE 117 MMOL/L (98-107); CREATININE SERUM 0.86 MG/DL (0.60-1.30); GFR ESTIMATED > 60; GLUCOSE 124 MG/DL (70-105); POTASSIUM 3.7 MMOL/L (3.6-5.0); SODIUM 143 MMOL/L (135-145); TOTAL PROTEIN 5.4 GM/DL (6.4-8.2)
[2016-10-11 07:40] VITALS: BP 149/69
[2016-10-11] MEDS: PANTOPRAZOLE 40 MG/10 ML (PROTONIX) VIAL IV SCH (09:25)
[2016-10-11] MEDS: lisINopril 20 MG (ZESTRIL) TAB PO SCH ×2 (09:26→21:57)
[2016-10-11] MEDS: ASPIRIN E.C. 81 MG (ECOTRIN) TAB PO SCH (09:26)
[2016-10-11] MEDS ORDERED: PROCHLORPERAZINE 10 MG TAB (COMPAZINE) PO ONE (12:15)
[2016-10-11] MEDS ORDERED: LORATADINE (CLARITIN) 10 MG TAB PO ONE (12:15)
[2016-10-11] MEDS ORDERED: PROCHLORPERAZINE 10 MG TAB (COMPAZINE) PO PRN (12:15)
--- NOTE | 2016-10-11 12:19 | Progress Note (SOAP) ---
Subjective Date Seen by Provider: Oct 11, 2016 Time Seen by Provider: 11:50 Subjective/Events-last exam PT REPORTS THAT SHE IS FEELING BETTER, SHE WOULD LIKE TO GO HOME IF POSSIBLE TODAY. SHE CONTINUES TO HAVE ABDOMINAL PAIN. SHE HAS HOARSENESS, SHE HAS SOME SINUS CONGESTION ON THE LEFT, SIMILAR TO PREVIOUSLY WHEN SHE HAD SEVERE SINUS INFECTION. Review of Systems General: No Chills, Fatigue Pulmonary: No Dyspnea, No Cough Cardiovascular: No: Chest Pain, Palpitations Gastrointestinal: Abdominal Pain, No: Nausea Neurological: Weakness Objective Exam Vital Signs Date Time Temp Pulse Resp B/P (MAP) Pulse Ox O2 Delivery O2 Flow Rate FiO2 10/11/16 09:00 96 Room Air 10/11/16 07:40 98.7 63 18 149/69 96 Room Air 10/11/16 00:00 98.9 62 18 150/62 98 Room Air 10/10/16 20:00 98.5 63 18 153/69 98 Room Air 10/10/16 16:00 97.3 61 18 142/65 98 Room Air Capillary Refill : Less Than 3 Seconds General Appearance: No Apparent Distress, WD/WN HEENT: PERRL/EOMI, Pharynx Normal Neck: Supple Respiratory: Chest Non Tender, Lungs Clear, Normal Breath Sounds, No Accessory Muscle Use Cardiovascular: Regular Rate, Rhythm, No Edema Gastrointestinal: normal bowel sounds, non tender, soft Extremity: No Pedal Edema Neurologic/Psychiatric: Alert, Oriented x3, No Motor/Sensory Deficits, Normal Mood/Affect Skin: Warm/Dry Lymphatic: No Adenopathy Results Lab Laboratory Tests 10/10/16 15:35: Glucometer 130H 10/10/16 20:51: Glucometer 149H 10/11/16 05:47: Glucometer 126H 10/11/16 05:50: White Blood Count 4.5, Red Blood Count 2.71L, Hemoglobin 8.4L, Hematocrit 27L, Mean Corpuscular Volume 98, Mean Corpuscular Hemoglobin 31, Mean Corpuscular Hemoglobin Concent 32, Red Cell Distribution Width 17.1H, Platelet Count 211, Mean Platelet Volume 10.4, Neutrophils (%) (Auto) 43, Lymphocytes (%) (Auto) 32 , Monocytes (%) (Auto) 19H, Eosinophils (%) (Auto) 6, Basophils (%) (Auto) 1, Neutrophils # (Auto) 1.9, Lymphocytes # (Auto) 1.4, Monocytes # (Auto) 0.9, Eosinophils # (Auto) 0.3, Basophils # (Auto) 0.0, Sodium Level 143, Potassium Level 3.7, Chloride Level 117H, Carbon Dioxide Level 18L, Anion Gap 8, Blood Urea Nitrogen 8, Creatinine 0.86, Estimat Glomerular Filtration Rate > 60, BUN/ Creatinine Ratio 9, Glucose Level 124H, Calcium Level 8.1L, Total Bilirubin 0.3 , Aspartate Amino Transf (AST/SGOT) 10, Alanine Aminotransferase (ALT/SGPT) 11, Alkaline Phosphatase 62, Total Protein 5.4L, Albumin 3.0L Microbiology 10/09/16 Blood Culture - Preliminary, Resulted No growth 10/10/16 C. difficile GDH Antigen & Toxins - Final, Complete Assessment/Plan Assessment/Plan Assess & Plan/Chief Complaint ACUTE RENAL INSUFFICIENCY INTRACTABLE NAUSEA AND EMESIS ANEMIA DIARRHEA DM HYPERTENSION MULTIPLE MYELOMA WITH INCREASED SIZE OF MASSES IN HER ABDOMEN ACUTE RENAL INSUFFICIENCY - IMPROVED INTRACTABLE NAUSEA AND EMESIS - RESOLVED ANEMIA - CHECK IRON PANEL, IF HGB DROPS BELOW 8, WILL CONSIDER TRANSFUSION DIARRHEA - RESOLVED DM - CONTINUE WITH INSULIN AND SSI HYPERTENSION - RESUMED HOME MEDICATIONS MULTIPLE MYELOMA WITH MASSES IN HER ABDOMEN - MASSES HAVE INCREASED IN SIZE SIGNIFICANTLY - DEFER TO ONCOLOGIST. - REPEAT IGG, IGA, IGM, LAMBDA AND DANTE LIGHT CHAINS - LABS ORDERED TODAY Clinical Quality Measures DVT/VTE Risk/Contraindication: Risk Factor Score Per Nursin RFS Level Per Nursing on Admit: 4+=Very High GERMAN HERMAN MD Oct 11, 2016 12:19
[2016-10-11 16:25] VITALS: BP 166/72
[2016-10-11 17:54] VITALS: BP 166/72
[2016-10-11 20:30] VITALS: BP 184/79
[2016-10-11] MEDS ORDERED: LOSARTAN 50 MG (COZAAR) TAB ONE (21:39)
[2016-10-11] MEDS ORDERED: LOSARTAN 50 MG (COZAAR) TAB PO ONE (21:45)
[2016-10-12] VITALS: BP 155/64
[2016-10-12] MEDS: inSUlin (REGULAR) HUMAN 1 UNIT/0.01 ML (CHARGE PER UNIT) SC SCH (06:28)
[2016-10-12 07:21] LABS: MEAN PLATELET VOLUME 10.6 FL (7.4-10.4); RED BLOOD COUNT 2.73 10^6/uL (4.35-5.85); RED CELL DISTRIBUTION WIDTH 17.1 % (10.0-14.5); WHITE BLOOD COUNT 4.8 10^3/uL (4.3-11.0)
[2016-10-12 07:35] LABS: ALANINE AMINOTRANSFERASE 13 U/L (0-55); ALBUMIN 3.1 GM/DL (3.2-4.5); ANION GAP 9 MMOL/L (5-14); ASPARTATE AMINO TRANSFERASE 11 U/L (5-34); BILIRUBIN,TOTAL 0.2 MG/DL (0.1-1.0); BLOOD UREA NITROGEN 8 MG/DL (7-18); BUN/CREATININE RATIO 10; CALCIUM 8.4 MG/DL (8.5-10.1); CARBON DIOXIDE 20 MMOL/L (21-32); CHLORIDE 113 MMOL/L (98-107); CREATININE SERUM 0.81 MG/DL (0.60-1.30); GFR ESTIMATED > 60; GLUCOSE 132 MG/DL (70-105); POTASSIUM 3.2 MMOL/L (3.6-5.0); SODIUM 142 MMOL/L (135-145); TOTAL PROTEIN 5.4 GM/DL (6.4-8.2)
[2016-10-12] MEDS: ASPIRIN E.C. 81 MG (ECOTRIN) TAB PO SCH (08:21)
[2016-10-12] MEDS: PANTOPRAZOLE 40 MG/10 ML (PROTONIX) VIAL IV SCH (08:22)
[2016-10-12] MEDS: lisINopril 20 MG (ZESTRIL) TAB PO SCH (08:22)
[2016-10-12 08:26] VITALS: BP 169/81
[2016-10-12] MEDS ORDERED: LOSARTAN 50 MG (COZAAR) TAB PO SCH ×2 (09:00)
[2016-10-12] MEDS ORDERED: LORATADINE (CLARITIN) 10 MG TAB PO SCH (09:00)
[2016-10-12] MEDS ORDERED: PROC10TA PO (09:08)
--- NOTE | 2016-10-12 09:13 | Discharge Summary ---
Diagnosis/Chief Complaint Date of Admission Oct 09, 2016 at 11:00 Date of Discharge Discharge Date: Oct 12, 2016 Discharge Time: 1130 Admission Diagnosis Admission Diagnosis 1. Intractable Nausea and Vomiting--admit for IVF and IV antiemetics 2. Acute Dehydration with Electrolyte Abnormalities including hypokalemia and hypomagnesemia--admit for IVF as well as IV replacement and monitor electrolytes 3. Diarrhea--stool studies if needed/persist 4. Diabetes mellitus--insulin requiring--accuchecks with SSI 5. Hypertension--resume home meds 6. Recurrent Multiple Myeloma--consult oncology Discharge Diagnosis ACUTE RENAL INSUFFICIENCY INTRACTABLE NAUSEA AND EMESIS MULTIPLE MYELOMA WITH INCREASED SIZE OF MASSES IN HER ABDOMEN HYPOMAGNESEMIA HYPOKALEMIA DEHYDRATION ANEMIA DIARRHEA DM HYPERTENSION Reason Hospital Visit This is a 75 year old female with a known history of multiple myeloma with recent reoccurrence who presented with a 3 day history of nausea, vomiting and diarrhea. She states that she has not been feeling well for the past 2 weeks with worsening fatigue and intermittent nausea and alternating constipation and diarrhea. However, the past few days she has had intractable nausea, vomiting and diarrhea and was having lower abdominal cramping. She was found to have acute renal insufficiency in the emergency room with electrolyte abnormalities including hypokalemia and hypomagnesemia. She also had ongoing nausea despite IV zofran. It was decided to admit her for IVF, electrolyte correction, IV antiemetics and further evaluation. Discharge Summary Discharge Physical Examination Allergies: Coded Allergies: metronidazole (Verified Allergy, Intermediate, HIVES, 04/14/16) meperidine (Verified Adverse Reaction, Mild, NAUSEA, 04/14/16) Vitals & I&Os Vital Signs Date Time Temp Pulse Resp B/P (MAP) Pulse Ox O2 Delivery O2 Flow Rate FiO2 10/12/16 10:10 77 20 169/81 96 Room Air 10/12/16 08:26 99.4 General Appearance: Alert, Oriented X3, Cooperative HEENT: Atraumatic, PERRLA Respiratory: Clear to Auscultation, Normal Air Movement Cardiovascular: Regular Rate Abdominal: Normal Bowel Sounds, Other (MASSES IN MID AND LOWER ABDOMEN, MILDLY TTP) Extremities: No Clubbing Skin: No Rashes Neuro: Normal Speech, Strength at 5/5 X4 Ext, Cranial Nerves 3-12 NL Psych/Mental Status: Mental Status NL, Mood NL Hospital Course ACUTE RENAL INSUFFICIENCY INTRACTABLE NAUSEA AND EMESIS MULTIPLE MYELOMA WITH INCREASED SIZE OF MASSES IN HER ABDOMEN HYPOMAGNESEMIA HYPOKALEMIA DEHYDRATION ANEMIA DIARRHEA DM HYPERTENSION ACUTE RENAL INSUFFICIENCY - IMPROVED INTRACTABLE NAUSEA AND EMESIS - RESOLVED ANEMIA - CHECK IRON PANEL, RESULTS PENDING DIARRHEA WITH HYPOKALEMIA AND HYPOMAGNESEMIA - RESOLVED DM - CONTINUE WITH INSULIN HYPERTENSION - RESUMED HOME MEDICATIONS MULTIPLE MYELOMA WITH MASSES IN HER ABDOMEN - MASSES HAVE INCREASED IN SIZE SIGNIFICANTLY - DEFER TO ONCOLOGIST. - REPEAT IGG, IGA, IGM, LAMBDA AND DANTE LIGHT CHAINS - LABS SHOULD BE BACK TOMORROW PER LABORATORY REPORT. PT TO BE SEEN BY DR. PRYOR TOMORROW AND SHE WILL GET AN APPOINTMENT WITH HER ONCOLOGIST IN [place] TO DISCUSS FURTHER TREATMENT MODALITIES. Pending Labs Laboratory Tests 10/12/16 06:09: Glucometer 141 10/12/16 06:10: White Blood Count 4.8, Red Blood Count 2.73, Hemoglobin 8.5, Hematocrit 27, Mean Corpuscular Volume 97, Mean Corpuscular Hemoglobin 31, Mean Corpuscular Hemoglobin Concent 32, Red Cell Distribution Width 17.1, Platelet Count 238, Mean Platelet Volume 10.6, Sodium Level 142, Potassium Level 3.2, Chloride Level 113, Carbon Dioxide Level 20, Anion Gap 9, Blood Urea Nitrogen 8, Creatinine 0.81, Estimat Glomerular Filtration Rate > 60, BUN/Creatinine Ratio 10, Glucose Level 132, Calcium Level 8.4, Total Bilirubin 0.2, Aspartate Amino Transf (AST/SGOT) 11, Alanine Aminotransferase (ALT/SGPT) 13, Alkaline Phosphatase 58, Total Protein 5.4, Albumin 3.1 Discharge Condition at discharge IMPROVED Instructions to patient/family Please see electonic discharge instructions given to patient. Discharge Medications Reviewed and agree with Discharge Medication list on patient's Discharge Instruction sheet Clinical Quality Measures DVT/VTE Risk/Contraindication: Risk Factor Score Per Nursin RFS Level Per Nursing on Admit: 4+=Very High GERMAN HERMAN MD Oct 12, 2016 09:13
--- NOTE | 2016-10-12 09:13 | Discharge Inst-Complex ---
PDI Med Rec & Follow Up Appt. New Medications: Prochlorperazine Maleate (Prochlorperazine Maleate) 10 Mg Tablet 10 MG PO QID PRN for NAUSEA/VOMITING-1ST LINE for 30 Days, #15 TAB Continued Medications: Acetaminophen (Tylenol Extra Strength) 500 Mg Tablet 500 MG PO PRIOR TO DARZELEX, TAB Acyclovir (Acyclovir) 400 Mg Tablet 400 MG PO BID Albuterol Sulfate (Ventolin Hfa) 1 Puff Puff 2 PUFF IH PRIOR TO DARZALEX, PUFF 1 PUFF = 90 MCG Aspirin (Aspir 81) 81 Mg Tablet.dr 81 MG PO DAILY, TAB Calcium Citrate/Vitamin D3 (Calcium Citrate - Vit D Tablet) 1 Each Tablet 2 TAB PO DAILY@1200, TAB Dexamethasone (Dexamethasone) 4 Mg Tablet 8 MG PO WEEK, TAB TAKES DECADRON 8 MG WEEKLY EXCEPT CHEMO WEEK (DARZALEX IV, DECADRON 4 MG IV ON DAY 1, THEN DECADRON 2 MG ON DAY 2 & 3) Diphenhydramine HCl (Diphenhydramine HCl) 25 Mg Tablet 25 MG PO PRIOR TO DARZALEX, TAB Fexofenadine HCl (Noreen Allergy) 180 Mg Tablet 180 MG PO PRIOR TO DARZALEX, TAB Hydrocodone/Acetaminophen (Hydrocodon -Acetaminophen 5-325) 1 Each Tablet 1-2 EACH PO Q4H PRN for PAIN, #40 TAB Immune Globulin,Gamma(IgG) (Privigen 10% Vial) 50 Ml Vial 30 GM IV MONTHLY, VIAL PRIVIGEN 30 GM IV MONTHLY WITH DARZALEX Insulin Detemir (Levemir Flextouch) 100 Unit/1 Ml Insuln.pen 18 UNITS SQ HS Insulin Lispro (Humalog Kwikpen) 100 Unit/1 Ml Insuln.pen SQ SLIDING/SCALE, EA Lisinopril (Lisinopril) 20 Mg Tablet 20 MG PO BID Magnesium Oxide (Magnesium Oxide) 400 Mg Tablet 400 MG PO DAILY, TAB Montelukast Sodium (Singulair) 10 Mg Tablet 10 MG PO PRIOR TO DARZALEX, TAB Omeprazole (Omeprazole) 20 Mg Capsule.dr 20 MG PO HS Pomalidomide (Pomalyst) 2 Mg Capsule 2 MG PO DAILY TAKES DAILY FOR 21 DAYS THEN OFF 7 DAYS Potassium Chloride (Potassium Chloride) 10 Meq Tablet.er 10 MEQ PO DAILY@1700, TAB Sennosides (Senna Lax) 8.6 Mg Tablet 8.6 MG PO DAILY, TAB Sennosides (Senna Laxative) 8.6 Mg Tablet 17.2 MG PO HS, TAB [Darzalex] () MONTHLY Prescription: RX on Chart Patient Instructions: IF NAUSEATED, USE COMPAZINE - DRINK GATORADE 4 OUNCES DAILY. CALL PROVIDER IF NAUSEA UNCONTROLLED, OR INCREASE IN ABDOMINAL PAIN THE RESULTS FOR THE IRON PANEL AND IMMUNOGLOBULINS ORDERED WHILE YOU WERE AN INPATIENT IN THE HOSPITAL WERE STILL PENDING AT TIME OF DISCHARGE, PLEASE CALL DR. PRYOR OR DR. RAMEY FOR A REVIEW OF THOSE LABS ON THURSDAY THAT IS MOST LIKELY WHEN THE LABS WILL BE FINALIZED. Activity, Diet and PDI Resume Normal Activity: Yes Discharge Diet: Regular Diet Diet After 24 Hours: Clear Liquid if Nauseous Drink 6-8 Glasses of Fluid/Day: Yes Driving Instructions: No Driving for 24 Hours Symptoms to Reoprt to : Appetite Changes, Pain Increased, Fever Over 101 Degrees F, Pain/Pressure in Chest, Diarrhea(Persistant), Questions/Concerns, Dizziness/Fainting, Nausea/Vomiting, Shortness of Breath For Problems or Questions: Contact Your Physician, Go to Emergency Room GERMAN HERMAN MD Oct 12, 2016 09:13
[2016-10-12] MEDS ORDERED: FLUT9.9S NS (09:48)
[2016-10-12 10:10] VITALS: BP 169/81
[2016-10-13 07:24] LABS: FERRITIN 88.9 ng/mL (15.0-150.0)
[2016-10-13 07:54] LABS: LIGHT CHAIN KAPPA SERUM QUANT 13.29 mg/L (3.30-19.40); LIGHT CHAIN LAMBDA SERUM QUANT 557.29 mg/L (5.71-26.30)
== END 2016-10-12 10:10 | disposition home or self-care (01) | DRG 699 ==
LOC: EDUNIT# 08:14 → ER 08:16 → 4TH 11:00
PROVIDERS: ADMIT Family Medicine; ATTEND Family Medicine
DX: N28.9 Disorder of kidney and ureter, unspecified (principal); E86.0 Dehydration; E87.6 Hypokalemia; E83.42 Hypomagnesemia; C90.02 Multiple myeloma in relapse; R64 Cachexia; R11.2 Nausea with vomiting, unspecified; R19.7 Diarrhea, unspecified; I10 Essential (primary) hypertension; E11.9 Type 2 diabetes mellitus without complications; I48.91 Unspecified atrial fibrillation; G62.0 Drug-induced polyneuropathy; T45.1X5A Adverse effect of antineoplastic and immunosuppressive drugs, initial encounter; J30.2 Other seasonal allergic rhinitis; M81.0 Age-related osteoporosis without current pathological fracture; M54.9 Dorsalgia, unspecified; H91.90 Unspecified hearing loss, unspecified ear; Z79.4 Long term (current) use of insulin; Z87.891 Personal history of nicotine dependence; Z85.3 Personal history of malignant neoplasm of breast
CPT/HCPCS: 36415; 71010; 74176; 80053; 81000; 82728; 82784; 82962; 83540; 83605; 83690; 83735; 83883; 85025; 85027; 87040; 87045; 87046; 87177; 87324; 87449; 93005; 96361; 96365; 96372; 96375

== ENCOUNTER 2016-10-16 12:21 | Outpatient (RCR) | payer MEDICARE ==
[2016-09-15 10:02] LABS: BASOPHILS # (AUTO) 0.1 10^3/uL (0.0-0.1); BASOPHILS % (AUTO) 1 % (0-10); EOSINOPHILS # (AUTO) 0.1 10^3/uL (0.0-0.3); EOSINOPHILS % (AUTO) 3 % (0-10); LYMPHOCYTES # (AUTO) 2.1 X 10^3 (1.0-4.0); LYMPHOCYTES % (AUTO) 41 % (12-44); MEAN CORPUSCULAR HEMOGLOBIN 32 PG (25-34); MEAN CORPUSCULAR HGB CONC 33 G/DL (32-36); MEAN CORPUSCULAR VOLUME 98 FL (80-99); MEAN PLATELET VOLUME 9.2 FL (7.4-10.4); MONOCYTES % (AUTO) 20 % (0-12); NEUTROPHILS # (AUTO) 1.8 X 10^3 (1.8-7.8); NEUTROPHILS % (AUTO) 36 % (42-75); PLATELET COUNT 220 10^3/uL (130-400); RED BLOOD COUNT 3.06 10^6/uL (4.35-5.85); RED CELL DISTRIBUTION WIDTH 16.7 % (10.0-14.5); WHITE BLOOD COUNT 5.1 10^3/uL (4.3-11.0)
[2016-09-15 10:31] LABS: ALBUMIN 3.5 GM/DL (3.2-4.5); BILIRUBIN,TOTAL 0.3 MG/DL (0.1-1.0); CALCIUM 8.9 MG/DL (8.5-10.1); CREATININE SERUM 1.01 MG/DL (0.60-1.30); MAGNESIUM 1.7 MG/DL (1.8-2.4); POTASSIUM 3.8 MMOL/L (3.6-5.0); TOTAL PROTEIN 6.2 GM/DL (6.4-8.2)
[2016-09-16 06:30] LABS: LIGHT CHAIN KAPPA SERUM QUANT 12.09 mg/L (3.30-19.40); LIGHT CHAIN LAMBDA SERUM QUANT 95.52 mg/L (5.71-26.30)
[2016-09-22 13:19] LABS: BASOPHILS # (AUTO) 0.1 10^3/uL (0.0-0.1); BASOPHILS % (AUTO) 1 % (0-10); EOSINOPHILS # (AUTO) 0.1 10^3/uL (0.0-0.3); EOSINOPHILS % (AUTO) 2 % (0-10); LYMPHOCYTES # (AUTO) 1.2 X 10^3 (1.0-4.0); LYMPHOCYTES % (AUTO) 28 % (12-44); MEAN CORPUSCULAR HEMOGLOBIN 32 PG (25-34); MEAN CORPUSCULAR HGB CONC 32 G/DL (32-36); MEAN CORPUSCULAR VOLUME 100 FL (80-99); MEAN PLATELET VOLUME 9.4 FL (7.4-10.4); MONOCYTES # (AUTO) 0.3 X 10^3 (0.0-1.0); MONOCYTES % (AUTO) 8 % (0-12); NEUTROPHILS # (AUTO) 2.7 X 10^3 (1.8-7.8); NEUTROPHILS % (AUTO) 61 % (42-75); PLATELET COUNT 233 10^3/uL (130-400); RED BLOOD COUNT 2.93 10^6/uL (4.35-5.85); RED CELL DISTRIBUTION WIDTH 17.9 % (10.0-14.5); WHITE BLOOD COUNT 4.4 10^3/uL (4.3-11.0)
[2016-09-22 13:46] LABS: CALCIUM 9.6 MG/DL (8.5-10.1); CREATININE SERUM 1.14 MG/DL (0.60-1.30)
[2016-09-29 13:24] LABS: BASOPHILS # (AUTO) 0.1 10^3/uL (0.0-0.1); BASOPHILS % (AUTO) 1 % (0-10); EOSINOPHILS # (AUTO) 0.1 10^3/uL (0.0-0.3); EOSINOPHILS % (AUTO) 3 % (0-10); LYMPHOCYTES # (AUTO) 1.3 X 10^3 (1.0-4.0); LYMPHOCYTES % (AUTO) 28 % (12-44); MEAN CORPUSCULAR HEMOGLOBIN 32 PG (25-34); MEAN CORPUSCULAR HGB CONC 32 G/DL (32-36); MEAN CORPUSCULAR VOLUME 99 FL (80-99); MEAN PLATELET VOLUME 9.4 FL (7.4-10.4); MONOCYTES # (AUTO) 0.8 X 10^3 (0.0-1.0); MONOCYTES % (AUTO) 17 % (0-12); NEUTROPHILS # (AUTO) 2.5 X 10^3 (1.8-7.8); NEUTROPHILS % (AUTO) 52 % (42-75); PLATELET COUNT 219 10^3/uL (130-400); RED BLOOD COUNT 3.04 10^6/uL (4.35-5.85); RED CELL DISTRIBUTION WIDTH 17.2 % (10.0-14.5); WHITE BLOOD COUNT 4.9 10^3/uL (4.3-11.0)
[2016-09-29 14:00] LABS: CALCIUM 9.7 MG/DL (8.5-10.1); CREATININE SERUM 1.17 MG/DL (0.60-1.30); POTASSIUM 4.1 MMOL/L (3.6-5.0)
[2016-10-06 13:16] LABS: BASOPHILS # (AUTO) 0.1 10^3/uL (0.0-0.1); BASOPHILS % (AUTO) 2 % (0-10); EOSINOPHILS # (AUTO) 0.3 10^3/uL (0.0-0.3); EOSINOPHILS % (AUTO) 9 % (0-10); LYMPHOCYTES # (AUTO) 1.3 X 10^3 (1.0-4.0); LYMPHOCYTES % (AUTO) 42 % (12-44); MEAN CORPUSCULAR HEMOGLOBIN 31 PG (25-34); MEAN CORPUSCULAR HGB CONC 32 G/DL (32-36); MEAN CORPUSCULAR VOLUME 98 FL (80-99); MEAN PLATELET VOLUME 9.2 FL (7.4-10.4); MONOCYTES # (AUTO) 0.7 X 10^3 (0.0-1.0); MONOCYTES % (AUTO) 22 % (0-12); NEUTROPHILS # (AUTO) 0.8 X 10^3 (1.8-7.8); NEUTROPHILS % (AUTO) 26 % (42-75); PLATELET COUNT 201 10^3/uL (130-400); RED BLOOD COUNT 3.06 10^6/uL (4.35-5.85); RED CELL DISTRIBUTION WIDTH 17.4 % (10.0-14.5); WHITE BLOOD COUNT 3.2 10^3/uL (4.3-11.0)
[2016-10-06 13:40] LABS: CALCIUM 8.8 MG/DL (8.5-10.1); CREATININE SERUM 1.12 MG/DL (0.60-1.30)
[2016-10-13 10:01] LABS: BASOPHILS # (AUTO) 0.1 10^3/uL (0.0-0.1); BASOPHILS % (AUTO) 2 % (0-10); EOSINOPHILS # (AUTO) 0.1 10^3/uL (0.0-0.3); EOSINOPHILS % (AUTO) 2 % (0-10); LYMPHOCYTES # (AUTO) 1.7 X 10^3 (1.0-4.0); LYMPHOCYTES % (AUTO) 36 % (12-44); MEAN CORPUSCULAR HEMOGLOBIN 31 PG (25-34); MEAN CORPUSCULAR HGB CONC 32 G/DL (32-36); MEAN CORPUSCULAR VOLUME 97 FL (80-99); MEAN PLATELET VOLUME 9.7 FL (7.4-10.4); MONOCYTES # (AUTO) 1.2 X 10^3 (0.0-1.0); MONOCYTES % (AUTO) 24 % (0-12); NEUTROPHILS # (AUTO) 1.7 X 10^3 (1.8-7.8); NEUTROPHILS % (AUTO) 36 % (42-75); PLATELET COUNT 272 10^3/uL (130-400); RED BLOOD COUNT 2.97 10^6/uL (4.35-5.85); RED CELL DISTRIBUTION WIDTH 17.3 % (10.0-14.5); WHITE BLOOD COUNT 4.8 10^3/uL (4.3-11.0)
[~2016-10-16 12:21] MED LIST changes: +ACET-2267 PO; +ACETAMINOPHEN 325 MG TAB (TYLENOL) CANCER CTR PO PRN; +ACETAMINOPHEN 500 MG TAB (TYLENOL) CANCER CTR PO PRN; +ASPI-586 PO; +DARATUMUMAB IV SCH; +DARZALEX; +DIPH25TA31 PO; +FAMOTIDINE 20MG/2ML IV (CANCER CTR) IV SCH; +FEXO180T84 PO; +FLUT9.9S NS; +IMMU50VI2 IV; +IVIG 10 GM (PRIVIGEN) CANCER C 100 ML IV SCH; +IVIG 20 GM (PRIVIGEN) CANCER C 200 ML IV SCH; +MONT10TA21 PO; +NS IV 1000 ML (CANCER CTR) IV SCH; +NS IV SCH; +PROC10TA PO; +RT-ALBUINH IH; +SENN8.6T17 PO; +ZOLEDRONIC ACID (CANCER CTR) 3.5 MG in NS (IVPB) CANCER CENTER 100 ML IV SCH; +diphenhydrAMINE 25 MG TAB (BENADRYL) CANCER CENTER PO SCH; +diphenhydrAMINE 50 MG/ML INJ (CANCER CENTER) IV PRN; +methylPREDNISolone 125 MG/2 ML (SOLU-MEDROL) CANCER CTR IV SCH
== END 2016-11-15 | disposition home or self-care (01) ==
LOC: ONC 12:21
PROVIDERS: ATTEND Internal Medicine Hematology & Oncology
DX: Z51.11 Encounter for antineoplastic chemotherapy (principal); C90.00 Multiple myeloma not having achieved remission; Z85.3 Personal history of malignant neoplasm of breast; Z90.12 Acquired absence of left breast and nipple; Z94.84 Stem cells transplant status; Z79.899 Other long term (current) drug therapy; Z76.89 Persons encountering health services in other specified circumstances
CPT/HCPCS: 36415; 36591; 80048; 80053; 82232; 82784; 83735; 83883; 85025; 96365; 96366; 96367; 96413; 96415; 99213

== ENCOUNTER → 2017-01-13 | Outpatient (CLI) | payer MEDICARE ==
[~2017-01-13] MED LIST changes: -ACETAMINOPHEN 325 MG TAB (TYLENOL) CANCER CTR PO PRN; -ACETAMINOPHEN 500 MG TAB (TYLENOL) CANCER CTR PO PRN; -DARATUMUMAB IV SCH; -FAMOTIDINE 20MG/2ML IV (CANCER CTR) IV SCH; -IVIG 10 GM (PRIVIGEN) CANCER C 100 ML IV SCH; -IVIG 20 GM (PRIVIGEN) CANCER C 200 ML IV SCH; -NS IV 1000 ML (CANCER CTR) IV SCH; -NS IV SCH; -ZOLEDRONIC ACID (CANCER CTR) 3.5 MG in NS (IVPB) CANCER CENTER 100 ML IV SCH; -diphenhydrAMINE 25 MG TAB (BENADRYL) CANCER CENTER PO SCH; -diphenhydrAMINE 50 MG/ML INJ (CANCER CENTER) IV PRN; -methylPREDNISolone 125 MG/2 ML (SOLU-MEDROL) CANCER CTR IV SCH
--- NOTE | 2017-01-14 09:53 | Diagnostic Imaging Report ---
EXAMINATION: PET-CT TECHNIQUE: Serum glucose level at the time of the study is: 149 mg/dL. 13.1 mCi of FDG was administered intravenously followed by obtaining PET images with corresponding noncontrast CT scan images. The CT scan was performed for anatomic correlation and attenuation correction and was not performed according to the diagnostic protocol of the areas covered. The scan was performed from the head to mid thighs. INDICATION: History of multiple myeloma and breast cancer. COMPARISON: 07/29/2016. FINDINGS: There is significant progression with significant enlargement of a soft tissue mass in the anterior aspect of the central abdomen with the mass previously confined to the omentum but now is invading the anterior abdominal wall and anterior abdominal subcutaneous fat layer. Current measurements are 9 x 7.2 cm compared to 5 x 3.2 cm on 07/29/2016 and measurements of 8.3 x [address] scan of 10/09/2016. Significant hypermetabolism is seen in this lesion with a maximum SUV of 15. There are other enlarging masses as well seen with one noted in the left para-aortic station in the lower abdomen measuring approximately 5.3 x 4.2 cm compared to 4.4 x 3.7 cm on 10/09/2016. There is also hypermetabolism in an omental mass mixed with fat density in the anterior left lower abdomen covering an area of approximately 10 x 4.2 cm. This is larger compared to prior exams. There is also a significantly hypermetabolic mesenteric mass measuring 2.2 cm and posterior pararenal space retroperitoneal hypermetabolic nodules noted on the left side, not seen on the prior exams. The masses along the lower aspect of the aorta and the omentum in the anterior left abdomen have extension into the pelvis. An anterior periaortic mass around the SMA level is also seen, new from the prior PET and enlarged from the previous CT of 10/09/2016. No hypermetabolic mass is seen in the chest. There is, however, a 1.5 stable nodule in the right upper lobe without significant hypermetabolism, indeterminate. No mediastinal or hilar hypermetabolic lymph nodes. The heart size is enlarged. No significant hypermetabolism is seen in the neck. Symmetric FDG uptake in the brain is noted. IMPRESSION: 1. There is significant progression in the masses based on the omentum and retroperitoneum and a mesenteric nodule compared to the prior studies. The locations of these lesions are unusual for breast cancer metastasis or multiple myeloma. Correlate clinically and with biopsy, if needed. 2. Unchanged 1.4 cm right upper lobe pulmonary nodule without significant FDG uptake. Dictated by: Dictated on workstation # [id number]
== END ==
LOC: RAD 08:44
PROVIDERS: ATTEND Internal Medicine Hematology & Oncology
DX: C90.00 Multiple myeloma not having achieved remission (principal); R91.1 Solitary pulmonary nodule; Z85.3 Personal history of malignant neoplasm of breast

== ENCOUNTER 2017-02-02 10:23 | Inpatient (IN) | payer MEDICARE ==
[~2017-02-02] VITALS: Ht 154.9 cm; Wt 61.7 kg
[2017-02-02] MEDS: ONDANSETRON 4 MG/2 ML (SDV) Z0FRAN IVP PRN ×3 (11:50→21:09)
[2017-02-02] MEDS ORDERED: CATHETER FLUSH 10 ML SYR IV PRN (12:15)
[2017-02-02] MEDS: NS W/KCL 20 MEQ/L 1,000 ML IV SCH ×3 (12:22→21:09)
[2017-02-02] MEDS: MAGNESIUM 1 GM/100 ML IVPB 100 ML IV SCH ×3 (12:23→14:37)
[2017-02-02] MEDS: PANTOPRAZOLE 40 MG/10 ML (PROTONIX) VIAL IV SCH (12:24)
--- OUTSIDE RECORDS SUMMARY | 2017-02-02 13:04 | XMS REPORT | Continuity of Care Document ---
Author Author [facility] Organization [facility] Address Unknown Phone Unavailable Care Team Providers Care Steel Handler Name Role Phone [employer] Unavailable Unavailable Problems Medications Allergies, Adverse Reactions, Alerts Immunizations Results Vital Signs Encounters Procedures Plan of Care Social History Assessment and Plan Family History Value Date Source Advance Directives Order Name Results Value Date Source
--- OUTSIDE RECORDS SUMMARY | 2017-02-02 13:05 | XMS REPORT | Encounter Summary ---
Author Author [facility] Organization [facility] Address Unknown Phone Unavailable Care Team Providers Care Hearing Specialist Name Role Phone PCP Unavailable Reason for Visit * Reason Comments Care Coordination Encounter Details Date Type Department Care Team Description 12/30/2016 Telephone [facility] Maria A Locke MD Care Coordination [facility] Exam [address] [facility] [address] [facility] [place] [address] [place] [address] [phone] Social History Tobacco Use Types Packs/Day Years [...] impairment: No 01/15/2016 as of this encounter Miscellaneous Notes * Telephone Encounter - Coby Andrew RN - 12/30/2016 2:29 PM 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 Patient currently receiving Elotuzumab, Daratumumab, Thalidomide and Velcade per Dr. Mccord at [facility] in [place], [place]. Patient states she is too weak to travel to [place] for a visit with Dr. Locke. RN notified ADAM Shetty in Dr. Mccord's office of mutual patient's symptoms. Patient scheduled to see Dr. Mccord on 01/01/17 and office is aware of pt's symptoms per [facility]. RN offered to assist with arranging PT services for patient due to reports of severe weakness. RN provided office contact information if Dr. Mccodr would like to discuss pt's case with Dr. Locke. RN returned pt's call and explained Dr. Mccord is the managing physician of pt' s treatment and side effects. RN explained Dr. Locke will make recommendations upon request of Dr. Mccord. RN encouraged pt to share all side effects and severity of symptoms with Dr. Mccord's team during clinic visit and discuss goals of care. Patient v/u. [facility] phone number provided for follow-up. in this encounter Plan of Treatment Not on fileas of this encounter Visit Diagnoses Not on filein this encounter
--- OUTSIDE RECORDS SUMMARY | 2017-02-02 13:05 | XMS REPORT | Encounter Summary ---
Author Author [facility] Organization [facility] Address Unknown Phone Unavailable Care Team Providers Care Glove Pairer Name Role Phone PCP Unavailable Reason for Visit * Reason Comments Appointment Encounter Details Date Type Department Care Team Description 12/09/2016 Telephone [facility] Maria A Locke MD Appointment [facility] [address] [facility] [address] [facility] [place] [address] [place] [address] [phone] Social History Tobacco Use Types Packs/Day Years [...] Telephone Encounter - Coby Andrew RN - 12/09/2016 12:20 PM CDT Patient left VM requesting to reschedule RV with Dr. Locke 12/11/16. RN returned call and offered dates for reschedule. Pt states she does not wish to r /s appointment at this time because it is difficult for her to travel. Pt states she resumed recommended therapy per Dr. Gonzalez with Dr. Mccord at [facility]. Patient reports current therapy Daratumumab, Velcade, Dexamethasone, Thalomid. Records requested from Dr. Mccord's office. RN provided pt with [facility] scheduling phone number to reschedule appointment at her preferred time. in this encounter Plan of Treatment Not on fileas of this encounter Visit Diagnoses Not on filein this encounter
--- OUTSIDE RECORDS SUMMARY | 2017-02-02 13:05 | XMS REPORT | Clinical Summary ---
Author Author [facility] Organization [facility] Address Unknown Phone Unavailable Care Team Providers Care Managing Consultant Name Role Phone PCP Unavailable Source Comments Some departments are not documenting in the electronic medical record. If you do not see the information that you expected, contact Release of Information in the Health Information Management department at [phone] for further assistance in locating additional records.[facility] Allergies Active Allergy Reactions Severity Noted [...] 10/04/19 Active daily. HOLD UNTIL YOUR 16 SHAFTING CLEANER GIVES YOU THE OK TO RESTART senna (SENOKOT) 8.6 mg Take 1 Tab by mouth twice 90 Tab 3 10/04/19 Active tablet daily. 16 fexofenadine(+) (LISET) Take 180 mg by mouth [...] 10 units/mL three times daily before meals. dexamethasone (DECADRON) Take 5 tablets by mouth 60 tablet 3 10/15/19 Active 4 mg tabletIndications: every 7 days. 17 Multiple myeloma in relapse (HCC) Active Problems Problem Noted Date Hypogammaglobulinemia (HCC) 05/11/2016 Last Assessment & Plan: Pt has [...] of VDTPACE 25% reduction and she had AZ of the mesenteric mass, we started her on daratumumab on 12/10/15, she tolerated that well, so we added Pomalidomide for better response.Patient is currently on Daratumumab/pomalidomide/dexamethasone and she is fairly tolerating. Patient is on Daratumumab/pomalidomide/dexamethasone, she was admitted to the hospital recently and during that admission she had a CT scan of the abdomen that showed increase in the mass which is consistent with her myeloma markers that had showed progression of the disease. 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 one of the optionse I recommended was VRDPACE however because of her recent history of recurrent infections and admissions to the hospital because of that I informed the patient that she is a high risk for developing severe infection. Other recommendations include Elotuzumab based therapy versus pomalidomide-based therapy, versus immunotherapy. Family opted to consider Elotuzumab based therapy for now as an option for treatment especially that she can tolerate that much better comparing to the other treatments Recommendations: Recommend to discontinue Daratumumab/pomalidomide/dexamethasone Recommend to consider Elotuzumab, lenalidomide, dexamethasone Elotuzumab 10 mg/kg IV on days 1, 8, 15, and 22 and the first 2 cycles and then 10 mg/kg IV on days 1 and 15 on cycle 3 and afterwards Revlimid 25 mg orally daily on days 1-21 Dexamethasone 20 mg weekly with or without the Elotuzumab Aspirin 325 mg daily Acyclovir 800 mg twice a day Consider premedication with Benadryl, Zantac and Tylenol Check myeloma markers monthly Check CBC with CMP weekly Check PET CT scan after 2 cycles Please consider performing a biopsy of the plasmacytoma and to check for PDL 1 If the patient cannot tolerate the treatment I would recommend to switch to Pembrolizumab and Pomalidomide if the patient is positive for PDL 1 versus considering pomalidomide/clarithromycin/Cytoxan/dexamethasone I recommended the patient to start on dexamethasone 20 mg weekly until she sees her oncologist Dr. Subramanian in order to start her on the new regimen RTC in my clinic in 2 months after her PET CT scan is performed Hypertension 08/11/2013 Diabetes (HCC) 08/11/2013 Last Assessment & Plan: Pt is currently on Metformin, will hold that and start her on insulin SSI while hospitalized Malignant neoplasm of left female breast (HCC) 08/11/2013 Overview: She also has a hx of breast cancer diagnosed in 1999. She underwent lumpectomy followed by XRT to her left breast. It was ER/AZ positive and she completed 4.5 yrs of endocrine therapy. She then had a recurrence of her breast cancer in 2009 and underwent a left mastectomy without other adjuvant therapy L ast Assessment & Plan: She also has a hx of breast cancer diagnosed in 1999. She underwent lumpectomy followed by XRT to her left breast. It was ER/AZ positive and she completed 4.5 yrs of endocrine therapy. She then had a recurrence of her breast cancer in 2009 and underwent a left mastectomy without other adjuvant therapy Perforated diverticulitis 08/11/2013 S/P cholecystectomy 08/11/2013 S/P colon resection 08/11/2013 Resolved Problems Problem Noted Date Resolved Date Abdominal pain 03/08/2015 09/23/2015 Encounters Date Type Specialty Care Team Description 12/30/2016 Telephone Oncology Maria A Locke MD Care Coordination 12/09/2016 Telephone Oncology Maria A Locke MD Appointment from Last 3 Months Immunizations Name Dates [...] Vital Sign Reading Time Taken Blood Pressure 136/71 10/14/2016 1:10 PM CDT Pulse 80 10/14/2016 1:10 PM CDT Temperature 36.7 C (98 F) 10/14/2016 1:10 PM CDT Respiratory Rate 16 10/14/2016 1:10 PM CDT Oxygen Saturation 95% 10/14/2016 1:10 PM CDT Inhaled Oxygen - - Concentration Weight 72 kg (158 lb 12.8 oz) 10/14/2016 1:10 PM CDT Height 157.5 cm (5' 2") 10/14/2016 1:10 PM CDT Body Mass Index 29.04 10/14/2016 1:10 PM CDT Plan of Treatment Health Maintenance Due Date Last Done Comments PHYSICAL (COMPREHENSIVE) 1947 EXAM DILATED EYE EXAM 1956 FOOT EXAM 1956 MICROALBUMIN 1956 SHINGLES VACCINE 1998 OSTEOPOROSIS SCREENING 10/22/2003 PREVNAR/PNEUMOVAX (#2) 03/10/2015 09/04/2014, 07/05/2014, 05/08/2014, Additional history exists HBA1C 06/09/2016 12/10/2015 INFLUENZA VACCINE 09/16/2016 11/20/2015 TETANUS VACCINE 07/05/2024 07/05/2014, 05/08/2014, 03/10/2014 PERTUSSIS VACCINE Completed 07/05/2014, 05/08/2014, 03/10/2014 Implants Implanted Type Area Scale Mechanic Device Expiration Model / Identifier Date Serial / Lot Port Results Not on filefrom Last 3 Months
[2017-02-02] MEDS: morphine ER 30 MG (MS CONTIN) TAB PO SCH ×2 (13:32→21:09)
--- NOTE | 2017-02-02 15:30 | Diagnostic Imaging Report ---
EXAM: 3 views of the right foot. INDICATION: Right foot pain and injury. FINDINGS: There is a nondisplaced transverse fracture through the base of the fifth metatarsal. There is no radiopaque foreign body. No subluxation or dislocation. The fracture line extends to the articular surface with the cuboid. Alignment of the other bones is satisfactory. Mild calcaneal spurs are seen. IMPRESSION: Nondisplaced intra-articular transverse fracture through the base of the fifth metatarsal. The findings were discussed with Dr. Donnelly at the time of dictation. Dictated by: Dictated on workstation # [id number]
--- NOTE | 2017-02-02 15:32 | Diagnostic Imaging Report ---
EXAM: 3 views of the right ankle. INDICATION: Fall. Right ankle pain. FINDINGS: There is a transverse sclerotic line through the distal tibial metaphysis area suggestive of a nondisplaced impacted fracture. The fibula appears intact. There is satisfactory alignment at the ankle mortise. There is a calcaneal spur seen. Transverse fractures through the base of the fifth metatarsal is also noted in the lateral projection. IMPRESSION: Impacted nondisplaced fracture in the distal tibial metaphysis region is seen. The findings were discussed with Dr. Donnelly at the time of dictation. Dictated by: Dictated on workstation # [id number]
[2017-02-02 15:57] VITALS: BP 148/66
[2017-02-02] MEDS: inSUlin (REGULAR) HUMAN 1 UNIT/0.01 ML (CHARGE PER UNIT) SC SCH ×2 (16:07→21:09)
--- NOTE | 2017-02-02 17:58 | Consultation ---
History of Present Illness History of Present Illness Patient Consulted On(cecelia/time) 02/02/17 17:52 Date Seen by Provider: Feb 02, 2017 Time Seen by Provider: 12:30 History of Present Illness This is a 76 year old female with metastatic multiple myeloma who was directly admitted by Dr. Subramanian with fever and intractable nausea and diarrhea. She also sustained a fall over the weekend injuring her right foot and ankle. The patient wants to discuss possible hospice as well. I am asked to consult for medical management. Allergies and Home Medications Allergies Coded Allergies: metronidazole (Verified Allergy, Intermediate, HIVES, 04/14/16) meperidine (Verified Adverse Reaction, Mild, NAUSEA, 04/14/16) Home Medications Acetaminophen 500 Mg Tablet, 500 MG PO PRIOR TO DARZELEX, (Reported) Acyclovir 400 Mg Tablet, 400 MG PO BID, (Reported) Albuterol Sulfate 1 Puff Puff, 2 PUFF IH PRIOR TO DARZALEX, (Reported) 1 PUFF = 90 MCG Aspirin 81 Mg Tablet.dr, 81 MG PO DAILY, (Reported) Calcium Citrate/Vitamin D3 1 Each Tablet, 2 TAB PO DAILY@1200, (Reported) Dexamethasone 4 Mg Tablet, 8 MG PO WEEK, (Reported) TAKES DECADRON 8 MG WEEKLY EXCEPT CHEMO WEEK (DARZALEX IV, DECADRON 4 MG IV ON DAY 1, THEN DECADRON 2 MG ON DAY 2 & 3) Diphenhydramine HCl 25 Mg Tablet, 25 MG PO PRIOR TO DARZALEX, (Reported) Fexofenadine HCl 180 Mg Tablet, 180 MG PO PRIOR TO DARZALEX, (Reported) Fluticasone Propionate 9.9 Ml [place].susp, 9.9 ML NS BID for 30 Days, #1 Prescribed by: GERMAN HERMAN on 10/12/16 0948 Hydrocodone/Acetaminophen 1 Each Tablet, 1-2 EACH PO Q4H PRN for PAIN, #40 Prescribed by: ZAYDA HERRMANN on 07/04/16 1346 Immune Globulin,Gamma(IgG) 50 Ml Vial, 30 GM IV MONTHLY, (Reported) PRIVIGEN 30 GM IV MONTHLY WITH DARZALEX Insulin Detemir 100 Unit/1 Ml Insuln.pen, 18 UNITS SQ HS, (Reported) Insulin Lispro 100 Unit/1 Ml Insuln.pen, SQ SLIDING/SCALE, (Reported) Lisinopril 20 Mg Tablet, 20 MG PO BID, (Reported) Magnesium Oxide 400 Mg Tablet, 400 MG PO DAILY, (Reported) Montelukast Sodium 10 Mg Tablet, 10 MG PO PRIOR TO DARZALEX, (Reported) Omeprazole 20 Mg Capsule.dr, 20 MG PO HS, (Reported) Pomalidomide 2 Mg Capsule, 2 MG PO DAILY, (Reported) TAKES DAILY FOR 21 DAYS THEN OFF 7 DAYS Potassium Chloride 10 Meq Tablet.er, 10 MEQ PO DAILY@1700, (Reported) Prochlorperazine Maleate 10 Mg Tablet, 10 MG PO QID PRN for NAUSEA/VOMITING-1ST LINE for 30 Days, #15 Prescribed by: GERMAN HERMAN on 10/12/16 0908 Sennosides 8.6 Mg Tablet, 8.6 MG PO DAILY, (Reported) Sennosides 8.6 Mg Tablet, 17.2 MG PO HS, (Reported) [Darzalex] , MONTHLY, (Reported) Past Bbhjqwa-Qcwfhg-Wcnszx Hx Patient Social History Alcohol Use: Denies Use Recreational Drug Use: No Smoking Status: Former Smoker Former Smoker, Quit: Feb 16, 1995 Recent Foreign Travel: No Contact w/Someone Who Travel: No Recent Infectious Disease Expo: No Recent Hopitalizations: No Immunizations Up To Date Tetanus Booster (TDap): Less than 5yrs PED Vaccines UTD: Yes Date of Pneumonia Vaccine: Feb 16, 2014 Date of Influenza Vaccine: Nov 21, 2015 Seasonal Allergies Seasonal Allergies: Yes Surgeries History of Surgeries: Yes (PERFORATED DIVERTICULI with colon resection, KYPHOPLASTY X2) Surgeries: Bladder Surgery, Bowel Surgery, Breast, Gallbladder, Hysterectomy, Lumpectomy Respiratory History of Respiratory Disorde: No Currently Using CPAP: No Currently Using BIPAP: No Cardiovascular History of Cardiac Disorders: Yes Cardiac Disorders: Atrial Fibrillation, Hypertension Neurological History of Neurological Disord: Yes (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 ) Neurological Disorders: Neuropathy Reproductive System Hx Reproductive Disorders: No Sexually Transmitted Disease: No HIV/AIDS: No Female Reproductive Disorders: Denies 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 Genitourinary History of Genitourinary Disor: No Gastrointestinal History of Gastrointestinal Di: Yes ( bowel obstruction x 2) Gastrointestinal Disorders: Abdominal Hernia, Diverticulosis, Hemorrhoids Musculoskeletal History of Musculoskeletal Dis: Yes (5 COMPRESSION FX ) Musculoskeletal Disorders: Osteoporosis, Arthritis, Back Injury, Chronic Back Pain, Fractures Endocrine History of Endocrine Disorders: Yes Endocrine Disorders: Diabetes, Non-Insulin dep Are Your Blood Sugars Over 250: No HEENT History of HEENT Disorders: Yes HEENT Disorders: Cataract Loss of Vision: Denies Hearing Impairment: Hard of Hearing Cancer History of Cancer: Yes (MULTIPLE MYELOMA, BREAST CA- 5 YEARS AGO ) Cancer: Breast Did You Recieve Any Treatments: Yes Type of Tx Receive: Chemotherapy Psychosocial History of Psychiatric Problem: No Integumentary History of Skin or Integumenta: No Blood Transfusions History of Blood Disorders: Yes (JKA ANTIBODIES IN BLOOD) Adverse Reaction to a Blood Tr: No Family Medical History Family Medial History: Cancer 19 FATHER 19 MOTHER G8 BROTHER Family history: Cardiovascular disease G8 BROTHER Family history: Diabetes mellitus 19 FATHER G8 BROTHER Family history: Hypertension G8 BROTHER Family history: Thyroid disorder 19 MOTHER Heart disease G8 BROTHER Review of Systems-General Constitutional: fever, weakness, weight loss EENTM: No see HPI, No no symptoms reported, No ear discharge, No hearing loss, No ear pain, No blurred vision, No double vision, No eye pain, No tearing, No vision loss, No dental problems, No hoarseness, No mouth pain, No mouth swelling , No epistaxis, No nose congestion, No nose pain, No throat pain, No throat swelling, No other Respiratory: No no symptoms reported, No see HPI, No cough, No dyspnea on exertion, No hemoptysis, No orthopnea, No phlegm, No short of breath, No stridor , No wheezing, No other Cardiovascular: No no symptoms reported, No see HPI, No chest pain, No edema, No Hx of Intervention, No palpitations, No syncope, No vascular heart diseas, No other Gastrointestinal: diarrhea, loss of appetite, nausea, vomiting Genitourinary: No no symptoms reported, No see HPI, No decreased output, No discharge, No dysuria, No frequency, No hematuria, No hesitancy, No incontinence , No nocturia, No pain, No other Musculoskeletal: joint pain (right ankle and foot), joint swelling (right ankle and foot) Psychiatric/Neurological: Depressed, Weakness Physical Exam-General Problems Physical Exam Vital Signs Vital Sign - Last 12Hours 02/02/17 02/02/17 11:00 15:57 Temp 97.3 Pulse 77 Resp 18 B/P (MAP) 148/66 (93) Pulse Ox 94 O2 Delivery Room Air Capillary Refill : General Appearance: moderate distress HEENT: other (MM dry) Neck: supple Respiratory: lungs clear Cardiovascular: regular rate, rhythm, gallop/S4 Gastrointestinal: normal bowel sounds, non tender, soft Rectal: deferred Back: no CVA tenderness Extremities: non-tender, no calf tenderness, swelling (right ankle and foot) Neurologic/Psychiatric: alert, oriented x 3, motor weakness (generalized), depressed affect Skin: ecchymosis (right ankle and foot) Comments Laboratory Tests 02/02/17 16:00: Glucometer 161H Assessment/Plan Assessment/Plan Admission Diagnosis/Plan 1. Acute Gastroenteritis with intractable N/V/D--admit for hydration, check electrolytes, check C. Diff 2. Right ankle/foot pain and swelling--check x-rays 3. DM--insulin requiring--start SSI 4. Hypertension--resume home meds 5. Metastatic Multiple Myeloma--patient wants to discuss hospice Clinical Quality Measures DVT/VTE Risk/Contraindication: Risk Factor Score Per Nursin RFS Level Per Nursing on Admit: 2=Moderate PHUC RAMEY DO Feb 02, 2017 5:58 pm
--- NOTE | 2017-02-02 18:03 | HISTORY AND PHYSICAL ---
DATE OF SERVICE: The patient is admitted to room 411. PRESENTING COMPLAINTS: A 76-year-old female with a history of multiple myeloma who was started on chemotherapy with Treanda two weeks ago. The patient presented today to the [facility] with a two-day history of nausea, vomiting and diarrhea. She has been becoming weaker at home and contacted the Cancer Center today morning. She was evaluated and found to be clinically dehydrated and weak. Because of this, she is being admitted to observation status for IV hydration and further evaluation and management. PAST MEDICAL HISTORY: Significant for IgG lambda multiple myeloma diagnosed in early 2013, initially treated with Velcade, Revlimid and dexamethasone regimen followed by autologous bone marrow transplantation in August 2013. 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 She completed palliative radiation therapy to the plasmacytoma and was on treatment with Kyprolis and dexamethasone for 4 cycles with progression. She was treated with VDT-PACE for two cycles with decrease in the size of plasmacytoma. She was on treatment with Darzalex and dexamethasone regimen along with pomalidomide, but had evidence of progression. The treatment was then changed to metro regimen under the care of Dr. Gonzalez in [place] and she finished a month of treatment followed by maintenance for 6 weeks, but had evidence of progression. Two weeks ago, she was treated with a single agent Treanda. history include left breast cancer in 1996, treated with chemotherapy followed by hormonal therapy. Recurrent left breast cancer in 2009 requiring modified radical mastectomy and did not take hormonal treatment, as she did not tolerate this well. History of intermittent atrial fibrillation, diabetes mellitus type 2, diverticulosis and diverticulitis with bowel obstruction in the past requiring resection of sigmoid colon. History of cholecystectomy in the past. History of fracture of humeral neck requiring surgical correction in the s. SOCIAL HISTORY: The patient is and lives in [place], [place]. She has several children, 2 of whom live close by; others live in [facility]. No history of tobacco, alcohol or other recreational drug use. FAMILY HISTORY: Significant for lung cancer in her mother. Maternal aunt, colorectal cancer and two other maternal aunts had breast cancers. Father had history of melanoma and maternal grandmother had primary brain tumor. PHYSICAL EXAMINATION: GENERAL: Today showed an elderly female, awake and oriented, weak appearing and in moderate distress due to persistent nausea. VITAL SIGNS: Temperature was 97.3, pulse rate 77, respirations 18, blood pressure 148/66, pulse oximetry showed 94% saturation on room air. HEENT: Normocephalic, extraocular muscles intact, conjunctivae slightly pale, oral mucosa slightly dry without lesions. NECK: Supple, with no JVD. No cervical, supraclavicular or axillary lymphadenopathy palpable. CHEST: Showed a port present. LUNGS: Fairly clear to auscultation without wheezes or rales. CARDIOVASCULAR: Regular in rate and rhythm with occasional missed beats. ABDOMEN: Showed a large mass in the epigastric area, which may be slightly smaller than two weeks ago. EXTREMITIES: Showed no edema. SKIN: Turgor was slightly poor. LABORATORY DATA: CBC done at the Cancer Center showed WBC 5.4, hemoglobin 9.3, platelet count 228,000 with neutrophil count of 4.7 and lymphocyte count of 0.2. Chemistry panel showed normal electrolytes except potassium level of 2.9. BUN was 14 and creatinine 0.94 with GFR 58 mL per minute. Nonfasting glucose was 140. Liver function studies were within normal limits except albumin level of 3.1. IMPRESSION: 1. Nausea, vomiting and watery diarrhea. 2. Dehydration due to above. 3. Multiple myeloma, on chemotherapy with Treanda initiated two weeks ago. 4. Hypokalemia and probable hypomagnesemia because of vomiting and diarrhea. PLAN: 1. I will admit the patient to the hospital under observation status and start hydration with normal saline with 20 mEq of potassium at 200 mL per hour. I also administer 3 grams of magnesium IV. 2. We will start her on clear liquid diet and advance as tolerated. 3. We will continue long-acting morphine as she was doing at home, which is 30 mg every 8 hours on schedule to control the pain. 4. Hold other medications for now except proton pump inhibitor, which will be administered IV. 5. We will obtain medical consultation with Dr. Donnelly for concurrent medical management. 6. Recheck lab work tomorrow. Home when stable. 7. I will obtain a stool sample for C. difficile toxin because of recent antibiotic use. 8. Overall prognosis is guarded. Job ID: [id number] DocumentID: [id number] Dictated Date: 02/02/2017 16:57:52 Naval Aircrew[employer] Operator Date: 02/02/2017 18:03:13 Dictated By: CAREN PRYOR MD
[2017-02-02] MEDS ORDERED: AMLO5TAB2 PO (18:36)
[2017-02-02] MEDS ORDERED: THAL50CA PO (18:36)
[2017-02-02] MEDS ORDERED: [UNRECOGNIZED DRUG - CODE] PO (18:36)
[2017-02-02] MEDS ORDERED: MORP-34 PO (18:36)
[2017-02-02] MEDS ORDERED: PROC10TA PO (18:36)
[2017-02-02] MEDS ORDERED: LOPERAMIDE 2 MG (IMODIUM) CAP PO ONE (21:00)
[2017-02-03 00:10] VITALS: BP 151/62
[2017-02-03] MEDS: ONDANSETRON 4 MG/2 ML (SDV) Z0FRAN IVP PRN ×5 (02:09→22:01)
[2017-02-03] MEDS: NS W/KCL 20 MEQ/L 1,000 ML IV SCH ×4 (02:27→21:52)
[2017-02-03] MEDS: morphine ER 30 MG (MS CONTIN) TAB PO SCH (05:59)
[2017-02-03] MEDS: inSUlin (REGULAR) HUMAN 1 UNIT/0.01 ML (CHARGE PER UNIT) SC SCH ×4 (05:59→22:15)
[2017-02-03 06:21] LABS: BASOPHILS % (AUTO) 0 % (0-10); EOSINOPHILS % (AUTO) 1 % (0-10); LYMPHOCYTES # (AUTO) 0.2 X 10^3 (1.0-4.0); LYMPHOCYTES % (AUTO) 4 % (12-44); MEAN CORPUSCULAR HEMOGLOBIN 33 PG (25-34); MEAN CORPUSCULAR HGB CONC 33 G/DL (32-36); MEAN CORPUSCULAR VOLUME 100 FL (80-99); MEAN PLATELET VOLUME 10.2 FL (7.4-10.4); MONOCYTES # (AUTO) 0.6 X 10^3 (0.0-1.0); MONOCYTES % (AUTO) 14 % (0-12); NEUTROPHILS # (AUTO) 3.4 X 10^3 (1.8-7.8); NEUTROPHILS % (AUTO) 81 % (42-75); PLATELET COUNT 178 10^3/uL (130-400); RED BLOOD COUNT 2.34 10^6/uL (4.35-5.85); RED CELL DISTRIBUTION WIDTH 17.6 % (10.0-14.5); WHITE BLOOD COUNT 4.2 10^3/uL (4.3-11.0)
[2017-02-03 06:32] LABS: ALANINE AMINOTRANSFERASE 7 U/L (0-55); ALBUMIN 2.4 GM/DL (3.2-4.5); ANION GAP 9 MMOL/L (5-14); ASPARTATE AMINO TRANSFERASE 11 U/L (5-34); BILIRUBIN,TOTAL < 0.1 MG/DL (0.1-1.0); BLOOD UREA NITROGEN 11 MG/DL (7-18); BUN/CREATININE RATIO 15; CALCIUM 7.5 MG/DL (8.5-10.1); CARBON DIOXIDE 20 MMOL/L (21-32); CHLORIDE 112 MMOL/L (98-107); CREATININE SERUM 0.73 MG/DL (0.60-1.30); GFR ESTIMATED > 60; GLUCOSE 95 MG/DL (70-105); MAGNESIUM 1.7 MG/DL (1.8-2.4); POTASSIUM 3.1 MMOL/L (3.6-5.0); SODIUM 141 MMOL/L (135-145); TOTAL PROTEIN 4.8 GM/DL (6.4-8.2)
[2017-02-03] MEDS: PANTOPRAZOLE 40 MG/10 ML (PROTONIX) VIAL IV SCH (07:43)
[2017-02-03 07:58] VITALS: BP 176/72
[2017-02-03] MEDS ORDERED: SENNOSIDES 8.6 MG (SENOKOT) TAB PO PRN (08:30)
--- NOTE | 2017-02-03 08:50 | Progress Note (SOAP) ---
Subjective Date Seen by Provider: Feb 03, 2017 Time Seen by Provider: 08:46 Subjective/Events-last exam Fwup intractable N/V/D, HTN, DMII. Stool studies still pending. Still having nausea with dry heaves and diarrhea. Thinks may be related to morphine. Objective Exam Vital Signs Date Time Temp Pulse Resp B/P (MAP) Pulse Ox O2 Delivery O2 Flow Rate FiO2 02/03/17 07:58 98.0 75 20 176/72 (106) 96 Room Air 02/03/17 00:10 98.9 75 18 151/62 (91) 93 Room Air 02/02/17 15:57 97.3 77 18 148/66 (93) 94 Room Air 02/02/17 11:00 Room Air I & O 02/03/17 07:00 Intake Total 2660 ml Balance 2660 ml Capillary Refill : General Appearance: Mild Distress Neck: Supple Respiratory: Lungs Clear Cardiovascular: Regular Rate, Rhythm Gastrointestinal: normal bowel sounds, soft, tenderness, mass (epigastric) Extremity: Non Tender, No Calf Tenderness, No Pedal Edema Neurologic/Psychiatric: Alert, Oriented x3 Skin: Ecchymosis (right ankle and foot) Results Lab Laboratory Tests 02/02/17 16:00: Glucometer 161H 02/02/17 21:02: Glucometer 104 02/03/17 05:58: Glucometer 92 02/03/17 06:03: White Blood Count 4.2L, Red Blood Count 2.34L, Hemoglobin 7.6L, Hematocrit 23L, Mean Corpuscular Volume 100H, Mean Corpuscular Hemoglobin 33, Mean Corpuscular Hemoglobin Concent 33, Red Cell Distribution Width 17.6H, Platelet Count 178, Mean Platelet Volume 10.2, Neutrophils (%) (Auto) 81H, Lymphocytes (%) (Auto) 4L , Monocytes (%) (Auto) 14H, Eosinophils (%) (Auto) 1, Basophils (%) (Auto) 0, Neutrophils # (Auto) 3.4, Lymphocytes # (Auto) 0.2L, Monocytes # (Auto) 0.6, Eosinophils # (Auto) 0.0, Basophils # (Auto) 0.0, Sodium Level 141, Potassium Level 3.1L, Chloride Level 112#H, Carbon Dioxide Level 20L, Anion Gap 9, Blood Urea Nitrogen 11, Creatinine 0.73, Estimat Glomerular Filtration Rate > 60, BUN/ Creatinine Ratio 15, Glucose Level 95, Calcium Level 7.5L, Magnesium Level 1.7L , Total Bilirubin < 0.1L, Aspartate Amino Transf (AST/SGOT) 11, Alanine Aminotransferase (ALT/SGPT) 7, Alkaline Phosphatase 36L, Total Protein 4.8L, Albumin 2.4L Assessment/Plan Assessment/Plan Assess & Plan/Chief Complaint 1. Acute Gastroenteritis with intractable N/V/D--continue IVF, add scopolamine patch, add colestid, stool studies still pending, will change morphine to fentanyl to see if this helps nausea 2. Right tibial insufficiency fx and right 5th metatarsal fx--consult ortho 3. DM--insulin requiring--continue SSI 4. Hypertension--resume home meds 5. Metastatic Multiple Myeloma--patient wants to discuss hospice Clinical Quality Measures DVT/VTE Risk/Contraindication: Risk Factor Score Per Nursin RFS Level Per Nursing on Admit: 2=Moderate PHUC RAMEY DO Feb 03, 2017 08:50
[2017-02-03] MEDS ORDERED: morphine ER 30 MG (MS CONTIN) TAB PO SCH (09:00)
[2017-02-03] MEDS ORDERED: MAGNESIUM 1 GM/100 ML IVPB 100 ML IV NR (09:07)
[2017-02-03] MEDS ORDERED: SCOPOLAMINE 1.5 MG (TRANSDERM-SCOP) PATCH TD NR (09:08)
[2017-02-03] MEDS: POTASSIUM CL 10MEQ/50ML IVPB 50 ML IV SCH ×4 (11:02→14:51)
[2017-02-03] MEDS: lisINopril 20 MG (ZESTRIL) TAB PO SCH ×2 (11:08→22:13)
[2017-02-03] MEDS: MAGNESIUM OXIDE (MAG-OX)400 MG TAB PO SCH (11:08)
[2017-02-03] MEDS: COLESTIPOL 1 GM (COLESTID) TAB PO SCH ×2 (11:09→22:13)
[2017-02-03] MEDS: fentaNYL INJECTION 100 MCG/2 ML AMP IVP PRN ×2 (14:04→22:02)
[2017-02-03 16:05] VITALS: BP 157/68
[2017-02-03] MEDS ORDERED: INFLUENZA TRIvalent 2017-2018 0.5 ML/45 MCG SYR IM ONE (16:30)
[2017-02-03] MEDS ORDERED: LOPERAMIDE 2 MG (IMODIUM) CAP PO ONE (17:30)
--- NOTE | 2017-02-03 18:38 | Progress Note-Standard ---
Standard Progress Note Progress Notes/Assess & Plan Date Seen by Provider: Feb 03, 2017 Time Seen by Provider: 18:32 Progress/Assessment & Plan 76-year-old female with multiple myeloma and on treatment with Treanda administered 2 weeks ago, admitted with nausea vomiting and diarrhea of 2 days' duration. She is still has watery diarrhea approximately 6 times today and continues to have nausea and dry heaves. She is feeling better because of the IV hydration. X-ray of the foot showed tibial insufficiency fracture and calcaneal fracture. Dr. Espinal evaluated patient and recommended conservative management using a boot. Appreciate Dr. Donnelly's help. Extended release morphine on hold because of the nausea and vomiting. Patient is still on observation status. If she is not better by tomorrow, we will need to switch her to inpatient status. Lab work done today monitored. Hemoglobin 7.6 and we will repeat this tomorrow. IV fluids have been decreased to 150 mL/h. Stools for C. difficile toxin negative. Patient started on loperamide for the diarrhea. Continue to monitor. CAREN PRYOR Feb 03, 2017 18:38
--- NOTE | 2017-02-03 18:39 | CONSULTATION REPORT ---
DATE OF SERVICE: INPATIENT CONSULTATION REASON FOR CONSULTATION: Right tibia and fifth metatarsal fractures. HISTORY OF PRESENT ILLNESS: The patient is a 76-year-old female with metastatic multiple myeloma, who was admitted for nausea and vomiting. She had a fall on Thursday. Radiographs were obtained and she was found to have an impacted distal tibial metaphyseal fracture and a styloid fracture of the fifth metatarsal both on the right. She has been weightbearing on this. She had known metastatic disease to her distal tibia. She reports no pain. PHYSICAL EXAMINATION: EXTREMITIES: There is ecchymosis throughout her right foot and ankle region. No skin lesions noted. She has intact dorsiflexion and plantarflexion of the toes. Sensation is intact throughout. She has symmetric pulses. She is nontender over distal tibia. She is mildly tender at the fifth metatarsal base. IMPRESSION: Impacted tibial metaphyseal fracture distal closed nondisplaced and nondisplaced right fifth metatarsal styloid fracture. PLAN: The patient can continue to weightbear as tolerated. I have recommended a walking boot for this. If she gets up to use the bathroom in the middle of the night, she can weightbear without the boot as long as she uses a walker. We will follow her up in 2 weeks with x-rays of the right ankle and right foot on arrival. Thank you for the consultation. Job ID: [id number] DocumentID: [id number] Dictated Date: 02/03/2017 13:38:47 Interlocker Date: 02/03/2017 18:38:17 Dictated By: TEMO BLACKMAN MD
[2017-02-04] VITALS: BP 149/67
[2017-02-04] MEDS: NS W/KCL 20 MEQ/L 1,000 ML IV SCH ×3 (04:40→13:24)
[2017-02-04] MEDS: ONDANSETRON 4 MG/2 ML (SDV) Z0FRAN IVP PRN ×2 (05:01→09:04)
[2017-02-04] MEDS: fentaNYL INJECTION 100 MCG/2 ML AMP IVP PRN ×4 (05:07→21:50)
[2017-02-04 06:05] LABS: BASOPHILS % (AUTO) 0 % (0-10); EOSINOPHILS % (AUTO) 1 % (0-10); LYMPHOCYTES # (AUTO) 0.2 X 10^3 (1.0-4.0); LYMPHOCYTES % (AUTO) 7 % (12-44); MEAN CORPUSCULAR HEMOGLOBIN 32 PG (25-34); MEAN CORPUSCULAR HGB CONC 32 G/DL (32-36); MEAN CORPUSCULAR VOLUME 101 FL (80-99); MONOCYTES # (AUTO) 0.6 X 10^3 (0.0-1.0); MONOCYTES % (AUTO) 17 % (0-12); NEUTROPHILS # (AUTO) 2.6 X 10^3 (1.8-7.8); NEUTROPHILS % (AUTO) 75 % (42-75); PLATELET COUNT 169 10^3/uL (130-400); RED BLOOD COUNT 2.15 10^6/uL (4.35-5.85); WHITE BLOOD COUNT 3.5 10^3/uL (4.3-11.0)
[2017-02-04 06:26] LABS: ALANINE AMINOTRANSFERASE 9 U/L (0-55); ALBUMIN 2.2 GM/DL (3.2-4.5); ANION GAP 7 MMOL/L (5-14); ASPARTATE AMINO TRANSFERASE 13 U/L (5-34); BILIRUBIN,TOTAL 0.1 MG/DL (0.1-1.0); BLOOD UREA NITROGEN 7 MG/DL (7-18); BUN/CREATININE RATIO 11; CALCIUM 6.8 MG/DL (8.5-10.1); CARBON DIOXIDE 16 MMOL/L (21-32); CHLORIDE 118 MMOL/L (98-107); CREATININE SERUM 0.63 MG/DL (0.60-1.30); GFR ESTIMATED > 60; GLUCOSE 72 MG/DL (70-105); POTASSIUM 3.1 MMOL/L (3.6-5.0); SODIUM 141 MMOL/L (135-145); TOTAL PROTEIN 4.3 GM/DL (6.4-8.2)
[2017-02-04] MEDS: inSUlin (REGULAR) HUMAN 1 UNIT/0.01 ML (CHARGE PER UNIT) SC SCH ×4 (06:31→21:40)
[2017-02-04] MEDS: MAGNESIUM OXIDE (MAG-OX)400 MG TAB PO SCH (06:34)
[2017-02-04 08:00] VITALS: BP 149/73
[2017-02-04] MEDS: PANTOPRAZOLE 40 MG/10 ML (PROTONIX) VIAL IV SCH (09:04)
[2017-02-04] MEDS: LOPERAMIDE 2 MG (IMODIUM) CAP PO PRN ×4 (09:04→22:42)
--- NOTE | 2017-02-04 12:11 | Progress Note (SOAP) ---
Subjective Date Seen by Provider: Feb 04, 2017 Time Seen by Provider: 12:09 Subjective/Events-last exam Fwup intractable N/V/D, HTN, DMII. Nausea not as severe. Stools starting to decrease a little. Still very fatigued. Objective Exam Vital Signs Date Time Temp Pulse Resp B/P (MAP) Pulse Ox O2 Delivery O2 Flow Rate FiO2 02/04/17 08:00 97.8 65 16 149/73 (98) 96 Room Air 02/04/17 00:00 99.3 60 18 149/67 (94) 96 Room Air 02/03/17 16:05 97.7 78 20 157/68 (97) 96 Room Air I & O 02/04/17 07:00 Intake Total 1660 ml Balance 1660 ml Capillary Refill : General Appearance: Mild Distress Neck: Supple Respiratory: Lungs Clear Cardiovascular: Regular Rate, Rhythm, Systolic Murmur, Gallop/S4 Gastrointestinal: normal bowel sounds, soft, tenderness, mass (epigastric) Extremity: Non Tender, No Calf Tenderness, No Pedal Edema Neurologic/Psychiatric: Alert, Oriented x3 Results Lab Laboratory Tests 02/03/17 16:44: Glucometer 87 02/03/17 21:34: Glucometer 89 02/04/17 05:53: White Blood Count 3.5L, Red Blood Count 2.15L, Hemoglobin 6.9*L, Hematocrit 22L , Mean Corpuscular Volume 101H, Mean Corpuscular Hemoglobin 32, Mean Corpuscular Hemoglobin Concent 32, Red Cell Distribution Width 18.0H, Platelet Count 169, Mean Platelet Volume 10.0, Neutrophils (%) (Auto) 75, Lymphocytes (% ) (Auto) 7L, Monocytes (%) (Auto) 17H, Eosinophils (%) (Auto) 1, Basophils (%) ( Auto) 0, Neutrophils # (Auto) 2.6, Lymphocytes # (Auto) 0.2L, Monocytes # (Auto ) 0.6, Eosinophils # (Auto) 0.0, Basophils # (Auto) 0.0, Sodium Level 141, Potassium Level 3.1L, Chloride Level 118H, Carbon Dioxide Level 16L, Anion Gap 7 , Blood Urea Nitrogen 7, Creatinine 0.63, Estimat Glomerular Filtration Rate > 60, BUN/Creatinine Ratio 11, Glucose Level 72, Calcium Level 6.8L, Total Bilirubin 0.1, Aspartate Amino Transf (AST/SGOT) 13, Alanine Aminotransferase ( ALT/SGPT) 9, Alkaline Phosphatase 36L, Total Protein 4.3L, Albumin 2.2L 02/04/17 11:01: Glucometer 84 Microbiology 02/02/17 C. difficile [facility] Antigen & Toxins - Final, Complete Assessment/Plan Assessment/Plan Assess & Plan/Chief Complaint 1. Acute Gastroenteritis with intractable N/V/D--continue IVF, continue scopolamine patch, increase colestid, C. Diff negative, add compazine IV for nausea 2. Right tibial insufficiency fx and right 5th metatarsal fx--consulted ortho and has boot to go home in 3. DM--insulin requiring--continue SSI 4. Hypertension--stable back on home meds 5. Metastatic Multiple Myeloma--patient wants to discuss hospice 6. Acute on Chronic Anemia--transfuse 1u pRBCs Clinical Quality Measures DVT/VTE Risk/Contraindication: Risk Factor Score Per Nursin RFS Level Per Nursing on Admit: 2=Moderate PHUC RAMEY DO Feb 04, 2017 12:11
[2017-02-04] MEDS: lisINopril 20 MG (ZESTRIL) TAB PO SCH ×2 (12:49→21:40)
[2017-02-04] MEDS: COLESTIPOL 1 GM (COLESTID) TAB PO SCH ×2 (12:49→21:40)
[2017-02-04] MEDS: POTASSIUM CL 10MEQ/50ML IVPB 50 ML IV SCH ×4 (12:49→16:13)
[2017-02-04] MEDS: PROCHLORPERAZINE 10 MG/2ML INJ (COMPAZINE) IV PRN ×2 (12:53→18:28)
[2017-02-04 15:56] VITALS: BP 167/72
--- NOTE | 2017-02-04 16:10 | Progress Note-Standard ---
Standard Progress Note Progress Notes/Assess & Plan Date Seen by Provider: Feb 04, 2017 Time Seen by Provider: 16:05 Progress/Assessment & Plan 76-year-old female with multiple myeloma and on treatment with Treanda administered 2 weeks ago, admitted with nausea vomiting and diarrhea of few days ' duration. She is feeling better today but continues to have nausea. Diarrhea has improved some and is not watery. Pain controlled with fentanyl IV as needed. Eating only small amounts because of the nausea. Complained of generalized fatigue. Started on Compazine IV as needed for nausea which has helped. Lab work noted including hemoglobin which is low. Agree with PRBC transfusion. Patient has antibodies and matching blood has not been located yet. Continue IV fluids. Have discussed the case with Dr. Donnelly. We will change observation status to inpatient admission. Dr. Donnelly will take over as primary attending. I will be out of the office until February 19, 2017. Dr. Mcgrath is covering this week and next week. Dr. Sharma is on-call for [place] . CAREN PRYOR Feb 04, 2017 16:10
[2017-02-05] MEDS: PROCHLORPERAZINE 10 MG/2ML INJ (COMPAZINE) IV PRN ×4 (00:20→21:09)
[2017-02-05] MEDS: NS W/KCL 20 MEQ/L 1,000 ML IV SCH ×3 (00:24→20:30)
[2017-02-05 00:43] VITALS: BP 142/65
[2017-02-05] MEDS: LOPERAMIDE 2 MG (IMODIUM) CAP PO PRN ×3 (00:51→11:43)
[2017-02-05] MEDS: ONDANSETRON 4 MG/2 ML (SDV) Z0FRAN IVP PRN (02:31)
[2017-02-05] MEDS: fentaNYL INJECTION 100 MCG/2 ML AMP IVP PRN ×5 (02:31→21:43)
[2017-02-05] MEDS: inSUlin (REGULAR) HUMAN 1 UNIT/0.01 ML (CHARGE PER UNIT) SC SCH ×4 (06:00→21:42)
[2017-02-05] MEDS: MAGNESIUM OXIDE (MAG-OX)400 MG TAB PO SCH (06:33)
[2017-02-05 07:03] LABS: BASOPHILS % (AUTO) 0 % (0-10); EOSINOPHILS % (AUTO) 1 % (0-10); LYMPHOCYTES # (AUTO) 0.3 X 10^3 (1.0-4.0); LYMPHOCYTES % (AUTO) 8 % (12-44); MEAN CORPUSCULAR HEMOGLOBIN 32 PG (25-34); MEAN CORPUSCULAR HGB CONC 32 G/DL (32-36); MEAN CORPUSCULAR VOLUME 100 FL (80-99); MEAN PLATELET VOLUME 9.9 FL (7.4-10.4); MONOCYTES # (AUTO) 0.6 X 10^3 (0.0-1.0); MONOCYTES % (AUTO) 14 % (0-12); NEUTROPHILS # (AUTO) 3.5 X 10^3 (1.8-7.8); NEUTROPHILS % (AUTO) 78 % (42-75); PLATELET COUNT 188 10^3/uL (130-400); RED CELL DISTRIBUTION WIDTH 18.1 % (10.0-14.5); WHITE BLOOD COUNT 4.5 10^3/uL (4.3-11.0)
[2017-02-05 07:09] LABS: ALANINE AMINOTRANSFERASE 9 U/L (0-55); ALBUMIN 2.4 GM/DL (3.2-4.5); ANION GAP 11 MMOL/L (5-14); ASPARTATE AMINO TRANSFERASE 15 U/L (5-34); BILIRUBIN,TOTAL 0.2 MG/DL (0.1-1.0); BLOOD UREA NITROGEN 5 MG/DL (7-18); BUN/CREATININE RATIO 7; CALCIUM 7.8 MG/DL (8.5-10.1); CARBON DIOXIDE 15 MMOL/L (21-32); CHLORIDE 114 MMOL/L (98-107); GFR ESTIMATED > 60; GLUCOSE 81 MG/DL (70-105); MAGNESIUM 1.5 MG/DL (1.8-2.4); POTASSIUM 3.9 MMOL/L (3.6-5.0); SODIUM 140 MMOL/L (135-145)
[2017-02-05 08:00] VITALS: BP 168/72
[2017-02-05] MEDS: PANTOPRAZOLE 40 MG/10 ML (PROTONIX) VIAL IV SCH (09:10)
[2017-02-05] MEDS: lisINopril 20 MG (ZESTRIL) TAB PO SCH ×2 (09:11→21:09)
[2017-02-05] MEDS: COLESTIPOL 1 GM (COLESTID) TAB PO SCH ×3 (09:11→21:09)
--- NOTE | 2017-02-05 12:22 | Progress Note (SOAP) ---
Subjective Date Seen by Provider: Feb 05, 2017 Time Seen by Provider: 12:21 Subjective/Events-last exam Fwup intractable N/V/D, HTN, DMII. Nausea better but diarrhea still severe. Objective Exam Vital Signs Date Time Temp Pulse Resp B/P (MAP) Pulse Ox O2 Delivery O2 Flow Rate FiO2 02/05/17 08:00 98.8 78 18 168/72 (104) 97 Room Air 02/05/17 00:43 98.9 80 20 142/65 (90) 96 Room Air 02/04/17 15:56 97.7 78 18 167/72 (103) 96 Room Air I & O 02/05/17 07:00 Intake Total 2490 ml Output Total 600 ml Balance 1890 ml Capillary Refill : General Appearance: No Apparent Distress Neck: Supple Respiratory: Lungs Clear Cardiovascular: Regular Rate, Rhythm Gastrointestinal: normal bowel sounds, soft, tenderness, mass Extremity: Non Tender, No Calf Tenderness, No Pedal Edema Neurologic/Psychiatric: Alert, Oriented x3 Results Lab Laboratory Tests 02/04/17 16:08: Glucometer 79 02/04/17 20:57: Glucometer 96 02/05/17 05:23: Glucometer 84 02/05/17 06:40: White Blood Count 4.5, Red Blood Count 2.40L, Hemoglobin 7.7L, Hematocrit 24L, Mean Corpuscular Volume 100H, Mean Corpuscular Hemoglobin 32, Mean Corpuscular Hemoglobin Concent 32, Red Cell Distribution Width 18.1H, Platelet Count 188, Mean Platelet Volume 9.9, Neutrophils (%) (Auto) 78H, Lymphocytes (%) (Auto) 8L , Monocytes (%) (Auto) 14H, Eosinophils (%) (Auto) 1, Basophils (%) (Auto) 0, Neutrophils # (Auto) 3.5, Lymphocytes # (Auto) 0.3L, Monocytes # (Auto) 0.6, Eosinophils # (Auto) 0.0, Basophils # (Auto) 0.0, Sodium Level 140, Potassium Level 3.9, Chloride Level 114H, Carbon Dioxide Level 15L, Anion Gap 11, Blood Urea Nitrogen 5L, Creatinine 0.70, Estimat Glomerular Filtration Rate > 60, BUN/ Creatinine Ratio 7, Glucose Level 81, Calcium Level 7.8L, Magnesium Level 1.5L, Total Bilirubin 0.2, Aspartate Amino Transf (AST/SGOT) 15, Alanine Aminotransferase (ALT/SGPT) 9, Alkaline Phosphatase 41, Total Protein 5.0L, Albumin 2.4L 02/05/17 11:29: Glucometer 98 Microbiology 02/02/17 C. difficile GDH Antigen & Toxins - Final, Complete Assessment/Plan Assessment/Plan Assess & Plan/Chief Complaint 1. Acute Gastroenteritis with intractable N/V/D--continue IVF, continue scopolamine patch, continue colestid, C. Diff negative, change immodium to lomotil, add levsin, solumedrol x1 2. Right tibial insufficiency fx and right 5th metatarsal fx--consulted ortho and has boot to go home in 3. DM--insulin requiring--continue SSI 4. Hypertension--stable back on home meds 5. Metastatic Multiple Myeloma--patient wants to discuss hospice 6. Acute on Chronic Anemia--transfuse 1u pRBCs--should be in this afternoon, CBC in AM Clinical Quality Measures DVT/VTE Risk/Contraindication: Risk Factor Score Per Nursin RFS Level Per Nursing on Admit: 2=Moderate PHUC RAMEY DO Feb 05, 2017 12:22
[2017-02-05] MEDS ORDERED: HEMORRHOIDAL PR PRN (12:30)
[2017-02-05] MEDS ORDERED: methylPREDNISolone 125 MG (Solu-MEDROL) VIAL IVP NR (12:32)
[2017-02-05] MEDS: HYOSCYAMINE 0.125 MG (LEVSIN) TAB PO SCH ×3 (13:12→21:09)
[2017-02-05] MEDS: DIPHENOXYLATE/ATROPINE 2.5MG/0.025MG (LOMOTIL) TAB PO SCH ×3 (13:12→21:09)
[2017-02-05 16:25] VITALS: BP 174/89
[2017-02-05] MEDS: MENTHOL/ZINC OXIDE (CALMOSEPTINE) 113 GM TUBE TOP SCH (21:10)
[2017-02-06] VITALS: BP 144/66
[2017-02-06] MEDS: fentaNYL INJECTION 100 MCG/2 ML AMP IVP PRN ×9 (00:11→23:58)
[2017-02-06] MEDS: inSUlin (REGULAR) HUMAN 1 UNIT/0.01 ML (CHARGE PER UNIT) SC SCH ×4 (05:10→20:51)
[2017-02-06] MEDS: NS W/KCL 20 MEQ/L 1,000 ML IV SCH ×2 (06:12→16:40)
[2017-02-06] MEDS: MAGNESIUM OXIDE (MAG-OX)400 MG TAB PO SCH (06:12)
[2017-02-06 06:34] LABS: BASOPHILS % (AUTO) 0 % (0-10); EOSINOPHILS % (AUTO) 0 % (0-10); LYMPHOCYTES # (AUTO) 0.4 X 10^3 (1.0-4.0); LYMPHOCYTES % (AUTO) 7 % (12-44); MEAN CORPUSCULAR HEMOGLOBIN 32 PG (25-34); MEAN CORPUSCULAR HGB CONC 33 G/DL (32-36); MEAN CORPUSCULAR VOLUME 98 FL (80-99); MEAN PLATELET VOLUME 10.2 FL (7.4-10.4); MONOCYTES # (AUTO) 0.8 X 10^3 (0.0-1.0); MONOCYTES % (AUTO) 15 % (0-12); NEUTROPHILS # (AUTO) 4.1 X 10^3 (1.8-7.8); NEUTROPHILS % (AUTO) 78 % (42-75); PLATELET COUNT 181 10^3/uL (130-400); RED BLOOD COUNT 2.45 10^6/uL (4.35-5.85); RED CELL DISTRIBUTION WIDTH 18.1 % (10.0-14.5); WHITE BLOOD COUNT 5.3 10^3/uL (4.3-11.0)
[2017-02-06 06:52] LABS: ANION GAP 9 MMOL/L (5-14); BLOOD UREA NITROGEN 4 MG/DL (7-18); BUN/CREATININE RATIO 6; CALCIUM 7.7 MG/DL (8.5-10.1); CARBON DIOXIDE 17 MMOL/L (21-32); CHLORIDE 114 MMOL/L (98-107); CREATININE SERUM 0.71 MG/DL (0.60-1.30); GFR ESTIMATED > 60; GLUCOSE 105 MG/DL (70-105); POTASSIUM 3.2 MMOL/L (3.6-5.0); SODIUM 140 MMOL/L (135-145)
[2017-02-06 08:00] VITALS: BP 165/72
[2017-02-06] MEDS: DIPHENOXYLATE/ATROPINE 2.5MG/0.025MG (LOMOTIL) TAB PO SCH ×5 (08:30→20:07)
[2017-02-06] MEDS: HYOSCYAMINE 0.125 MG (LEVSIN) TAB PO SCH ×4 (08:49→20:07)
[2017-02-06] MEDS: lisINopril 20 MG (ZESTRIL) TAB PO SCH ×2 (08:49→20:07)
[2017-02-06] MEDS: PANTOPRAZOLE 40 MG/10 ML (PROTONIX) VIAL IV SCH (08:49)
[2017-02-06] MEDS: PROCHLORPERAZINE 10 MG/2ML INJ (COMPAZINE) IV PRN ×4 (08:50→23:29)
[2017-02-06] MEDS ORDERED: SCOPOLAMINE PATCH REMOVAL TP SCH (09:00)
[2017-02-06] MEDS: COLESTIPOL 1 GM (COLESTID) TAB PO SCH ×3 (09:16→20:07)
[2017-02-06] MEDS: MENTHOL/ZINC OXIDE (CALMOSEPTINE) 113 GM TUBE TOP SCH ×2 (09:17→20:53)
[2017-02-06] MEDS ORDERED: SCOPOLAMINE 1.5 MG (TRANSDERM-SCOP) PATCH TOP SCH (09:30)
[2017-02-06] MEDS ORDERED: IRON SUCROSE INJECTION 200 MG in NS (IVPB) 100 ML IV SCH (11:00)
[2017-02-06] MEDS ORDERED: methylPREDNISolone 125 MG (Solu-MEDROL) VIAL IM NR (11:00)
--- NOTE | 2017-02-06 11:10 | Progress Note (SOAP) ---
Subjective Date Seen by Provider: Feb 06, 2017 Time Seen by Provider: 11:08 Subjective/Events-last exam Fwup intractable N/V/D, HTN, DMII. Nausea controlled but diarrhea ongoing but maybe a little thicker stools. Objective Exam Vital Signs Date Time Temp Pulse Resp B/P (MAP) Pulse Ox O2 Delivery O2 Flow Rate FiO2 02/06/17 00:00 98.7 68 20 144/66 (92) 96 Room Air 02/05/17 16:25 99.1 86 20 174/89 (117) 95 Room Air I & O 02/06/17 07:00 Intake Total 3907 ml Balance 3907 ml Capillary Refill : General Appearance: Mild Distress Neck: Supple Cardiovascular: Regular Rate, Rhythm Gastrointestinal: normal bowel sounds, soft, tenderness, mass Extremity: Non Tender, No Calf Tenderness, No Pedal Edema Neurologic/Psychiatric: Alert, Oriented x3 Results Lab Laboratory Tests 02/05/17 11:29: Glucometer 98 02/05/17 16:29: Glucometer 170H 02/05/17 21:41: Glucometer 158H 02/06/17 04:40: Glucometer 111H 02/06/17 06:15: White Blood Count 5.3, Red Blood Count 2.45L, Hemoglobin 7.8L, Hematocrit 24L, Mean Corpuscular Volume 98, Mean Corpuscular Hemoglobin 32, Mean Corpuscular Hemoglobin Concent 33, Red Cell Distribution Width 18.1H, Platelet Count 181, Mean Platelet Volume 10.2, Neutrophils (%) (Auto) 78H, Lymphocytes (%) (Auto) 7L , Monocytes (%) (Auto) 15H, Eosinophils (%) (Auto) 0, Basophils (%) (Auto) 0, Neutrophils # (Auto) 4.1, Lymphocytes # (Auto) 0.4L, Monocytes # (Auto) 0.8, Eosinophils # (Auto) 0.0, Basophils # (Auto) 0.0, Sodium Level 140, Potassium Level 3.2L, Chloride Level 114H, Carbon Dioxide Level 17L, Anion Gap 9, Blood Urea Nitrogen 4L, Creatinine 0.71, Estimat Glomerular Filtration Rate > 60, BUN/ Creatinine Ratio 6, Glucose Level 105, Calcium Level 7.7L Microbiology 02/02/17 C. difficile GDH Antigen & Toxins - Final, Complete Assessment/Plan Assessment/Plan Assess & Plan/Chief Complaint 1. Acute Gastroenteritis with intractable N/V/D--continue IVF, continue scopolamine patch, continue colestid, C. Diff negative, continue lomotil and levsin, repeat solumedrol x1 2. Right tibial insufficiency fx and right 5th metatarsal fx--consulted ortho and has boot to go home in 3. DM--insulin requiring--continue SSI 4. Hypertension--stable back on home meds 5. Metastatic Multiple Myeloma--patient wants hospice 6. Acute on Chronic Anemia--give venofer and repeat CBC in AM Clinical Quality Measures DVT/VTE Risk/Contraindication: Risk Factor Score Per Nursin RFS Level Per Nursing on Admit: 2=Moderate PHUC RAMEY DO Feb 06, 2017 11:10
[2017-02-06] MEDS: POTASSIUM CL 10MEQ/50ML IVPB 50 ML IV SCH ×4 (11:35→14:16)
[2017-02-06 16:00] VITALS: BP 171/76
[2017-02-07] VITALS: BP 167/78
[2017-02-07] MEDS: NS W/KCL 20 MEQ/L 1,000 ML IV SCH ×3 (01:28→23:08)
[2017-02-07] MEDS: ONDANSETRON 4 MG/2 ML (SDV) Z0FRAN IVP PRN ×2 (01:30→08:03)
[2017-02-07] MEDS: fentaNYL INJECTION 100 MCG/2 ML AMP IVP PRN ×4 (01:58→10:26)
[2017-02-07] MEDS: PROCHLORPERAZINE 10 MG/2ML INJ (COMPAZINE) IV PRN ×2 (05:35→12:49)
[2017-02-07 05:49] LABS: BASOPHILS % (AUTO) 0 % (0-10); EOSINOPHILS % (AUTO) 0 % (0-10); LYMPHOCYTES # (AUTO) 0.4 X 10^3 (1.0-4.0); LYMPHOCYTES % (AUTO) 6 % (12-44); MEAN CORPUSCULAR HEMOGLOBIN 32 PG (25-34); MEAN CORPUSCULAR HGB CONC 33 G/DL (32-36); MEAN CORPUSCULAR VOLUME 98 FL (80-99); MEAN PLATELET VOLUME 10.2 FL (7.4-10.4); MONOCYTES # (AUTO) 0.7 X 10^3 (0.0-1.0); MONOCYTES % (AUTO) 10 % (0-12); NEUTROPHILS # (AUTO) 5.9 X 10^3 (1.8-7.8); NEUTROPHILS % (AUTO) 85 % (42-75); PLATELET COUNT 183 10^3/uL (130-400); RED BLOOD COUNT 2.54 10^6/uL (4.35-5.85); RED CELL DISTRIBUTION WIDTH 18.2 % (10.0-14.5)
[2017-02-07 06:21] LABS: ANION GAP 10 MMOL/L (5-14); BLOOD UREA NITROGEN 4 MG/DL (7-18); BUN/CREATININE RATIO 6; CALCIUM 8.1 MG/DL (8.5-10.1); CARBON DIOXIDE 21 MMOL/L (21-32); CHLORIDE 110 MMOL/L (98-107); CREATININE SERUM 0.69 MG/DL (0.60-1.30); GFR ESTIMATED > 60; GLUCOSE 103 MG/DL (70-105); POTASSIUM 3.5 MMOL/L (3.6-5.0); SODIUM 141 MMOL/L (135-145)
[2017-02-07] MEDS: inSUlin (REGULAR) HUMAN 1 UNIT/0.01 ML (CHARGE PER UNIT) SC SCH ×4 (06:25→20:28)
[2017-02-07] MEDS: MAGNESIUM OXIDE (MAG-OX)400 MG TAB PO SCH (08:03)
[2017-02-07] MEDS: PANTOPRAZOLE 40 MG/10 ML (PROTONIX) VIAL IV SCH ×2 (08:03→20:26)
[2017-02-07] MEDS: COLESTIPOL 1 GM (COLESTID) TAB PO SCH ×3 (08:03→20:26)
[2017-02-07] MEDS: HYOSCYAMINE 0.125 MG (LEVSIN) TAB PO SCH ×4 (08:04→20:28)
[2017-02-07] MEDS: DIPHENOXYLATE/ATROPINE 2.5MG/0.025MG (LOMOTIL) TAB PO SCH ×4 (08:04→20:28)
[2017-02-07] MEDS: lisINopril 20 MG (ZESTRIL) TAB PO SCH ×2 (08:04→20:27)
[2017-02-07] MEDS: MENTHOL/ZINC OXIDE (CALMOSEPTINE) 113 GM TUBE TOP SCH ×2 (08:05→20:29)
[2017-02-07 08:44] VITALS: BP 172/98
[2017-02-07] MEDS ORDERED: NF-COLE1GM PO (11:43)
[2017-02-07] MEDS ORDERED: DIPH1TAB25 PO (11:43)
[2017-02-07] MEDS ORDERED: HYOS0.1296 PO (11:43)
[2017-02-07] MEDS ORDERED: SCOP1PAT TOP (11:43)
[2017-02-07] MEDS ORDERED: MENT71OI TOP (11:43)
[2017-02-07] MEDS ORDERED: OMEP20CA12 PO (11:43)
[2017-02-07] MEDS ORDERED: meTOproloL SUCCINATE 50 MG (TOPROL XL) TAB PO NR (11:49)
--- NOTE | 2017-02-07 11:50 | Progress Note (SOAP) ---
Subjective Date Seen by Provider: Feb 07, 2017 Time Seen by Provider: 11:45 Subjective/Events-last exam Fwup intractable N/V/D, HTN, DMII. No diarrhea since yesterday afternoon. Had N/V last night. Thinks may be related to venofer. Nausea better this morning and has taken pills and clear liquids. Objective Exam Vital Signs Date Time Temp Pulse Resp B/P (MAP) Pulse Ox O2 Delivery O2 Flow Rate FiO2 02/07/17 08:44 98.6 98 20 172/98 (122) 98 Room Air 02/07/17 08:00 Room Air 02/07/17 00:00 99.0 85 18 167/78 (107) 96 Room Air 02/06/17 16:00 98.4 81 18 171/76 (107) 97 Room Air I & O 02/07/17 07:00 Intake Total 2515 ml Output Total 90 ml Balance 2425 ml Capillary Refill : General Appearance: Mild Distress Neck: Supple Respiratory: Lungs Clear Cardiovascular: Regular Rate, Rhythm Gastrointestinal: normal bowel sounds, soft, tenderness, mass Extremity: Non Tender, No Calf Tenderness, No Pedal Edema Neurologic/Psychiatric: Alert, Oriented x3 Results Lab Laboratory Tests 02/06/17 16:12: Glucometer 214H 02/06/17 20:46: Glucometer 140H 02/07/17 05:30: White Blood Count 7.0, Red Blood Count 2.54L, Hemoglobin 8.2L, Hematocrit 25L, Mean Corpuscular Volume 98, Mean Corpuscular Hemoglobin 32, Mean Corpuscular Hemoglobin Concent 33, Red Cell Distribution Width 18.2H, Platelet Count 183, Mean Platelet Volume 10.2, Neutrophils (%) (Auto) 85H, Lymphocytes (%) (Auto) 6L , Monocytes (%) (Auto) 10, Eosinophils (%) (Auto) 0, Basophils (%) (Auto) 0, Neutrophils # (Auto) 5.9, Lymphocytes # (Auto) 0.4L, Monocytes # (Auto) 0.7, Eosinophils # (Auto) 0.0, Basophils # (Auto) 0.0, Sodium Level 141, Potassium Level 3.5L, Chloride Level 110H, Carbon Dioxide Level 21, Anion Gap 10, Blood Urea Nitrogen 4L, Creatinine 0.69, Estimat Glomerular Filtration Rate > 60, BUN/ Creatinine Ratio 6, Glucose Level 103, Calcium Level 8.1L 02/07/17 11:22: Glucometer 124H Microbiology 02/02/17 C. difficile GDH Antigen & Toxins - Final, Complete Assessment/Plan Assessment/Plan Assess & Plan/Chief Complaint 1. Acute Gastroenteritis with intractable N/V/D--decrease IVF, continue scopolamine patch, continue colestid, C. Diff negative, continue lomotil and levsin 2. Right tibial insufficiency fx and right 5th metatarsal fx--consulted ortho and has boot to go home in with outpatient fwup 3. DM--insulin requiring--continue SSI 4. Hypertension--back on home meds and will give extra metoprolol now 5. Metastatic Multiple Myeloma--patient wants hospice 6. Acute on Chronic Anemia--repeat venofer and repeat CBC in AM, held on transfusion due to difficulty crossmatching due to antibodies in blood and H/H had came up and is above 8 this AM 7. Will switch back to MS Contin and anticipated DC tomorrow if stable as patient wants to be home for [place] with her family Clinical Quality Measures DVT/VTE Risk/Contraindication: Risk Factor Score Per Nursin RFS Level Per Nursing on Admit: 2=Moderate PHUC RAMEY DO Feb 07, 2017 11:50 am
[2017-02-07] MEDS: amLODIPine 5 MG (NORVASC) TAB PO SCH (11:54)
[2017-02-07] MEDS: POTASSIUM CL 10MEQ/50ML IVPB 50 ML IV SCH ×4 (11:54→15:40)
[2017-02-07] MEDS ORDERED: morphine ER 30 MG (MS CONTIN) TAB PO NR (11:58)
[2017-02-07 15:32] VITALS: BP 175/82
[2017-02-07] MEDS: morphine ER 30 MG (MS CONTIN) TAB PO SCH (20:27)
[2017-02-08] VITALS: BP 147/72
[2017-02-08 05:49] LABS: BASOPHILS % (AUTO) 0 % (0-10); EOSINOPHILS # (AUTO) 0.1 10^3/uL (0.0-0.3); EOSINOPHILS % (AUTO) 1 % (0-10); LYMPHOCYTES # (AUTO) 0.3 X 10^3 (1.0-4.0); LYMPHOCYTES % (AUTO) 6 % (12-44); MEAN CORPUSCULAR HEMOGLOBIN 32 PG (25-34); MEAN CORPUSCULAR HGB CONC 32 G/DL (32-36); MEAN CORPUSCULAR VOLUME 101 FL (80-99); MEAN PLATELET VOLUME 9.9 FL (7.4-10.4); MONOCYTES # (AUTO) 0.5 X 10^3 (0.0-1.0); MONOCYTES % (AUTO) 10 % (0-12); NEUTROPHILS # (AUTO) 3.7 X 10^3 (1.8-7.8); NEUTROPHILS % (AUTO) 83 % (42-75); PLATELET COUNT 152 10^3/uL (130-400); RED BLOOD COUNT 2.52 10^6/uL (4.35-5.85); WHITE BLOOD COUNT 4.5 10^3/uL (4.3-11.0)
[2017-02-08 06:15] LABS: ANION GAP 9 MMOL/L (5-14); BLOOD UREA NITROGEN 6 MG/DL (7-18); BUN/CREATININE RATIO 9; CALCIUM 7.8 MG/DL (8.5-10.1); CARBON DIOXIDE 22 MMOL/L (21-32); CHLORIDE 108 MMOL/L (98-107); GFR ESTIMATED > 60; GLUCOSE 79 MG/DL (70-105); MAGNESIUM 1.1 MG/DL (1.8-2.4); POTASSIUM 3.9 MMOL/L (3.6-5.0); SODIUM 139 MMOL/L (135-145)
[2017-02-08] MEDS: inSUlin (REGULAR) HUMAN 1 UNIT/0.01 ML (CHARGE PER UNIT) SC SCH (06:30)
[2017-02-08] MEDS: MAGNESIUM OXIDE (MAG-OX)400 MG TAB PO SCH (06:30)
[2017-02-08 08:30] VITALS: BP 172/71
[2017-02-08] MEDS: lisINopril 20 MG (ZESTRIL) TAB PO SCH (09:17)
[2017-02-08] MEDS: PANTOPRAZOLE 40 MG/10 ML (PROTONIX) VIAL IV SCH (09:17)
[2017-02-08] MEDS: morphine ER 30 MG (MS CONTIN) TAB PO SCH (09:17)
[2017-02-08] MEDS: amLODIPine 5 MG (NORVASC) TAB PO SCH (09:17)
[2017-02-08] MEDS: COLESTIPOL 1 GM (COLESTID) TAB PO SCH (09:17)
[2017-02-08] MEDS: HYOSCYAMINE 0.125 MG (LEVSIN) TAB PO SCH (09:27)
[2017-02-08] MEDS: DIPHENOXYLATE/ATROPINE 2.5MG/0.025MG (LOMOTIL) TAB PO SCH (09:28)
[2017-02-08] MEDS: MENTHOL/ZINC OXIDE (CALMOSEPTINE) 113 GM TUBE TOP SCH (09:28)
--- NOTE | 2017-02-08 10:16 | Progress Note-Hospitalist ---
Subjective HPI/CC On Admission Date Seen by Provider: Feb 08, 2017 Time Seen by Provider: 10:00 Subjective/Events-last exam patient is very anxious to go home. The nurse thought that she had some oral thrush last night but on my exam today there is no evidence of any oral thrush. She says she is unable to wear her boot because it makes her foot hurt worse. She refuses to take her iron today because of the nausea and vomiting that she had with it last time. family is present and ready to go. QUESTIONS are answered. Review of Systems Musculoskeletal: foot pain Neurological: Weakness Objective Exam Vital Signs Vital Sign - Last 12Hours 02/02/17 02/02/17 11:00 15:57 Temp 97.3 Pulse 77 Resp 18 B/P (MAP) 148/66 (93) Pulse Ox 94 O2 Delivery Room Air Capillary Refill : General Appearance: Chronically ill HEENT: Normal ENT Inspection, Other (no oral thrush is noted) Neck: Supple Respiratory: Lungs Clear, Normal Breath Sounds, No Accessory Muscle Use, No Respiratory Distress Cardiovascular: Regular Rate, Rhythm, No Gallop Gastrointestinal: Soft Extremity: Pedal Edema Neurologic/Psychiatric: Alert, Oriented x3, No Motor/Sensory Deficits, Normal Mood/Affect Skin: Pallor Results/Procedures Lab Laboratory Tests 02/08/17 05:35 Assessment/Plan Assessment and Plan Assess & Plan/Chief Complaint 1. Acute Gastroenteritis with intractable N/V/D--resolved 2. Right tibial insufficiency fx and right 5th metatarsal fx--consulted ortho and has boot to go home in with outpatient fwup 3. DM--insulin requiring--continue SSI 4. Hypertension--back on home meds and will give extra metoprolol now-remains somewhat labile 5. Metastatic Multiple Myeloma--patient wants hospice 6. Acute on Chronic Anemia--refused Venofer and repeat CBC is 8.1, held on transfusion due to difficulty crossmatching due to antibodies in blood and H/H had came up and is above 8 this AM 7. discharge today JORGE TAVERAS MD Feb 08, 2017 10:16
[2017-02-08 10:22] VITALS: BP 172/71
[2017-02-09] MEDS ORDERED: SCOPOLAMINE PATCH REMOVAL TP SCH (09:29)
== END 2017-02-08 10:27 | disposition home or self-care (01) | DRG 392 ==
LOC: 4TH 11:00 → OBSVTOIN 02-04 17:00
PROVIDERS: ADMIT Internal Medicine Hematology & Oncology; ATTEND Internal Medicine Hematology & Oncology
DX: K52.9 Noninfective gastroenteritis and colitis, unspecified (principal); E86.0 Dehydration; C90.00 Multiple myeloma not having achieved remission; M84.561A Pathological fracture in neoplastic disease, right tibia, initial encounter for fracture; M84.5 Pathological fracture in neoplastic disease; Z94.81 Bone marrow transplant status; M81.0 Age-related osteoporosis without current pathological fracture; I10 Essential (primary) hypertension; G62.0 Drug-induced polyneuropathy; T45.1X5A Adverse effect of antineoplastic and immunosuppressive drugs, initial encounter; F32.9 Major depressive disorder, single episode, unspecified; I48.91 Unspecified atrial fibrillation; E11.9 Type 2 diabetes mellitus without complications; E87.6 Hypokalemia; E83.42 Hypomagnesemia; D64.9 Anemia, unspecified; J30.2 Other seasonal allergic rhinitis; H91.90 Unspecified hearing loss, unspecified ear; Z79.899 Other long term (current) drug therapy; Z90.49 Acquired absence of other specified parts of digestive tract; Z85.3 Personal history of malignant neoplasm of breast; Z79.4 Long term (current) use of insulin; Z87.891 Personal history of nicotine dependence
CPT/HCPCS: 36415; 73610; 73630; 80048; 80053; 82962; 83735; 85025; 86850; 86870; 86900; 86901; 86920; 86922; 87324; 87449; G0378

== ENCOUNTER 2017-02-17 13:05 | Outpatient (RCR) | payer MEDICARE ==
[2016-12-08 10:23] LABS: BASOPHILS % (AUTO) 0 % (0-10); EOSINOPHILS % (AUTO) 1 % (0-10); HEMATOCRIT 28 % (35-52); HEMOGLOBIN 9.2 G/DL (11.5-16.0); LYMPHOCYTES # (AUTO) 0.3 X 10^3 (1.0-4.0); LYMPHOCYTES % (AUTO) 12 % (12-44); MEAN CORPUSCULAR HEMOGLOBIN 31 PG (25-34); MEAN CORPUSCULAR HGB CONC 33 G/DL (32-36); MEAN CORPUSCULAR VOLUME 95 FL (80-99); MONOCYTES # (AUTO) 0.4 X 10^3 (0.0-1.0); MONOCYTES % (AUTO) 17 % (0-12); NEUTROPHILS # (AUTO) 1.7 X 10^3 (1.8-7.8); NEUTROPHILS % (AUTO) 71 % (42-75); PLATELET COUNT 48 10^3/uL (130-400); RED BLOOD COUNT 2.94 10^6/uL (4.35-5.85); RED CELL DISTRIBUTION WIDTH 17.7 % (10.0-14.5); WHITE BLOOD COUNT 2.4 10^3/uL (4.3-11.0)
[2016-12-08 10:43] LABS: ALBUMIN 3.2 GM/DL (3.2-4.5); BILIRUBIN,TOTAL 0.4 MG/DL (0.1-1.0); CALCIUM 9.2 MG/DL (8.5-10.1); CREATININE SERUM 1.02 MG/DL (0.60-1.30); POTASSIUM 4.6 MMOL/L (3.6-5.0); TOTAL PROTEIN 5.9 GM/DL (6.4-8.2)
[2016-12-11 09:16] LABS: BASOPHILS % (AUTO) 0 % (0-10); EOSINOPHILS % (AUTO) 2 % (0-10); HEMATOCRIT 27 % (35-52); HEMOGLOBIN 8.9 G/DL (11.5-16.0); LYMPHOCYTES # (AUTO) 0.2 X 10^3 (1.0-4.0); LYMPHOCYTES % (AUTO) 9 % (12-44); MEAN CORPUSCULAR HEMOGLOBIN 32 PG (25-34); MEAN CORPUSCULAR HGB CONC 33 G/DL (32-36); MEAN CORPUSCULAR VOLUME 97 FL (80-99); MONOCYTES # (AUTO) 0.4 X 10^3 (0.0-1.0); MONOCYTES % (AUTO) 16 % (0-12); NEUTROPHILS # (AUTO) 1.9 X 10^3 (1.8-7.8); NEUTROPHILS % (AUTO) 72 % (42-75); PLATELET COUNT 65 10^3/uL (130-400); RED BLOOD COUNT 2.82 10^6/uL (4.35-5.85); WHITE BLOOD COUNT 2.6 10^3/uL (4.3-11.0)
[2016-12-11 09:35] LABS: BUN/CREATININE RATIO 23; CARBON DIOXIDE 22 MMOL/L (21-32); CHLORIDE 103 MMOL/L (98-107); CREATININE SERUM 0.84 MG/DL (0.60-1.30); GFR ESTIMATED > 60; GLUCOSE 156 MG/DL (70-105); POTASSIUM 4.2 MMOL/L (3.6-5.0); SODIUM 133 MMOL/L (135-145)
[2016-12-15 09:07] LABS: BASOPHILS % (AUTO) 0 % (0-10); EOSINOPHILS % (AUTO) 2 % (0-10); HEMATOCRIT 26 % (35-52); HEMOGLOBIN 8.7 G/DL (11.5-16.0); LYMPHOCYTES # (AUTO) 0.2 X 10^3 (1.0-4.0); LYMPHOCYTES % (AUTO) 9 % (12-44); MEAN CORPUSCULAR HEMOGLOBIN 32 PG (25-34); MEAN CORPUSCULAR HGB CONC 33 G/DL (32-36); MEAN CORPUSCULAR VOLUME 96 FL (80-99); MEAN PLATELET VOLUME 12.4 FL (7.4-10.4); MONOCYTES # (AUTO) 0.4 X 10^3 (0.0-1.0); MONOCYTES % (AUTO) 17 % (0-12); NEUTROPHILS # (AUTO) 1.8 X 10^3 (1.8-7.8); NEUTROPHILS % (AUTO) 72 % (42-75); PLATELET COUNT 65 10^3/uL (130-400); RED BLOOD COUNT 2.74 10^6/uL (4.35-5.85); RED CELL DISTRIBUTION WIDTH 18.1 % (10.0-14.5); WHITE BLOOD COUNT 2.5 10^3/uL (4.3-11.0)
[2016-12-15 09:26] LABS: BUN/CREATININE RATIO 14; CALCIUM 9.1 MG/DL (8.5-10.1); CARBON DIOXIDE 21 MMOL/L (21-32); CHLORIDE 103 MMOL/L (98-107); CREATININE SERUM 0.86 MG/DL (0.60-1.30); GFR ESTIMATED > 60; GLUCOSE 229 MG/DL (70-105); POTASSIUM 3.9 MMOL/L (3.6-5.0); SODIUM 133 MMOL/L (135-145)
[2016-12-18 11:22] LABS: BASOPHILS % (AUTO) 1 % (0-10); EOSINOPHILS # (AUTO) 0.1 10^3/uL (0.0-0.3); EOSINOPHILS % (AUTO) 3 % (0-10); HEMATOCRIT 27 % (35-52); HEMOGLOBIN 8.9 G/DL (11.5-16.0); LYMPHOCYTES # (AUTO) 0.2 X 10^3 (1.0-4.0); LYMPHOCYTES % (AUTO) 8 % (12-44); MEAN CORPUSCULAR HEMOGLOBIN 32 PG (25-34); MEAN CORPUSCULAR HGB CONC 33 G/DL (32-36); MEAN CORPUSCULAR VOLUME 98 FL (80-99); MEAN PLATELET VOLUME 11.1 FL (7.4-10.4); MONOCYTES # (AUTO) 0.3 X 10^3 (0.0-1.0); MONOCYTES % (AUTO) 12 % (0-12); NEUTROPHILS # (AUTO) 1.8 X 10^3 (1.8-7.8); NEUTROPHILS % (AUTO) 76 % (42-75); PLATELET COUNT 93 10^3/uL (130-400); RED BLOOD COUNT 2.77 10^6/uL (4.35-5.85); RED CELL DISTRIBUTION WIDTH 18.7 % (10.0-14.5); WHITE BLOOD COUNT 2.4 10^3/uL (4.3-11.0)
[2016-12-18 11:51] LABS: BUN/CREATININE RATIO 16; CALCIUM 8.8 MG/DL (8.5-10.1); CARBON DIOXIDE 21 MMOL/L (21-32); CHLORIDE 104 MMOL/L (98-107); CREATININE SERUM 0.82 MG/DL (0.60-1.30); GFR ESTIMATED > 60; GLUCOSE 155 MG/DL (70-105); POTASSIUM 3.8 MMOL/L (3.6-5.0); SODIUM 135 MMOL/L (135-145)
[2016-12-22 09:03] LABS: BASOPHILS % (AUTO) 1 % (0-10); EOSINOPHILS # (AUTO) 0.1 10^3/uL (0.0-0.3); EOSINOPHILS % (AUTO) 3 % (0-10); HEMATOCRIT 29 % (35-52); HEMOGLOBIN 9.4 G/DL (11.5-16.0); LYMPHOCYTES # (AUTO) 0.4 X 10^3 (1.0-4.0); LYMPHOCYTES % (AUTO) 15 % (12-44); MEAN CORPUSCULAR HEMOGLOBIN 32 PG (25-34); MEAN CORPUSCULAR HGB CONC 33 G/DL (32-36); MEAN CORPUSCULAR VOLUME 98 FL (80-99); MEAN PLATELET VOLUME 11.1 FL (7.4-10.4); MONOCYTES # (AUTO) 0.3 X 10^3 (0.0-1.0); MONOCYTES % (AUTO) 12 % (0-12); NEUTROPHILS # (AUTO) 1.8 X 10^3 (1.8-7.8); NEUTROPHILS % (AUTO) 69 % (42-75); PLATELET COUNT 107 10^3/uL (130-400); RED BLOOD COUNT 2.96 10^6/uL (4.35-5.85); RED CELL DISTRIBUTION WIDTH 18.9 % (10.0-14.5); WHITE BLOOD COUNT 2.7 10^3/uL (4.3-11.0)
[2016-12-22 09:19] LABS: ALANINE AMINOTRANSFERASE 19 U/L (0-55); ALBUMIN 3.1 GM/DL (3.2-4.5); ALKALINE PHOSPHATASE 64 U/L (40-136); BILIRUBIN,TOTAL 0.3 MG/DL (0.1-1.0); BUN/CREATININE RATIO 15; CALCIUM 8.8 MG/DL (8.5-10.1); CARBON DIOXIDE 23 MMOL/L (21-32); CHLORIDE 104 MMOL/L (98-107); CREATININE SERUM 0.82 MG/DL (0.60-1.30); GFR ESTIMATED > 60; GLUCOSE 181 MG/DL (70-105); SODIUM 135 MMOL/L (135-145); TOTAL PROTEIN 5.6 GM/DL (6.4-8.2)
[2016-12-25 09:29] LABS: BASOPHILS % (AUTO) 1 % (0-10); EOSINOPHILS % (AUTO) 1 % (0-10); HEMATOCRIT 29 % (35-52); HEMOGLOBIN 9.4 G/DL (11.5-16.0); LYMPHOCYTES # (AUTO) 0.4 X 10^3 (1.0-4.0); LYMPHOCYTES % (AUTO) 14 % (12-44); MEAN CORPUSCULAR HEMOGLOBIN 32 PG (25-34); MEAN CORPUSCULAR HGB CONC 33 G/DL (32-36); MEAN CORPUSCULAR VOLUME 98 FL (80-99); MEAN PLATELET VOLUME 10.8 FL (7.4-10.4); MONOCYTES # (AUTO) 0.4 X 10^3 (0.0-1.0); MONOCYTES % (AUTO) 13 % (0-12); NEUTROPHILS # (AUTO) 2.1 X 10^3 (1.8-7.8); NEUTROPHILS % (AUTO) 71 % (42-75); PLATELET COUNT 118 10^3/uL (130-400); RED BLOOD COUNT 2.93 10^6/uL (4.35-5.85)
[2016-12-25 09:50] LABS: BUN/CREATININE RATIO 14; CARBON DIOXIDE 23 MMOL/L (21-32); CHLORIDE 102 MMOL/L (98-107); CREATININE SERUM 0.83 MG/DL (0.60-1.30); GFR ESTIMATED > 60; GLUCOSE 178 MG/DL (70-105); POTASSIUM 4.2 MMOL/L (3.6-5.0); SODIUM 133 MMOL/L (135-145)
[2016-12-29 09:52] LABS: BASOPHILS % (AUTO) 1 % (0-10); EOSINOPHILS # (AUTO) 0.1 10^3/uL (0.0-0.3); EOSINOPHILS % (AUTO) 2 % (0-10); HEMATOCRIT 30 % (35-52); HEMOGLOBIN 9.8 G/DL (11.5-16.0); LYMPHOCYTES # (AUTO) 0.9 X 10^3 (1.0-4.0); LYMPHOCYTES % (AUTO) 28 % (12-44); MEAN CORPUSCULAR HEMOGLOBIN 32 PG (25-34); MEAN CORPUSCULAR HGB CONC 32 G/DL (32-36); MEAN CORPUSCULAR VOLUME 99 FL (80-99); MEAN PLATELET VOLUME 10.9 FL (7.4-10.4); MONOCYTES # (AUTO) 0.5 X 10^3 (0.0-1.0); MONOCYTES % (AUTO) 14 % (0-12); NEUTROPHILS # (AUTO) 1.8 X 10^3 (1.8-7.8); NEUTROPHILS % (AUTO) 55 % (42-75); PLATELET COUNT 124 10^3/uL (130-400); RED BLOOD COUNT 3.07 10^6/uL (4.35-5.85); RED CELL DISTRIBUTION WIDTH 19.3 % (10.0-14.5); WHITE BLOOD COUNT 3.2 10^3/uL (4.3-11.0)
[2016-12-29 10:13] LABS: ALANINE AMINOTRANSFERASE 17 U/L (0-55); ALBUMIN 3.2 GM/DL (3.2-4.5); ALKALINE PHOSPHATASE 70 U/L (40-136); BILIRUBIN,TOTAL 0.3 MG/DL (0.1-1.0); BUN/CREATININE RATIO 13; CALCIUM 8.5 MG/DL (8.5-10.1); CARBON DIOXIDE 22 MMOL/L (21-32); CHLORIDE 103 MMOL/L (98-107); CREATININE SERUM 0.85 MG/DL (0.60-1.30); GFR ESTIMATED > 60; GLUCOSE 195 MG/DL (70-105); POTASSIUM 3.5 MMOL/L (3.6-5.0); SODIUM 134 MMOL/L (135-145); TOTAL PROTEIN 5.7 GM/DL (6.4-8.2)
[2017-01-01 09:32] LABS: BASOPHILS % (AUTO) 1 % (0-10); EOSINOPHILS # (AUTO) 0.1 10^3/uL (0.0-0.3); EOSINOPHILS % (AUTO) 2 % (0-10); HEMATOCRIT 28 % (35-52); HEMOGLOBIN 9.3 G/DL (11.5-16.0); LYMPHOCYTES % (AUTO) 32 % (12-44); MEAN CORPUSCULAR HEMOGLOBIN 33 PG (25-34); MEAN CORPUSCULAR HGB CONC 33 G/DL (32-36); MEAN CORPUSCULAR VOLUME 100 FL (80-99); MEAN PLATELET VOLUME 11.1 FL (7.4-10.4); MONOCYTES # (AUTO) 0.4 X 10^3 (0.0-1.0); MONOCYTES % (AUTO) 12 % (0-12); NEUTROPHILS # (AUTO) 1.7 X 10^3 (1.8-7.8); NEUTROPHILS % (AUTO) 54 % (42-75); PLATELET COUNT 131 10^3/uL (130-400); RED BLOOD COUNT 2.84 10^6/uL (4.35-5.85); RED CELL DISTRIBUTION WIDTH 19.2 % (10.0-14.5); WHITE BLOOD COUNT 3.2 10^3/uL (4.3-11.0)
[2017-01-01 09:52] LABS: BUN/CREATININE RATIO 14; CALCIUM 8.5 MG/DL (8.5-10.1); CARBON DIOXIDE 21 MMOL/L (21-32); CHLORIDE 107 MMOL/L (98-107); CREATININE SERUM 0.79 MG/DL (0.60-1.30); GFR ESTIMATED > 60; GLUCOSE 183 MG/DL (70-105); POTASSIUM 3.7 MMOL/L (3.6-5.0); SODIUM 137 MMOL/L (135-145)
[2017-01-12 09:33] LABS: BASOPHILS % (AUTO) 1 % (0-10); EOSINOPHILS # (AUTO) 0.1 10^3/uL (0.0-0.3); EOSINOPHILS % (AUTO) 1 % (0-10); HEMATOCRIT 29 % (35-52); HEMOGLOBIN 9.4 G/DL (11.5-16.0); LYMPHOCYTES # (AUTO) 1.3 X 10^3 (1.0-4.0); LYMPHOCYTES % (AUTO) 28 % (12-44); MEAN CORPUSCULAR HEMOGLOBIN 32 PG (25-34); MEAN CORPUSCULAR HGB CONC 32 G/DL (32-36); MEAN CORPUSCULAR VOLUME 101 FL (80-99); MEAN PLATELET VOLUME 9.7 FL (7.4-10.4); MONOCYTES # (AUTO) 0.6 X 10^3 (0.0-1.0); MONOCYTES % (AUTO) 13 % (0-12); NEUTROPHILS # (AUTO) 2.6 X 10^3 (1.8-7.8); NEUTROPHILS % (AUTO) 57 % (42-75); PLATELET COUNT 205 10^3/uL (130-400); RED BLOOD COUNT 2.91 10^6/uL (4.35-5.85); RED CELL DISTRIBUTION WIDTH 18.6 % (10.0-14.5); WHITE BLOOD COUNT 4.5 10^3/uL (4.3-11.0)
[2017-01-12 09:55] LABS: BUN/CREATININE RATIO 10; CALCIUM 8.7 MG/DL (8.5-10.1); CARBON DIOXIDE 24 MMOL/L (21-32); CHLORIDE 105 MMOL/L (98-107); CREATININE SERUM 0.86 MG/DL (0.60-1.30); GFR ESTIMATED > 60; GLUCOSE 181 MG/DL (70-105); POTASSIUM 3.9 MMOL/L (3.6-5.0); SODIUM 137 MMOL/L (135-145)
[2017-01-19 08:18] LABS: BASOPHILS % (AUTO) 1 % (0-10); EOSINOPHILS % (AUTO) 1 % (0-10); HEMATOCRIT 30 % (35-52); HEMOGLOBIN 9.6 G/DL (11.5-16.0); LYMPHOCYTES # (AUTO) 1.3 X 10^3 (1.0-4.0); LYMPHOCYTES % (AUTO) 19 % (12-44); MEAN CORPUSCULAR HEMOGLOBIN 33 PG (25-34); MEAN CORPUSCULAR HGB CONC 32 G/DL (32-36); MEAN CORPUSCULAR VOLUME 101 FL (80-99); MEAN PLATELET VOLUME 9.5 FL (7.4-10.4); MONOCYTES # (AUTO) 0.6 X 10^3 (0.0-1.0); MONOCYTES % (AUTO) 9 % (0-12); NEUTROPHILS # (AUTO) 4.9 X 10^3 (1.8-7.8); NEUTROPHILS % (AUTO) 71 % (42-75); PLATELET COUNT 234 10^3/uL (130-400); RED BLOOD COUNT 2.95 10^6/uL (4.35-5.85); RED CELL DISTRIBUTION WIDTH 18.8 % (10.0-14.5); WHITE BLOOD COUNT 6.9 10^3/uL (4.3-11.0)
[2017-01-19 08:37] LABS: ALANINE AMINOTRANSFERASE 8 U/L (0-55); ALBUMIN 2.9 GM/DL (3.2-4.5); ALKALINE PHOSPHATASE 59 U/L (40-136); BILIRUBIN,TOTAL 0.3 MG/DL (0.1-1.0); BUN/CREATININE RATIO 15; CALCIUM 8.4 MG/DL (8.5-10.1); CARBON DIOXIDE 23 MMOL/L (21-32); CHLORIDE 104 MMOL/L (98-107); CREATININE SERUM 0.81 MG/DL (0.60-1.30); GFR ESTIMATED > 60; GLUCOSE 153 MG/DL (70-105); POTASSIUM 3.9 MMOL/L (3.6-5.0); SODIUM 137 MMOL/L (135-145); TOTAL PROTEIN 6.2 GM/DL (6.4-8.2)
[2017-01-26 11:38] LABS: BASOPHILS % (AUTO) 0 % (0-10); EOSINOPHILS % (AUTO) 1 % (0-10); HEMATOCRIT 29 % (35-52); HEMOGLOBIN 9.3 G/DL (11.5-16.0); LYMPHOCYTES # (AUTO) 0.5 X 10^3 (1.0-4.0); LYMPHOCYTES % (AUTO) 8 % (12-44); MEAN CORPUSCULAR HEMOGLOBIN 32 PG (25-34); MEAN CORPUSCULAR HGB CONC 32 G/DL (32-36); MEAN CORPUSCULAR VOLUME 101 FL (80-99); MEAN PLATELET VOLUME 9.6 FL (7.4-10.4); MONOCYTES # (AUTO) 0.7 X 10^3 (0.0-1.0); MONOCYTES % (AUTO) 12 % (0-12); NEUTROPHILS # (AUTO) 4.6 X 10^3 (1.8-7.8); NEUTROPHILS % (AUTO) 79 % (42-75); PLATELET COUNT 221 10^3/uL (130-400); RED BLOOD COUNT 2.88 10^6/uL (4.35-5.85); RED CELL DISTRIBUTION WIDTH 18.6 % (10.0-14.5); WHITE BLOOD COUNT 5.8 10^3/uL (4.3-11.0)
[2017-01-26 11:55] LABS: CALCIUM 8.9 MG/DL (8.5-10.1); CREATININE SERUM 0.92 MG/DL (0.60-1.30); POTASSIUM 3.6 MMOL/L (3.6-5.0)
--- NOTE | 2017-01-26 11:58 | Diagnostic Imaging Report ---
EXAMINATION: Two views of the chest. INDICATION: Fever. COMPARISON: 10/09/2016. FINDINGS: There is multilevel kyphoplasty seen in the upper thoracic, lower thoracic and in the lumbar spine with bone cement seen anterior to two levels in the thoracic spine. The lungs are clear. The heart size is normal. No effusion or pneumothorax. Mediastinum and olaf appear unremarkable. There is a right subclavian infusion port with the tip at the upper SVC level. IMPRESSION: No acute process. Dictated by: Dictated on workstation # [id number]
[2017-02-02 10:09] LABS: BASOPHILS % (AUTO) 0 % (0-10); EOSINOPHILS % (AUTO) 0 % (0-10); HEMATOCRIT 29 % (35-52); HEMOGLOBIN 9.3 G/DL (11.5-16.0); LYMPHOCYTES # (AUTO) 0.2 X 10^3 (1.0-4.0); LYMPHOCYTES % (AUTO) 4 % (12-44); MEAN CORPUSCULAR HEMOGLOBIN 32 PG (25-34); MEAN CORPUSCULAR HGB CONC 33 G/DL (32-36); MEAN CORPUSCULAR VOLUME 99 FL (80-99); MEAN PLATELET VOLUME 10.1 FL (7.4-10.4); MONOCYTES # (AUTO) 0.4 X 10^3 (0.0-1.0); MONOCYTES % (AUTO) 7 % (0-12); NEUTROPHILS # (AUTO) 4.7 X 10^3 (1.8-7.8); NEUTROPHILS % (AUTO) 88 % (42-75); PLATELET COUNT 228 10^3/uL (130-400); RED CELL DISTRIBUTION WIDTH 17.3 % (10.0-14.5); WHITE BLOOD COUNT 5.4 10^3/uL (4.3-11.0)
[2017-02-02 10:29] LABS: ALBUMIN 3.1 GM/DL (3.2-4.5); BILIRUBIN,TOTAL 0.3 MG/DL (0.1-1.0); CALCIUM 8.8 MG/DL (8.5-10.1); CREATININE SERUM 0.94 MG/DL (0.60-1.30); POTASSIUM 2.9 MMOL/L (3.6-5.0); TOTAL PROTEIN 6.6 GM/DL (6.4-8.2)
[2017-02-12 10:42] LABS: BASOPHILS % (AUTO) 0 % (0-10); EOSINOPHILS % (AUTO) 1 % (0-10); HEMATOCRIT 30 % (35-52); HEMOGLOBIN 9.4 G/DL (11.5-16.0); LYMPHOCYTES # (AUTO) 0.4 X 10^3 (1.0-4.0); LYMPHOCYTES % (AUTO) 7 % (12-44); MEAN CORPUSCULAR HEMOGLOBIN 32 PG (25-34); MEAN CORPUSCULAR HGB CONC 31 G/DL (32-36); MEAN CORPUSCULAR VOLUME 102 FL (80-99); MEAN PLATELET VOLUME 11.3 FL (7.4-10.4); MONOCYTES # (AUTO) 0.5 X 10^3 (0.0-1.0); MONOCYTES % (AUTO) 9 % (0-12); NEUTROPHILS # (AUTO) 4.3 X 10^3 (1.8-7.8); NEUTROPHILS % (AUTO) 83 % (42-75); PLATELET COUNT 123 10^3/uL (130-400); RED BLOOD COUNT 2.95 10^6/uL (4.35-5.85); WHITE BLOOD COUNT 5.1 10^3/uL (4.3-11.0)
[2017-02-12 11:01] LABS: ALANINE AMINOTRANSFERASE 14 U/L (0-55); ALBUMIN 2.8 GM/DL (3.2-4.5); ALKALINE PHOSPHATASE 69 U/L (40-136); BILIRUBIN,TOTAL 0.3 MG/DL (0.1-1.0); BUN/CREATININE RATIO 12; CALCIUM 8.2 MG/DL (8.5-10.1); CARBON DIOXIDE 28 MMOL/L (21-32); CHLORIDE 102 MMOL/L (98-107); CREATININE SERUM 0.83 MG/DL (0.60-1.30); GFR ESTIMATED > 60; GLUCOSE 129 MG/DL (70-105); SODIUM 141 MMOL/L (135-145); TOTAL PROTEIN 5.4 GM/DL (6.4-8.2)
[~2017-02-17] VITALS: Ht 157.5 cm; Wt 64.9 kg
[~2017-02-17 13:05] MED LIST changes: +ACETAMINOPHEN 500 MG TAB (TYLENOL) CANCER CTR PO PRN; +BENDAMUSTINE HCL 140 MG in NS (IVPB) CANCER CENTER 50 ML IV SCH; +BORTEZOMIB 3.5 MG VELCADE SC SCH; +DARATUMUMAB IV SCH; +DIPH1TAB25 PO; +ELOTUZUMAB IV SCH; -HYDR-3812 PO; +HYOS0.1296 PO; +MENT71OI TOP; +METHYLPREDNISOLONE 40 MG/ML IV SCH; +MORP-34 PO; +NF-COLE1GM PO; +NS IV 1000 ML (CANCER CTR) IV SCH; +NS IV 500 ML (CANCER CENTER) 500 ML IV ONE; +NS IV 500 ML (CANCER CENTER) 500 ML ONE; +NS IV 500 ML (CANCER CENTER) IV SCH; +NS IV SCH; +ONDANSETRON 8 MG, DEXAMETHASONE 4 MG/NS 50 ML IVPB (Cancer Ctr) IV SCH; +SCOP1PAT TOP; +THAL50CA PO; +[UNRECOGNIZED DRUG - CODE] PO; +diphenhydrAMINE 25 MG TAB (BENADRYL) CANCER CENTER PO SCH; +morphine INJ 4 MG/ML 1 ML (CANCER CTR) IV PRN
[2017-02-17 13:36] LABS: BASOPHILS % (AUTO) 0 % (0-10); EOSINOPHILS % (AUTO) 0 % (0-10); HEMATOCRIT 30 % (35-52); HEMOGLOBIN 9.4 G/DL (11.5-16.0); LYMPHOCYTES # (AUTO) 0.6 X 10^3 (1.0-4.0); LYMPHOCYTES % (AUTO) 11 % (12-44); MEAN CORPUSCULAR HEMOGLOBIN 33 PG (25-34); MEAN CORPUSCULAR HGB CONC 32 G/DL (32-36); MEAN CORPUSCULAR VOLUME 102 FL (80-99); MEAN PLATELET VOLUME 11.7 FL (7.4-10.4); MONOCYTES # (AUTO) 0.6 X 10^3 (0.0-1.0); MONOCYTES % (AUTO) 9 % (0-12); NEUTROPHILS # (AUTO) 4.6 X 10^3 (1.8-7.8); NEUTROPHILS % (AUTO) 79 % (42-75); PLATELET COUNT 105 10^3/uL (130-400); RED BLOOD COUNT 2.89 10^6/uL (4.35-5.85); RED CELL DISTRIBUTION WIDTH 19.7 % (10.0-14.5); WHITE BLOOD COUNT 5.8 10^3/uL (4.3-11.0)
[2017-02-17 13:54] LABS: ALBUMIN 2.5 GM/DL (3.2-4.5); BILIRUBIN,TOTAL 0.3 MG/DL (0.1-1.0); CALCIUM 8.1 MG/DL (8.5-10.1); CREATININE SERUM 1.07 MG/DL (0.60-1.30); POTASSIUM 4.7 MMOL/L (3.6-5.0); TOTAL PROTEIN 5.2 GM/DL (6.4-8.2)
[2017-02-17] MEDS ORDERED: NS IV 1000 ML (CANCER CTR) 1,000 ML ONE (14:24)
[2017-02-17] MEDS ORDERED: NS IV ONE (14:45)
[2017-02-17] MEDS ORDERED: ONDANSETRON IV ONE (14:45)
[2017-02-17] MEDS ORDERED: MAGNESIUM SULFATE INJ ONE (14:45)
[2017-02-17] MEDS ORDERED: NS INJ ONE (14:45)
== END 2017-02-24 15:21 | disposition home or self-care (01) ==
LOC: ONC 13:05
PROVIDERS: ATTEND Internal Medicine Hematology & Oncology
DX: Z51.11 Encounter for antineoplastic chemotherapy (principal); C90.00 Multiple myeloma not having achieved remission; Z85.3 Personal history of malignant neoplasm of breast; Z90.12 Acquired absence of left breast and nipple; Z94.84 Stem cells transplant status; Z79.899 Other long term (current) drug therapy; Z76.89 Persons encountering health services in other specified circumstances
CPT/HCPCS: 36415; 36591; 71020; 80048; 80053; 82232; 82784; 83735; 83883; 84155; 84165; 85025; 86300; 96360; 96361; 96365; 96366; 96374; 96375; 96401; 96409; 96413; 96415; 99213

== ENCOUNTER → 2017-02-24 | Outpatient (CLI) | payer MEDICARE, OTHER ==
[~2017-02-24] MED LIST changes: -ACETAMINOPHEN 500 MG TAB (TYLENOL) CANCER CTR PO PRN; -BENDAMUSTINE HCL 140 MG in NS (IVPB) CANCER CENTER 50 ML IV SCH; -BORTEZOMIB 3.5 MG VELCADE SC SCH; -DARATUMUMAB IV SCH; -ELOTUZUMAB IV SCH; -METHYLPREDNISOLONE 40 MG/ML IV SCH; -NS IV 1000 ML (CANCER CTR) IV SCH; -NS IV 500 ML (CANCER CENTER) 500 ML IV ONE; -NS IV 500 ML (CANCER CENTER) 500 ML ONE; -NS IV 500 ML (CANCER CENTER) IV SCH; -NS IV SCH; -ONDANSETRON 8 MG, DEXAMETHASONE 4 MG/NS 50 ML IVPB (Cancer Ctr) IV SCH; -diphenhydrAMINE 25 MG TAB (BENADRYL) CANCER CENTER PO SCH; -morphine INJ 4 MG/ML 1 ML (CANCER CTR) IV PRN
== END ==
LOC: EDSTATUS 15:23 → ONC 15:25
PROVIDERS: ATTEND Internal Medicine Hematology & Oncology
DX: C90.00 Multiple myeloma not having achieved remission (principal); Z85.3 Personal history of malignant neoplasm of breast; Z90.12 Acquired absence of left breast and nipple; Z94.84 Stem cells transplant status; Z76.89 Persons encountering health services in other specified circumstances; Z79.899 Other long term (current) drug therapy
CPT/HCPCS: 99213